=== PATIENT | female | born 1935 | race Caucasian/White ===

== ENCOUNTER 2017-08-21 08:09 | Inpatient (IN) ==
[2017-08-21] MEDS ORDERED: SODIUM CHLORIDE 1,000 ML IV STA (08:29)
--- NOTE | 2017-08-21 08:41 | ED.PDOC ---
General ED Provider: Dr. HANNAH GOLDSTEIN JR Chief Complaint: Weakness Stated Complaint: mental changes at [facility] son states slurring speech weak this morning yesterday moved from rehab side , informed low bp and fever thismorning . Patient alert and oriented x2 good short term memory agrees to CT scan. skf- 74/30 52 18 99.8 Time Seen by Physician: 08:42 Mode of Arrival: Ambulance Information Source: Patient, Family, Care Home Exam Limitations: Clinical condition, Dementia, Altered mental status Referred to ED by: PCP Nursing and Triage Documentation Reviewed and Agree: No Review of Systems - Review Of Systems Constitutional: Reports: Malaise, Weakness Eyes: Reports: No symptoms Ears, Nose, Mouth, Throat: Reports: No symptoms Respiratory: Reports: No symptoms Cardiac: Reports: No symptoms GI: Reports: No symptoms : Reports: No symptoms Musculoskeletal: Reports: Other Skin: Reports: No symptoms Neurological: Reports: Weakness, Other (slurred speech) Endocrine: Reports: No symptoms Hematologic/Lymphatic: Reports: No symptoms All Other Systems: Other Past Medical History - Past Medical History Previously Healthy: No Endocrine: Reports: Unknown Cardiovascular: Reports: Unknown Respiratory: Reports: Unknown Hematological: Reports: Unknown Gastrointestinal: Reports: Unknown Genitourinary: Reports: Unknown Neuro/Psych: Reports: Unknown Musculoskeletal: Reports: Unknown Cancer: Reports: Unknown - Surgical History General Surgical History: Reports: Unknown - Family History Family History: Reports: Unknown - Social History Smoking Status: Unknown if ever smoked Lives: In Care Home Physical Exam - Physical Exam Appearance: Ill-appearing, Obese Ill-appearing: Mild Pain Distress: Mild Eyes: [place], EOMI, Conjunctiva clear (right lid lag) ENT: Ears normal (erythema eacs c/o cerumen(not present)), Nose normal, Oropharynx normal Neck: Supple Respiratory: Airway patent, Breath sounds clear, Breath sounds equal, Respirations nonlabored Cardiovascular: RRR, Pulses normal, No rub, No murmur GI/: Soft Musculoskeletal: No edema, No calf tenderness, Limited ROM (but symmetric weakness good effort, no localization), Limited strength Neurological: Sensation intact, Motor intact, Reflexes intact, Focal Deficit ( slight slurring of speech decreased tone right face rachelle lid lag and grimace) Psychiatric: Affect appropriate, Mood appropriate Interpretation - Radiology Interpretation Radiology Interpretation By: Radiologist Radiology Results: No acute changes Exam Interpreted: CXR Re-Evaluation - Re-Evaluation Time of Re-Evaluation: 10:15 (no urine bolus recommended 300cc) Status: Unchanged Critical Care Note - Critical Care Note Total Time (mins): 15 Course - Course Hematology/Chemistry: 08/21/17 08:29 08/21/17 09:00 Orders, Labs, Meds: Lab Review 08/21/17 08/21/17 08/21/17 08:29 09:00 09:00 WBC 14.00 H RBC 3.38 L Hgb 10.9 L Hct 33.1 L MCV 97.9 MCH 32.2 H MCHC 32.9 RDW Coeff of [place] 14.9 H Plt Count 186 Immature Gran % (Auto) 0.5 Neut % (Auto) 82.2 Lymph % (Auto) 9.8 L [place] % (Auto) 6.3 Eos % (Auto) 0.9 Baso % (Auto) 0.3 Immature Gran # (Auto) 0.1 Neut # 11.5 H Lymph # 1.4 [place] # 0.9 Eos # 0.1 Baso # 0.0 Sodium 131 L Potassium 4.9 Chloride 102 Carbon Dioxide 17 L Anion Gap 16.9 BUN 59 H Creatinine 2.30 H Estimated GFR (MDRD) 20.00 BUN/Creatinine Ratio 25.65 Glucose 197 H Lactic Acid Calcium 10.6 H Total Bilirubin 0.61 AST 9 L ALT < 6 L Alkaline Phosphatase 72 Total Creatine Kinase 26 Troponin I < 0.0100 B-Natriuretic Peptide 31 Total Protein 6.9 Albumin 3.7 Globulin 3.2 Albumin/Globulin Ratio 1.16 Procalcitonin 08/21/17 08/21/17 09:00 09:00 WBC RBC Hgb Hct MCV MCH MCHC RDW Coeff of Alexia Plt Count Immature Gran % (Auto) Neut % (Auto) Lymph % (Auto) [place] % (Auto) Eos % (Auto) Baso % (Auto) Immature Gran # (Auto) Neut # Lymph # [place] # Eos # Baso # Sodium Potassium Chloride Carbon Dioxide Anion Gap BUN Creatinine Estimated GFR (MDRD) BUN/Creatinine Ratio Glucose Lactic Acid 23.7 H Calcium Total Bilirubin AST ALT Alkaline Phosphatase Total Creatine Kinase Troponin I B-Natriuretic Peptide Total Protein Albumin Globulin Albumin/Globulin Ratio Procalcitonin 0.09 Orders Category Date Time Status ADMIT PATIENT INPATIENT .TO [facility] (MONITORED BED) ADMISSION 08/21/17 10: 25 Active EKG-(ED ONLY) Stat CARDIO 08/21/17 08:29 Completed EKG-(IP & OP ONLY) DAILY CARDIO 08/22/17 06:00 Ordered EKG-(IP & OP ONLY) DAILY CARDIO 08/23/17 06:00 Ordered ACTIVITY .Early Mobilization for VTE Prevention CARE 08/21/17 10:25 Active BLOOD GLUCOSE MONITORING 0630,1100,1700,2100 CARE 08/21/17 10:28 Active GIVE HS SNACK 2100 CARE 08/21/17 10:29 Active INTAKE & OUTPUT Q8HR CARE 08/21/17 10:25 Active Neuro Checks [NEUROLOGICAL CHECKS] Q2HR CARE 08/21/17 10:30 Active TELEMETRY MONITORING TELE CARE 08/21/17 10:25 Active VITAL SIGNS Q4HR CARE 08/21/17 10:25 Active CLEAR LIQUID DIET DIETARY 08/21/17 Lunch Ordered HS SNACK DIETARY 08/21/17 Dinner Ordered ED TILE GRADER APPLIED .ONCE EMERGENCY 08/21/17 08:29 Active ED IV/MEDIPORT/POWERPORT .ONCE EMERGENCY 08/21/17 08:29 Active B-TYPE NATRIURETIC PEPTIDE Stat LAB 08/21/17 09:00 Completed BLOOD CULTURE Stat LAB 08/21/17 09:45 Received CBC W/ AUTO DIFF DAILY@0600 LAB 08/22/17 06:00 Ordered CBC W/ AUTO DIFF DAILY@0600 LAB 08/23/17 06:00 Ordered CBC W/ AUTO DIFF Stat LAB 08/21/17 08:29 Completed COMPREHENSIVE METABOLIC PANEL DAILY@0600 LAB 08/22/17 06:00 Ordered COMPREHENSIVE METABOLIC PANEL DAILY@0600 LAB 08/23/17 06:00 Ordered COMPREHENSIVE METABOLIC PANEL Stat LAB 08/21/17 09:00 Completed CREATINE KINASE Stat LAB 08/21/17 09:00 Completed LACTIC ACID Stat LAB 08/21/17 09:00 Completed LITHIUM Stat LAB 08/21/17 09:45 Received PROCALCITONIN Stat LAB 08/21/17 09:00 Completed PT WITH INR DAILY@0600 LAB 08/22/17 06:00 Ordered PT WITH INR DAILY@0600 LAB 08/23/17 06:00 Ordered TROPONIN I Stat LAB 08/21/17 09:00 Completed UA [URINALYSIS C & S IF INDICATED] Stat LAB 08/21/17 08:30 Uncollected UA [URINALYSIS C & S IF INDICATED] Stat LAB 08/21/17 09:00 Uncollected 0.9 % Sodium Chloride [Saline Flush] MEDS 08/21/17 08:29 Active 1 syr IVF PRN PRN Acetaminophen [Tylenol] MEDS 08/21/17 10:25 Active 650 mg PO Q4H PRN Acetaminophen [Tylenol] MEDS 08/21/17 10:30 Ordered 650 mg PO Q6HR PRN Aspirin [Aspirin EC] MEDS 08/22/17 09:00 Ordered 81 mg PO DAILY Atorvastatin Calcium [Lipitor] MEDS 08/21/17 21:00 Ordered 20 mg PO BEDTIME Cyanocobalamin (Vitamin B-12) [Vitamin B-12] MEDS 08/22/17 09:00 Ordered 100 mcg PO DAILY Furosemide [Lasix Tab] MEDS 08/22/17 09:00 Ordered 20 mg PO DAILY Gabapentin [Neurontin] MEDS 08/21/17 21:00 Ordered 200 mg PO BID Lactobacil 2-S.thermo-Bifido 1 [Vsl#3 Capsule] MEDS 08/21/17 21:00 Ordered 1 each PO BID [place] Carbonate [Croydon Carbonate] MEDS 08/22/17 09:00 Ordered 300 mg PO DAILY Loperamide HCl [Loperamide] MEDS 08/21/17 10:30 Ordered 2 mg PO Q8HR PRN Risperidone [Risperdal] MEDS 08/21/17 21:00 Ordered 0.25 mg PO BEDTIME Sodium Chloride 0.9% [Sodium Chloride] 1,000 ml MEDS 08/21/17 10:30 Active IV 75 mls/hr Sodium Chloride 0.9% [Sodium Chloride] 1,000 ml MEDS 08/21/17 08:29 Active IV BOLUS RESUSCITATION STATUS Routine OTHERS 08/21/17 10:25 Ordered CHEST, 1V AP ONLY Stat RADS 08/21/17 08:[address] HEAD W/O CONTRAST Stat RADS 08/21/17 08:31 Completed Medications Generic Name Dose Route Start Last Admin Trade Name Freq PRN Reason Stop Dose Admin Acetaminophen 650 mg 08/21/17 10:25 Tylenol PO Q4H PRN Mild Pain Acetaminophen 650 mg 08/21/17 10:30 Tylenol PO Q6HR PRN Fever >101 Aspirin 81 mg 08/22/17 09:00 Aspirin Ec PO DAILY BOOGIE Atorvastatin Calcium 20 mg 12/07/17 21:00 Lipitor PO BEDTIME BOOGIE Furosemide 20 mg 08/22/17 09:00 Lasix Tab PO DAILY BOOGIE Gabapentin 200 mg 08/21/17 21:00 Neurontin PO BID BOOGIE Sodium Chloride 1,000 mls @ 85 mls/hr 08/21/17 08:29 12 08:34 Sodium Chloride IV 08/21/17 20:14 85 mls/hr BOLUS STA Administration Sodium Chloride 1,000 mls @ 75 mls/hr 08/21/17 10:30 Sodium Chloride IV .[id number] BOOGIE Non-Formulary Medication 1 each 08/21/17 21:00 Lactobacil 2-S.Thermo-Bifido 1 [Vsl#3 Capsule] PO BID BOOGIE Non-Formulary Medication 300 mg 08/22/17 09:00 [place] Carbonate [[place] Carbonate] PO DAILY BOOGIE Non-Formulary Medication 2 mg 08/21/17 10:30 Loperamide Hcl [Loperamide] PO Q8HR PRN Diarrhea Non-Formulary Medication 100 mcg 08/22/17 09:00 Cyanocobalamin (Vitamin B-12) [Vitamin B-12] PO DAILY [facility] Risperidone 0.25 mg 08/21/17 21:00 Risperdal PO BEDTIME [facility] Sodium Chloride 1 syr 08/21/17 08:29 Saline Flush IVF PRN PRN To flush IV Vital Signs: Temp Pulse Resp BP Pulse Ox 08/21/17 08:25 97.4 F L 70 20 119/88 98 Departure - Departure Time of Disposition: 10:37 Disposition: ADMITTED INPATIENT Discharge Problem: TIA (transient ischemic attack) Condition: Fair Pt referred to PMD for follow-up: Yes (bejgum) Allergies/Adverse Reactions: Allergies codeine Adverse Reaction (Verified 08/21/17 08:59) iodine Adverse Reaction (Verified 08/21/17 08:59) metoclopramide Adverse Reaction (Verified 08/21/17 08:59) Home Medications: Ambulatory Orders Acetaminophen [Pain & Fever] 650 mg PO Q6HR PRN 08/21/17 Aspirin [Aspirin EC] 81 mg PO DAILY 08/21/17 Atorvastatin Calcium [Lipitor] 20 mg PO BEDTIME 08/21/17 Cyanocobalamin (Vitamin B-12) [Vitamin B-12] 100 mcg PO DAILY 08/21/17 Furosemide [Lasix] 20 mg PO DAILY 08/21/17 Gabapentin [Neurontin] 200 mg PO BID 08/21/17 Lactobacil 2-S.thermo-Bifido 1 [Vsl#3 Capsule] 1 each PO BID 08/21/17 [place] Carbonate 300 mg PO DAILY 08/21/17 Loperamide HCl [Loperamide] 2 mg PO Q8HR PRN 08/21/17 Risperidone [Risperdal] 0.25 mg PO BEDTIME 08/21/17 - Neurological Deficit Complaint/Exam Patient Complains of: Reports: Muscle weakness Symptom Onset Unknown: Yes Symptom Onset Date: 08/21/17 (unknown timw) Symptom Onset Time: 00:00 Symptoms Are: Still present Worse Since: 08/20 Timing: Intermittent Initial Severity: Mild Current Severity: Mild Location: Reports: Generalized, Facial Character: Reports: Motor weakness, Impaired speech Aggravating: Reports: None Alleviating: Reports: None Associated Signs and Symptoms: Reports: Fever. Denies: Confusion, Agitation, Responsiveness, LOC, Headache, Nuchal rigidity, Recent trauma, Remote trauma, Recent illness CVA Risk Factors: Reports: Diabetes, Hypertension, Smoking SDH Risk Factors: Reports: Elderly Related Surgical History: Reports: None Carotid Bruit Present: No Meningeal Signs Positive: No Focal Weakness: Present: Right facial Focal Sensory Loss: Present: None Gait: Unsteady, Unable Nystagmus Present: No Gag Reflex Present: Yes [id number]: Abnormal right, Abnormal left Heel to Toe Normal: No Signs of Trauma: No NIH Scale Score (see protocol): 8 IV t-PA Prescribed: No Reasons for not prescribing IV t-PA: Medical contraindication Differential Diagnoses: CVA, TIA, Drug Ingestion, Metabolic Imbalance Quality Indicator For Non-Traumatic Chest Pain/Syncope: EKG Performed - NIH Stroke Scale 1a. Level of Consciousness: 0=Alert and keenly responsive 1b. Level of Consciousness Questions: 0=Answers correctly to two questions 1c. Level of Consciousness Commands: 0=Performs two tasks correctly 2. Best Gaze: 0=Normal 3. Visual: 0=No visual loss 4. Facial Palsy: 1=Minor paresis (flattened nasolabila fold) 5a. Motor Left Arm: 2=Some effort against gravity, drifts to bed 5b. Motor Right Arm: 2=Some effort against gravity, drifts to bed 6b. Motor Right Le=Some effort against gravity, drifts to bed 7. Limb Ataxia: 0=Absent 8. Sensory: 0=Normal 9. Best Language: 0=No aphasia 10. Dysarthria: 1=Mild to moderate, but can be understood 11. Extincion and Inattention: 0=Normal Stroke Scale Total: 8
--- NOTE | 2017-08-21 09:20 | DI ---
EXAM: Single view of the chest. History: Chest pain. Comparison: Chest radiograph 07/03/2017 Findings: Heart size is upper limits of normal. Atherosclerotic vascular calcifications. No focal consolidation. No appreciable pleural fluid and no pneumothorax. No acute osseous abnormalities. Impression: No acute cardiopulmonary process
--- NOTE | 2017-08-21 10:19 | CT ---
EXAM: CT of the head without contrast History: Altered mental status and weakness. Comparison: Head CT 07/03/2017 Technique: Multiplanar CT images through the head were obtained without the administration of IV con trast Findings: Stable chronic left maxillary sinusitis. There is new air fluid level and opacification o f the left sphenoid sinus. Mastoid air cells are generally clear. No acute calvarial abnormalities. Intracranially the ventricular and cisternal spaces are normal in size, shape and configuration for a patient of this age. No dominant mass or midline shift. No hydrocephalous. No acute intracranial hemorrhage or abnormal extraaxial fluid collections. No change in the periventricular and subcortica l white matter hypodensities. Impression: 1. No acute intracranial process. 2. Chronic small vessel ischemic disease. 3. Acute left sphenoid sinusitis. 4. Stable chronic left maxillary sinusitis
[2017-08-21] MEDS ORDERED: TYLENOL PO PRN ×2 (10:25→10:30)
[2017-08-21] MEDS ORDERED: NON-FORMULARY MEDICATION (Loperamide Hcl [Loperamide] 2 MG) PO PRN (10:30)
[2017-08-21] MEDS ORDERED: IMODIUM PO PRN (10:41)
[2017-08-21 11:52] VITALS: BMI 35.5
[2017-08-21] MEDS: SODIUM CHLORIDE 1,000 ML IV SCH (15:55)
[2017-08-21] MEDS: NEURONTIN PO SCH (20:46)
[2017-08-21] MEDS: RISPERDAL PO SCH (20:46)
[2017-08-21] MEDS: LIPITOR PO SCH (20:46)
[2017-08-21] MEDS: FLORASTOR PO SCH (20:46)
[2017-08-21] MEDS ORDERED: [UNRECOGNIZED DRUG - OTHER] PO SCH (21:00)
[2017-08-21] MEDS ORDERED: LACTOBACIL PO SCH (21:00)
[2017-08-22] MEDS: SODIUM CHLORIDE 1,000 ML IV SCH (06:04)
[2017-08-22] MEDS ORDERED: LASIX TAB PO SCH (06:30)
--- NOTE | 2017-08-22 08:28 | CT ---
EXAM: CT abdomen pelvis without contrast TECHNIQUE: Helical axial CT of the abdomen and pelvis was performed without contrast with coronal an d sagittal reconstructions. COMPARISON: CT abdomen pelvis from 10/07/2013 HISTORY: Diarrhea FINDINGS: There is some mild mesenteric inflammation seen associated with the sigmoid colon along with multiple colonic diverticuli. There is no free air or abscess formation. There is no focal fluid collection . There is no bowel obstruction or ileus. There are no pathologic lymph nodes. The liver, spleen, pancreas,and adrenal glands show no acute abnormality. Lung bases are well-aerate d. There is a large hiatal hernia. There has been prior cholecystectomy. There is no biliary or panc reatic ductal dilatation. There are no suspicious renal masses or large cysts and no hydronephrosis. There are no kidney stones . Both ureters demonstrate normal course and caliber. There is no filling defect in the urinary blad link. There has been prior hysterectomy. The appendix is not definitely seen. There are no abdominal wall hernias. There is calcific atherosc lerosis of the aorta with no aneurysm. There are no acute osseous abnormalities. IMPRESSION: 1. Uncomplicated sigmoid diverticulitis. 2. Large hiatal hernia. 3. Prior hysterectomy and prior cholecystectomy.
[2017-08-22] MEDS: NEURONTIN PO SCH ×2 (08:30→21:29)
[2017-08-22] MEDS: NON-FORMULARY MEDICATION (Cyanocobalamin (Vitamin B-12) [Vitamin B-12] 100 MCG) PO SCH (08:30)
[2017-08-22] MEDS: FLORASTOR PO SCH ×2 (08:30→21:29)
[2017-08-22] MEDS: ASPIRIN EC PO SCH (08:30)
[2017-08-22] MEDS ORDERED: LITHIUM CARBONATE 300 MG PO SCH (09:00)
--- NOTE | 2017-08-22 10:34 | RS.PTINEVL ---
Subjective - Patient information Date of Evaluation: 08/22/17 Date of Arrival on Unit: 08/21/17 Admitted From:: Retirement Diagnosis: TIA/CVA, diarrhea, kidney dz Usual Living Arrangement: Retirement Home Environment: Level/No stairs Medical History: Hypertension, COPD, Diabetes Medical History Comments:: heart murmur, bipolar disorder LATEX ALLERGY?: No Surgical History: Knee Replacement Subjective Information/ Patient Comments:: pt states if they bring me any more of this food I am going to throw it in the floor. (pt talking about liquid diet) . Granddtr states that pt was being dc from PT at the intermediate, but was able to transfer and amb short distances. - Level of function Prior to this admission, the patient could do the following:: Partially Dependent Ambulation Current Level of Function: Dependent Current Equipment Used at Home: wheelchair, glucometer, bedside commode. Lives at [facility]. Pain Assessement - Location Left Leg Description: Burning, Sharp Pain Behavior: Facial Grimacing, Screaming Pain Aggravating Factors: Changing Position, Exercise/Activity, Standing, Walking Effects of Pain: pt unable to rate pain due to mental status changes, states her heel hurts. Interventions - Objective Patient Orientation: Person, Place Current Interventions: IV's, Telemetry Range of Motion - ROM Right Upper Extremity AROM: WFL's Left Upper Extremity AROM: WFL's Right Lower Extremity AROM: Slight limitation Left Lower Extremity AROM: Slight limitation Muscle Strength - Muscle Strength Right Upper Extremity Strength: Mild Weakness (shld flex 3+/5, elbow flex/ext 4- /5,) Left Upper Extremity Strength: Mild Weakness (shld flex 3+/5, elbow flex/ext 4-/ 5,) Right Lower Extremity Strength: Mild Weakness (hip flex 3/5, knee flex/ext 3/4, ankle DF/PF 4-/5) Left Lower Extremity Strength: Mild Weakness (hip flex 3/5, knee flex/ext 3/4, ankle DF/PF 4-/5) Sensation - Sensation Right Upper Extremity Sensation: Intact/Normal Left Upper Extremity Sensation: Intact/Normal Right Lower Extremity Sensation: Impaired (c/o pins/needles sensation BLE due to neuropathy (per pt)) Left Lower Extremity Sensation: Impaired (c/o pins/needles sensation BLE due to neuropathy (per pt)) Balance - Sitting Balance and Reactions Static Sitting Balance: Fair Dynamic Sitting Balance: Poor Sitting Equilibrium Reactions: Delayed Left, Delayed Right Sitting Protective Reactions: Delayed Left, Delayed Right - Standing Balance and Reactions Static Standing Balance: Poor Dynamic Standing Balance: Poor Standing Equilibrium Reactions: Delayed Left, Delayed Right Standing Protective Reactions: Delayed Left, Delayed Right - Comments Balance Assessment Comments: pt does not follow commands with standing as well as transfers with significantly flexed posture Functional Mobility - Bed Mobility Rolling R/L: Mod Assist, 2 person assist Scooting: Mod Assist, Max Assist, 2 person assist Supine to Sit: Max Assist, 2 person assist - Transfers Sit to Stand: Max Assist, 2 person assist - Safety Awareness Safety Awareness: Poor Ambulation - Ambulation Assistive Device Used: Rolling Walker Orthotic/Prosthetic Device: No Distance: 2 steps Assistance needed with Ambulation: Max Assist, 2 person assist Quality of Ambulation: pt does not follow commands regarding safety. pt pushes wx out in front with significantly flexed posture. Gait Deviations: Forward posture, Short stride Factors Affecting Ambulation: Decreased Balance (pt very afraid of falling), Weakness, Cognitive Status Treatment time - Time with patient Total treatment time: 32 Patient Education - Education Patient Education: Activity Modification, Education of Plan of Care Teaching Recipient: Patient, Family Teaching Methods: Discussion (Discussed POC with pt and ella(who is a nurse at [employer] [facility])) Assessment - Assessment Problem List:: Decreased level of function, Requires training/education, Decreased safety/Risk of falls, Weakness, Pain limits previous level of function , Cognitive status limits abilities Rehab Potential: Fair Further Therapy Indicated?: Yes Short Term Goals GOAL #1: pt demonstrate rolling in bed with bed rails with min x 2 Goal to be met by: 08/25/17 GOAL #2: pt transfer sup to/from sit to stand with mod x 2 Goal to be met by: 08/25/17 GOAL #3: pt perform stand pivot bed to/from chair with mod x 2 Goal to be met by: 08/25/17 Snf Goals GOAL #1: pt transfer sup to/from sit to/from stand min to mod x 2 Goal to be met by: 08/27/17 GOAL #2: pt amb with rwx 25ft with min to mod x 2 Goal to be met by: 08/27/17 GOAL #3: pt able to maintain sitting balance with supervision Goal to be met by: 08/27/17 Plan Plan of Care: Therapeutic EX, Therapeutic Activity, Self-Care/Home Management Other:: gait training Frequency of Treatment: 1-2 X day, as tolerated Duration of Treatment: 5 days Anticipated Discharge Destination: [facility] Has the Physician been added for Co-signature?: Yes
--- NOTE | 2017-08-22 12:01 | RS.OTINEVL ---
Subjective - Patient information Date of Evaluation: 08/22/17 Date of Arrival on Unit: 08/21/17 Admitted From:: Long-Term Diagnosis: Muscle WEakness, pain, Mental status change, TIA vs. CVA, renal failure Usual Living Arrangement: Long-Term Living Arrangement Comments: Pt living at [facility]. 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 I have neuropathy." - Level of function Prior to this admission, the patient could do the following:: Partially Dependent Ambulation Abilities prior to this admission: Pt was transferring with a rolling walker to a chair. Pt was having difficulty with transfers and has had many falls so they told her to not walk but to stay in a Wheelchair. Current Level of Function: Partially Dependent Current Equipment Used at Home: wheelchair, glucometer, bedside commode. Lives at [facility]. Pain Assessment - Pain Pain Score: 6 Side: bilateral Pain Location Body Site: Foot Pain Aggravating Factors: Changing Position, Standing, Walking Pain Alleviating Factors: Medication, Sitting Interventions - Objective Patient Orientation: Person, Place Current Interventions: IV's, Oxygen, Telemetry Observation: Pt is lethargic intermittently. Pt is weak and is maximum assistance x 2 to stand from chair. Interventions - ROM Right Upper Extremity AROM: Moderate limitation Left Upper Extremity AROM: Moderate limitation - Strength Right Upper Extremity Strength: Severe Weakness Left Upper Extremity Strength: Mild Weakness - Sensation Right Upper Extremity Sensation: Intact/Normal Left Upper Extremity Sensation: Intact/Normal Balance - Sitting Balance Static Sitting Balance: Poor Dynamic Sitting Balance: Poor - Standing Balance Static Standing Balance: Poor Dynamic Standing Balance: Poor - Comments Balance Assessment Comments: Pt requires a RW and 2 people to stand. ADL Skills - Self Feeding Self Feeding: Independent - Grooming Grooming: Min Assist - Bathing Bathing UE: Mod Assist, 2 person assist Bathing LE: Max Assist, 2 person assist - Dressing Dressing UE: Mod Assist, 1 person assist Dressing LE: Max Assist, 1 person assist - Toilet Management Toileting Management: Max Assist, 2 person assist Functional Mobility - Bed Mobility Rolling R/L: Max Assist, 2 person assist Scooting: Max Assist, 2 person assist Supine to Sit: Max Assist, 2 person assist Sit to Supine: Max Assist, 2 person assist - Transfers Sit to Stand: Max Assist Stand to Sit: Max Assist, 2 person assist Stand Pivot Transfers: Max Assist, 2 person assist - Ambulation Weight Bearing Status: FWB Assistive Device Used: Rolling Walker Assistance needed with Ambulation: Max Assist, 2 person assist Comments:: When pt is tired, she may need to be put back to bed with a lift. - Safety Awareness Safety Awareness: Poor Additional Treatment Performed - Additional units charged ADL: 15 - Time with patient Total treatment time: 28 Activities Patient Interests:: Watching Television, Visiting/Socializing Patient Education Patient Education: Education of Plan of Care Teaching Recipient: Patient Teaching Methods: Discussion, Demonstration Assessment Problem List:: Decreased level of function, Requires training/education, Decreased safety/Risk of falls, Weakness, Pain limits previous level of function Rehab Potential: Good Further Therapy Indicated?: Yes Short Term Goals - Goals GOAL 1: Pt to increase sit to stand to CGA from Chair. Goal to be met by: 08/29/17 GOAL 2: To increase BUE shoulder AROM of flexion to 110 degrees. Goal to be met by: 08/29/17 GOAL 3: Pt to increase toilet transfers to CGA. Goal to be met by: 08/29/17 [facility] Goals GOAL 1: Pt to increase sit to stand to Mod-I from Chair. Goal to be met by: 09/05/17 GOAL 2: To increase BUE shoulder AROM of flexion to 120 degrees. Goal to be met by: 09/05/17 GOAL 3: Pt to increase toilet transfers to Mod-I. Goal to be met by: 09/05/17 Plan Plan of Care: Therapeutic EX, Neuromuscular Re-Educ, Therapeutic Activity, Self- Care/Home Management Modalities: Hot Pack, Cold Pack/Cryotherapy, Ultrasound, Electrical Stimulation Frequency of Treatment: 1-2 X day, as tolerated Duration of Treatment: 2 Weeks Anticipated Discharge Destination: [facility] Has the Physician been added for Co-signature?: Yes
[2017-08-22] MEDS: ROCEPHIN 1 GM in SODIUM CHLORIDE 50 ML IV SCH (12:51)
[2017-08-22] MEDS: FLAGYL 500 MG/100 ML 500 MG in PREMIX 100 ML NS 1 BAG IV SCH ×2 (13:35→21:29)
[2017-08-22] MEDS: LITHIUM CARBONATE PO SCH (14:21)
--- NOTE | 2017-08-22 15:28 | HP ---
DATE OF SERVICE: 08/21/17 CHIEF COMPLAINT: Change in mental status. HISTORY OF PRESENT ILLNESS: The patient is an 82-year-old female who is a group home resident at [facility]. She was getting Keflex for UTI, started having diarrhea, watery, nonbloody for 3 to 4 days. Today, when the patient's nurse was making the rounds, the patient was unresponsive and blood pressure was in the 70s. At that time, the patient was sent to the emergency room. En route the patient was awake and alert. By the time the patient came to the emergency room, blood pressure was 74 and in the process [place] [address], BUN 59, creatinine 2.30, lactic acid was 23.7, sodium 131. UA leukocyste esterace positive. CT scan of the head negative. Chest x-ray no acute cardiopulmonary problem. Bolus fluids were given in the emergency room. Blood pressure got better, went up to 119/88. At that time, the patient is admitted to the hospital for acute renal failure, acute gastroenteritis, rule out C. diff, urinary tract infection, change in mental status secondary to renal failure. The patient has bipolar disorder also. PAST MEDICAL HISTORY: Hypertension Dyslipidemia Alzheimer's dementia History of pneumonia Diarrhea (right now) History of kidney failure Osteoarthritis Depression/bipolar Hypothyroidism PAST SURGICAL HISTORY: Hysterectomy Bilateral knee replacement Cataract surgery Tonsillectomy REVIEW OF SYSTEMS: CONSTITUTIONAL: Weakness, tiredness. No night sweats. No fever or chills. HEENT: Eyes: No visual changes. No eye pain. No eye discharge. ENT: No runny nose. No epistaxis. No sinus pain. No sore throat. No odynophagia. No ear pain. No congestion. RESPIRATORY: No cough, no congestion. No hemoptysis. No shortness of breath. CARDIOVASCULAR: No angina symptoms. No CHF symptoms. No atypical chest pain for CAD. No palpitations. No orthopnea. GASTROINTESTINAL: Positive for diarrhea and abdominal cramping. No nausea or vomiting. No hematemesis. No hematochezia. GENITOURINARY: No urgency. No frequency. No dysuria. No hematuria. No obstructive symptoms. No discharge. No pain. No significant abnormal bleeding. MUSCULOSKELETAL: No musculoskeletal pain. No joint swelling. No arthritis. NEUROLOGICAL: No headache. No neck pain. No syncope. No seizures. No dizziness. PSYCHIATRIC: Not anxious. No depression. No suicidal thoughts. No homicidal thoughts. SKIN: No rash. No lesions. No wounds. ENDOCRINE: No unexplained weight loss. No weight gain. HEMATOLOGIC/LYMPHATIC: No anemia. No purpura. No petechiae. No prolonged or excessive bleeding. No palpable lymph nodes. PERSONAL/FAMILY/SOCIAL HISTORY: Lives at the group home partially dependent upon the ADLs. Family history significant for diabetes and cancer. MEDICATIONS: (Care Home) Neurontin Risperdol Hauser Lasix Lipitor Aspirin Loperamide Tylenol Lactobacillus Cyancobalamin Lisinopril ALLERGIES: CODEINE, IODINE, METOCLOPRAMIDE PHYSICAL EXAMINATION: VITAL SIGNS: BP 119/88, respiratory rate 20, heart rate 70, temperature 97.4, saturation 98. HEENT: Head normocephalic, atraumatic. Eyes: Extraocular muscles are intact. Pupils are equal, round and reactive to light and accommodation. Ears: No lesions. Nose appeared normal. Throat: No exudate or erythema. Pallor positive. No icterus. NECK: Supple. No JVD, no carotid bruit. No lymphadenopathy or thyromegaly. LUNGS: Clear to auscultation. Percussion note normal. Chest symmetrical. HEART: S1, S2, no S3. No murmurs. No cyanosis or clubbing. No ascites. Pulses: Dorsalis pedis and posterior tibial pulses +1 to +2 both sides. ABDOMEN: Soft. Discomfort all over. No rigidity, guarding or CVA tenderness. EXTREMITIES: No edema. Full range of motion of all extremities, equal. NEUROLOGIC: Awake and alert, oriented times three. No focal deficit. Cranial nerves II through XII are grossly intact. No headache, no double vision or headache. SKIN: Not dry. Intact. Turgor - normal. LYMPHATIC: No palpable lymph nodes/no lymphedema. MUSCULOSKELETAL: Normal joints with no swelling. Muscle tone is normal. LABS: White count 14.0, hemoglobin 10.9, hematocrit 33.1, platelet count 186. Sodium 131, potassium 4.9, chloride 102, bicarb 17, BUN 59, creatinine 2.30, glucose 97 , lactic acid 23.7. Urine nitrates negative. Leukocyte esterase positive. ASSESSMENT: 1. ACUTE RENAL FAILURE 2. GASTROENTERITIS 3. DIARRHEA, RULE OUT C. DIFF PATIENT WAS RECENTLY ON ANTIBIOTIC 4. UTI 5. ALZHEIMER'S DEMENTIA 6. HYPERTENSION 7. DYSLIPIDEMIA 8. DEPRESSION/BIPOLAR PLAN: 1. Admit the patient to the regular floor. 2. CBC, CMP today and daily. 3. Cardiac enzymes and troponin. 4. IV fluids. 5. Hauser level. 6. CT abdomen and pelvis. 7. IV fluids at 75 mL/hr. 8. Will start the patient on Rocephin 1 gm daily. 9. Stool for C. diff TIME SPENT: More than 75 minutes. MTDD
--- NOTE | 2017-08-22 15:35 | PN ---
DATE OF SERVICE: 08/22/17 SUBJECTIVE: The patient was admitted with change in mental status, acute on chronic renal failure, diarrhea. The patient has been evaluated for C. diff. The patient is confused, doesn't know where she is or what she is doing right now. No fever since admission, still having diarrhea. REVIEW OF SYSTEMS: CONSTITUTIONAL: No fever, no chills. Confused. HEENT: Normal. ENDOCRINE: No weight gain, no weight loss. CVS: No angina symptoms. No CHF symptoms. No palpitations. No atypical chest pain for CAD. No shortness of breath. No PND, no orthopnea. RESPIRATORY: No cough, no hemoptysis. GI: Diarrhea. No nausea, no vomiting. No abdominal pain. : No hematuria. No polyuria. MUSCULOSKELETAL:. No joint swelling. PSYCHIATRIC: Not anxious. No depression. No suicidal thoughts. No homicidal thoughts. SKIN: Intact. No rash. PHYSICAL EXAMINATION: V/S: BP 138/48, respiratory rate 19, heart rate 81, temperature 98.4, saturation 99 on 2L. HEENT: Normocephalic, atraumatic. Mucosa dry, pallor positive. No icterus. NECK: Supple. No JVD, no carotid bruit. No lymphadenopathy. LUNGS: Clear to auscultation. No rales or rhonchi. HEART: S1, S2 normal. No S3. No murmur, gallop or regurgitation. ABDOMEN: Soft. Discomfort is present. Bowel sounds are hyperactive. No rigidity. No rebound or guarding. No CVA tenderness. EXTREMITIES: No clubbing, cyanosis or pedal edema. MUSCULOSKELETAL: No joint swelling. NEUROLOGIC: Awake, alert, oriented times three. No focal deficit. Moving all four extremities. LYMPHATIC: No lymph nodes palpable. SKIN: Intact. LABS: White count 11.26, hemoglobin 10.0, hematocrit 31.4, platelet count 161. Sodium 138, potassium 4.5, chloride 111, bicarb 19, BUN 45, creatinine 1.34. Loco level is 1.4, urine positive for leukocyte esterase. ASSESSMENT: 1. ACUTE RENAL FAILURE 2. GASTROENTERITIS 3. DIARRHEA, RULE OUT C. DIFF PATIENT WAS RECENTLY ON ANTIBIOTIC 4. UTI 5. ALZHEIMER'S DEMENTIA 6. HYPERTENSION 7. DYSLIPIDEMIA 8. DEPRESSION/BIPOLAR PLAN: 1. IV fluids at 75 mL/hr 2. Continue medication Loco, Gabapentin 3. Start patient on Rocephin 1 gm daily 4. Flagyl 500 mg q.8hr 5. Daily I & O TIME SPENT: More than 35 minutes MTDD
[2017-08-22] MEDS: RISPERDAL PO SCH (21:29)
[2017-08-22] MEDS: LIPITOR PO SCH (21:29)
[2017-08-23] MEDS: SODIUM CHLORIDE 1,000 ML IV SCH ×4 (00:57→17:53)
[2017-08-23] MEDS: FLAGYL 500 MG/100 ML 500 MG in PREMIX 100 ML NS 1 BAG IV SCH ×2 (04:31→12:09)
[2017-08-23] MEDS: ROCEPHIN 1 GM in SODIUM CHLORIDE 50 ML IV SCH (08:23)
[2017-08-23] MEDS: NEURONTIN PO SCH ×2 (08:24→20:36)
[2017-08-23] MEDS: FLORASTOR PO SCH ×2 (08:25→20:36)
[2017-08-23] MEDS: ASPIRIN EC PO SCH (08:25)
[2017-08-23] MEDS: NON-FORMULARY MEDICATION (Cyanocobalamin (Vitamin B-12) [Vitamin B-12] 100 MCG) PO SCH (08:25)
[2017-08-23] MEDS: LITHIUM CARBONATE PO SCH (08:25)
[2017-08-23] MEDS: RISPERDAL PO SCH (20:36)
[2017-08-23] MEDS: LIPITOR PO SCH (20:37)
[2017-08-24] MEDS: LITHIUM CARBONATE PO SCH (08:47)
[2017-08-24] MEDS: FLORASTOR PO SCH ×2 (08:48→20:59)
[2017-08-24] MEDS: NEURONTIN PO SCH ×2 (08:48→20:59)
[2017-08-24] MEDS: ASPIRIN EC PO SCH (08:48)
[2017-08-24] MEDS: ROCEPHIN 1 GM in SODIUM CHLORIDE 50 ML IV SCH (08:49)
[2017-08-24] MEDS: NON-FORMULARY MEDICATION (Cyanocobalamin (Vitamin B-12) [Vitamin B-12] 100 MCG) PO SCH (08:49)
[2017-08-24] MEDS ORDERED: LASIX IVP STA (15:53)
[2017-08-24] MEDS: LOVENOX SUBCUT SCH (16:09)
[2017-08-24] MEDS: NORCO 5-325 PO SCH (16:09)
[2017-08-24] MEDS: SODIUM CHLORIDE 1,000 ML IV SCH (17:55)
[2017-08-24] MEDS: LIPITOR PO SCH (20:59)
[2017-08-24] MEDS: RISPERDAL PO SCH (20:59)
[2017-08-25] MEDS: NORCO 5-325 PO SCH (04:15)
[2017-08-25] MEDS: LOVENOX SUBCUT SCH (08:22)
[2017-08-25] MEDS: ASPIRIN EC PO SCH (08:22)
[2017-08-25] MEDS: ROCEPHIN 1 GM in SODIUM CHLORIDE 50 ML IV SCH (08:22)
[2017-08-25] MEDS: FLORASTOR PO SCH (08:23)
[2017-08-25] MEDS: NEURONTIN PO SCH (08:23)
[2017-08-25] MEDS: LITHIUM CARBONATE PO SCH (08:23)
[2017-08-25] MEDS: NON-FORMULARY MEDICATION (Cyanocobalamin (Vitamin B-12) [Vitamin B-12] 100 MCG) PO SCH (08:26)
--- NOTE | 2017-08-25 13:55 | PN ---
DATE OF SERVICE: 08/23/17 SUBJECTIVE: The patient was admitted with acute renal failure, change in mental status and UTI. Urine did grow e-coli. The patient is on the Rocephin. No fever. BUN and creatinine is getting better. REVIEW OF SYSTEMS: CONSTITUTIONAL: No fever, no chills. HEENT: Normal. ENDOCRINE: No weight gain, no weight loss. CVS: No angina symptoms. No CHF symptoms. No palpitations. No atypical chest pain for CAD. No shortness of breath. No PND, no orthopnea. RESPIRATORY: No cough, no hemoptysis. GI: No nausea, no vomiting. No abdominal pain. : No hematuria. No polyuria. MUSCULOSKELETAL:. No joint swelling. PSYCHIATRIC: Not anxious. No depression. No suicidal thoughts. No homicidal thoughts. SKIN: Intact. No rash. PHYSICAL EXAMINATION: V/S: Blood pressure 152/54, respiratory rate 22, heart rate 72, temperature 98.8 with saturation 99 on 2 liters. HEENT: Normocephalic, atraumatic. Mucosa dry. Pallor positive. No icterus. NECK: Supple. No JVD, no carotid bruit. No lymphadenopathy. LUNGS: Decreased and clear to auscultation. No rales or rhonchi. HEART: S1, S2 normal. No S3. No murmur, gallop or regurgitation. ABDOMEN: Soft, nontender. Bowel sounds active. No rigidity. No rebound or guarding. No CVA tenderness. EXTREMITIES: No clubbing, cyanosis or pedal edema. MUSCULOSKELETAL: No joint swelling. NEUROLOGIC: Awake, alert, oriented times three. No focal deficit. LYMPHATIC: No lymph nodes palpable. SKIN: Intact. LABS: WBC 7.91, hgb 9.3, hct 29.6, plt count 155, sodium 137, potassium 4.3, chloride 112, bicarb 18, BUN 27, creatinine 0.18, glucose 171 ASSESSMENT: 1. Status post change in mental status mostly from UTI 2. UTI organism E-coli 3. Acute renal failure which is resolved 4. Diarrhea which is better 5. Dehydration has improved 6. History of hypertension 7. Dyslipidemia 8. Bipolar disorder 9. 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 Decrease the IV fluids to 40ml per hour 2. CBC and CMP in the morning 3. Continue Rocephin for UTI Will follow the patient in daily rounds. TIME SPENT: More than 35 minutes MTDD
--- NOTE | 2017-08-25 14:28 | PN ---
DATE OF SERVICE: 08/24/17 SUBJECTIVE: The patient was admitted with change in mental status. The patient is more awake and alert. The patient's two sons and [id number] in the room. Had a lot of questions and all been answered. The patient has swelling in the upper extremity. More awake and alert and complains about the lower back pain and wants some pain medications. Otherwise feeling a lot better. No more diarrhea. REVIEW OF SYSTEMS: CONSTITUTIONAL: No fever, no chills. HEENT: Normal. ENDOCRINE: No weight gain, no weight loss. CVS: No angina symptoms. No CHF symptoms. No palpitations. No atypical chest pain for CAD. No shortness of breath. No PND, no orthopnea. RESPIRATORY: No cough, no hemoptysis. GI: No nausea, no vomiting. No abdominal pain. : No hematuria. No polyuria. MUSCULOSKELETAL:. No joint swelling. PSYCHIATRIC: Not anxious. No depression. No suicidal thoughts. No homicidal thoughts. SKIN: Intact. No rash. PHYSICAL EXAMINATION: V/S: Blood pressure 155/66, respiratory rate 18, heart rate 73, temperature 97.7 with saturation 98% on 2 liters. HEENT: Normocephalic, atraumatic. Mucosa dry. Pallor positive. No icterus. NECK: Supple. No JVD, no carotid bruit. No lymphadenopathy. LUNGS: Decreased and basilar crackles. Clear to auscultation. No rales or rhonchi. HEART: S1, S2 normal. No S3. No murmur, gallop or regurgitation. ABDOMEN: Soft, nontender. Bowel sounds active. No rigidity. No rebound or guarding. No CVA tenderness. EXTREMITIES: No clubbing, cyanosis. 1+ edema. MUSCULOSKELETAL: No joint swelling. NEUROLOGIC: Awake, alert, oriented times three. No focal deficit. LYMPHATIC: No lymph nodes palpable. SKIN: Intact. LABS: WBC 7.97, hgb 9.3, hct 29.6, plt count 155, sodium 137, potassium 4.3, chloride 112, bicarb 18, BUN 27, creatinine 0.88 and glucose 171. ASSESSMENT: 1. Status post change in mental status 2. UTI organism e-coli 3. Diarrhea, C-Diff is negative. 4. Acute renal failure which is better now 5. Alzheimer's dementia 6. Hypertension 7. Dyslipidemia 8. Osteoarthritis 9. DJD spine 10.Depression 11.Bipolar PLAN: 1. Lasix 20mg IV push 2. Lovenox for the DVT prophylaxis 3. Chest x-ray in the morning 4. Incentive spirometry 5. Daily I&O's 6. Start the patient on Hydrocodone Q 12 hours 7. The patient has Codeine allergy but we will find out what kind of allergy she had before we starting the Hydrocodone. Will follow in daily rounds TIME SPENT: More than 35 minutes KIANA
[2017-08-25 14:39] VITALS: BP 148/72; TEMP 98.6
--- NOTE | 2017-08-27 10:59 | PN ---
DATE OF SERVICE: 08/25/17 SUBJECTIVE: The patient was admitted for change in the mental status and UTI. The patient is more awake and alert. Has some upper extremity edema. REVIEW OF SYSTEMS: CONSTITUTIONAL: No fever, no chills. HEENT: Normal. ENDOCRINE: No weight gain, no weight loss. CVS: No angina symptoms. No CHF symptoms. No palpitations. No atypical chest pain for CAD. No shortness of breath. No PND, no orthopnea. RESPIRATORY: No cough, no hemoptysis. GI: No nausea, no vomiting. No abdominal pain. : No hematuria. No polyuria. MUSCULOSKELETAL:. No joint swelling. PSYCHIATRIC: Not anxious. No depression. No suicidal thoughts. No homicidal thoughts. SKIN: Intact. No rash. PHYSICAL EXAMINATION: V/S: Blood pressure 123/68, respiratory rate 18, heart rate 67 and temperature 97.3 with saturation 99% on 2.5 liters. HEENT: Normocephalic, atraumatic. Mucosa dry. Pallor positive. No icterus. NECK: Supple. No JVD, no carotid bruit. No lymphadenopathy. LUNGS: Decreased and basilar crackles. Clear to auscultation. No rales or rhonchi. HEART: S1, S2 normal. No S3. No murmur, gallop or regurgitation. ABDOMEN: Soft, nontender. Bowel sounds active. No rigidity. No rebound or guarding. No CVA tenderness. EXTREMITIES: No clubbing, cyanosis or pedal edema. MUSCULOSKELETAL: No joint swelling. NEUROLOGIC: Awake, alert, oriented times three. No focal deficit. LYMPHATIC: No lymph nodes palpable. SKIN: Intact. LABS: WBC 7.97, hgb 9.3, hct 29.6, plt count 155, sodium 137, potassium 4.3, chloride 112, bicarb 18, BUN 27, creatinine 0.88 and glucose 171. ASSESSMENT: 1. Status post change in mental status 2. UTI, organism e-coli 3. Hypertension 4. Dyslipidemia 5. Osteoarthritis 6. DJD spine 7. Status post acute renal failure, BUN and creatinine is a lot better 8. Alzheimer dementia with behavioral changes 9. Bipolar 10.Depression PLAN: 1. Possible admission to transition care unit for continuing of the IV antibiotics and for possible physical therapy 2. Continue Rocephin 3. IV fluids at 40ml per hour 4. Daily I&O's TIME SPENT: More than 35 minutes KIANA
== END 2017-08-25 04:06 | disposition swing bed (61) | DRG 690 ==
LOC: ED 08:09 → MEDSURG B 10:34
PROVIDERS: ADMIT Emergency Medicine; ATTEND Emergency Medicine
DX: N39.0 Urinary tract infection, site not specified (principal); G45.9 Transient cerebral ischemic attack, unspecified; N17.9 Acute kidney failure, unspecified; F02.81 Dementia in other diseases classified elsewhere, unspecified severity, with behavioral disturbance; K52.9 Noninfective gastroenteritis and colitis, unspecified; B96.20 Unspecified Escherichia coli [E. coli] as the cause of diseases classified elsewhere; E11.9 Type 2 diabetes mellitus without complications; G30.0 Alzheimer's disease with early onset; R60.0 Localized edema; R53.81 Other malaise; R62.7 Adult failure to thrive; M62.81 Muscle weakness (generalized); R26.2 Difficulty in walking, not elsewhere classified; D64.9 Anemia, unspecified; F31.9 Bipolar disorder, unspecified; J44.9 Chronic obstructive pulmonary disease, unspecified; K57.30 Diverticulosis of large intestine without perforation or abscess without bleeding; M54.5 Low back pain; F20.9 Schizophrenia, unspecified; M47.9 Spondylosis, unspecified; M19.90 Unspecified osteoarthritis, unspecified site; E78.5 Hyperlipidemia, unspecified; R41.82 Altered mental status, unspecified; R47.81 Slurred speech; I95.9 Hypotension, unspecified; R23.1 Pallor; R40.2411 Glasgow coma scale score 13-15, in the field [EMT or ambulance]; Z79.84 Long term (current) use of oral hypoglycemic drugs; Z90.49 Acquired absence of other specified parts of digestive tract; Z87.891 Personal history of nicotine dependence; Z79.899 Other long term (current) drug therapy
CPT/HCPCS: 36415; 80053; 80178; 81001; 82550; 82962; 83605; 83880; 84145; 84484; 85025; 85610; 87040; 87081; 87086; 87186; 87493; 93005; 93010; 94150; 96360; 96361; 97802; 99284

== ENCOUNTER 2017-08-25 16:10 | Inpatient (IN) ==
[2017-08-25] MEDS ORDERED: TYLENOL PO PRN ×2 (16:20→16:40)
[2017-08-25] MEDS ORDERED: NON-FORMULARY MEDICATION (Loperamide Hcl [Loperamide] 2 MG) PO PRN (16:20)
[2017-08-25] MEDS ORDERED: IMODIUM PO PRN (16:32)
[2017-08-25] MEDS: NORCO 5-325 PO SCH (17:54)
[2017-08-25 18:31] VITALS: BMI 38.6
[2017-08-25] MEDS: FLORASTOR PO SCH (20:08)
[2017-08-25] MEDS: NEURONTIN PO SCH (20:09)
[2017-08-25] MEDS: RISPERDAL PO SCH (20:09)
[2017-08-25] MEDS: LIPITOR PO SCH (20:09)
[2017-08-25] MEDS: SODIUM CHLORIDE 1,000 ML IV SCH (20:51)
[2017-08-26] MEDS: NORCO 5-325 PO SCH ×4 (04:59→20:43)
[2017-08-26] MEDS ORDERED: LITHIUM CARBONATE 300 MG PO SCH (09:00)
[2017-08-26] MEDS: ROCEPHIN 1 GM in SODIUM CHLORIDE 50 ML IV SCH (10:14)
[2017-08-26] MEDS: FLORASTOR PO SCH ×2 (10:14→20:43)
[2017-08-26] MEDS: LITHIUM CARBONATE PO SCH (10:14)
[2017-08-26] MEDS: NEURONTIN PO SCH ×2 (10:15→20:43)
[2017-08-26] MEDS: ASPIRIN EC PO SCH (10:15)
[2017-08-26] MEDS: NON-FORMULARY MEDICATION (Cyanocobalamin (Vitamin B-12) [Vitamin B-12] 100 MCG) PO SCH (10:16)
[2017-08-26] MEDS: LOVENOX SUBCUT SCH (10:16)
--- NOTE | 2017-08-26 10:26 | DI ---
EXAM: Single frontal view of the chest HISTORY: Cough and shortness of breath. COMPARISON: Chest x-ray 08/21/2017 and multiple priors FINDINGS: Lung volumes are diminished. Cardiomediastinal silhouette is unchanged with atheroscleroti c change of the aortic arch. There is no pneumothorax or pleural effusion. There is no consolidatio n or mass. The osseous structures are unremarkable. IMPRESSION: 1. No acute cardiopulmonary process or consolidation. 2. Lung volumes are diminished.
[2017-08-26] MEDS: LIPITOR PO SCH (20:43)
[2017-08-26] MEDS: RISPERDAL PO SCH (20:44)
[2017-08-26] MEDS: ZESTRIL PO SCH (22:09)
[2017-08-26] MEDS: SODIUM CHLORIDE 1,000 ML IV SCH (22:48)
[2017-08-27] MEDS ORDERED: DULCOLAX RC STA (07:52)
[2017-08-27] MEDS ORDERED: DECADRON 4 MG/ML SDV IM STA (07:53)
[2017-08-27] MEDS ORDERED: NORCO 5-325 PO SCH (09:00)
[2017-08-27] MEDS: LITHIUM CARBONATE PO SCH (09:09)
[2017-08-27] MEDS: NEURONTIN PO SCH ×2 (09:09→21:14)
[2017-08-27] MEDS: NORCO 5-325 PO SCH ×2 (09:10→21:14)
[2017-08-27] MEDS: ASPIRIN EC PO SCH (09:10)
[2017-08-27] MEDS: FLORASTOR PO SCH ×2 (09:10→21:14)
[2017-08-27] MEDS: GLUCOPHAGE PO SCH (09:10)
[2017-08-27] MEDS: ZESTRIL PO SCH (09:11)
[2017-08-27] MEDS: NON-FORMULARY MEDICATION (Cyanocobalamin (Vitamin B-12) [Vitamin B-12] 100 MCG) PO SCH (09:12)
[2017-08-27] MEDS: LOVENOX SUBCUT SCH (09:13)
[2017-08-27] MEDS: ROCEPHIN 1 GM in SODIUM CHLORIDE 50 ML IV SCH (10:11)
--- NOTE | 2017-08-27 10:54 | PN ---
DATE OF SERVICE: 08/26/17 SUBJECTIVE: The patient is the first day in the swing bed for the continued IV antibiotics and for some activities and some help. The patient is more awake and alert. The patient gets a little bit confusion by the end of the day otherwise she knows where she is and that I am a doctor. She doesn't have any confusion at this time. REVIEW OF SYSTEMS: CONSTITUTIONAL: No fever, no chills. HEENT: Normal. ENDOCRINE: No weight gain, no weight loss. CVS: No angina symptoms. No CHF symptoms. No palpitations. No atypical chest pain for CAD. No shortness of breath. No PND, no orthopnea. RESPIRATORY: No cough, no hemoptysis. GI: No nausea, no vomiting. No abdominal pain. : No hematuria. No polyuria. MUSCULOSKELETAL:. No joint swelling. PSYCHIATRIC: Not anxious. No depression. No suicidal thoughts. No homicidal thoughts. SKIN: Intact. No rash. PHYSICAL EXAMINATION: V/S: Blood pressure 128/62, respiratory rate 22, heart rate 76, temperature 97.9 with saturation 98 on 2 liters. HEENT: Normocephalic, atraumatic. Mucosa dry. Pallor positive. No icterus. NECK: Supple. No JVD, no carotid bruit. No lymphadenopathy. LUNGS: Decreased and basilar crackles. Clear to auscultation. No rales or rhonchi. HEART: S1, S2 normal. No S3. No murmur, gallop or regurgitation. ABDOMEN: Soft, nontender. Bowel sounds active. No rigidity. No rebound or guarding. No CVA tenderness. EXTREMITIES: No clubbing, cyanosis. 1+ edema. MUSCULOSKELETAL: No joint swelling. NEUROLOGIC: Awake, alert, oriented times three. No focal deficit. LYMPHATIC: No lymph nodes palpable. SKIN: Intact. LABS: WBC 7.30, hgb 9.8, hct 30.4, plt count 180, sodium 136, potassium 4.2, chloride 108, bicarb 20, BUN 16, creatinine 0.85 and glucose 170 and A1c 6.5. ASSESSMENT: 1. Status post acute renal failure 2. UTI, organism e-coli 3. Hypertension 4. Dementia with behavioral changes 5. Depression 6. Bipolar PLAN: 1. Continue the Rocephin 1 gram daily 2. IV fluids at 40ml per hour 3. Lovenox for 40mg SUBQU daily 4. PT and OT please evaluate and treat 5. Diet is cardiac and healthy 6. Activity as much as tolerated TIME SPENT: More than 35 minutes MTDD
[2017-08-27] MEDS ORDERED: XOPENEX 1.25 MG NEB STA (11:14)
[2017-08-27] MEDS: RISPERDAL PO SCH (21:15)
[2017-08-27] MEDS: LIPITOR PO SCH (21:15)
[2017-08-28] MEDS: SODIUM CHLORIDE 1,000 ML IV SCH ×2 (01:40→19:33)
[2017-08-28] MEDS: GLUCOPHAGE PO SCH (09:32)
[2017-08-28] MEDS: LITHIUM CARBONATE PO SCH ×2 (09:32→09:48)
[2017-08-28] MEDS: FLORASTOR PO SCH ×2 (09:32→20:36)
[2017-08-28] MEDS: ASPIRIN EC PO SCH (09:33)
[2017-08-28] MEDS: ZESTRIL PO SCH (09:33)
[2017-08-28] MEDS: NEURONTIN PO SCH ×2 (09:33→20:36)
[2017-08-28] MEDS: NORCO 5-325 PO SCH ×2 (09:46→20:37)
[2017-08-28] MEDS: LOVENOX SUBCUT SCH (11:34)
[2017-08-28] MEDS: NON-FORMULARY MEDICATION (Cyanocobalamin (Vitamin B-12) [Vitamin B-12] 100 MCG) PO SCH (11:35)
--- NOTE | 2017-08-28 15:34 | PN ---
DATE OF SERVICE: 08/27/17 SUBJECTIVE: It is the patient first day in swing bed for the continuing the antibiotics and for the evaluation for the physical therapy and occupational therapy. The patient is more awake and alert and complains that Hydrocodone 5mg is helping with the pain but she is still having some break through pain otherwise complains did not have any bowels for last three days. REVIEW OF SYSTEMS: CONSTITUTIONAL: No fever, no chills. HEENT: Normal. ENDOCRINE: No weight gain, no weight loss. CVS: No angina symptoms. No CHF symptoms. No palpitations. No atypical chest pain for CAD. No shortness of breath. No PND, no orthopnea. RESPIRATORY: No cough, no hemoptysis. GI: No nausea, no vomiting. No abdominal pain. : No hematuria. No polyuria. MUSCULOSKELETAL:. No joint swelling. PSYCHIATRIC: Not anxious. No depression. No suicidal thoughts. No homicidal thoughts. SKIN: Intact. No rash. PHYSICAL EXAMINATION: V/S: Blood pressure 140/66, respiratory rate 16, heart rate 81, temperature 98.0 with saturation 97. HEENT: Normocephalic, atraumatic. Mucosa dry. NECK: Supple. No JVD, no carotid bruit. No lymphadenopathy. LUNGS: Bilateral entry is decreased and clear to auscultation. No rales or rhonchi. HEART: S1, S2 normal. No S3. No murmur, gallop or regurgitation. ABDOMEN: Soft, nontender. Bowel sounds active. No rigidity. No rebound or guarding. No CVA tenderness. EXTREMITIES: No clubbing, cyanosis or pedal edema. MUSCULOSKELETAL: No joint swelling. NEUROLOGIC: Awake, alert, oriented times three. No focal deficit. LYMPHATIC: No lymph nodes palpable. SKIN: Intact. LABS: WBC 7.30, hgb 9.8, hct 30.4, plt count 180, sodium 136, potassium 4.2, chloride 108, bicarb 20, BUN 16, creatine 0.85, A1c 6.5. ASSESSMENT: 1. Status post acute renal failure 2. UTI, organism E-coli 3. Status post change in mental status most likely Alzheimer's Dementia 4. New onset diabetes 5. Depression 6. Lower back pain 7. DJD spine PLAN: 1. Start the patient on the Metformin 2. Continue the Hydrocodone 5mg twice a day 3. Continue Rocephin 1 gram daily 4. PT/OT please evaluate and treat the patient. TIME SPENT: More than 35 minutes MTDD
--- NOTE | 2017-08-28 16:02 | RS.OTINEVL ---
Subjective - Patient information Date of Evaluation: 08/28/17 Date of Arrival on Unit: 08/26/17 Admitted From:: In-House Transfer Diagnosis: mental status change, TIA vs. CVA, Weakness Usual Living Arrangement: Group Home Living Arrangement Comments: [facility] to her [facility]. Pt has had a few falls and reported they were keeping her in a WC due to her impaired balance. Medical History: Hypertension, Diabetes Medical History Comments:: Bipolar, depression, anxiety, B TKA, chronic renal failure, dementia, hypercholesterolemia, cataracts, hysterectomy Surgical History: Knee Replacement, Hysterectomy Surgical History Comments:: B TKA, hysterectomy, Subjective Information/ Patient Comments:: "My son thinks I am crazy because I am bipolar and he wants to put me in a half way house and then take my money." - Level of function Prior to this admission, the patient could do the following:: Partially Dependent Ambulation Abilities prior to this admission: Was in a [facility] sitting in a WC. Current Level of Function: Dependent Current Equipment Used at Home: Rolling walker, WC Pain Assessment - Pain Pain Location Body Site: Foot Pain Aggravating Factors: Changing Position, Standing, Walking Pain Alleviating Factors: Medication, Position Change, Lying Supine Interventions - Objective Patient Orientation: Person, Place, Situation Current Interventions: Oxygen, Telemetry Observation: Pt was awake today and ready to exercise. Pt stood EOB with three therapists. Pt stood for a minutes of two and then was able to shift weight and march a alittle. Then pt would sing and try to dance holding on to the walker. Interventions - ROM Right Upper Extremity AROM: Moderate limitation Left Upper Extremity AROM: Moderate limitation - Strength Right Upper Extremity Strength: Mild Weakness Left Upper Extremity Strength: Mild Weakness - Sensation Right Upper Extremity Sensation: Impaired Left Upper Extremity Sensation: Impaired Balance - Sitting Balance Static Sitting Balance: Fair Dynamic Sitting Balance: Fair - Standing Balance Static Standing Balance: Fair Dynamic Standing Balance: Fair (Pt required assistance of 2 to complete sit to stand.) Additional Treatment Performed - Time with patient Total treatment time: 25 (Eval High) Activities Patient Interests:: Watching Television, Visiting/Socializing Patient Education Patient Education: Education of Plan of Care Teaching Recipient: Patient Teaching Methods: Discussion Assessment Problem List:: Decreased level of function, Requires training/education, Decreased safety/Risk of falls, Weakness, Pain limits previous level of function Rehab Potential: Good Further Therapy Indicated?: Yes Short Term Goals - Goals GOAL 1: Pt to increase sit to stand to CGA from Chair. Goal to be met by: 09/04/17 GOAL 2: To increase BUE shoulder AROM of flexion to 110 degrees. Goal to be met by: 09/04/17 GOAL 3: Pt to increase toilet transfers to CGA. Goal to be met by: 09/04/17 [facility] Goals GOAL 1: Pt to increase sit to stand to Mod-I from Chair. Goal to be met by: 09/11/17 GOAL 2: To increase BUE shoulder AROM of flexion to 120 degrees. Goal to be met by: 09/11/17 GOAL 3: Pt to increase toilet transfers to Mod-I. Goal to be met by: 09/11/17 Plan Plan of Care: Therapeutic EX, Neuromuscular Re-Educ, Therapeutic Activity, Self- Care/Home Management Modalities: Hot Pack, Ultrasound, Electrical Stimulation Frequency of Treatment: 1-2 X day, as tolerated Duration of Treatment: 2 Weeks Anticipated Discharge Destination: [facility] Has the Physician been added for Co-signature?: Yes
--- NOTE | 2017-08-28 16:18 | RS.PTINEVL ---
Subjective - Patient information Date of Evaluation: 08/28/17 Date of Arrival on Unit: 08/25/17 (swing admit) Admitted From:: In-House Transfer Diagnosis: UTI Usual Living Arrangement: Group Home Home Environment: Level/No stairs Medical History: Hypertension, COPD, Diabetes Medical History Comments:: kidney disease, bipolar disorder, neuropathy, heart murmur, diarhea, Surgical History: Hysterectomy Subjective Information/ Patient Comments:: pt states when I am over medicated it makes me angry. pt is good spirits smiling and agreeable to work with PT. - Level of function Prior to this admission, the patient could do the following:: Partially Dependent Ambulation Current Level of Function: Dependent Current Equipment Used at Home: rwx Pain Assessement - Location B SIERRA's Description: Burning Pain Behavior: Moaning, Crying, Grasping Site Pain Aggravating Factors: Exercise/Activity, Standing, Sitting, Walking, Stair Climbing Pain Alleviating Factors: Medication Interventions - Objective Patient Orientation: Person, Place, Situation Current Interventions: Oxygen, Telemetry Range of Motion - ROM Right Upper Extremity AROM: WFL's Left Upper Extremity AROM: WFL's Right Lower Extremity AROM: WFL's Left Lower Extremity AROM: WFL's Muscle Strength - Muscle Strength Right Upper Extremity Strength: Mild Weakness (shld flex 3/5, elbow flex/ext 4-/ 5) Left Upper Extremity Strength: Mild Weakness (shld flex 3/5, elbow flex/ext 4-/5 ) Right Lower Extremity Strength: Severe Weakness (hip flex 3/5, knee flex/ext 3+/ 5 ankle DF/PF 3+/5) Left Lower Extremity Strength: Severe Weakness (hip flex 3/5, knee flex/ext 3+/ 5 ankle DF/PF 3+/5) Sensation - Sensation Right Upper Extremity Sensation: Intact/Normal Left Upper Extremity Sensation: Intact/Normal Right Lower Extremity Sensation: Impaired Left Lower Extremity Sensation: Impaired (Pt c/o burning and tingling BLE) Palpation Palpation Findings: None/Normal Balance - Sitting Balance and Reactions Static Sitting Balance: Fair Dynamic Sitting Balance: Poor (pt able to sit at side of bed with no challenges to balance with SBA to CGA.) Sitting Equilibrium Reactions: Delayed Left, Delayed Right Sitting Protective Reactions: Delayed Left, Delayed Right - Standing Balance and Reactions Static Standing Balance: Poor Dynamic Standing Balance: Zero Standing Equilibrium Reactions: Delayed Left, Delayed Right Standing Protective Reactions: Delayed Left, Delayed Right - Comments Balance Assessment Comments: stand balance: once pt in standing position was able to maintain static stand balance with min to CGA x 2 x 30 secs. Functional Mobility - Bed Mobility Rolling R/L: Mod Assist, Max Assist, 2 person assist Scooting: Max Assist, 2 person assist Supine to Sit: Mod Assist, Max Assist, 2 person assist Sit to Supine: Mod Assist, Max Assist, 2 person assist - Transfers Sit to Stand: Max Assist, 2 person assist Stand to Sit: Max Assist, 2 person assist Comments:: pt requires max of 2 to stand +1 to hold rwx. pt stood x 1 1/2 min to 2 mins with min x 2 to maintain standing and pt was able to weight shift and take small step toward head of bed. - Safety Awareness Safety Awareness: Poor Treatment time - Time with patient Total treatment time: 32 Patient Education - Education Patient Education: Home Safety, Education of Plan of Care Teaching Recipient: Patient Teaching Methods: Discussion (Discussion regarding POC and pt verbalized understanding.) Assessment - Assessment Problem List:: Decreased level of function, Requires training/education, Decreased safety/Risk of falls, Weakness, Pain limits previous level of function , Cognitive status limits abilities Rehab Potential: Fair Further Therapy Indicated?: Yes Comments: as long as patient remains cooperative pt may have potential to improve. Short Term Goals GOAL #1: pt demonstrate rolling in bed with bed rails with min x 1 Goal to be met by: 09/02/17 GOAL #2: pt transfer sup to/from sit mod x 1, sit to/from stand with mod x 2 Goal to be met by: 09/02/17 GOAL #3: pt perform stand pivot bed to/from chair with mod x 2 Goal to be met by: 09/02/17 Manager Of Case Management Goals GOAL #1: pt transfer sup to/from sit to/from stand min to mod x 1-2 Goal to be met by: 09/07/17 GOAL #2: pt stand with wx with min x 2 x 3-5 mins working on weight shifting Goal to be met by: 09/07/17 GOAL #3: pt able to take a few steps with wx with min to mod x 2 Goal to be met by: 09/07/17 Plan Plan of Care: Therapeutic EX, Therapeutic Activity, Self-Care/Home Management Other:: gait training Frequency of Treatment: 1-2 X day, as tolerated Duration of Treatment: 10 days Anticipated Discharge Destination: Assisted Care Facility Has the Physician been added for Co-signature?: Yes
[2017-08-28] MEDS: ROCEPHIN 1 GM in SODIUM CHLORIDE 50 ML IV SCH (19:21)
[2017-08-28] MEDS: LIPITOR PO SCH (20:36)
[2017-08-28] MEDS: RISPERDAL PO SCH (20:36)
[2017-08-29] MEDS: NORCO 5-325 PO SCH ×2 (08:49→20:47)
[2017-08-29] MEDS: GLUCOPHAGE PO SCH (08:49)
[2017-08-29] MEDS: LITHIUM CARBONATE PO SCH (08:49)
[2017-08-29] MEDS: NEURONTIN PO SCH ×2 (08:49→20:47)
[2017-08-29] MEDS: ZESTRIL PO SCH (08:49)
[2017-08-29] MEDS: FLORASTOR PO SCH ×2 (08:49→20:47)
[2017-08-29] MEDS: NON-FORMULARY MEDICATION (Cyanocobalamin (Vitamin B-12) [Vitamin B-12] 100 MCG) PO SCH (08:50)
[2017-08-29] MEDS: ASPIRIN EC PO SCH (08:50)
[2017-08-29] MEDS: LOVENOX SUBCUT SCH (08:50)
[2017-08-29] MEDS: LEVAQUIN PO SCH (08:52)
[2017-08-29] MEDS: LIPITOR PO SCH (20:46)
[2017-08-29] MEDS: RISPERDAL PO SCH (20:47)
[2017-08-30] MEDS: LEVAQUIN PO SCH (05:33)
[2017-08-30] MEDS: MIRALAX PO SCH (08:45)
[2017-08-30] MEDS: ASPIRIN EC PO SCH (08:46)
[2017-08-30] MEDS: LITHIUM CARBONATE PO SCH (08:46)
[2017-08-30] MEDS: GLUCOPHAGE PO SCH (08:46)
[2017-08-30] MEDS: NORCO 5-325 PO SCH ×2 (08:46→20:46)
[2017-08-30] MEDS: ZESTRIL PO SCH (08:46)
[2017-08-30] MEDS: NEURONTIN PO SCH ×2 (08:46→20:46)
[2017-08-30] MEDS: FLORASTOR PO SCH ×2 (08:47→20:46)
[2017-08-30] MEDS: LOVENOX SUBCUT SCH (08:51)
[2017-08-30] MEDS: NON-FORMULARY MEDICATION (Cyanocobalamin (Vitamin B-12) [Vitamin B-12] 100 MCG) PO SCH (08:52)
[2017-08-30] MEDS: LIPITOR PO SCH (20:46)
[2017-08-30] MEDS: RISPERDAL PO SCH (20:46)
[2017-08-31] MEDS: LEVAQUIN PO SCH (05:37)
[2017-08-31] MEDS: MIRALAX PO SCH (08:50)
[2017-08-31] MEDS: GLUCOPHAGE PO SCH (08:50)
[2017-08-31] MEDS: LOVENOX SUBCUT SCH (08:50)
[2017-08-31] MEDS: ASPIRIN EC PO SCH (08:50)
[2017-08-31] MEDS: FLORASTOR PO SCH ×2 (08:51→21:22)
[2017-08-31] MEDS: NEURONTIN PO SCH ×2 (08:51→21:22)
[2017-08-31] MEDS: ZESTRIL PO SCH (08:51)
[2017-08-31] MEDS: NORCO 5-325 PO SCH ×2 (08:51→21:23)
[2017-08-31] MEDS: NON-FORMULARY MEDICATION (Cyanocobalamin (Vitamin B-12) [Vitamin B-12] 100 MCG) PO SCH (09:49)
[2017-08-31] MEDS: LITHIUM CARBONATE PO SCH (09:50)
[2017-08-31] MEDS: RISPERDAL PO SCH (21:22)
[2017-08-31] MEDS: LIPITOR PO SCH (21:22)
[2017-09-01] MEDS: LEVAQUIN PO SCH (05:30)
[2017-09-01] MEDS: NEURONTIN PO SCH ×2 (08:09→20:30)
[2017-09-01] MEDS: NORCO 5-325 PO SCH ×2 (08:09→20:30)
[2017-09-01] MEDS: ZESTRIL PO SCH (08:09)
[2017-09-01] MEDS: FLORASTOR PO SCH ×2 (08:09→20:31)
[2017-09-01] MEDS: GLUCOPHAGE PO SCH (08:10)
[2017-09-01] MEDS: LITHIUM CARBONATE PO SCH (08:10)
[2017-09-01] MEDS: ASPIRIN EC PO SCH (08:10)
[2017-09-01] MEDS: LOVENOX SUBCUT SCH (08:10)
[2017-09-01] MEDS: MIRALAX PO SCH (08:10)
[2017-09-01] MEDS: NON-FORMULARY MEDICATION (Cyanocobalamin (Vitamin B-12) [Vitamin B-12] 100 MCG) PO SCH (08:10)
[2017-09-01] MEDS: RISPERDAL PO SCH (20:30)
[2017-09-01] MEDS: LIPITOR PO SCH (20:30)
[2017-09-02] MEDS: LEVAQUIN PO SCH (05:41)
[2017-09-02] MEDS: ZESTRIL PO SCH (08:07)
[2017-09-02] MEDS: NORCO 5-325 PO SCH ×2 (08:07→20:04)
[2017-09-02] MEDS: LOVENOX SUBCUT SCH (08:07)
[2017-09-02] MEDS: ASPIRIN EC PO SCH (08:07)
[2017-09-02] MEDS: GLUCOPHAGE PO SCH (08:07)
[2017-09-02] MEDS: FLORASTOR PO SCH ×2 (08:07→20:05)
[2017-09-02] MEDS: NEURONTIN PO SCH ×2 (08:07→20:04)
[2017-09-02] MEDS: MIRALAX PO SCH (08:08)
[2017-09-02] MEDS: LITHIUM CARBONATE PO SCH (08:10)
[2017-09-02] MEDS: NON-FORMULARY MEDICATION (Cyanocobalamin (Vitamin B-12) [Vitamin B-12] 100 MCG) PO SCH (08:10)
--- NOTE | 2017-09-02 11:02 | PN ---
DATE OF SERVICE: 08/28/17 SUBJECTIVE: The patient was admitted with change in mental status and acute renal failure, urinary tract infection. Her kidney function is better. The patient is continued on IV antibiotics for the UTI. Physical therapy is going to evaluate the patient for the physical therapy and Transitional Care placement. REVIEW OF SYSTEMS: CONSTITUTIONAL: No fever, no chills. HEENT: Normal. ENDOCRINE: No weight gain, no weight loss. CVS: No angina symptoms. No CHF symptoms. No palpitations. No atypical chest pain for CAD. No shortness of breath. No PND, no orthopnea. RESPIRATORY: No cough, no hemoptysis. GI: No nausea, no vomiting. No abdominal pain. : No hematuria. No polyuria. MUSCULOSKELETAL:. No joint swelling. PSYCHIATRIC: Not anxious. No depression. No suicidal thoughts. No homicidal thoughts. SKIN: Intact. No rash. PHYSICAL EXAMINATION: V/S: Blood pressure 135/65, respiratory rate 15, heart rate 65, temperature 97.7 , saturation 98. HEENT: Normocephalic, atraumatic. Mucosa dry. Pallor positive. No icterus. NECK: Supple. No JVD, no carotid bruit. No lymphadenopathy. LUNGS: Bilateral air entry is decreased in the basilar areas. No rales or rhonchi. HEART: S1, S2 normal. No S3. No murmur, gallop or regurgitation. ABDOMEN: Soft, nontender. Bowel sounds active. No rigidity. No rebound or guarding. No CVA tenderness. EXTREMITIES: No clubbing, cyanosis or pedal edema. MUSCULOSKELETAL: No joint swelling. NEUROLOGIC: Awake, alert, oriented times three. No focal deficit. LYMPHATIC: No lymph nodes palpable. SKIN: Intact. LABS: White count is 7.3, hemoglobin 9.8, hematocrit 30.4, platelet count 180, sodium 136, potassium 4.2, chloride 108, bicarb 20, BUN 16, creatinine 0.85, glucose 170. ASSESSMENT: 1. STATUS POST ACUTE RENAL FAILURE 2. CHANGE IN MENTAL STATUS 3. URINARY TRACT INFECTION, E.COLI ORGANISM 4. HYPERTENSION 5. DYSLIPIDEMIA 6. ALZHEIMER'S DEMENTIA PLAN: 1. PT/OT, please evaluate and treat. 2. Continue the IV Rocephin. 3. Daily I & O's. TIME SPENT: More than 35 minutes today [facility]
--- NOTE | 2017-09-02 11:17 | PN ---
DATE OF SERVICE: 08/29/17 SUBJECTIVE: The patient was admitted with acute renal failure, change in mental status. The patient is feeling some better. Otherwise, no fever, chills, no PND or orthopnea. Finally, the patient was agreeable for the physical therapy and she cooperative. She was needing some help to walk. REVIEW OF SYSTEMS: CONSTITUTIONAL: No fever, no chills. HEENT: Normal. ENDOCRINE: No weight gain, no weight loss. CVS: No angina symptoms. No CHF symptoms. No palpitations. No atypical chest pain for CAD. No shortness of breath. No PND, no orthopnea. RESPIRATORY: No cough, no hemoptysis. GI: No nausea, no vomiting. No abdominal pain. : No hematuria. No polyuria. MUSCULOSKELETAL:. No joint swelling. PSYCHIATRIC: Not anxious. No depression. No suicidal thoughts. No homicidal thoughts. SKIN: Intact. No rash. PHYSICAL EXAMINATION: V/S: Blood pressure 132/67, respiratory rate 20, heart rate 61, temperature 97.8 , saturation 96. HEENT: Normocephalic, atraumatic. Mucosa dry. Pallor positive. No icterus. NECK: Supple. No JVD, no carotid bruit. No lymphadenopathy. LUNGS: Bilateral air entry is decreased and clear. No rales or rhonchi. HEART: S1, S2 normal. No S3. No murmur, gallop or regurgitation. ABDOMEN: Soft, nontender. Bowel sounds active. No rigidity. No rebound or guarding. No CVA tenderness. EXTREMITIES: No clubbing, cyanosis or pedal edema. MUSCULOSKELETAL: No joint swelling. NEUROLOGIC: Awake, alert, oriented times three. No focal deficit. LYMPHATIC: No lymph nodes palpable. SKIN: Intact. LABS: White count 7.30, hemoglobin 9.8, hematocrit 30.4, platelet count 180, sodium 136, potassium 4.2, chloride 108, bicarb 20, BUN 16, creatinine 0.85, glucose 170, A1C 6.5. ASSESSMENT: 1. STATUS POST ACUTE RENAL FAILURE 2. URINARY TRACT INFECTION, E.COLI ORGANISM 3. HYPERTENSION 4. DIABETES 5. ALZHEIMER'S DEMENTIA WITH BEHAVIOR CHANGES 6. OSTEOARTHRITIS 7. DJD OF THE SPINE PLAN: 1. Please continue with exercise. 2. Continue the Metformin. 3. IV fluids at 40 ml per hour. 4. Fall precautions. 5. Will follow up with the patient on daily rounds. TIME SPENT: More than 35 minutes today [facility]
--- NOTE | 2017-09-02 11:28 | PN ---
DATE OF SERVICE: 08/30/17 SUBJECTIVE: The patient was admitted with status post change in mental status, urinary tract infection and needing some physical therapy. She is now doing the physical therapy. The patient refuses to take the [place]. She says that it makes her sleepy and the patient's mental status also goes in and out. The patient has Alzheimer's dementia. BUN and creatinine is better now. REVIEW OF SYSTEMS: CONSTITUTIONAL: No fever, no chills. HEENT: Normal. ENDOCRINE: No weight gain, no weight loss. CVS: No angina symptoms. No CHF symptoms. No palpitations. No atypical chest pain for CAD. No shortness of breath. No PND, no orthopnea. RESPIRATORY: No cough, no hemoptysis. GI: No nausea, no vomiting. No abdominal pain. : No hematuria. No polyuria. MUSCULOSKELETAL:. No joint swelling. PSYCHIATRIC: Not anxious. No depression. No suicidal thoughts. No homicidal thoughts. SKIN: Intact. No rash. PHYSICAL EXAMINATION: V/S: Blood pressure is 122/65, respiratory rate 16, heart rate 63, temperature 96.9, saturation 98. HEENT: Normocephalic, atraumatic. Mucosa dry. Pallor positive. No icterus. NECK: Supple. No JVD, no carotid bruit. No lymphadenopathy. LUNGS: Bilateral air entry is decreased and clear. No rales or rhonchi. HEART: S1, S2 normal. No S3. No murmur, gallop or regurgitation. ABDOMEN: Soft, nontender. Bowel sounds active. No rigidity. No rebound or guarding. No CVA tenderness. EXTREMITIES: No clubbing, cyanosis or pedal edema. MUSCULOSKELETAL: No joint swelling. NEUROLOGIC: Awake, alert, oriented times three. No focal deficit. LYMPHATIC: No lymph nodes palpable. SKIN: Intact. LABS: Sodium 136, potassium 4.2, chloride 108, bicarb 20, BUN 16, creatinine 0.87, glucose 170, A1C 6.5, white count 7.30, hemoglobin 9.8, hematocrit 30.4, platelet count 180. ASSESSMENT: 1. STATUS POST ACUTE RENAL FAILURE 2. STATUS POST CHANGE IN MENTAL STATUS 3. ANEMIA 4. UTI, E.COLI ORGANISM 5. ALZHEIMER'S DEMENTIA, HAS SOME BEHAVIOR CHANGES 6. OSTEOARTHRITIS 7. DJD OF THE SPINE PLAN: 1. Continue PT on the patient. 2. Lovenox for the DVT prophylaxis. 3. Levaquin 500 mg p.o. daily. 4. Fall precautions. 5. Accuchecks. 6. Continue Metformin. TIME SPENT: More than 35 minutes today. MTDD
[2017-09-02] MEDS: RISPERDAL PO SCH (20:04)
[2017-09-02] MEDS: LIPITOR PO SCH (20:05)
[2017-09-03] MEDS: ASPIRIN EC PO SCH (09:23)
[2017-09-03] MEDS: GLUCOPHAGE PO SCH (09:24)
[2017-09-03] MEDS: FLORASTOR PO SCH ×2 (09:24→20:47)
[2017-09-03] MEDS: NON-FORMULARY MEDICATION (Cyanocobalamin (Vitamin B-12) [Vitamin B-12] 100 MCG) PO SCH (09:24)
[2017-09-03] MEDS: NORCO 5-325 PO SCH ×2 (09:25→20:48)
[2017-09-03] MEDS: NEURONTIN PO SCH ×2 (09:25→20:47)
[2017-09-03] MEDS: LOVENOX SUBCUT SCH (09:26)
[2017-09-03] MEDS: ZESTRIL PO SCH (09:26)
[2017-09-03] MEDS: MIRALAX PO SCH (09:30)
[2017-09-03] MEDS: LITHIUM CARBONATE PO SCH ×2 (09:31→09:34)
--- NOTE | 2017-09-03 14:31 | PN ---
DATE OF SERVICE: 08/31/17 SUBJECTIVE: The patient was admitted for the status post change in mental status. The patient is doing the physical therapy and occupational therapy. Up and about walking with the help. REVIEW OF SYSTEMS: CONSTITUTIONAL: No fever, no chills. HEENT: Normal. ENDOCRINE: No weight gain, no weight loss. CVS: No angina symptoms. No CHF symptoms. No palpitations. No atypical chest pain for CAD. No shortness of breath. No PND, no orthopnea. RESPIRATORY: No cough, no hemoptysis. GI: No nausea, no vomiting. No abdominal pain. : No hematuria. No polyuria. MUSCULOSKELETAL:. No joint swelling. PSYCHIATRIC: Not anxious. No depression. No suicidal thoughts. No homicidal thoughts. SKIN: Intact. No rash. PHYSICAL EXAMINATION: V/S: Blood pressure 109/46, respiratory rate 16, heart rate 54, temperature 97.9 with saturation 98 on room air. HEENT: Normocephalic, atraumatic. Mucosa dry. NECK: Supple. No JVD, no carotid bruit. No lymphadenopathy. LUNGS: Bilateral entry is decreased and clear to auscultation. No rales or rhonchi. HEART: S1, S2 normal. No S3. No murmur, gallop or regurgitation. ABDOMEN: Soft, nontender. Bowel sounds active. No rigidity. No rebound or guarding. No CVA tenderness. EXTREMITIES: No clubbing, cyanosis or pedal edema. MUSCULOSKELETAL: No joint swelling. NEUROLOGIC: Awake, alert, oriented times three. No focal deficit. LYMPHATIC: No lymph nodes palpable. SKIN: Intact. LABS: WBC 7.30, hgb 9.8, hct 30.4, plt count 180, sodium 136, potassium 4.2, chloride 108, bicarb 20, BUN 16, creatinine 0.85, glucose 170. ASSESSMENT: 1. Status post change in mental status 2. UTI, organism e-coli 3. Weakness and lower back pain needing physical therapy 4. History of hypertension 5. Dyslipidemia 6. Alzheimer Dementia 7. Schizophrenia 8. Bipolar disorder PLAN: 1. Continue Cipro 2. Antibiotic 3. Physical therapy 4. Please continue exercise 5. Continue the Metformin and Hydrocodone 5mg twice a day is helping her with the lower back pain. 6. Continue the Lovenox for the DVT prophylaxis. TIME SPENT: More than 35 minutes MTDD
--- NOTE | 2017-09-03 14:56 | PN ---
DATE OF SERVICE: 09/01/17 SUBJECTIVE: The patient was admitted with the status post change in mental status and during the physical therapy for the lower back pain and weakness and tiredness. Physical therapy is really helping the patient. The patient has been more awake and alert. REVIEW OF SYSTEMS: CONSTITUTIONAL: No fever, no chills. HEENT: Normal. ENDOCRINE: No weight gain, no weight loss. CVS: No angina symptoms. No CHF symptoms. No palpitations. No atypical chest pain for CAD. No shortness of breath. No PND, no orthopnea. RESPIRATORY: No cough, no hemoptysis. GI: No nausea, no vomiting. No abdominal pain. : No hematuria. No polyuria. MUSCULOSKELETAL:. No joint swelling. PSYCHIATRIC: Not anxious. No depression. No suicidal thoughts. No homicidal thoughts. SKIN: Intact. No rash. PHYSICAL EXAMINATION: V/S: Blood pressure 162/80, respiratory rate 20, heart rate 88, temperature 97.0 and saturation 97. HEENT: Normocephalic, atraumatic. Mucosa dry. Pallor positive. No icterus. NECK: Supple. No JVD, no carotid bruit. No lymphadenopathy. LUNGS: Decreased and Clear to auscultation. No rales or rhonchi. HEART: S1, S2 normal. No S3. No murmur, gallop or regurgitation. ABDOMEN: Soft, nontender. Bowel sounds active. No rigidity. No rebound or guarding. No CVA tenderness. EXTREMITIES: No clubbing, cyanosis or pedal edema. MUSCULOSKELETAL: No joint swelling. NEUROLOGIC: Awake, alert, oriented times three. No focal deficit. LYMPHATIC: No lymph nodes palpable. SKIN: Intact. LABS: WBC 8.50, hgb 10.1, hct 31.9, plt count 229, sodium 135, potassium 4.5, chloride 106, bicarb 21, BUN 21, creatinine 0.93, glucose 212 ASSESSMENT: 1. Status post change in mental status from the acute renal failure 2. Kidney function has improved 3. UTI organism e-coli 4. Weakness and lower back pain needing physical therapy 5. Diabetes Mellitus, A1c 6.5 6. Hypertension 7. Dyslipidemia 8. Alzheimer Dementia 9. Bipolar disorder PLAN: 1. Continue the Lovenox, Neurontin, Lisinopril, [place] and Metformin 2. Accu-checks with coverage TIME SPENT: More than 35 minutes MTDD
--- NOTE | 2017-09-03 15:08 | PN ---
DATE OF SERVICE: 09/02/17 SUBJECTIVE: The patient was able to get out of the bed and walk up to the door and come back. The patient is very happy and says that the physical therapy is really helping her. REVIEW OF SYSTEMS: CONSTITUTIONAL: No fever, no chills. HEENT: Normal. ENDOCRINE: No weight gain, no weight loss. CVS: No angina symptoms. No CHF symptoms. No palpitations. No atypical chest pain for CAD. No shortness of breath. No PND, no orthopnea. RESPIRATORY: No cough, no hemoptysis. GI: No nausea, no vomiting. No abdominal pain. : No hematuria. No polyuria. MUSCULOSKELETAL:. No joint swelling. PSYCHIATRIC: Not anxious. No depression. No suicidal thoughts. No homicidal thoughts. SKIN: Intact. No rash. PHYSICAL EXAMINATION: V/S: Blood pressure 144/74, respiratory rate 20, heart rate 74, temperature 97.9 with saturation 96%. HEENT: Normocephalic, atraumatic. Mucosa dry. Pallor positive. No icterus. NECK: Supple. No JVD, no carotid bruit. No lymphadenopathy. LUNGS: Decreased and clear to auscultation. No rales or rhonchi. HEART: S1, S2 normal. No S3. No murmur, gallop or regurgitation. ABDOMEN: Soft, nontender. Bowel sounds active. No rigidity. No rebound or guarding. No CVA tenderness. EXTREMITIES: No clubbing, cyanosis or pedal edema. MUSCULOSKELETAL: No joint swelling. NEUROLOGIC: Awake, alert, oriented times three. No focal deficit. LYMPHATIC: No lymph nodes palpable. SKIN: Intact. LABS: Sodium 134, potassium 4.8, chloride 106, bicarb 21, BUN 21, creatinine 0.93, glucose 212, WBC 8.50, hgb 10.1, hct 31.9, plt count 229. ASSESSMENT: 1. Status post change in mental status secondary to the acute renal failure 2. UTI organism e-coli 3. Diabetes 4. Alzheimer Dementia 5. Depression 6. Anxiety 7. Bipolar PLAN: 1. Continue physical therapy and occupational therapy 2. Fall precaution 3. Continue Lovenox for the DVT prophylaxis Will follow the patient in daily rounds. TIME SPENT: More than 30 minutes MTDD
[2017-09-03] MEDS: RISPERDAL PO SCH (20:48)
[2017-09-03] MEDS: LIPITOR PO SCH (20:48)
[2017-09-04] MEDS: NORCO 5-325 PO SCH ×2 (10:05→21:00)
[2017-09-04] MEDS: GLUCOPHAGE PO SCH (10:06)
[2017-09-04] MEDS: ASPIRIN EC PO SCH (10:06)
[2017-09-04] MEDS: LITHIUM CARBONATE PO SCH (10:06)
[2017-09-04] MEDS: ZESTRIL PO SCH (10:06)
[2017-09-04] MEDS: FLORASTOR PO SCH ×2 (10:07→21:00)
[2017-09-04] MEDS: NEURONTIN PO SCH ×2 (10:07→21:00)
[2017-09-04] MEDS: LOVENOX SUBCUT SCH (10:08)
[2017-09-04] MEDS: MIRALAX PO SCH (10:08)
[2017-09-04] MEDS: NON-FORMULARY MEDICATION (Cyanocobalamin (Vitamin B-12) [Vitamin B-12] 100 MCG) PO SCH (10:15)
--- NOTE | 2017-09-04 10:46 | PN ---
DATE OF SERVICE: 09/03/17 SUBJECTIVE: The patient more awake and alert, using the physical therapy and says that it is helping her. She was able to walk up to the door, needing some help at this time. Otherwise pain medication is helping with back pain. REVIEW OF SYSTEMS: CONSTITUTIONAL: No fever, no chills. HEENT: Normal. ENDOCRINE: No weight gain, no weight loss. CVS: No angina symptoms. No CHF symptoms. No palpitations. No atypical chest pain for CAD. No shortness of breath. No PND, no orthopnea. RESPIRATORY: No cough, no hemoptysis. GI: No nausea, no vomiting. No abdominal pain. : No hematuria. No polyuria. MUSCULOSKELETAL:. No joint swelling. PSYCHIATRIC: Not anxious. No depression. No suicidal thoughts. No homicidal thoughts. SKIN: Intact. No rash. PHYSICAL EXAMINATION: V/S: Blood pressure 151/68, respiratory rate 18, heart rate 63, temperature 96.7 with saturation 99. HEENT: Normocephalic, atraumatic. Mucosa dry. Pallor positive. No icterus. NECK: Supple. No JVD, no carotid bruit. No lymphadenopathy. LUNGS: Bilateral entry is decreased and Clear to auscultation. No rales or rhonchi. HEART: S1, S2 normal. No S3. No murmur, gallop or regurgitation. ABDOMEN: Soft, nontender. Bowel sounds active. No rigidity. No rebound or guarding. No CVA tenderness. EXTREMITIES: No clubbing, cyanosis or pedal edema. MUSCULOSKELETAL: No joint swelling. NEUROLOGIC: Awake, alert, oriented times three. No focal deficit. LYMPHATIC: No lymph nodes palpable. SKIN: Intact. LABS: WBC 8.50, hgb 10.1, hct 31.9, plt count 229, sodium 135, potassium 4.8, chloride 106, bicarb 21, BUN 21, creatinine 1.93, glucose 212. ASSESSMENT: 1. Lower back pain and debilitation needing physical therapy 2. Status post acute renal failure 3. Status post change in mental status 4. UTI, organism e-coli 5. Diabetes 6. Hypertension 7. Bipolar disorder 8. Depression PLAN: 1. Continue the Omnicef 2. Physical therapy/Occupational therapy 3. Metformin 4. Accu-checks with coverage. TIME SPENT: More than 35 minutes MTDD
--- NOTE | 2017-09-04 13:58 | OTPN ---
Subjective - Patient Information Date of Evaluation: 08/28/17 Date of Arrival on Unit: 08/25/17 (swing admit) Diagnosis: mental status change, TIA vs. CVA, Weakness Patient Reports/Comments: Patient fatigues quickly. Pt has not been able to tolerate afternoon treatment due to being fatigued. Objective Objective: Pt has more difficulty with sit to stand. Once she is up to ambulated then she does well. Short Term Goals - Goals GOAL 1: Pt to increase sit to stand to CGA from Chair. Goal to be met by: 09/04/17 (Max x 2) Progress towards goal: Progressing GOAL 2: To increase BUE shoulder AROM of flexion to 110 degrees. Goal to be met by: 09/04/17 (80 degrees) Progress towards goal: Progressing GOAL 3: Pt to increase toilet transfers to CGA. Goal to be met by: 09/04/17 (Max Assist x 2) Progress towards goal: Progressing Halfway Goals GOAL 1: Pt to increase sit to stand to Mod-I from Chair. Goal to be met by: 09/11/17 Progress towards goal: Progressing GOAL 2: To increase BUE shoulder AROM of flexion to 120 degrees. Goal to be met by: 09/11/17 Progress towards goal: Progressing GOAL 3: Pt to increase toilet transfers to Mod-I. Goal to be met by: 09/11/17 Progress towards goal: Progressing Assessment and Plan Assessment/Progress: Pt has made progress with her occupational therapy. Pt requires the most assistance with sit to stand. Early in the morning [facility]. In the afternoon, she is so tired she has to be put back to bed with a lift. Pt's cognition is limiting her abilities intermittently. Plan: Pt to continue with therapy and then go back to the detention if she has to while her son gets things ready.Then patient will go home with sitters.
[2017-09-04] MEDS: RISPERDAL PO SCH (21:00)
[2017-09-04] MEDS: LIPITOR PO SCH (21:00)
[2017-09-05] MEDS: NORCO 5-325 PO SCH ×2 (09:57→20:42)
[2017-09-05] MEDS: LITHIUM CARBONATE PO SCH (09:57)
[2017-09-05] MEDS: FLORASTOR PO SCH ×2 (09:57→20:41)
[2017-09-05] MEDS: GLUCOPHAGE PO SCH (09:57)
[2017-09-05] MEDS: MIRALAX PO SCH (09:57)
[2017-09-05] MEDS: ASPIRIN EC PO SCH (09:57)
[2017-09-05] MEDS: NEURONTIN PO SCH ×2 (09:57→20:40)
[2017-09-05] MEDS: LOVENOX SUBCUT SCH (09:58)
[2017-09-05] MEDS: ZESTRIL PO SCH (09:58)
[2017-09-05] MEDS: NON-FORMULARY MEDICATION (Cyanocobalamin (Vitamin B-12) [Vitamin B-12] 100 MCG) PO SCH (10:02)
[2017-09-05] MEDS: LIPITOR PO SCH (20:42)
[2017-09-05] MEDS: RISPERDAL PO SCH (20:42)
[2017-09-06] MEDS: LITHIUM CARBONATE PO SCH (08:33)
[2017-09-06] MEDS: FLORASTOR PO SCH ×2 (08:33→21:29)
[2017-09-06] MEDS: NON-FORMULARY MEDICATION (Cyanocobalamin (Vitamin B-12) [Vitamin B-12] 100 MCG) PO SCH (08:34)
[2017-09-06] MEDS: NEURONTIN PO SCH ×2 (08:34→21:29)
[2017-09-06] MEDS: ZESTRIL PO SCH (08:34)
[2017-09-06] MEDS: ASPIRIN EC PO SCH (08:34)
[2017-09-06] MEDS: MIRALAX PO SCH (08:35)
[2017-09-06] MEDS: GLUCOPHAGE PO SCH (08:35)
[2017-09-06] MEDS: NORCO 5-325 PO SCH ×2 (08:35→21:29)
[2017-09-06] MEDS: LOVENOX SUBCUT SCH (08:36)
[2017-09-06] MEDS: RISPERDAL PO SCH (21:28)
[2017-09-06] MEDS: LIPITOR PO SCH (21:30)
[2017-09-07] MEDS: ASPIRIN EC PO SCH (08:57)
[2017-09-07] MEDS: FLORASTOR PO SCH ×2 (08:58→20:27)
[2017-09-07] MEDS: NON-FORMULARY MEDICATION (Cyanocobalamin (Vitamin B-12) [Vitamin B-12] 100 MCG) PO SCH (08:58)
[2017-09-07] MEDS: GLUCOPHAGE PO SCH (08:58)
[2017-09-07] MEDS: LITHIUM CARBONATE PO SCH (08:59)
[2017-09-07] MEDS: MIRALAX PO SCH (08:59)
[2017-09-07] MEDS: LOVENOX SUBCUT SCH (08:59)
[2017-09-07] MEDS: NEURONTIN PO SCH ×2 (09:00→20:27)
[2017-09-07] MEDS: ZESTRIL PO SCH (09:00)
[2017-09-07] MEDS: NORCO 5-325 PO SCH ×2 (09:02→20:27)
[2017-09-07] MEDS: LIPITOR PO SCH (20:27)
[2017-09-07] MEDS: RISPERDAL PO SCH (20:27)
[2017-09-08] MEDS: TYLENOL PO PRN (02:24)
[2017-09-08] MEDS: ASPIRIN EC PO SCH (08:28)
[2017-09-08] MEDS: GLUCOPHAGE PO SCH (08:28)
[2017-09-08] MEDS: LITHIUM CARBONATE PO SCH (08:29)
[2017-09-08] MEDS: LOVENOX SUBCUT SCH (08:29)
[2017-09-08] MEDS: FLORASTOR PO SCH ×2 (08:29→21:50)
[2017-09-08] MEDS: ZESTRIL PO SCH (08:30)
[2017-09-08] MEDS: NEURONTIN PO SCH ×2 (08:30→21:51)
[2017-09-08] MEDS: MIRALAX PO SCH (08:30)
[2017-09-08] MEDS: NORCO 5-325 PO SCH ×2 (08:30→21:54)
[2017-09-08] MEDS: NON-FORMULARY MEDICATION (Cyanocobalamin (Vitamin B-12) [Vitamin B-12] 100 MCG) PO SCH (10:53)
[2017-09-08] MEDS: LIPITOR PO SCH (21:51)
[2017-09-08] MEDS: RISPERDAL PO SCH (21:52)
[2017-09-09] MEDS: MIRALAX PO SCH (10:06)
[2017-09-09] MEDS: LOVENOX SUBCUT SCH (10:06)
[2017-09-09] MEDS: LITHIUM CARBONATE PO SCH (10:07)
[2017-09-09] MEDS: FLORASTOR PO SCH ×2 (10:07→21:21)
[2017-09-09] MEDS: NORCO 5-325 PO SCH ×2 (10:07→21:20)
[2017-09-09] MEDS: NEURONTIN PO SCH ×2 (10:07→21:20)
[2017-09-09] MEDS: ZESTRIL PO SCH (10:07)
[2017-09-09] MEDS: NON-FORMULARY MEDICATION (Cyanocobalamin (Vitamin B-12) [Vitamin B-12] 100 MCG) PO SCH (10:08)
[2017-09-09] MEDS: GLUCOPHAGE PO SCH (10:08)
[2017-09-09] MEDS: ASPIRIN EC PO SCH (10:08)
[2017-09-09] MEDS: RISPERDAL PO SCH (21:20)
[2017-09-09] MEDS: LIPITOR PO SCH (21:21)
[2017-09-10] MEDS: LITHIUM CARBONATE PO SCH (10:24)
[2017-09-10] MEDS: LOVENOX SUBCUT SCH (10:24)
[2017-09-10] MEDS: FLORASTOR PO SCH ×2 (10:24→22:47)
[2017-09-10] MEDS: ZESTRIL PO SCH (10:25)
[2017-09-10] MEDS: ASPIRIN EC PO SCH (10:25)
[2017-09-10] MEDS: MIRALAX PO SCH (10:25)
[2017-09-10] MEDS: GLUCOPHAGE PO SCH (10:25)
[2017-09-10] MEDS: NEURONTIN PO SCH ×2 (10:25→22:47)
[2017-09-10] MEDS: NON-FORMULARY MEDICATION (Cyanocobalamin (Vitamin B-12) [Vitamin B-12] 100 MCG) PO SCH (10:26)
[2017-09-10] MEDS: NORCO 5-325 PO SCH ×2 (10:30→22:47)
--- NOTE | 2017-09-10 11:06 | PN ---
Subjective - Patient Information Date of Evaluation: 09/10/17 Date of Arrival on Unit: 08/25/17 (swing admit) Diagnosis: UTI Patient Reports/Comments: pt states "I will try to walk." Objective Objective: pt continues with significant decreased shld flex BUE (OT is addressing). Strength: BUE shld flex 2+/5, elbow flex/ext 4-/5. BLE hip flex 4 -/5, knee flex/ext 4/5, ankle DF/PF 4/5. Transfers sit to/from stand mod x 2 from recliner, min to mod x 2 from elevated BSC. Gait: pt amb 50ft with rwx with min x 2 +1 to push chair behind. pt required verbal cues to correct flexed posture, and pt amb with decreased step length and for placement of rolling wx. Balance: dyn stand balance fair - Short Term Goals GOAL #1: pt demonstrate rolling in bed with bed rails with min x 1 Goal to be met by: 09/02/17 Progress towards Goal:: Met GOAL #2: pt transfer sup to/from sit mod x 1, sit to/from stand with mod x 2 Goal to be met by: 09/02/17 Progress towards Goal:: Met GOAL #3: pt perform stand pivot bed to/from chair with mod x 2 Goal to be met by: 09/02/17 Progress towards Goal:: Met Z[employer]er Goals GOAL #1: pt transfer sup to/from sit to/from stand min to mod x 1-2 Goal to be met by: 09/13/17 Progress towards goal: Progressing GOAL #2: pt stand with wx with min x 2 x 3-5 mins working on weight shifting Goal to be met by: 09/07/17 Progress towards goal: Met GOAL #3: pt amb 70 with rwx with min x 2 without rest period. Goal to be met by: 09/13/17 Progress towards goal: Progressing Comments: pt met previous goal of 50ft with min x 2 with rwx. Assessment and Plan Assessment/Progress: pt has met all STG's as well as LTG #2, pt had previously met LTG #3 however goal updated. pt has made progress with transfers, gait and strength. pt continues to require constant encouragement and verbal cues to remain on task and to try to improve. Feel pt continues to require skilled PT due to decreased strength, balance, and endurance. Plan: Continue PT for therex for LE strengthening, balance as well as gait training. pt plans to return to [facility] at end of this week.
--- NOTE | 2017-09-10 12:57 | PN ---
DATE OF SERVICE: 09/08/17 SUBJECTIVE: The patient was admitted with weakness and tiredness and change in the mental status. The patient is in the physical therapy. Refusing to walk and get out of the bed as of now and does not take medications sometimes. REVIEW OF SYSTEMS: CONSTITUTIONAL: No fever, no chills. HEENT: Normal. ENDOCRINE: No weight gain, no weight loss. CVS: No angina symptoms. No CHF symptoms. No palpitations. No atypical chest pain for CAD. No shortness of breath. No PND, no orthopnea. RESPIRATORY: No cough, no hemoptysis. GI: No nausea, no vomiting. No abdominal pain. : No hematuria. No polyuria. MUSCULOSKELETAL:. No joint swelling. PSYCHIATRIC: Not anxious. No depression. No suicidal thoughts. No homicidal thoughts. SKIN: Intact. No rash. PHYSICAL EXAMINATION: V/S: blood pressure 144/72, respiratory rate 20, heart rate 55, temperature 97.0. HEENT: Normocephalic, atraumatic. Mucosa dry. Pallor positive. No icterus. NECK: Supple. No JVD, no carotid bruit. No lymphadenopathy. LUNGS: Decreased and clear to auscultation. No rales or rhonchi. HEART: S1, S2 normal. No S3. No murmur, gallop or regurgitation. ABDOMEN: Soft, nontender. Bowel sounds active. No rigidity. No rebound or guarding. No CVA tenderness. EXTREMITIES: No clubbing, cyanosis or pedal edema. MUSCULOSKELETAL: No joint swelling. NEUROLOGIC: Awake, alert, oriented times three. No focal deficit. LYMPHATIC: No lymph nodes palpable. SKIN: Intact. LABS: WBC 8.74, hgb 10.5, hct 32.8, plt count 280, sodium 137, potassium 5.1, chloride 107, bicarb 21, BUN 24, creatinine 0.85 and glucose 175. ASSESSMENT: 1. Status post change in mental status 2. Status post acute renal failure 3. UTI, organism e-coli 4. Weakness and debility needing the physical therapy 5. Alzheimer's dementia with the behavioral changes 6. Bipolar disorder PLAN: 1. Continue the Lovenox, [place] 2. Fall precaution 3. Physical therapy and occupational therapy TIME SPENT: More than 35 minutes MTDD
--- NOTE | 2017-09-10 13:02 | PN ---
DATE OF SERVICE: 09/07/17 SUBJECTIVE: The patient was admitted with change in mental status. The patient was needing physical therapy, 2 weeks on physical therapy. Able to walk up to the door but needing some help almost with two people to get up from the bed to on the floor but once she is standing she can walk some. REVIEW OF SYSTEMS: CONSTITUTIONAL: No fever, no chills. HEENT: Normal. ENDOCRINE: No weight gain, no weight loss. CVS: No angina symptoms. No CHF symptoms. No palpitations. No atypical chest pain for CAD. No shortness of breath. No PND, no orthopnea. RESPIRATORY: No cough, no hemoptysis. GI: No nausea, no vomiting. No abdominal pain. : No hematuria. No polyuria. MUSCULOSKELETAL:. No joint swelling. PSYCHIATRIC: Not anxious. No depression. No suicidal thoughts. No homicidal thoughts. SKIN: Intact. No rash. PHYSICAL EXAMINATION: V/S: Blood pressure 109/62, respiratory rate 20, heart rate 60, temperature 97.3 with saturation 96%. HEENT: Normocephalic, atraumatic. Mucosa dry. Pallor positive. No icterus. NECK: Supple. No JVD, no carotid bruit. No lymphadenopathy. LUNGS: Decreased and clear to auscultation. No rales or rhonchi. HEART: S1, S2 normal. No S3. No murmur, gallop or regurgitation. ABDOMEN: Soft, nontender. Bowel sounds active. No rigidity. No rebound or guarding. No CVA tenderness. EXTREMITIES: No clubbing, cyanosis or pedal edema. MUSCULOSKELETAL: No joint swelling. NEUROLOGIC: Awake, alert, oriented times three. No focal deficit. LYMPHATIC: No lymph nodes palpable. SKIN: Intact. LABS: WBC 8.74, hgb 10.5, hct 32.8, plt count 218, sodium 137, potassium 5.1, chloride 107, bicarb 21, BUN 24, creatinine 0.85 and glucose 175. ASSESSMENT: 1. Status post acute renal failure 2. Status post change in mental status 3. UTI, organism e-coli 4. Weakness and tiredness needing physical therapy 5. Alzheimer's dementia 6. Depression 7. Bipolar PLAN: 1. Continue the physical therapy as planned 2. Lovenox for the DVT prophylaxis 3. Metformin 500mg PO daily TIME SPENT: More than 35 minutes MTDD
[2017-09-10] MEDS: RISPERDAL PO SCH (22:47)
[2017-09-10] MEDS: LIPITOR PO SCH (22:48)
[2017-09-11] MEDS: TYLENOL PO PRN (02:46)
[2017-09-11] MEDS: LOVENOX SUBCUT SCH (08:35)
[2017-09-11] MEDS: NEURONTIN PO SCH ×2 (08:36→20:41)
[2017-09-11] MEDS: GLUCOPHAGE PO SCH (08:36)
[2017-09-11] MEDS: LITHIUM CARBONATE PO SCH (08:36)
[2017-09-11] MEDS: ASPIRIN EC PO SCH (08:36)
[2017-09-11] MEDS: ZESTRIL PO SCH (08:36)
[2017-09-11] MEDS: MIRALAX PO SCH (08:36)
[2017-09-11] MEDS: NORCO 5-325 PO SCH ×2 (08:36→20:40)
[2017-09-11] MEDS: FLORASTOR PO SCH ×2 (08:36→20:41)
[2017-09-11] MEDS: NON-FORMULARY MEDICATION (Cyanocobalamin (Vitamin B-12) [Vitamin B-12] 100 MCG) PO SCH (08:41)
--- NOTE | 2017-09-11 09:37 | PN ---
DATE OF SERVICE: 09/09/17 SUBJECTIVE: The patient was admitted initially with change in mental status after patient was weak needing some help with physical and occupational therapy, she is participating in that. More awake alert. Did not have any complaint. Bowel movements are regular. REVIEW OF SYSTEMS: CONSTITUTIONAL: No fever, no chills. HEENT: Normal. ENDOCRINE: No weight gain, no weight loss. CVS: No angina symptoms. No CHF symptoms. No palpitations. No atypical chest pain for CAD. No shortness of breath. No PND, no orthopnea. RESPIRATORY: No cough, no hemoptysis. GI: No nausea, no vomiting. No abdominal pain. : No hematuria. No polyuria. MUSCULOSKELETAL:. No joint swelling. PSYCHIATRIC: Not anxious. No depression. No suicidal thoughts. No homicidal thoughts. SKIN: Intact. No rash. PHYSICAL EXAMINATION: V/S: Blood pressure 117/56, respiratory rate 16, heart rate 64, temperature 97.3 with saturation 95%. HEENT: Normocephalic, atraumatic. Mucosa dry. Pallor positive. No icterus. NECK: Supple. No JVD, no carotid bruit. No lymphadenopathy. LUNGS: Bilateral entry is decreased and clear to auscultation. No rales or rhonchi. HEART: S1, S2 normal. No S3. No murmur, gallop or regurgitation. ABDOMEN: Soft, nontender. Bowel sounds active. No rigidity. No rebound or guarding. No CVA tenderness. EXTREMITIES: No clubbing, cyanosis or pedal edema. MUSCULOSKELETAL: No joint swelling. NEUROLOGIC: Awake, alert, oriented times three. No focal deficit. LYMPHATIC: No lymph nodes palpable. SKIN: Intact. LABS: WBC 8.74, hgb 10.5, hct 32.8, plt count 218, sodium 137, potassium 5.1, chloride 107, bicarb 21, BUN 24, creatinine 0.85. ASSESSMENT: 1. Status post change in mental status 2. Status post acute renal failure 3. UTI, organism e-coli 4. Debility and failure to thrive, not able to walking 5. Alzheimer's Dementia with behavioral changes 6. Bipolar disorder 7. Depression PLAN: 1. Continue the physical and occupational therapy 2. Out of bed to chair with help 3. Fall precautions 4. Accu-checks Will follow the patient in daily rounds. TIME SPENT: More than 35 minutes MTDD
--- NOTE | 2017-09-11 15:02 | PN ---
DATE OF SERVICE: 09/04/17 SUBJECTIVE: The patient is more awake and alert and says that she was able to walk but needing almost two to three people to lift her from the bed and put her on the floor then she starts walking. Hydrocodone twice a day is helping the patient a lot. REVIEW OF SYSTEMS: CONSTITUTIONAL: No fever, no chills. HEENT: Normal. ENDOCRINE: No weight gain, no weight loss. CVS: No angina symptoms. No CHF symptoms. No palpitations. No atypical chest pain for CAD. No shortness of breath. No PND, no orthopnea. RESPIRATORY: No cough, no hemoptysis. GI: No nausea, no vomiting. No abdominal pain. : No hematuria. No polyuria. MUSCULOSKELETAL:. No joint swelling. PSYCHIATRIC: Not anxious. No depression. No suicidal thoughts. No homicidal thoughts. SKIN: Intact. No rash. PHYSICAL EXAMINATION: V/S: Blood pressure 136/88, respiratory rate 20, heart rate 77, temperature afebrile. HEENT: Normocephalic, atraumatic. Mucosa dry. NECK: Supple. No JVD, no carotid bruit. No lymphadenopathy. LUNGS: Bilateral entry is decreased and clear to auscultation. No rales or rhonchi. HEART: S1, S2 normal. No S3. No murmur, gallop or regurgitation. ABDOMEN: Soft, nontender. Bowel sounds active. No rigidity. No rebound or guarding. No CVA tenderness. EXTREMITIES: No clubbing, cyanosis or pedal edema. MUSCULOSKELETAL: No joint swelling. NEUROLOGIC: Awake, alert, oriented times three. No focal deficit. LYMPHATIC: No lymph nodes palpable. SKIN: Intact. LABS: WBC 8.50, hgb 10.1, hct 31.9, plt count 229, sodium 135, potassium 4.8, chloride 106, bicarb 21, BUN 21, creatinine 0.93 and glucose 222 ASSESSMENT: 1. Status post change in mental status 2. Acute renal failure 3. UTI organism e-coli 4. Weakness and inability to walk 5. Alzheimer's Dementia 6. Bipolar 7. Depression PLAN: 1. Continue the physical therapy and occupational therapy 2. Continue the breathing treatments and Lovenox for the DVT prophylaxis TIME SPENT: More than 35 minutes MTDD
--- NOTE | 2017-09-11 15:11 | PN ---
DATE OF SERVICE: 09/05/17 SUBJECTIVE: The patient was admitted with renal failure and change in mental status. The patient was needing physical therapy and occupation therapy. Right now with the help the patient is able to walk some. Still complaining of the lower back pain but Hydrocodone is helping her. Not constipated. REVIEW OF SYSTEMS: CONSTITUTIONAL: No fever, no chills. HEENT: Normal. ENDOCRINE: No weight gain, no weight loss. CVS: No angina symptoms. No CHF symptoms. No palpitations. No atypical chest pain for CAD. No shortness of breath. No PND, no orthopnea. RESPIRATORY: No cough, no hemoptysis. GI: No nausea, no vomiting. No abdominal pain. : No hematuria. No polyuria. MUSCULOSKELETAL:. No joint swelling. PSYCHIATRIC: Not anxious. No depression. No suicidal thoughts. No homicidal thoughts. SKIN: Intact. No rash. PHYSICAL EXAMINATION: V/S: Blood pressure 137/68, respiratory rate 18, heart rate 62, temperature 96.8 with saturation 96%. HEENT: Normocephalic, atraumatic. Mucosa dry. Pallor positive. No icterus. NECK: Supple. No JVD, no carotid bruit. No lymphadenopathy. LUNGS: Clear to auscultation. No rales or rhonchi. HEART: S1, S2 normal. No S3. No murmur, gallop or regurgitation. ABDOMEN: Soft, nontender. Bowel sounds active. No rigidity. No rebound or guarding. No CVA tenderness. EXTREMITIES: No clubbing, cyanosis or pedal edema. MUSCULOSKELETAL: No joint swelling. NEUROLOGIC: Awake, alert, oriented times three. No focal deficit. LYMPHATIC: No lymph nodes palpable. SKIN: Intact. LABS: WBC 8.74, hgb 10.5, hct 32.8, plt count 218, sodium 138, potassium 5.2, chloride 107, bicarb 21, BUN 23, creatinine 0.83 and glucose 173. ASSESSMENT: 1. Hyperkalemia 2. Status post change in mental status 3. Status post acute renal failure 4. UTI, organism e-coli 5. Alzheimer's Dementia 6. Bipolar disorder PLAN: 1. Will get STAT CMP 2. Continue physical therapy and occupational therapy 3. Fall precautions Will follow the patient in daily rounds. TIME SPENT: More than 35 minutes MTDD
--- NOTE | 2017-09-11 15:36 | PN ---
DATE OF SERVICE: 09/11/17 SUBJECTIVE: The patient is up and about walking needing some help. REVIEW OF SYSTEMS: CONSTITUTIONAL: No fever, no chills. HEENT: Normal. ENDOCRINE: No weight gain, no weight loss. CVS: No angina symptoms. No CHF symptoms. No palpitations. No atypical chest pain for CAD. No shortness of breath. No PND, no orthopnea. RESPIRATORY: No cough, no hemoptysis. GI: No nausea, no vomiting. No abdominal pain. : No hematuria. No polyuria. MUSCULOSKELETAL:. No joint swelling. PSYCHIATRIC: Not anxious. No depression. No suicidal thoughts. No homicidal thoughts. SKIN: Intact. No rash. PHYSICAL EXAMINATION: V/S: Blood pressure 148/71, respiratory rate 18, heart rate 65, temperature 97.6 with saturation 99%. HEENT: Normocephalic, atraumatic. Mucosa dry. Pallor positive. No icterus. NECK: Supple. No JVD, no carotid bruit. No lymphadenopathy. LUNGS: Decreased and Clear to auscultation. No rales or rhonchi. HEART: S1, S2 normal. No S3. No murmur, gallop or regurgitation. ABDOMEN: Soft, nontender. Bowel sounds active. No rigidity. No rebound or guarding. No CVA tenderness. EXTREMITIES: No clubbing, cyanosis,1+ edema. MUSCULOSKELETAL: No joint swelling. NEUROLOGIC: Awake, alert, oriented times three. No focal deficit. LYMPHATIC: No lymph nodes palpable. SKIN: Intact. LABS: WBC 8.74, hgb 10.5, hct 32.8, plt count 218, sodium 137, potassium 5.1, chloride 107, bicarb 21, BUN 24, creatinine 0.84, glucose 175. ASSESSMENT: 1. Status post acute renal failure 2. Status post change in mental status 3. UTI, organism e-coli 4. Alzheimer's dementia with behavioral changes 5. Depression 6. Dependant edema which comes and goes. 7. Diabetes which is a new onset in the hospital PLAN: 1. Continue physical therapy and occupation therapy 2. Continue Accu-checks 3. Fall precaution TIME SPENT: More than 55 minutes MTDD
[2017-09-11] MEDS: RISPERDAL PO SCH (20:41)
[2017-09-11] MEDS: LIPITOR PO SCH (20:41)
[2017-09-12 05:32] VITALS: BP 149/66; TEMP 97.1
[2017-09-12] MEDS: LITHIUM CARBONATE PO SCH (08:32)
[2017-09-12] MEDS: NORCO 5-325 PO SCH (08:33)
[2017-09-12] MEDS: NEURONTIN PO SCH (08:33)
[2017-09-12] MEDS: LOVENOX SUBCUT SCH (08:33)
[2017-09-12] MEDS: ASPIRIN EC PO SCH (08:33)
[2017-09-12] MEDS: GLUCOPHAGE PO SCH (08:33)
[2017-09-12] MEDS: ZESTRIL PO SCH (08:33)
[2017-09-12] MEDS: FLORASTOR PO SCH (08:33)
[2017-09-12] MEDS: NON-FORMULARY MEDICATION (Cyanocobalamin (Vitamin B-12) [Vitamin B-12] 100 MCG) PO SCH (08:35)
[2017-09-12] MEDS: MIRALAX PO SCH (08:35)
--- NOTE | 2017-09-18 15:52 | DS ---
DATE OF SERVICE: 09/12/17 FINAL DIAGNOSIS: 1. Status post acute renal failure 2. Status post change in mental status secondary to the UTI 3. UTI, organism e-coli 4. Alzheimer's dementia with the behavioral changes. 5. New onset diabetes 6. Anemia 7. DJD spine started on the [place] 8. Bipolar disorder 9. 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 CBC and CMP within one week and then every three months. [place] level and hgb A1c levels in 6 months. PRN Accu-checks. Will be following in the [facility]ci rounds within one week. Physical therapy and occupational therapy please evaluate and treat. Continue the rest of the home medications. MEDICATIONS AT DISCHARGE: Tylenol Loperamide Aspirin Lipitor Cyanocobalamin Neurontin Hydrocodone [place] Miralax Risperdal NEW PRESCRIPTIONS: [place] 5mg PO twice a day Metformin 500mg PO daily Miralax 17grams PO daily Zestril 20mg PO daily DIET INSTRUCTIONS: Cardiac and diabetic diet ACTIVITY: The patient may participate in the fci activities as tolerated. PT/OT evaluate and treat SMOKING: Former Smoker. DISEASE SPECIFIC EDUCATION: Dehydration Fall risk Antibiotics use and diarrhea been discussed and verbalized understanding. HOSPITAL COURSE: Lora Caraballo who came to the emergency room with change in mental status and recent UTI which was treated at the [facility] and getting worse. WBC was 14,000. BUN 59, creatinine 1.30. Urine was positive for the leukocyte esterase and negative for the nitrates. [place] level was 1.4. CT scan was negative for the stroke. At that time she was admitted to the hospital and started on the IV antibiotics. Gradually WBC came down to 11,000, 7,000 and then BUN and creatinine was gradually improving. Organism was e-coli and responsive for the Rocephin which was continued. After that the patient was needing some physical therapy and occupation therapy. The patient was put in the transition care and physical therapy was started. Two people were needing to help the patient from the bed to standing position and then she was walking. Then oral antibiotic Omnicef was started and then the patient was having diarrhea. C-Diff was checked which was negative. Gradually the patient being more ambulatory. Leg edema was better. High sugars were noted in the hospital so we did the A1c and the A1c came out 6.5 positive then the patient was started on the Metformin and the blood sugar being controlled with Metformin. Blood pressure was high so Lisinopril was started. Hgb was staying stable 10.1 and 10.5 which did not get worse. BUN and creatinine was steady. Gradually the patient was feeling better and at that time the patient being discharged back to the [facility]. TIME SPENT: MORE THAN 55 MINUTES KIANA
== END 2017-09-12 16:10 | disposition home or self-care (01) | DRG 690 ==
LOC: MEDSURG B 16:10
PROVIDERS: ADMIT Emergency Medicine; ATTEND Emergency Medicine
DX: N39.0 Urinary tract infection, site not specified (principal); N17.9 Acute kidney failure, unspecified; F02.81 Dementia in other diseases classified elsewhere, unspecified severity, with behavioral disturbance; B96.20 Unspecified Escherichia coli [E. coli] as the cause of diseases classified elsewhere; E11.9 Type 2 diabetes mellitus without complications; G30.0 Alzheimer's disease with early onset; R60.0 Localized edema; R53.81 Other malaise; R62.7 Adult failure to thrive; M62.81 Muscle weakness (generalized); R26.2 Difficulty in walking, not elsewhere classified; D64.9 Anemia, unspecified; F31.9 Bipolar disorder, unspecified; J44.9 Chronic obstructive pulmonary disease, unspecified; K57.30 Diverticulosis of large intestine without perforation or abscess without bleeding; M54.5 Low back pain; F20.9 Schizophrenia, unspecified; M47.9 Spondylosis, unspecified; M19.90 Unspecified osteoarthritis, unspecified site; E78.5 Hyperlipidemia, unspecified; E87.5 Hyperkalemia; K59.00 Constipation, unspecified; Z79.2 Long term (current) use of antibiotics; Z79.84 Long term (current) use of oral hypoglycemic drugs; Z90.49 Acquired absence of other specified parts of digestive tract; Z87.891 Personal history of nicotine dependence; Z79.899 Other long term (current) drug therapy; Z96.653 Presence of artificial knee joint, bilateral
CPT/HCPCS: 36415; 80053; 82962; 83036; 85025; 94640; 97802

== ENCOUNTER 2017-10-14 15:34 | Inpatient (IN) ==
[2017-10-14 15:41] VITALS: BMI 30.9
--- NOTE | 2017-10-14 16:35 | ED.PDOC ---
General ED Provider: Dr. EVITA PURVIS Chief Complaint: Non-specific Complaint Stated Complaint: Weakness, confusion and increasing tremor. Granddaughter indicated that she recenlty was lithium toxic and began with similar symptoms at that time. Patient with longstanding bipolar , manic depression and resides in a custodial. Time Seen by Physician: 15:55 Mode of Arrival: Ambulance Information Source: Family, Custodial, EMT Exam Limitations: No limitations, Clinical condition Primary Care Provider: [facility] Nursing and Triage Documentation Reviewed and Agree: Yes Reviewed sepsis parameters & appropriate labs ordered?: Yes System Inflammatory Response Syndrome: Not Applicable Sepsis Protocol: For patient's 13 years and over: Temp is 96.8 and below OR 101 and greater Pulse >90 BPM Resp >20/minute Acutely Altered Mental Status Are patient's symptoms suggestive of a new infection, such as: -Pneumonia -Skin, Soft Tissue -Endocarditis -UTI -Bone, Joint Infection -Implantable Device -Acute Abdominal Infection -Wound Infection -Meningitis -Blood Stream Catheter Infection -Unknown System Inflammatory Response Syndrome: Not Applicable Neurological Complaint Exam - Weakness Complaint/Exam Onset: Gradual Symptoms Are: Still present Timing: Intermittent Episodes Lasting: Minutes Initial Severity: Moderate Current Severity: Mild Character: Reports: Lightheaded Aggravating: Reports: Position change, Change in head position Alleviating: Reports: Lying down Associated Signs and Symptoms: Reports: Loss of balance (Tremor) Cardiac Risk Factors: Reports: Hypertension CVA Risk Factors: Reports: Hypertension, PVD Review of Systems - Review Of Systems Constitutional: Reports: Weakness, Loss of appetite Eyes: Reports: No symptoms Ears, Nose, Mouth, Throat: Reports: No symptoms. Denies: Mouth swelling, Throat pain, Throat swelling Respiratory: Reports: No symptoms Cardiac: Reports: No symptoms, Edema GI: Reports: No symptoms : Denies: Burning, Dysuria, Discharge Musculoskeletal: Reports: No symptoms Skin: Reports: Bruising Neurological: Reports: Emotional problems, Cognitive dysfunction (Alert Oriented to self ,current location, time, day and month/year 2007). Denies: Other (Tremor-intention; ) Endocrine: Reports: No symptoms Hematologic/Lymphatic: Reports: No symptoms All Other Systems: Reviewed and Negative Past Medical History - Past Medical History Previously Healthy: No Endocrine: Reports: Unknown Cardiovascular: Reports: Unknown Respiratory: Reports: Unknown Hematological: Reports: Unknown Gastrointestinal: Reports: Unknown Genitourinary: Reports: Unknown Neuro/Psych: Reports: Unknown Musculoskeletal: Reports: Unknown Cancer: Reports: Unknown Last Menstrual Period: menpause - Surgical History General Surgical History: Reports: Unknown - Family History Family History: Reports: Unknown - Social History Smoking Status: Former smoker Hx Substance Use: No Alcohol Screening: None Physical Exam - Physical Exam Appearance: Obese Ill-appearing: Mild Pain Distress: None Eyes: [place], EOMI, Conjunctiva clear, Conjunctiva inflammed ENT: Ears normal, Nose normal, Epistaxis Neck: Supple Respiratory: Airway patent, Breath sounds clear, Breath sounds equal Cardiovascular: RRR, Pulses normal, No rub, No murmur GI/: Soft, Nontender, No masses, Bowel sounds normal, No Organomegaly Musculoskeletal: ROM intact, No edema, No calf tenderness, Limited strength Skin: Warm, Dry, Normal color Neurological: Sensation intact, Motor intact, Alert, Disoriented Psychiatric: Affect appropriate, Mood appropriate Critical Care Note - Critical Care Note Total Time (mins): 0 Course - Course Hematology/Chemistry: 10/14/17 16:45 10/14/17 16:45 Orders, Labs, Meds: Lab Review 10/14/17 10/14/17 10/14/17 16:45 16:45 16:45 WBC 13.31 H RBC 3.56 L Hgb 11.5 L Hct 35.6 L MCV 100.0 H MCH 32.3 H MCHC 32.3 RDW Coeff of Alexia 13.6 Plt Count 225 Immature Gran % (Auto) 0.3 Neut % (Auto) 71.1 Lymph % (Auto) 17.5 [place] % (Auto) 6.8 Eos % (Auto) 3.8 Baso % (Auto) 0.5 Immature Gran # (Auto) 0.0 Neut # 9.5 H Lymph # 2.3 [place] # 0.9 Eos # 0.5 Baso # 0.1 Sodium 135 L Potassium 4.1 Chloride 103 Carbon Dioxide 23 Anion Gap 13.1 BUN 29 H Creatinine 1.25 Estimated GFR (MDRD) 41.00 BUN/Creatinine Ratio 23.20 Glucose 128 H Calcium 10.6 H Total Bilirubin 0.8 AST 16 ALT 10 L Alkaline Phosphatase 79 Total Protein 7.1 Albumin 4.0 Globulin 3.1 Albumin/Globulin Ratio 1.29 Vitamin B12 1459 H Folate 12.4 Urine Color Urine Clarity Urine pH Ur Specific [place] Urine Protein Urine Glucose (UA) Urine Ketones Urine Blood Urine Nitrite Urine Bilirubin Urine Urobilinogen Ur Leukocyte Esterase 10/14/17 17:15 WBC RBC Hgb Hct MCV MCH MCHC RDW Coeff of Alexia Plt Count Immature Gran % (Auto) Neut % (Auto) Lymph % (Auto) [place] % (Auto) Eos % (Auto) Baso % (Auto) Immature Gran # (Auto) Neut # Lymph # [place] # Eos # Baso # Sodium Potassium Chloride Carbon Dioxide Anion Gap BUN Creatinine Estimated GFR (MDRD) BUN/Creatinine Ratio Glucose Calcium Total Bilirubin AST ALT Alkaline Phosphatase Total Protein Albumin Globulin Albumin/Globulin Ratio Vitamin B12 Folate Urine Color Yellow Urine Clarity Clear Urine pH 5.5 Ur Specific [place] 1.020 Urine Protein Negative Urine Glucose (UA) Negative Urine Ketones Negative Urine Blood Negative Urine Nitrite Negative Urine Bilirubin Negative Urine Urobilinogen 0.2 Ur Leukocyte Esterase Negative Orders Category Date Time Status EKG-(ED ONLY) Stat CARDIO 10/14/17 16:32 Completed CBC W/ AUTO DIFF Stat LAB 10/14/17 16:45 Completed CMP [COMPREHENSIVE METABOLIC PANEL] Stat LAB 10/14/17 16:45 Completed FOLATE Stat LAB 10/14/17 16:45 Completed LITHIUM Stat LAB 10/14/17 16:45 Received UA [URINALYSIS C & S IF INDICATED] Stat LAB 10/14/17 17:15 Completed VITAMIN B1 (THIAMINE) Routine LAB 10/14/17 16:45 Received VITAMIN B12 Routine LAB 10/14/17 16:45 Completed SODIUM CHLORIDE 0.9% @ 125 MLS/HR(1,000ml) MEDS 10/14/17 18:58 Ordered Sodium Chloride 0.9% [Sodium Chloride] 1,000 ml IV 125 mls/hr Vital Signs: Temp Pulse Resp BP Pulse Ox 10/14/17 16:11 63 16 158/66 H 10/14/17 15:35 98.2 F 79 20 183/84 H 99 Departure - Departure Time of Disposition: 19:05 Disposition: ADMITTED INPATIENT Discharge Problem: Tremor, Dehydration, [place] adverse reaction Condition: Fair Pt referred to PMD for follow-up: Yes IPMP verified?: No Additional Instructions: Discussed with Dr rTejo Admit for IV fluids, Observation of neurological status Discussed with family Allergies/Adverse Reactions: Allergies codeine Adverse Reaction (Verified 10/14/17 15:44) iodine Adverse Reaction (Verified 10/14/17 15:44) metoclopramide Adverse Reaction (Verified 10/14/17 15:44) contrast Adverse Reaction (Uncoded 08/21/17 11:22) IV dye Adverse Reaction (Uncoded 08/21/17 11:22) Home Medications: Ambulatory Orders Acetaminophen [Pain & Fever] 650 mg PO Q6HR PRN 08/21/17 Aspirin [Aspirin EC] 81 mg PO DAILY 08/21/17 Atorvastatin Calcium [Lipitor] 20 mg PO BEDTIME 08/21/17 Cyanocobalamin (Vitamin B-12) [Vitamin B-12] 100 mcg PO DAILY 08/21/17 Gabapentin [Neurontin] 200 mg PO BID 08/21/17 [place] Carbonate 300 mg PO DAILY 08/21/17 Loperamide HCl [Loperamide] 2 mg PO Q8HR PRN 08/21/17 Risperidone [Risperdal] 0.25 mg PO BEDTIME 08/21/17 Lisinopril [Zestril] 20 mg PO DAILY #30 tablet 09/12/17 Metformin HCl [Glucophage] 500 mg PO DAILYWM #30 tablet 09/12/17 Polyethylene Glycol 3350 [Miralax] 17 gm PO DAILY #30 powd.pack 09/12/17 Furosemide [Lasix Tab] 20 mg PO QDAC 10/14/17 Hydrocodone Bit/Acetaminophen [[place] 5-325] 1 each PO BID PRN 10/14/17 Nitrofurantoin Macrocrystal [Macrodantin] 100 mg PO DAILY 10/14/17
[2017-10-14] MEDS ORDERED: SODIUM CHLORIDE 1,000 ML IV STA (18:58)
[2017-10-14] MEDS ORDERED: NON-FORMULARY MEDICATION (Loperamide Hcl [Loperamide] 2 MG) PO PRN (22:35)
[2017-10-14] MEDS ORDERED: TYLENOL PO PRN (22:35)
[2017-10-15] MEDS ORDERED: IMODIUM PO PRN (07:11)
[2017-10-15] MEDS ORDERED: HUMULIN R SUBCUT PRN (08:47)
[2017-10-15] MEDS ORDERED: LITHIUM CARBONATE 300 MG PO SCH (09:00)
[2017-10-15] MEDS ORDERED: NON-FORMULARY MEDICATION (Lisinopril [Zestril] 20 MG) PO SCH (09:00)
[2017-10-15] MEDS ORDERED: NITROFURANTOIN MACROCRYSTAL 100 MG PO SCH (09:00)
[2017-10-15] MEDS ORDERED: LITHIUM CARBONATE PO SCH (09:00)
[2017-10-15] MEDS ORDERED: ZESTRIL PO SCH (09:00)
[2017-10-15] MEDS: NEURONTIN PO SCH ×2 (09:04→21:00)
[2017-10-15] MEDS: MIRALAX PO SCH (09:04)
[2017-10-15] MEDS: ASPIRIN EC PO SCH (09:05)
[2017-10-15] MEDS: MACROBID PO SCH ×2 (09:05→20:59)
[2017-10-15] MEDS: LASIX TAB PO SCH (09:05)
[2017-10-15] MEDS: NORCO 5-325 PO SCH ×2 (09:05→20:59)
[2017-10-15] MEDS: ZESTRIL PO SCH (09:05)
[2017-10-15] MEDS: GLUCOPHAGE PO SCH (09:06)
--- NOTE | 2017-10-15 10:55 | US ---
EXAM: ULTRASOUND CAROTID DUPLEX, BILATERAL HISTORY: Change in mental status FINDINGS: Christianson-scale ultrasound, color Doppler and spectral analysis was performed. Velocities are in meters per second. By christianson scale and color Doppler imaging, there were regions of heterogeneous plaque formation identif ied within the carotid bulbs and internal carotid arteries. These regions of plaque appeared to rosario in less than 50% vessel diameter. RIGHT: External carotid artery peak systolic velocity: 1.5 Common carotid artery peak systolic velocity/end diastolic velocity: 0.8/0.1 Internal carotid artery peak systolic velocity: 0.9 ICA/CCA peak systolic velocity ratio: 1.1 ICA end diastolic velocity: 0.2 LEFT: External carotid artery peak systolic velocity: 0.8 Common carotid artery peak systolic velocity/end diastolic velocity: 0.6/0.1 Internal carotid artery peak systolic velocity: 1.2 ICA/CCA peak systolic velocity ratio: 1.8 ICA end diastolic velocity: 0.2 The right and left vertebral arteries were antegrade. IMPRESSION: 1. By christianson scale and color Doppler imaging, there were regions of heterogeneous plaque formation cem ntified within the carotid bulbs and internal carotid arteries. These regions of plaque appeared to remain less than 50% vessel diameter. 2. Internal carotid artery peak systolic velocities and ICA/CCA peak systolic velocity ratios indica te no hemodynamically significant stenosis bilaterally. 3. Both vertebral arteries were antegrade.
[2017-10-15] MEDS: NON-FORMULARY MEDICATION (Cyanocobalamin (Vitamin B-12) [Vitamin B-12] 100 MCG) PO SCH (11:12)
[2017-10-15] MEDS: SODIUM CHLORIDE 1,000 ML IV SCH ×3 (11:17→23:54)
[2017-10-15] MEDS: HUMULIN R SUBCUT PRN (12:16)
--- NOTE | 2017-10-15 14:14 | CT ---
EXAM: CT of the head without contrast History: Altered mental status. Comparison: Head CT 08/21/2017 Technique: Multiplanar CT images through the head were obtained without the administration of IV con trast Findings: No change in the chronic mucosal thickening and opacification of the left maxillary sinus. Paranasal sinuses are otherwise clear. Mastoid air cells are clear. No acute osseous abnormalities . Intracranially the ventricular and cisternal spaces are stable. No midline shift. No hydrocephalous . No acute intracranial hemorrhage or abnormal extraaxial fluid collections. Periventricular and bess bcortical white matter hypodensities are stable. Impression: 1. No acute intracranial process. 2. Chronic small vessel ischemic disease. 3. No change in the chronic left maxillary sinusitis.
[2017-10-15] MEDS: RISPERDAL PO SCH (20:59)
[2017-10-15] MEDS: LIPITOR PO SCH (20:59)
[2017-10-16] MEDS: LASIX TAB PO SCH (05:53)
[2017-10-16] MEDS: GLUCOPHAGE PO SCH (08:38)
[2017-10-16] MEDS: NEURONTIN PO SCH (08:38)
[2017-10-16] MEDS: NORCO 5-325 PO SCH (08:38)
[2017-10-16] MEDS: MACROBID PO SCH (08:39)
[2017-10-16] MEDS: ASPIRIN EC PO SCH (08:39)
[2017-10-16] MEDS: MIRALAX PO SCH (08:39)
[2017-10-16] MEDS: ZESTRIL PO SCH (08:39)
[2017-10-16] MEDS: NON-FORMULARY MEDICATION (Cyanocobalamin (Vitamin B-12) [Vitamin B-12] 100 MCG) PO SCH (09:00)
[2017-10-16] MEDS ORDERED: NORCO 5-325 PO PRN (13:41)
[2017-10-16] MEDS: LIPITOR PO SCH (20:33)
[2017-10-16] MEDS: RISPERDAL PO SCH (20:34)
[2017-10-16] MEDS: HUMULIN R SUBCUT PRN (22:16)
[2017-10-17] MEDS: SODIUM CHLORIDE 1,000 ML IV SCH (01:33)
[2017-10-17] MEDS: LASIX TAB PO SCH (06:08)
[2017-10-17] MEDS: DUONEB NEB SCH ×3 (10:10→19:26)
--- NOTE | 2017-10-17 10:10 | ED.PDOC ---
Procedures - IV/Art Line Insertion Location: lt lower leg Invasive Line/IV Catheter Gauge: 22 Number of Attempts: 1 Blood Return Positive: Yes Invasive Line/IV Flushes Without Difficulty: Yes Conscious Sedation - Pre-op Assessment Weight: 175 lb Surgical History: neuropathy, cardiac murmur,. Bilat knee replacements, Hysterectomy, Rt carpal tunnel surg, - Medical History Past Medical History: Hypertension, Diabetes, High Lipids, COPD, Renal Failure, Depression, Bipolar Other History: Hyperkalemia, altered mental status, Muscle weakness, UTI, sepsis ,diverticu - Physical Exam Heart Rate/Rhythm: Regular Rhythm
[2017-10-17] MEDS: ASPIRIN EC PO SCH (10:31)
[2017-10-17] MEDS: GLUCOPHAGE PO SCH (10:31)
[2017-10-17] MEDS: ZESTRIL PO SCH (10:32)
[2017-10-17] MEDS: LOVENOX SUBCUT SCH (10:34)
[2017-10-17] MEDS: ROCEPHIN 1 GM in SODIUM CHLORIDE 50 ML IV SCH (10:36)
--- NOTE | 2017-10-17 13:24 | CT ---
EXAM: CT THORAX HISTORY: Cough. TECHNIQUE: CT thorax without intravenous contrast. Multiplanar images presented. Coronal and sagit angy re-formations. COMPARISON: None FINDINGS: Heart size is within normal limits. No pericardial effusion. Mild atherosclerotic disease. Limited evaluation of the mediastinum and hilar structures without the administration of intravenous contras t agent. No definite active lymphadenopathy. Evaluation of the lungs is limited by respiratory motion. No definite consolidated pneumonia or vasc ular congestion. No pleural fluid, central interstitial edema or pneumothorax. The bones reveal no acute abnormality. A few thyroid nodules are incidentally noted. IMPRESSION: 1. No etiology for the patient's cough identified. No definite consolidated pneumonia or vascular c ongestion. 2. Thyroid nodules incidentally noted. 3. Atherosclerotic disease.
--- NOTE | 2017-10-17 13:57 | MRI ---
EXAM: Brain MRI without contrast. HISTORY: Mental status change. COMPARISON: Head CT 10/15/[address] 08/21/2017. TECHNIQUE: Multiplanar, multisequence MR images were acquired of the brain without contrast. The jazmine dy is degraded by patient motion which limits interpretation. FINDINGS: The study is patient motion degraded. The midline structures are central and the craniocer vical junction is unremarkable. There is asymmetry in the lateral ventricle with the left lateral ve ntricle larger than the right that is considered within normal variation. There is mild prominence o f the lateral ventricle compared to the sulci suggestive of age related involutional changes which ar e greater centrally. No large abnormal extra-axial fluid collections are present. The gradient echo sequence is degraded by motion and subtle intracranial hemorrhage may be missed. The brain parenchyma has no restricted diffusion to suggest acute hypoperfusion or infarction. Subtl e small foci of recent ischemia may be missed due to the patient motion. 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 The co rpus callosum has a normal configuration. There is a probable mostly empty sella. There are no intraorbital masses. There has been previous lens surgery bilaterally. Hyperostosis frontalis interna is present. There is near-complete opacification of the left maxillar y sinus due to moderate polypoid mucosal thickening and there is complex fluid with central dark T1-T 2 signal calcification or ossification. The appearance raises the possibility of a chronic fungal le ft maxillary sinusitis. There is mucoperiosteal reaction. There is probable mild mucosal thickening in the ethmoid air cells and a small mucous retention cyst in a posterior left ethmoid air cell. The re is membrane thickening in the mastoid air cells and mild mucosal thickening and probably a trace o f fluid in a minor number of the posterior left mastoid air cells. Motion limits detail. Poorly visualized flow voids are present in the major intracranial arteries. Dural venous sinuses ar e patent. IMPRESSION: 1. No intracranial mass or acute cerebral infarct. Small foci of subtle recent ischemia may be miss ed due to patient motion. 2. Age related involutional changes which are greater centrally and mild to moderate chronic ischemi c small vessel disease. 3. Mostly empty sella. 4. Moderate chronic left maxillary sinusitis which has central calcification or ossification. This raises the possibility of a chronic left fungal sinusitis. ENT consultation is advised.
[2017-10-17] MEDS: MIRALAX PO SCH (15:34)
[2017-10-17] MEDS ORDERED: TORADOL IVP PRN (16:23)
[2017-10-17] MEDS: LIPITOR PO SCH (21:06)
[2017-10-17] MEDS: HUMULIN R SUBCUT PRN (21:07)
[2017-10-18] MEDS: DUONEB NEB SCH ×4 (05:02→22:25)
[2017-10-18] MEDS: LASIX TAB PO SCH (05:36)
[2017-10-18] MEDS: MIRALAX PO SCH (08:49)
[2017-10-18] MEDS: ASPIRIN EC PO SCH (08:50)
[2017-10-18] MEDS: GLUCOPHAGE PO SCH (08:51)
[2017-10-18] MEDS: LOVENOX SUBCUT SCH (08:51)
[2017-10-18] MEDS: ZESTRIL PO SCH (08:51)
[2017-10-18] MEDS: ROCEPHIN 1 GM in SODIUM CHLORIDE 50 ML IV SCH (08:56)
[2017-10-18] MEDS: HUMULIN R SUBCUT PRN ×2 (11:46→17:20)
[2017-10-18] MEDS: SODIUM CHLORIDE 1,000 ML IV SCH (13:47)
[2017-10-18] MEDS: LIPITOR PO SCH (21:16)
[2017-10-18] MEDS ORDERED: LOPRESSOR IVP STA (22:50)
[2017-10-19] MEDS: DUONEB NEB SCH ×4 (04:40→20:15)
[2017-10-19] MEDS: LASIX TAB PO SCH (05:55)
[2017-10-19] MEDS: HUMULIN R SUBCUT PRN ×3 (07:11→19:27)
[2017-10-19] MEDS ORDERED: LASIX IVP STA (08:30)
[2017-10-19] MEDS: ROCEPHIN 1 GM in SODIUM CHLORIDE 50 ML IV SCH (09:17)
[2017-10-19] MEDS: GLUCOPHAGE PO SCH (12:05)
[2017-10-19] MEDS: ASPIRIN EC PO SCH (12:05)
[2017-10-19] MEDS: ZESTRIL PO SCH (12:05)
[2017-10-19] MEDS: LOVENOX SUBCUT SCH (12:06)
[2017-10-19] MEDS: MIRALAX PO SCH (12:32)
[2017-10-19] MEDS: SODIUM CHLORIDE 1,000 ML IV SCH (21:10)
[2017-10-19] MEDS: LIPITOR PO SCH (21:47)
[2017-10-20] MEDS: SODIUM CHLORIDE 1,000 ML IV SCH (01:30)
[2017-10-20] MEDS: LASIX TAB PO SCH (05:51)
[2017-10-20] MEDS: DUONEB NEB SCH ×4 (06:00→19:35)
[2017-10-20] MEDS ORDERED: DECADRON 10 MG/ML SDV (RHC/FCC ONLY) IM STA (08:29)
[2017-10-20] MEDS ORDERED: DECADRON 4 MG/ML SDV IM STA (08:32)
[2017-10-20] MEDS: ROCEPHIN 1 GM in SODIUM CHLORIDE 50 ML IV SCH (09:21)
[2017-10-20] MEDS: ZESTRIL PO SCH (09:23)
[2017-10-20] MEDS: GLUCOPHAGE PO SCH (09:24)
[2017-10-20] MEDS: LOVENOX SUBCUT SCH (09:26)
[2017-10-20] MEDS: ASPIRIN EC PO SCH (09:27)
[2017-10-20] MEDS: MIRALAX PO SCH (09:38)
[2017-10-20] MEDS: RISPERDAL PO SCH ×2 (09:38→21:17)
[2017-10-20] MEDS: HUMULIN R SUBCUT PRN ×3 (11:29→21:17)
--- NOTE | 2017-10-20 12:54 | RS.BEDDYS ---
Subjective Number of treatment sessions: 1 Date of Evaluation: 10/20/17 Treatment Diagnosis: [place] toxicity, confusion, tremor Current Level of Function: This 82 year old female was admitted from the senior care due to confusion, weakness, and tremor. The patient had lithium toxicity. Currently, she has been in the hospital for six days and swallowing difficulty was noted. Current Diet: Regular diet with thin liquids. Current Subjective/complaints:: The patient's family reported swallowing difficulty to the staff. The SALES COACH was referred to for a consult, however a bedside evaluation was completed to r/o aspiration and determine safest and least restrictive diet texture. The patient did not appear to have difficulty with pharyngeal swallow, however demonstrated oral-motor weakness and delayed responses. Medical History Comments:: HTN, DM, COPD, renal failure, depression, bipolar, UTI, Sepsis, altered mental status. Hx Home Medications: Refer to Medications for complete current list. Patient's Goals: Family wants safest and least restrictive diet texture. General Information - General Denture Type: Full- Upper & Lower Patient Orientation: Person Ability to Follow Directions: Fair Oral Expression Ability: Mild Impairment Oral-Facial Assessment - Face Facial Symmetry: Symmetrical Facial Movement: Controlled - Dental/Labial Lip Protrusion: Weak Puff Cheeks: Reduced Strength - Lingual Protrusion: Reduced ROM Retraction: Reduced ROM Tip Lateralization: Discoordination Repeated Tip Lateralization: Discoordination Tip Elevation: Weak Repeated Tip Elevation: Weak - Comments/Additional Info. Comments:: Moderate difficulty with performing oral-motor tasks. Lingual discoordination for lateralization and A-P movement. Delayed response with all movement. Poor buccal strength and labial closure. Decreased awareness or food in oral cavity. Food Presentation - Solids Food Presented: Mechanical Soft Behaviors/Comments: Poor labial seal without leakage. Decreased to no rotary chew with poor bolus manipulation. Cleared bolus with mild residue on lingual surface. No overt s/s of aspiration. Food Presented: Regular Behaviors/Comments: Poor labial seal without leakage. Decreased to no rotary chew with poor bolus manipulation. Cleared bolus with mild-moderate residue on lingual surface. No overt s/s of aspiration. Attempted to speak multiple times with food in oral cavity, also required a verbal cue to swallow bolus. Food Presented: Pureed Behaviors/Comments: No difficulty noted. Behaviors/Comments: Pt safe for mechanical-soft diet texture, following safe swallow precautions. Pt has decreased awareness with PO intake, putting her at- risk for aspiration. - Liquids Liquid Presented: Thin Behaviors/Comments: No overt s/s of aspiration noted. - Recommendations: Dysphagia Evaluation Dietary Recommendations: Dysphagia Mechanical Soft Comments:: Mechanical-soft and all soft, moist foods. No dry, crunchy foods. Dysphagia Swallow Precautions/Strategies: Sitting Upright (90 deg), Double Swallow, Liquids from Cup, Liquids from Straw, Small Bites and Sips, Alternate Liquids/Solids (Alternating solids/liquids will decrease oral residue. Oral residue primarily from severely dry oral cavity.) Functional Reporting G Codes: Swallowing Current CJ Goal CI Severity Impairment Rationale: Pt on mechanical soft diet texture with thin liquids. Short Term Goals Problem: Mastication Goal #1: Pt to improve mastication on 5/5 trials with mechanical soft texture Goal to be met by: 10/24/17 Problem: Swallow Goal #2: Pt to tolerate regular diet texture on 5/5 trials w/o s/s of aspiration. Goal to be met by: 10/24/17 [employer] Goals Problem: Swallow Goal #1: Pt to tolerate safest and least restrictive diet texture Goal to be met by: 10/24/17 Plan Duration of Treatment: 1 Week Frequency of Treatment: 1-2 times a week Anticipated Discharge Destination: Long-Term Care Facility Comments: Complete skilled ST for swallowing. Increase oral-motor strength and coordination. Determine safest and least restrictive diet texture. - Treatment Code (1) Oral phase dysphagia Code(s): R13.11 - DYSPHAGIA, ORAL PHASE
--- NOTE | 2017-10-20 13:04 | PN ---
DATE OF SERVICE: 10/17/17 SUBJECTIVE: The patient was admitted with change in mental status, [place] toxicity. The patient been more groggy and sleepy. Neurontin been on hold. REVIEW OF SYSTEMS: CONSTITUTIONAL: No fever, no chills. HEENT: Normal. ENDOCRINE: No weight gain, no weight loss. CVS: No angina symptoms. No CHF symptoms. No palpitations. No atypical chest pain for CAD. No shortness of breath. No PND, no orthopnea. RESPIRATORY: No cough, no hemoptysis. GI: No nausea, no vomiting. No abdominal pain. : No hematuria. No polyuria. MUSCULOSKELETAL: No joint swelling. PSYCHIATRIC: Not anxious. No depression. No suicidal thoughts. No homicidal thoughts. SKIN: Intact. No rash. PHYSICAL EXAMINATION: V/S: Blood pressure 158/69, respiratory rate 16, heart rate 72, temperature 97.2 with saturation 98%. HEENT: Normocephalic, atraumatic. Mucosa dry. Pallor positive. No icterus. NECK: Supple. No JVD, no carotid bruit. No lymphadenopathy. LUNGS: Bilateral entry is decreased and basilar crackles. No rales or rhonchi. HEART: S1, S2 normal. No S3. No murmur, gallop or regurgitation. ABDOMEN: Soft, nontender. Bowel sounds active. No rigidity. No rebound or guarding. No CVA tenderness. EXTREMITIES: No pedal edema. No clubbing or cyanosis MUSCULOSKELETAL: No joint swelling. NEUROLOGIC: Awake, alert but goes back to sleep. No focal deficit. LYMPHATIC: No lymph nodes palpable. SKIN: Intact. LABS: WBC 9.35, hgb 10.6, hct 33.5, plt count 189, sodium 138, potassium 4.0, chloride 109, bicarb 22, BUN 22, creatinine 1.14 and glucose 137. ASSESSMENT: 1. Status post change in mental status, right now patient is more groggy and sleepy 2. [place] toxicity 3. Recent history of urinary tract infection 4. Depression 5. Bipolar disorder 6. Diabetes Mellitus 7. Hypertension 8. DJD spine PLAN: 1. Will get CT chest 2. Start the patient on IV fluids 3. IV Rocephin 4. DUO NEBS TIME SPENT: More than 35 minutes MTDD
--- NOTE | 2017-10-20 13:19 | PN ---
DATE OF SERVICE: 10/18/17 SUBJECTIVE: The patient was admitted with change in mental status and lithium toxicity. The patient been more lethargic, doesn't wake up. The patient most of the home medication been on hold. Ammonia level are negative. REVIEW OF SYSTEMS: CONSTITUTIONAL: No fever, no chills. HEENT: Normal. ENDOCRINE: No weight gain, no weight loss. CVS: No angina symptoms. No CHF symptoms. No palpitations. No atypical chest pain for CAD. No shortness of breath. No PND, no orthopnea. RESPIRATORY: No cough, no hemoptysis. GI: No nausea, no vomiting. No abdominal pain. : No hematuria. No polyuria. MUSCULOSKELETAL: No joint swelling. PSYCHIATRIC: Not anxious. No depression. No suicidal thoughts. No homicidal thoughts. SKIN: Intact. No rash. PHYSICAL EXAMINATION: V/S: Blood pressure 189/91, respiratory rate 20, boland rate 85, temperature 98.8 and saturation 96%. HEENT: Normocephalic, atraumatic. Mucosa dry. NECK: Supple. No JVD, no carotid bruit. No lymphadenopathy. LUNGS: Bilateral entry is decreased and basilar crackles. Clear to auscultation. No rales or rhonchi. HEART: S1, S2 normal. No S3. No murmur, gallop or regurgitation. ABDOMEN: Soft, nontender. Bowel sounds active. No rigidity. No rebound or guarding. No CVA tenderness. EXTREMITIES: No pedal edema. No clubbing or cyanosis MUSCULOSKELETAL: No joint swelling. NEUROLOGIC: Responds to verbal stimuli and goes back to sleep. No focal deficit. LYMPHATIC: No lymph nodes palpable. SKIN: Intact. LABS: WBC 9.35, hgb 10.6, hct 33.5, plt count 189, sodium 138, potassium 4.0, chloride 109, bicarb 22, BUN 22, Creatinine 1.14, glucose 137. CT chest does not show any pneumonia. MRI of brain showed the left maxillary fungal sinusitis. ASSESSMENT: 1. Left maxillary fungal sinusitis 2. Change in mental status which is better most likely from the polypharmacy 3. [place] toxicity 4. Diabetes 5. DJD spine 6. Bipolar 7. Depression PLAN: 1. Continue the Rocephin 2. DUO NEBS 3. Lovenox for DVT prophylaxis 4. Daily I&O's 5. Accu-checks with coverage TIME SPENT: More than 35 minutes MTDD
--- NOTE | 2017-10-20 13:26 | PN ---
DATE OF SERVICE: 10/19/17 SUBJECTIVE: The patient was admitted with change in mental status and lithium toxicity. The patient's Neurontin been on hold. Thinking that the change in mental status maybe related to her Neurontin but patient is still not completely awake. Sleepy most the day. Getting IV fluids and breathing treatments and antibiotics. REVIEW OF SYSTEMS: CONSTITUTIONAL: No fever, no chills. HEENT: Normal. ENDOCRINE: No weight gain, no weight loss. CVS: No angina symptoms. No CHF symptoms. No palpitations. No atypical chest pain for CAD. No shortness of breath. No PND, no orthopnea. RESPIRATORY: No cough, no hemoptysis. GI: No nausea, no vomiting. No abdominal pain. : No hematuria. No polyuria. MUSCULOSKELETAL: No joint swelling. PSYCHIATRIC: Not anxious. No depression. No suicidal thoughts. No homicidal thoughts. SKIN: Intact. No rash. PHYSICAL EXAMINATION: V/S: Blood pressure 160/80, respiratory rate 18, heart rate 79, temperature 97.5. Yesterday blood pressure went up to 189/80. A dose of Lopressor 2.5mg IV push was given. HEENT: Normocephalic, atraumatic. Mucosa dry. Pallor positive. No icterus. NECK: Supple. No JVD, no carotid bruit. No lymphadenopathy. LUNGS: Bilateral entry is decreased and basilar crackles. Clear to auscultation. No rales or rhonchi. HEART: S1, S2 normal. No S3. No murmur, gallop or regurgitation. ABDOMEN: Soft, nontender. Bowel sounds active. No rigidity. No rebound or guarding. No CVA tenderness. EXTREMITIES: +1 edema. No clubbing or cyanosis MUSCULOSKELETAL: No joint swelling. NEUROLOGIC: Response to the verbal stimuli's and goes back to sleep. No focal deficit. LYMPHATIC: No lymph nodes palpable. SKIN: Intact. LABS: WBC 9.35, hgb 10.6, hct 33.5, plt count 189, sodium 138, potassium 4.0, chloride 109, bicarb 22, BUN 22, creatinine 1.14 ASSESSMENT: 1. Change in mental status secondary to multi medication 2. [place] toxicity 3. Depression 4. History of dyslipidemia 5. Hypertension 6. DJD spine 7. Diabetes 8. Bipolar 9. Depression PLAN: 1. Lasix 20mg IV push 2. Continue IV fluids 3. Breathing treatments 4. Rocephin 1 gram daily 5. Lovenox for the DVT prophylaxis TIME SPENT: More than 35 minutes MTDD
--- NOTE | 2017-10-20 15:35 | HP ---
DATE OF SERVICE: 10/14/17 CHIEF COMPLAINT: Change in mental status. HISTORY OF PRESENT ILLNESS: This is an 82 year old female who lives at the long-term. detention found the patient was not by herself and not been taking the medications. There was some tremors to the extremities. The patient was stiff. Blood pressure 190/100 and refuses to take the medication. At that time because of her risk of stroke and history of the [place] toxicity the patient was sent to emergency room for further evaluation. The patient was seen by Dr. Castellanos in the ER. WBC was 13, 000 with left shift, sodium 135 with the glucose 128, BUN 29, Urine was negative. Toxicology for [place] was sent for the evaluation. CT head was negative. At that time the patient was admitted to the hospital for change in mental status, dehydration, possible lithium toxicity. REVIEW OF SYSTEMS: CONSTITUTIONAL: No fever, no chills. Weakness, tiredness. HEENT: Normal. ENDOCRINE: No weight gain; no weight loss. CVS: No chest pain. No PND, no orthopnea. No shortness of breath. No PND, no orthopnea. Elevated blood pressure. RESPIRATORY: No cough, no congestion. No hemoptysis. GI: No nausea, no vomiting. No abdominal pain. No melena. : No hematuria. No polyuria. MUSCULOSKELETAL: No joint swelling. Stiffness in the upper extremities. PSYCHIATRIC: Not anxious. No depression. No suicidal thoughts. No homicidal thoughts. Change in mental status. SKIN: Intact, no open lesions. PAST MEDICAL HISTORY: Hypertension Dyslipidemia Alzheimer's Dementia History of pneumonia Dehydration Osteoarthritis DJD spine Diabetes mellitus Bipolar Depression PAST SURGICAL HISTORY: Bilateral knee replacement Hysterectomy PERSONAL HISTORY: The patient does not smoke or drink. [facility] the [facility]. Partially dependant upon the ADL's. Family History is significant for diabetes, heart problems. MEDICATIONS: Neurontin Risperdal Librium Lipitor Aspirin Loperamide Tylenol Vitamin B12 Zestril Miralax Metformin Macrodantin Hydrocodone Lasix ALLERGIES: Codeine Iodine Metoclopramide PHYSICAL EXAMINATION: V/S: Blood pressure 193/84, respiratory rate 20, heart rate 79, temperature 98.2 with saturation 99 on 2 liters. HEENT: Atraumatic, normocephalic. No scleral icterus. Mucosa dry. NECK: Supple. No JVD, no bruit. No lymphadenopathy. No thyromegaly. HEART: S1, S2 normal. No murmur. No cyanosis or clubbing. No ascites. LUNGS: Clear to auscultation. No rales or rhonchi. ABDOMEN: Soft, nontender. Bowel sounds are active. No CVA tenderness. No rigidity or guarding. EXTREMITIES: No pedal edema. No cyanosis or clubbing MUSCULOSKELETAL: Normal joints, no swelling. NEUROLOGIC: The patient is awake and alert moving all four extremities. SKIN: Intact; no open lesions. LYMPHATIC: No lymph nodes palpable. LABS: WBC 13.31, hgb 11.5, hct 35.6, plt count 225, sodium 135, potassium 4.1, chloride 103, bicarb 23, BUN 29, creatinine 1.25, glucose 128, Urine negative. Toxicology pending [place] levels ASSESSMENT: 1. Change in mental status 2. Rule out TIA versus Stroke 3. [place] toxicity 4. History of [place] toxicity 5. Dehydration 6. Diabetes Mellitus 7. Hypertension 8. Dyslipidemia 9. Bipolar 10.Depression 11.Alzheimer's Dementia PLAN: 1. Admit the patient to the regular floor 2. CBC and CMP today and daily 3. IV fluids 4. Accu-checks with coverage 5. Daily I&O's 6. Carotid ultrasound in the morning TIME SPENT: MORE THAN 75 minutes MTDD
--- NOTE | 2017-10-20 16:28 | RS.COGEVAL ---
Subjective Number of treatment sessions: 1 Date of Evaluation: 10/20/17 Treatment Diagnosis: Weakness, altered mental status Current Level of Function: This 82 year old female was admitted with a change in her mental status and weakness. She was noted with lithium toxicity, which has almost resolved at time of evaluation. Current Subjective/complaints:: This female pt reported she has difficulty with memory recall. Her family reported a change in her cognitive skills, resulting in confusion and some aggitation. At time of the evaluation, she had been asleep , however awoke easily. The FLAKE DRIER noted she required frequent verbal repetition and [id number] interaction to hear verbal instructions and participate in communication exchanges. Medical History Comments:: HTN, DM, COPD bipolar, altered mental status, UTI, Sepsis, depression. Hx Home Medications: Refer to medications for complete current list. Patient's Goals: To write and improve memory recall. Information Formal/Objective Assessment:: SLUMS assessment completed. Orientation date, person, place, situation. Immediate recall with 4/5 and 5/5 with repetition. Delayed recall with 0/5, 1/5 with verbal cues. Problem solving with minimal attempt to complete, did request pen/paper to solve problem. Thought organization with 50% acccuracy. Verbal sequencing with 30% accuracy. Executive function tasks with moderate cues with 50% accuracy. Following-simple one step directions with 100% accuracy. Auditory comprehension with 75% accuracy given max auditory cues. Functional Communication Measure:: 09/13-dementia range. Analysis:: Dementia range primarily affecting memory recall and thought organization and verbal sequencing. FLAKE DRIER determined cognition may demonstrate progress with health status improvements. Summary and Recommendations:: The pt presents with dementia. No formal diagnosis determined based on SLUMS assessment revealed dementia range. Pt oriented to date, without year. State, situation and person was recalled with delays in processing and required some redirection to answer appropriately. Problem solving task required pen/paper to complete. Thought organization with moderate-severe difficulty. Executive function skills with mild-moderate difficulty. When given clear, slow, ennunciated speech; auditory recall with 75 % accuracy. The FLAKE DRIER recommends ST in long term to address memory recall, thought organization, and problem-solving skills. Speech therapy can enhance cognitive skills and maintain current mentality for quality of life, communication of wants/needs, and participation in meaningful interactions with friends and family. Functional Reporting G Codes: Memory Current CL Discharge CL. Severity Impairment Rationale: Immediate memory with 4/5, delayed recall with 0/ 5, delayed recall with verbal cues 1/5. Plan Duration of Treatment: One Time Treatment - Treatment Code (1) Oral phase dysphagia Code(s): R13.11 - DYSPHAGIA, ORAL PHASE (2) Mild cognitive impairment with memory loss Code(s): G31.84 - MILD COGNITIVE IMPAIRMENT, SO STATED
[2017-10-20] MEDS: LIPITOR PO SCH (21:17)
[2017-10-21] MEDS: LASIX TAB PO SCH (05:37)
[2017-10-21] MEDS: SODIUM CHLORIDE 1,000 ML IV SCH (05:40)
[2017-10-21] MEDS: HUMULIN R SUBCUT PRN ×3 (06:19→17:39)
[2017-10-21] MEDS: DUONEB NEB SCH ×4 (06:24→21:36)
[2017-10-21] MEDS: RISPERDAL PO SCH ×2 (08:44→20:47)
[2017-10-21] MEDS: GLUCOPHAGE PO SCH (08:44)
[2017-10-21] MEDS: LOVENOX SUBCUT SCH (08:44)
[2017-10-21] MEDS: ZESTRIL PO SCH (08:44)
[2017-10-21] MEDS: ASPIRIN EC PO SCH (08:44)
[2017-10-21] MEDS: MIRALAX PO SCH (08:45)
[2017-10-21] MEDS: ROCEPHIN 1 GM in SODIUM CHLORIDE 50 ML IV SCH (08:46)
[2017-10-21] MEDS: LIPITOR PO SCH (20:47)
[2017-10-22] MEDS: DUONEB NEB SCH ×3 (05:00→14:09)
[2017-10-22] MEDS: LASIX TAB PO SCH (06:04)
[2017-10-22] MEDS ORDERED: NORVASC PO SCH (09:00)
[2017-10-22] MEDS: LOVENOX SUBCUT SCH (09:05)
[2017-10-22] MEDS: RISPERDAL PO SCH (09:06)
[2017-10-22] MEDS: MIRALAX PO SCH (09:06)
[2017-10-22] MEDS: ASPIRIN EC PO SCH (09:07)
[2017-10-22] MEDS: GLUCOPHAGE PO SCH (09:07)
[2017-10-22] MEDS: ZESTRIL PO SCH (09:07)
[2017-10-22] MEDS: ROCEPHIN 1 GM in SODIUM CHLORIDE 50 ML IV SCH (09:37)
[2017-10-22] MEDS: HUMULIN R SUBCUT PRN (11:24)
[2017-10-22 11:50] VITALS: TEMP 97.7
[2017-10-22 11:53] VITALS: BP 110/70
--- NOTE | 2017-10-24 14:46 | PN ---
DATE OF SERVICE: 10/20/17 SUBJECTIVE: The patient was admitted with change in mental status. The patient been awake and alert. [place] toxicity been improved now. The patient has some coughing. The patient does not get up much mostly laying down. Noncompliant with the vital , noncompliant with the treatment plan and don't want the labs to be drawn. REVIEW OF SYSTEMS: CONSTITUTIONAL: No fever, no chills. HEENT: Normal. ENDOCRINE: No weight gain, no weight loss. CVS: No angina symptoms. No CHF symptoms. No palpitations. No atypical chest pain for CAD. No shortness of breath. No PND, no orthopnea. RESPIRATORY: Some cough, no hemoptysis. GI: No nausea, no vomiting. No abdominal pain. : No hematuria. No polyuria. MUSCULOSKELETAL: No joint swelling. PSYCHIATRIC: Not anxious. No depression. No suicidal thoughts. No homicidal thoughts. SKIN: Intact. No rash. PHYSICAL EXAMINATION: V/S: Blood pressure 152/61, respiratory rate 24, heart rate 79 and temperature 97.5 with saturation 99%. HEENT: Normocephalic, atraumatic. Mucosa dry. Pallor positive. No icterus. NECK: Supple. No JVD, no carotid bruit. No lymphadenopathy. LUNGS: Decreased and Clear to auscultation. No rales or rhonchi. HEART: S1, S2 normal. No S3. No murmur, gallop or regurgitation. ABDOMEN: Soft, nontender. Bowel sounds active. No rigidity. No rebound or guarding. No CVA tenderness. EXTREMITIES: No pedal edema. No clubbing or cyanosis MUSCULOSKELETAL: No joint swelling. NEUROLOGIC: Awake, alert, oriented times three. No focal deficit. LYMPHATIC: No lymph nodes palpable. SKIN: Intact. LABS: WBC 9.35, hgb 10.6, hct 33.5, plt count 189, sodium 138, potassium 4.0, chloride 109, bicarb 22, BUN 22, creatinine 1.4, glucose 137. ASSESSMENT: 1. Status post change in mental status secondary to the lithium toxicity 2. Anemia 3. Depression 4. Bipolar disorder 5. DJD spine 6. Diabetes Mellitus 7. Drowsiness and sleepiness mostly from the poly pharmacy, medications been cut off and on hold The patient is more awake and alert now. PLAN: 1. Continue Rocephin 1 gram daily 2. DUO NEBS 3. Toradol PRN for the pain 4. Risperdal 0.25mg PO twice a day 5. Out of bed to chair with the help 6. Possible discharge plan in the morning if the patient's condition maintains the same. TIME SPENT: More than 35 minutes MTDD
--- NOTE | 2017-10-30 14:58 | PN ---
DATE OF SERVICE: 10/15/17 SUBJECTIVE: The patient was admitted with change in mental status and hypertensive urgency. CT head is negative. The patient is more awake and alert. The [place] level came positive with the toxicity of 2.0. [place] is being on hold. REVIEW OF SYSTEMS: CONSTITUTIONAL: No fever, no chills. HEENT: Normal. ENDOCRINE: No weight gain, no weight loss. CVS: No angina symptoms. No CHF symptoms. No palpitations. No atypical chest pain for CAD. No shortness of breath. No PND, no orthopnea. RESPIRATORY: No cough, no hemoptysis. GI: No nausea, no vomiting. No abdominal pain. : No hematuria. No polyuria. MUSCULOSKELETAL: No joint swelling. PSYCHIATRIC: Not anxious. No depression. No suicidal thoughts. No homicidal thoughts. SKIN: Intact. No rash. PHYSICAL EXAMINATION: V/S: Blood pressure 125/54, respiratory 16, heart rate 60, temperature 98.5 with saturation 94%. HEENT: Normocephalic, atraumatic. Mucosa dry. Pallor positive. NECK: Supple. No JVD, no carotid bruit. No lymphadenopathy. LUNGS: Clear to auscultation. No rales or rhonchi. HEART: S1, S2 normal. No S3. No murmur, gallop or regurgitation. ABDOMEN: Soft, nontender. Bowel sounds active. No rigidity. No rebound or guarding. No CVA tenderness. EXTREMITIES: 1+ edema. No clubbing or cyanosis MUSCULOSKELETAL: No joint swelling. NEUROLOGIC: Awake, alert, oriented times three. No focal deficit. LYMPHATIC: No lymph nodes palpable. SKIN: Intact. LABS: WBC 10.82, hgb 10.9, hct 33.9, plt count 204, sodium 135, potassium 3.7, chloride 105, bicarb 24, BUN 26, creatinine 1.05, lithium toxicity 2.0 ASSESSMENT: 1. Status post change in mental status. 2. Questionable TIA, Awaiting the carotid ultrasound report 3. [place] toxicity 4. Dehydration 5. Diabetes 6. Hypertension 7. Dyslipidemia 8. Osteoarthritis 9. DJD spine PLAN: 1. Hold the [place] 2. Continue IV fluids 3. Accu-checks with coverage 4. Macrodantin PO twice a day which was started at the alf will continue the same 5. Continue the Metformin 6. Out of bed to chair with help. TIME SPENT: More than 35 minutes KIANA
--- NOTE | 2017-10-30 15:04 | PN ---
DATE OF SERVICE: 10/16/17 SUBJECTIVE: The patient responds to the verbal stimuli and goes back to sleep. Still complains about weakness, tiredness and not getting out of the bed. [place] was 2.0. REVIEW OF SYSTEMS: CONSTITUTIONAL: No fever, no chills. HEENT: Normal. ENDOCRINE: No weight gain, no weight loss. CVS: No angina symptoms. No CHF symptoms. No palpitations. No atypical chest pain for CAD. No shortness of breath. No PND, no orthopnea. RESPIRATORY: No cough, no hemoptysis. GI: No nausea, no vomiting. No abdominal pain. : No hematuria. No polyuria. MUSCULOSKELETAL: No joint swelling. PSYCHIATRIC: Not anxious. No depression. No suicidal thoughts. No homicidal thoughts. SKIN: Intact. No rash. PHYSICAL EXAMINATION: V/S: Blood pressure 137/61, respiratory rate 12, heart rate 64, temperature 98.3 with saturation 93 on the room air. HEENT: Normocephalic, atraumatic. Mucosa dry. Pallor positive. No icterus. NECK: Supple. No JVD, no carotid bruit. No lymphadenopathy. LUNGS: Decreased with basilar crackles. No rales or rhonchi. HEART: S1, S2 normal. No S3. No murmur, gallop or regurgitation. ABDOMEN: Soft, nontender. Bowel sounds active. No rigidity. No rebound or guarding. No CVA tenderness. EXTREMITIES: 1+ edema. No clubbing or cyanosis MUSCULOSKELETAL: No joint swelling. NEUROLOGIC: Awake and alert. No focal deficit. Most of the time the patient is sleeping. LYMPHATIC: No lymph nodes palpable. SKIN: Intact. LABS: WBC 9.35, hgb 10.6, hct 33.5, plt count 189, sodium 138, potassium 4.0, chloride 109, bicarb 22, BUN 22, creatinine 1.14 and glucose 137 ASSESSMENT: 1. Status post change in mental status 2. [place] toxicity 3. Lethargic 4. Depression 5. Bipolar 6. DJD spine 7. Hypertension 8. Hyperlipidemia PLAN: 1. Stop the Neurontin 2. Continue Hydrocodone twice a day 3. Hold [place] 4. Continue Nitrofurantoin TIME SPENT: More than 35 minutes MTDD
--- NOTE | 2017-12-08 12:02 | DS ---
DATE OF SERVICE: 10/22/17 FINAL DIAGNOSIS: 1. CHANGE IN MENTAL STATUS SECONDARY TO THE MEDICATIONS 2. ANEMIA 3. DEPRESSION 4. BIPOLAR DISORDER 5. DJD OF THE SPINE 6. DIABETES 7. DROWSINESS AND SLEEPINESS, MOST LIKELY FROM THE POLYPHARMACY. THE MEDICATION IS BEING CUT OFF AND ON HOLD. THE PATIENT IS MORE AWAKE AND ALERT AT THIS TIME. 8. OSTEOARTHRITIS 9. ANXIETY 10. HYSTERECTOMY 11. BILATERAL KNEE REPLACEMENT PLAN: 1. Discharge the patient back to the care home. 2. Resume care home medications as per the list. Do not resume the Neurontin. 3. Note the dose change to the [place] to 200 mg daily. 4. Dose change to the [place] twice daily prn only. 5. Dose change in the Lisinopril to 40 mg daily. 6. New Medications: Norvasc 5 mg 7. Activity: PT, OT, speech evaluate and treat if indicated. May participate in the care home activities. Up to dining room for all meals. 8. Pulse oximetry as needed. 9. Diet: Mechanical soft diet. 1800 ADA diet. 10. CBC, CMP within one week. 11. Continue the rest of the medications; Tylenol prn, Loperamide prn, Lipitor , Lasix, Metformin. DISEASE SPECIFIC EDUCATION: Polypharmacy, elderly patient, confusion were discussed. Verbalized understanding. HOSPITAL COURSE: Lora Caraballo, 82 year old female reside of the care home, has been more confused than usual, not quite herself. She was sent from the care home for the evaluation. White count was 13,000, BUN 29, creatinine 1.25, urine negative for infection. Toxicology showed [place] level toxic at 2.0. [place] was on hold. She was started on IV fluids and we decreased the Neurontin. We cut down on the Hydrocodone. Gradually, she was more awake and alert. The patient's mental status was better. She was up and about during the whole stay at the hospital. CT of the head was negative for the strokes. Carotid ultrasound did not show any blockage. MRI of the brain showed no acute intracranial process, mostly empty sella. Moderate chronic left maxillary sinusitis. CT of the chest showed normal, except for atherosclerotic vascular disease. With the given treatment, the patient was awake, alert and did not have any complications. [place] levels became normal. [place] dose was adjusted to 200 mg from 300 mg. Dexamethasone was given for the coughing. Acchecks being followed and covered with Insulin. Uneventful hospital course. At that time the patient was discharged to the care home. TIME SPENT: MORE THAN 65 MINUTES TODAY KIANA
== END 2017-10-22 16:09 | DRG 948 ==
LOC: ED 15:34 → MEDSURG B 19:49
PROVIDERS: ADMIT Emergency Medicine; ATTEND Emergency Medicine
DX: R41.82 Altered mental status, unspecified (principal); R25.1 Tremor, unspecified; T43.595A Adverse effect of other antipsychotics and neuroleptics, initial encounter; E86.0 Dehydration; I10 Essential (primary) hypertension; R53.1 Weakness; I16.0 Hypertensive urgency; D64.9 Anemia, unspecified; F41.8 Other specified anxiety disorders; F31.9 Bipolar disorder, unspecified; M47.9 Spondylosis, unspecified; E11.9 Type 2 diabetes mellitus without complications; R40.0 Somnolence; J32.0 Chronic maxillary sinusitis; I70.90 Unspecified atherosclerosis; Z79.84 Long term (current) use of oral hypoglycemic drugs; Z79.899 Other long term (current) drug therapy; Z87.440 Personal history of urinary (tract) infections; Z91.19 Patient's noncompliance with other medical treatment and regimen
CPT/HCPCS: 36415; 80053; 80178; 81001; 82140; 82607; 82746; 82962; 84425; 85025; 87081; 93005; 93010; 94640; 97802; 99223; 99233; 99239; 99284

== ENCOUNTER 2017-12-10 13:03 | Inpatient (IN) ==
--- NOTE | 2017-12-10 14:27 | DI ---
EXAM: Chest one view, frontal view only. HISTORY: Cough. COMPARISON: 10/17/2017. FINDINGS: The heart size is normal. Atherosclerotic calcifications are present. There is no pulmon miguel vascular congestion. The lungs are clear. No pleural effusion or pneumothorax is seen. No acut e osseous abnormality is identified. IMPRESSION: No acute cardiopulmonary process.
--- NOTE | 2017-12-10 14:37 | CT ---
EXAM: CT of the head without contrast History: Headache. Comparison: Head CT 10/15/2017 Technique: Multiplanar CT images through the head were obtained without the administration of IV con trast Findings: Chronic left maxillary sinusitis again noted. Mastoid air cells are generally clear. No a cute calvarial abnormalities. Intracranially the ventricular and cisternal spaces are normal in size, shape and configuration for a patient of this age. No dominant mass or midline shift. No hydrocephalous. No acute intracranial hemorrhage or abnormal extraaxial fluid collections. No change in the periventricular and subcortica l white matter hypodensities. Impression: 1. No acute intracranial process. 2. Chronic small vessel ischemic disease. 3. Chronic left maxillary sinusitis.
[2017-12-10] MEDS ORDERED: ROCEPHIN 1 GM in SODIUM CHLORIDE 50 ML IV STA (14:59)
--- NOTE | 2017-12-10 15:04 | ED.PDOC ---
General ED Provider: Dr. ELA GARNICA Chief Complaint: Behavioral Complaint Stated Complaint: AGRESSIVE BEHAVIOR Time Seen by Physician: 13:30 Information Source: Patient, Family, Group Home, EMT Exam Limitations: No limitations [facility] Nursing and Triage Documentation Reviewed and Agree: Yes Reviewed sepsis parameters & appropriate labs ordered?: Yes System Inflammatory Response Syndrome: Not Applicable Sepsis Protocol: For patient's 13 years and over: Temp is 96.8 and below OR 101 and greater Pulse >90 BPM Resp >20/minute Acutely Altered Mental Status Are patient's symptoms suggestive of a new infection, such as: -Pneumonia -Skin, Soft Tissue -Endocarditis -UTI -Bone, Joint Infection -Implantable Device -Acute Abdominal Infection -Wound Infection -Meningitis -Blood Stream Catheter Infection -Unknown System Inflammatory Response Syndrome: Not Applicable Psychological Complaint Exam - Psychiatric Complaint/Exam Patient Complains Of: Present: Other (PT HAS BEEN AT ATIME AGRESSIVE WITH STAFFF AT LONGTERM ) Onset/Duration: TODAY Symptoms Are: Resolved Timing: Intermittent Episodes Lasting: Days Initial Severity: Mild Current Severity: None Character: Present: Anxious, Angry, Frustrated Aggravating: Reports: None Associated Signs And Symptoms: Reports: Sleep disturbance Related History: Denies: Suicidal thoughts, Suicidal plan, Suicidal gestures, Homicidal thoughts, Homicidal plan, Homicidal gestures, Prior attempts, Recent stressors Completed Suicide Risk Factors: Patient Accompanied By: Family Patient In Custody Of Police: No Social Withdrawal Present: No Social Isolation Present: No Prior Suicide Attempt: No Injury From Prior Suicide Attempt: No Related Surgical History: Reports: None Patient Uncooperative For Exam: No Mood: Present: Anxious Thought Process: Present: Logical Insight: Present: Good Memory: Intact Judgement: Normal Danger To Others: No Differential Diagnoses: Anxiety Review of Systems - Review Of Systems Constitutional: Reports: Malaise Eyes: Reports: No symptoms Ears, Nose, Mouth, Throat: Reports: No symptoms Respiratory: Reports: No symptoms Cardiac: Reports: No symptoms GI: Reports: No symptoms : Reports: No symptoms Musculoskeletal: Reports: No symptoms Skin: Reports: No symptoms Neurological: Reports: Emotional problems Endocrine: Reports: No symptoms Hematologic/Lymphatic: Reports: No symptoms All Other Systems: Reviewed and Negative Past Medical History - Past Medical History Previously Healthy: No Endocrine: Reports: Unknown Cardiovascular: Reports: Unknown Respiratory: Reports: Unknown Hematological: Reports: Unknown Gastrointestinal: Reports: Unknown Genitourinary: Reports: Unknown Neuro/Psych: Reports: Unknown Musculoskeletal: Reports: Unknown Cancer: Reports: Unknown Last Menstrual Period: hysterectomy - Surgical History General Surgical History: Reports: Unknown - Family History Family History: Reports: Unknown - Social History Smoking Status: Former smoker Hx Substance Use: No Alcohol Screening: None Physical Exam - Physical Exam Appearance: Well-appearing, No pain distress, Well-nourished Eyes: [place], EOMI, Conjunctiva clear ENT: Ears normal, Nose normal, Oropharynx normal Respiratory: Airway patent, Breath sounds clear, Breath sounds equal, Respirations nonlabored Cardiovascular: RRR, Pulses normal, No rub, No murmur GI/: Soft, Nontender, No masses, Bowel sounds normal, No Organomegaly Musculoskeletal: Normal strength, ROM intact, No edema, No calf tenderness Skin: Warm, Dry, Normal color Neurological: Sensation intact, Motor intact, Reflexes intact, Cranial nerves intact, Alert, Oriented Psychiatric: Affect appropriate, Mood appropriate Physician Notification - Case Discussed Physician Notified: PMD Time of Notification: 15:03 Admit To: Inpatient Critical Care Note - Critical Care Note Total Time (mins): 0 Course - Course Hematology/Chemistry: 12/10/17 13:35 12/10/17 13:35 Orders, Labs, Meds: Lab Review 12/10/17 12/10/17 12/10/17 13:35 13:35 14:30 WBC 7.98 RBC 3.43 L Hgb 10.9 L Hct 33.4 L MCV 97.4 MCH 31.8 H MCHC 32.6 RDW Coeff of Alexia 14.3 Plt Count 230 Immature Gran % (Auto) 0.4 Neut % (Auto) 53.7 Lymph % (Auto) 31.2 Cross % (Auto) 8.8 Eos % (Auto) 5.5 Baso % (Auto) 0.4 Immature Gran # (Auto) 0.0 Neut # (Auto) 4.3 Lymph # (Auto) 2.5 Cross # (Auto) 0.7 Eos # (Auto) 0.4 Baso # (Auto) 0.0 Sodium 135 L Potassium 4.7 Chloride 104 Carbon Dioxide 19 L Anion Gap 16.7 BUN 40 H Creatinine 1.14 Estimated GFR (MDRD) 45.00 BUN/Creatinine Ratio 35.08 Glucose 218 H Calcium 10.5 H Total Bilirubin 0.4 AST 13 L ALT 9 L Alkaline Phosphatase 80 Total Protein 6.9 Albumin 3.6 Globulin 3.3 Albumin/Globulin Ratio 1.09 Urine Color Yellow Urine Clarity Slightly Urine pH 5.5 Ur Specific [place] 1.010 Urine Protein Negative Urine Glucose (UA) Negative Urine Ketones Negative Urine Blood Trace-intact Urine Nitrite Negative Urine Bilirubin Negative Urine Urobilinogen 0.2 Ur Leukocyte Esterase 3+ Urine Microscopic WBC Tntc Ur Squamous Epith Cells Not present Urine Bacteria 1+ Orders Category Date Time Status BLOOD GLUCOSE MONITORING ACCUCHECK Q6H CARE 12/10/17 15:00 Ordered GIVE HS SNACK 2100 CARE 12/10/17 15:01 Ordered INCISION/WOUND CARE Q6HR CARE 12/10/17 15:00 Ordered INTAKE & OUTPUT Q8HR CARE 12/10/17 15:01 Ordered ADA 1800 LILLIE. DIET DIETARY 12/10/17 Lunch Ordered HS SNACK DIETARY 12/10/17 Dinner Ordered ED IV/MEDIPORT/POWERPORT .ONCE EMERGENCY 12/10/17 14:59 Active CBC W/ AUTO DIFF Stat LAB 12/10/17 13:35 Completed COMPREHENSIVE METABOLIC PANEL Stat LAB 12/10/17 13:35 Completed LITHIUM Stat LAB 12/10/17 13:35 Received URINALYSIS C & S IF INDICATED Stat LAB 12/10/17 14:30 Completed URINE CULTURE Stat LAB 12/10/17 14:30 Received 0.9 % Sodium Chloride [Saline Flush] MEDS 12/10/17 14:59 Ordered 1 syr IVF PRN PRN Amlodipine Besylate [Norvasc] MEDS 12/11/17 09:00 Ordered 5 mg PO DAILY Aspirin [Aspirin EC] MEDS 12/11/17 09:00 Ordered 81 mg PO DAILY Ceftriaxone Sodium [Rocephin] 1 gm MEDS 12/10/17 14:59 Active 0.9 % Sodium Chloride [Sodium Chloride] 50 ml IV ONCE Hydrocodone Bit/Acetaminophen [[place] 5-325] MEDS 12/10/17 14:57 Ordered 1 tab PO BID PRN Lisinopril [Zestril] MEDS 12/11/17 09:00 Ordered 40 mg PO DAILY [place] Carbonate MEDS 12/11/17 09:00 Ordered 150 mg PO DAILY Sodium Chloride 0.9% [Sodium Chloride] 1,000 ml MEDS 12/10/17 15:00 Ordered IV 75 mls/hr CHEST, 1V AP ONLY Stat RADS 12/10/17 13:[address] HEAD W/O CONTRAST Stat RADS 12/10/17 13:17 Completed Medications Generic Name Dose Route Start Last Admin Trade Name Freq PRN Reason Stop Dose Admin Hydrocodone Bitart/Acetaminophen 1 tab 12/10/17 14:57 [place] 5-325 PO BID PRN Analgesia Amlodipine Besylate 5 mg 12/11/17 09:00 Norvasc PO DAILY BOOGIE Aspirin 81 mg 12/11/17 09:00 Aspirin Ec PO DAILY BOOGIE Ceftriaxone Sodium 1 gm/ 50 mls @ 75 mls/hr 12/10/17 14:59 Sodium Chloride IV 12/10/17 15:38 ONCE STA Lisinopril 40 mg 12/11/17 09:00 Zestril PO DAILY BOOGIE Non-Formulary Medication 150 mg 12/11/17 09:00 [place] Carbonate PO DAILY BOOGIE Sodium Chloride 1 syr 12/10/17 14:59 Saline Flush IVF PRN PRN To flush IV Vital Signs: Temp Pulse Resp BP Pulse Ox 12/10/17 13:25 97.6 F 72 20 167/60 H 99 Departure - Departure Time of Disposition: 15:04 Disposition: ADMITTED INPATIENT Discharge Problem: Problem behavior, UTI (urinary tract infection) Instructions: Urinary Tract Infection in Women (ED) Condition: Good Pt referred to PMD for follow-up: Yes IPMP verified?: No Additional Instructions: Please call your Family Physician as soon as possible to schedule a follow-up appointment. Allergies/Adverse Reactions: Allergies codeine Adverse Reaction (Verified 12/10/17 13:10) iodine Adverse Reaction (Verified 12/10/17 13:10) metoclopramide Adverse Reaction (Verified 12/10/17 13:10) contrast Adverse Reaction (Uncoded 12/10/17 13:10) IV dye Adverse Reaction (Uncoded 12/10/17 13:10) Home Medications: Ambulatory Orders Acetaminophen [Pain & Fever] 650 mg PO Q6HR PRN 08/21/17 Aspirin [Aspirin EC] 81 mg PO DAILY 08/21/17 Amlodipine Besylate [Norvasc] 5 mg PO DAILY #30 tablet 10/22/17 Hydrocodone Bit/Acetaminophen [[place] 5-325] 1 tab PO BID PRN #60 tablet Lisinopril [Zestril] 40 mg PO DAILY #30 tablet 10/22/17 [place] Carbonate 150 mg PO DAILY #30 capsule 10/22/17 Insulin Glargine,Hum.rec.anlog [Lantus] 6 unit SQ BEDTIME 12/10/17 Insulin Regular, Human [Humulin R] 1 unit IJ QID PRN MDD as directed 12/10/17 Disposition Discussed With: Patient, Family Discharge Problem: UTI (urinary tract infection) Qualifiers: Hematuria presence: with hematuria
[2017-12-10] MEDS: SEROQUEL PO SCH (18:56)
[2017-12-10] MEDS: HUMULIN R SUBCUT PRN ×2 (18:57→22:33)
[2017-12-10 19:42] VITALS: BMI 34.9
[2017-12-10] MEDS ORDERED: LIDOCAINE HCL 1% SDV IM STA (19:53)
[2017-12-10] MEDS ORDERED: ROCEPHIN IM STA (19:53)
[2017-12-10] MEDS ORDERED: LIDOCAINE 1% 20 ML MDV ONE (21:56)
[2017-12-11] MEDS: HUMULIN R SUBCUT PRN ×3 (05:37→20:21)
[2017-12-11] MEDS: SODIUM CHLORIDE 1,000 ML IV SCH ×3 (07:18→22:10)
[2017-12-11] MEDS: ZESTRIL PO SCH (08:51)
[2017-12-11] MEDS: LITHIUM CARBONATE PO SCH (08:51)
[2017-12-11] MEDS: SEROQUEL PO SCH (08:51)
[2017-12-11] MEDS: NORVASC PO SCH (08:51)
[2017-12-11] MEDS: ASPIRIN EC PO SCH (08:52)
[2017-12-11] MEDS: NORCO 5-325 PO PRN (08:55)
[2017-12-11] MEDS ORDERED: LITHIUM CARBONATE 150 MG PO SCH (09:00)
--- NOTE | 2017-12-11 13:29 | HP ---
DATE OF SERVICE: 12/10/17 CHIEF COMPLAINT: Change in mental status. HISTORY OF PRESENT ILLNESS: This is an 82 year old female who is a long term resident with history of diabetes, bipolar and depression. Been confused, lethargic and not able to eat or drink anything for 2-3 days. [place] level was checked which was low. The patient is refusing to take the medication. The patient does this kind of behavior when she gets a urinary tract infection. Because of that reason the patient was sent to the emergency room for the evaluation. WBC was normal, U/A showed the positive for the urinary tract infection, 3+ Leukocyte esterase and sodium negative but dehydration was found with elevated BUN. At that time the patient was admitted to the hospital for the IV hydration, IV antibiotics treatment. REVIEW OF SYSTEMS: CONSTITUTIONAL: No fever, no chills. Weakness and tiredness. HEENT: Normal. ENDOCRINE: No weight gain; no weight loss. CVS: No chest pain. No PND, no orthopnea. No shortness of breath. No PND, no orthopnea. RESPIRATORY: No cough, no congestion. No hemoptysis. GI: No nausea, no vomiting. No abdominal pain. No melena. Refusing to eat and drink. : No hematuria. No polyuria. MUSCULOSKELETAL: No joint swelling. PSYCHIATRIC: Not anxious. No depression. No suicidal thoughts. No homicidal thoughts. Change in mental status SKIN: Intact, no open lesions. PAST MEDICAL HISTORY: Coronary artery disease Hypertension Hyperlipidemia Alzheimer's Dementia with the behavior changes History of recurrent pneumonia Urinary tract infection, frequently Osteoarthritis DJD spine Diabetes Depression Bipolar Anxiety PAST SURGICAL HISTORY: Bilateral knee replacement Hysterectomy Cataract surgery PERSONAL HISTORY: The patient does not smoke or drink. Partially dependant upon the ADL's. Lives in the long term. Family History is significant for the diabetes and heart problems MEDICATIONS: Aspirin Tylenol Lisinopril Norvasc [place] Hydrocodone Insulin ALLERGIES: Codeine Iron Metoclopramide PHYSICAL EXAMINATION: V/S: blood pressure 167/60, respiratory rate 20, heart rate 72, temperature 97.6 with saturation 99%. GENERAL: Sick looking lady laying in a bed and not in any distress. HEENT: Atraumatic, normocephalic. No scleral icterus. Pallor positive. Mucosa dry. NECK: Supple. No JVD, no bruit. No lymphadenopathy. No thyromegaly. HEART: S1, S2 normal. No murmur. No cyanosis or clubbing. No ascites. LUNGS: Decreased and Clear to auscultation. No rales or rhonchi. ABDOMEN: Soft, nontender. Bowel sounds are active. No CVA tenderness. No rigidity or guarding. EXTREMITIES: 1+ edema. No cyanosis or clubbing MUSCULOSKELETAL: Normal joints, no swelling. NEUROLOGIC: The patient is awake and alert but not completely oriented to time, place and person. SKIN: Intact; no open lesions. LYMPHATIC: No lymph nodes palpable. LABS: Sodium 135, potassium 4.7, chloride 104, bicarb 19, BUN 40, creatinine 1.14 and glucose 118. WBC 7.98, hgb 10.9, hct 23.4 and plt count 230 and urine is positive for the Leukocyte esterase, nitrates negative, blood is trace and intact. ASSESSMENT: 1. Change in mental status 2. Dehydration 3. Urinary tract infection 4. Alzheimer's Dementia with behavioral changes 5. Bipolar disorder 6. Diabetes Mellitus 7. Hypertension 8. Dyslipidemia PLAN: 1. Admit the patient to the regular floor 2. CBC and CMP today and daily 3. Cardiac enzymes and Troponin 4. IV fluids 5. Rocephin 1 gram daily 6. Resume home medications 7. Accu-checks with coverage TIME SPENT: MORE THAN 65-70 minutes MTDD
[2017-12-11] MEDS ORDERED: ROCEPHIN 1 GM in SODIUM CHLORIDE 50 ML IV SCH (21:00)
[2017-12-12] MEDS: LITHIUM CARBONATE PO SCH (10:03)
[2017-12-12] MEDS: ASPIRIN EC PO SCH (10:03)
[2017-12-12] MEDS: SEROQUEL PO SCH (10:03)
[2017-12-12] MEDS: NORVASC PO SCH (10:04)
[2017-12-12] MEDS: NYSTOP POWDER TP SCH ×2 (10:04→20:30)
[2017-12-12] MEDS: ZESTRIL PO SCH ×2 (10:04→20:24)
[2017-12-12] MEDS: CALMOSEPTINE OINTMENT TP PRN (10:04)
[2017-12-12] MEDS: SODIUM CHLORIDE 1,000 ML IV SCH ×2 (10:07→23:05)
[2017-12-12] MEDS: INVANZ 1 GM in SODIUM CHLORIDE 50 ML IV SCH (10:16)
[2017-12-12] MEDS: HUMULIN R SUBCUT PRN ×3 (11:37→20:22)
[2017-12-12] MEDS: LOVENOX SUBCUT SCH (18:40)
[2017-12-12] MEDS: NORCO 5-325 PO PRN (20:24)
[2017-12-13] MEDS: INVANZ 1 GM in SODIUM CHLORIDE 50 ML IV SCH (09:50)
[2017-12-13] MEDS: ASPIRIN EC PO SCH (09:51)
[2017-12-13] MEDS: ZESTRIL PO SCH ×2 (09:51→21:07)
[2017-12-13] MEDS: NYSTOP POWDER TP SCH ×2 (09:51→21:07)
[2017-12-13] MEDS: SEROQUEL PO SCH (09:52)
[2017-12-13] MEDS: LITHIUM CARBONATE PO SCH (09:53)
[2017-12-13] MEDS: LOVENOX SUBCUT SCH (09:53)
[2017-12-13] MEDS: NORCO 5-325 PO PRN (12:01)
[2017-12-13] MEDS: BACTRIM DS 800/160 MG PO SCH ×2 (12:01→21:07)
[2017-12-13] MEDS: SODIUM CHLORIDE 1,000 ML IV SCH (12:01)
[2017-12-14] MEDS: SODIUM CHLORIDE 1,000 ML IV SCH ×2 (00:58→14:50)
[2017-12-14] MEDS: ASPIRIN EC PO SCH (09:19)
[2017-12-14] MEDS: BACTRIM DS 800/160 MG PO SCH ×2 (09:19→21:45)
[2017-12-14] MEDS: LITHIUM CARBONATE PO SCH (09:20)
[2017-12-14] MEDS: ZESTRIL PO SCH ×2 (09:20→21:45)
[2017-12-14] MEDS: SEROQUEL PO SCH (09:20)
[2017-12-14] MEDS: LOVENOX SUBCUT SCH (09:21)
[2017-12-14] MEDS: INVANZ 1 GM in SODIUM CHLORIDE 50 ML IV SCH (09:26)
[2017-12-14] MEDS: NYSTOP POWDER TP SCH ×2 (09:38→21:45)
[2017-12-15] MEDS: SODIUM CHLORIDE 1,000 ML IV SCH ×2 (03:28→17:46)
[2017-12-15] MEDS: BACTRIM DS 800/160 MG PO SCH ×2 (09:46→20:17)
[2017-12-15] MEDS: NORCO 5-325 PO PRN ×2 (09:46→20:17)
[2017-12-15] MEDS: ZESTRIL PO SCH ×2 (09:46→20:17)
[2017-12-15] MEDS: LITHIUM CARBONATE PO SCH (09:46)
[2017-12-15] MEDS: CALMOSEPTINE OINTMENT TP PRN ×2 (09:47→20:17)
[2017-12-15] MEDS: ASPIRIN EC PO SCH (09:47)
[2017-12-15] MEDS: INVANZ 1 GM in SODIUM CHLORIDE 50 ML IV SCH (09:47)
[2017-12-15] MEDS: SEROQUEL PO SCH (09:47)
[2017-12-15] MEDS: NYSTOP POWDER TP SCH ×2 (09:47→20:16)
[2017-12-15] MEDS: LOVENOX SUBCUT SCH (09:48)
[2017-12-15] MEDS: HUMULIN R SUBCUT PRN (13:37)
[2017-12-16] MEDS: SODIUM CHLORIDE 1,000 ML IV SCH (07:27)
[2017-12-16] MEDS: SEROQUEL PO SCH (09:43)
[2017-12-16] MEDS: LITHIUM CARBONATE PO SCH (09:43)
[2017-12-16] MEDS: ZESTRIL PO SCH (09:43)
[2017-12-16] MEDS: INVANZ 1 GM in SODIUM CHLORIDE 50 ML IV SCH (09:43)
[2017-12-16] MEDS: ASPIRIN EC PO SCH (09:43)
[2017-12-16] MEDS: BACTRIM DS 800/160 MG PO SCH (09:43)
[2017-12-16] MEDS: NORCO 5-325 PO PRN (09:45)
[2017-12-16] MEDS: LOVENOX SUBCUT SCH (09:45)
[2017-12-16] MEDS: NYSTOP POWDER TP SCH (10:02)
[2017-12-16 10:36] VITALS: BP 157/66; TEMP 97.4
[2017-12-16] MEDS ORDERED: ZESTRIL PO SCH (21:00)
--- NOTE | 2017-12-21 22:34 | PCM.HOSP ---
- Initial Hospital Care [id number] 70 Minutes Bedside ([id number]): 12/10 - Subsequent Care [id number] 25 Minutes per Day ([id number]): 12/15 [id number] 35 Minutes per Day ([id number]): 12/11. 3/. /. 12/14 - Hospital Discharge [id number] More than 30 Minutes ([id number]): 12/16
--- NOTE | 2017-12-24 09:26 | PN ---
DATE OF SERVICE: 12/11/17 SUBJECTIVE: The patient was admitted with change in mental status, weakness and tiredness and found to have a urinary tract infection. Ever since admission the patient is refusing to have a IV ling put in. Discussed with the patient about the need for the IV line and verbalized understanding. The patient's granddaughter is also present at the time of my interview and the patient wants to go ahead and get and IV line today so that we can give some IV fluids. REVIEW OF SYSTEMS: CONSTITUTIONAL: No fever, no chills. HEENT: Normal. ENDOCRINE: No weight gain, no weight loss. CVS: No angina symptoms. No CHF symptoms. No palpitations. No atypical chest pain for CAD. No shortness of breath. No PND, no orthopnea. RESPIRATORY: No cough, no hemoptysis. GI: No nausea, no vomiting. No abdominal pain. : No hematuria. No polyuria. MUSCULOSKELETAL: No joint swelling. PSYCHIATRIC: Not anxious. No depression. No suicidal thoughts. No homicidal thoughts. SKIN: Intact. No rash. PHYSICAL EXAMINATION: V/S: Blood pressure 150/71, respiratory rate 16, pulse ox 75 and temperature 98.0 with saturation 97%. HEENT: Normocephalic, atraumatic. Mucosa dry. Pallor positive. No icterus. NECK: Supple. No JVD, no carotid bruit. No lymphadenopathy. LUNGS: decreased and clear to auscultation. No rales or rhonchi. HEART: S1, S2 normal. No S3. No murmur, gallop or regurgitation. ABDOMEN: Soft, nontender. Bowel sounds active. No rigidity. No rebound or guarding. No CVA tenderness. EXTREMITIES: 1+ edema. No clubbing or cyanosis MUSCULOSKELETAL: No joint swelling. NEUROLOGIC: Awake, alert, oriented times three. No focal deficit. LYMPHATIC: No lymph nodes palpable. SKIN: Intact. LABS: WBC 7.98, hgb 10.9, hct 23.4, plt count 230, sodium 135, potassium 4.0, chloride 104, bicarb 19, BUN 40, creatinine 1.14, glucose 218. ASSESSMENT: 1. Urinary tract infection 2. Anemia 3. Diabetes 4. DJD spine 5. Osteoarthritis 6. Bipolar disorder 7. Depression PLAN: 1. Continue the IV fluids 2. Rocephin 3. Continue the rest of the medications 4. Daily I&O's TIME SPENT: More than 35 minutes MTDSiddhartha
--- NOTE | 2017-12-24 09:47 | PN ---
DATE OF SERVICE: 12/12/17 SUBJECTIVE: The patient laying in a bed and not in any distress, somewhat cooperative today. The patient allowed us to be able to get the IV access. The patient is getting IV antibiotic Rocephin but meanwhile the U/A came positive for the e- coli and the ESBL positive which is resistant to the Rocephin we will be changing it to the Imipenem or Ertapenem depending on the feasibility with the patient. REVIEW OF SYSTEMS: CONSTITUTIONAL: No fever, no chills. HEENT: Normal. ENDOCRINE: No weight gain, no weight loss. CVS: No angina symptoms. No CHF symptoms. No palpitations. No atypical chest pain for CAD. No shortness of breath. No PND, no orthopnea. RESPIRATORY: No cough, no hemoptysis. GI: No nausea, no vomiting. No abdominal pain. : No hematuria. No polyuria. MUSCULOSKELETAL: No joint swelling. PSYCHIATRIC: Not anxious. No depression. No suicidal thoughts. No homicidal thoughts. SKIN: Intact. No rash. PHYSICAL EXAMINATION: V/S: Blood pressure 166/64, respiratory rate 20, heart rate 64, temperature 97.8 and saturation is 98%. HEENT: Normocephalic, atraumatic. Mucosa dry. Pallor positive. No icterus. NECK: Supple. No JVD, no carotid bruit. No lymphadenopathy. LUNGS: Decreased and basilar crackles. No rales or rhonchi. HEART: S1, S2 normal. No S3. No murmur, gallop or regurgitation. ABDOMEN: Soft, nontender. Bowel sounds active. No rigidity. No rebound or guarding. No CVA tenderness. EXTREMITIES: No pedal edema. No clubbing or cyanosis MUSCULOSKELETAL: No joint swelling. NEUROLOGIC: Awake, alert, oriented times three. No focal deficit. LYMPHATIC: No lymph nodes palpable. SKIN: Intact. LABS: WBC 8.81, hgb 11.0, hct 34.7, plt count 222, sodium 139, potassium 4.1, chloride 111, bicarb 18, BUN 32, creatinine 0.97 and glucose 125. ASSESSMENT: 1. Urinary tract infection, e-coli ESBL positive 2. Status post change in mental status 3. History of depression 4. Diabetes 5. Bipolar disorder 6. Osteoarthritis 7. DJD spine PLAN: 1. Continue the Wound care 2. Ertapenem 1gram daily 3. IV fluids 4. Daily I&O's 5. Started the patient on the Lovenox today 40mg SUBCUT daily TIME SPENT: More than 35 minutes MTDD
--- NOTE | 2017-12-24 10:08 | PN ---
DATE OF SERVICE: 12/13/17 SUBJECTIVE: The patient was admitted with urinary tract infection, ESBL positive and the patient does have a sacral decubitus ulcer which is MRSA positive. The patient is getting the antibiotics for that. More awake and alert. REVIEW OF SYSTEMS: CONSTITUTIONAL: No fever, no chills. HEENT: Normal. ENDOCRINE: No weight gain, no weight loss. CVS: No angina symptoms. No CHF symptoms. No palpitations. No atypical chest pain for CAD. No shortness of breath. No PND, no orthopnea. RESPIRATORY: Cough and congestion, no hemoptysis. GI: No nausea, no vomiting. No abdominal pain. : No hematuria. No polyuria. MUSCULOSKELETAL: No joint swelling. PSYCHIATRIC: Not anxious. No depression. No suicidal thoughts. No homicidal thoughts. SKIN: Intact. No rash. PHYSICAL EXAMINATION: V/S: Blood pressure 142/71, respiratory rate 24, heart rate 68, temperature 97.7 , saturation 100%. HEENT: Normocephalic, atraumatic. Mucosa dry. Pallor positive. No icterus. NECK: Supple. No JVD, no carotid bruit. No lymphadenopathy. LUNGS: Decreased and basilar crackles. Clear to auscultation. No rales or rhonchi. HEART: S1, S2 normal. No S3. No murmur, gallop or regurgitation. ABDOMEN: Soft, nontender. Bowel sounds active. No rigidity. No rebound or guarding. No CVA tenderness. EXTREMITIES: 1+ edema. No clubbing or cyanosis MUSCULOSKELETAL: No joint swelling. NEUROLOGIC: Awake, alert and can recognize me, does know where she is but doesn 't know what year and what month. No focal deficit. LYMPHATIC: No lymph nodes palpable. SKIN: Intact. LABS: WBC 8.81, hgb 11.0, hct 34.7, plt count 222, Sodium 139, potassium 4.4, chloride 111, bicarb 18, BUN 32, creatinine 0.97 and glucose 125. ASSESSMENT: 1. Urinary tract infection, e-coli ESBL positive. 2. Sacral decubitus ulcer, MRSA positive 3. Status post change in mental status most likely from the infections 4. Bipolar disorder 5. Diabetes 6. Hypertension 7. DJD spine 8. Osteoarthritis PLAN: 1. Continue the IV fluids 2. Continue Lovenox for the DVT prophylaxis 3. Continue [place] 4. Ertapenem 5. Bactrim DS twice a day 6. IV fluids, will decrease to 40ml per hour 7. Daily I&O's TIME SPENT: More than 35 minutes MTDD
--- NOTE | 2017-12-24 10:38 | PN ---
DATE OF SERVICE: 12/14/17 SUBJECTIVE: The patient was admitted with change in mental status and urinary tract infection. The urine is growing the ESBL positive. Giving the IV fluids. The patient is more awake and alert, not oriented to time, place or person. REVIEW OF SYSTEMS: CONSTITUTIONAL: No fever, no chills. HEENT: Normal. ENDOCRINE: No weight gain, no weight loss. CVS: No angina symptoms. No CHF symptoms. No palpitations. No atypical chest pain for CAD. No shortness of breath. No PND, no orthopnea. RESPIRATORY: No cough, no hemoptysis. GI: No nausea, no vomiting. No abdominal pain. : No hematuria. No polyuria. MUSCULOSKELETAL: No joint swelling. PSYCHIATRIC: Not anxious. No depression. No suicidal thoughts. No homicidal thoughts. SKIN: Intact. No rash. PHYSICAL EXAMINATION: V/S: Blood pressure 152/76, respiratory rate 20, heart rate 72, temperature 97.9 with saturation 98% on room air. HEENT: Normocephalic, atraumatic. Mucosa dry. Pallor positive. No icterus. NECK: Supple. No JVD, no carotid bruit. No lymphadenopathy. LUNGS: Clear to auscultation. No rales or rhonchi. HEART: S1, S2 normal. No S3. No murmur, gallop or regurgitation. ABDOMEN: Soft, nontender. Bowel sounds active. No rigidity. No rebound or guarding. No CVA tenderness. EXTREMITIES: No pedal edema. No clubbing or cyanosis. Sacral decubitus ulcer which is growing the MRSA positive. MUSCULOSKELETAL: No joint swelling. NEUROLOGIC: Awake, alert, not oriented times three. No focal deficit. LYMPHATIC: No lymph nodes palpable. SKIN: Intact. Dry. LABS: WBC 8.81, hgb 11.0, hct 34.7, plt count 222, sodium 139, potassium 4.9, chloride 111, bicarb 18, BUN 32, creatinine 0.97, glucose 125 ASSESSMENT: 1. Status post secondary to the UTI from ESBL positive e-coli 2. Sacral decubitus ulcer which is MRSA positive 3. Diabetes Mellitus 4. Hypertension 5. Dyslipidemia 6. Anemia 7. DJD spine 8. Osteoarthritis 9. Bipolar disorder PLAN: 1. Continue the Lovenox, Invanz and Bactrim DS 2. Seroquel 3. [place] 150mg PO daily 4. Accu-checks with coverage TIME SPENT: More than 35 minutes MTDD
--- NOTE | 2017-12-24 10:47 | PN ---
DATE OF SERVICE: 12/15/17 SUBJECTIVE: The patient's family is in the room. They are happy that patient is already being more better with the Seroquel. We were talking and seeing if we could slowly wean off the [place] and keep the patient only on the Seroquel but I did give them the option of the [facility] at the [facility] which we provide for the patient's who are more than 60 year old with depression which she is a very good patient for that. Blood pressure has been elevated so we will adjust the medication doses today. REVIEW OF SYSTEMS: CONSTITUTIONAL: No fever, no chills. HEENT: Normal. ENDOCRINE: No weight gain, no weight loss. CVS: No angina symptoms. No CHF symptoms. No palpitations. No atypical chest pain for CAD. No shortness of breath. No PND, no orthopnea. RESPIRATORY: No cough, no hemoptysis. GI: No nausea, no vomiting. No abdominal pain. : No hematuria. No polyuria. MUSCULOSKELETAL: No joint swelling. PSYCHIATRIC: Not anxious. No depression. No suicidal thoughts. No homicidal thoughts. SKIN: Intact. No rash. PHYSICAL EXAMINATION: V/S: Blood pressure 152/76, respiratory rate 20, heart rate 72, temperature 97.9 and saturation is 98%. HEENT: Normocephalic, atraumatic. Mucosa dry. Pallor positive. No icterus. NECK: Supple. No JVD, no carotid bruit. No lymphadenopathy. LUNGS: Clear to auscultation. No rales or rhonchi. HEART: S1, S2 normal. No S3. No murmur, gallop or regurgitation. ABDOMEN: Soft, nontender. Bowel sounds active. No rigidity. No rebound or guarding. No CVA tenderness. EXTREMITIES: No pedal edema. No clubbing or cyanosis MUSCULOSKELETAL: No joint swelling. NEUROLOGIC: Awake, alert, oriented times three. No focal deficit. LYMPHATIC: No lymph nodes palpable. SKIN: Intact. LABS: Sodium 139, potassium 4.9, chloride 111, bicarb 18, BUN 32, creatinine 0.97, WBC 8.81, hgb 11.0, hct 34.7 and plt count 222. ASSESSMENT: 1. Status post change in mental status secondary to the urinary tract infection ESBL positive 2. Sacral decubitus ulcer, MRSA positive 3. Dehydration which better 4. Diabetes 5. Hypertension 6. Dyslipidemia 7. Bipolar disorder PLAN: 1. Will have CBC and CMP for tomorrow morning 2. Continue Invanz and Bactrim DS 3. Continue Seroquel 4. Daily I&O's TIME SPENT: More than 35 minutes MTDD
--- NOTE | 2017-12-24 11:20 | DS ---
DATE OF SERVICE: 12/16/17 FINAL DIAGNOSIS: 1. E-coli ESBL 2. Decubitus ulcer stage 2 left buttock, MRSA 3. Alzheimer's Dementia with the aggressive behavior 4. Dyslipidemia 5. Hypertension 6. Pneumonia 7. Diabetes 8. Bipolar 9. Depression 10.Anxiety 11.Cataract surgery 12.Tonsillectomy 13.Hysterectomy 14.Bilateral knee replacement. DISCHARGE INSTRUCTIONS: Discharge the patient back to the prison. Diabetic management. Hypoglycemia should be monitored. Wound Care per prison protocol. Will be followed in the prison rounds within 5-7 days. Continue the home medication. MEDICATIONS AT DISCHARGE: Tylenol Aspirin Hydrocodone Zestril [place] Seroquel NEW PRESCRIPTIONS: Ertapenem IM daily Bactrim DS PO twice a day DIET INSTRUCTIONS: Diabetic and cardiac diet ACTIVITY: Can participate in the prison activities. DISEASE SPECIFIC EDUCATION: Urinary tract infection Antibiotic use and diarrhea been discussed. HOSPITAL COURSE: Lora Caraballo 82 year old female came to the emergency room with change in mental status. She was found to have urinary tract infection with normal WBC. The patient always gets these kind of symptoms whenever she gets the UTI. With the given Alzheimer's dementia and dehydration the patient was admitted to the hospital and started on the IV Rocephin. Urine was positive for the ESBL e-coli positive resistant to Rocephin and sensitive to the Invanz. The patient was started on the Invanz daily and left buttock has a small decubitus ulcer which was positive for the MRSA and sensitive to the Bactrim DS which was started. The patient is awake and alert, the patient did have some violence spells in between. Seroquel was started but after starting the Seroquel the patient been very calm and quiet and did not have any problems. At that time the patient is being discharged home back to the prison. TIME SPENT: MORE THAN 65 MINUTES MTDD
== END 2017-12-16 14:05 | disposition home or self-care (01) | DRG 689 ==
LOC: ED 13:03 → MEDSURG B 15:22
PROVIDERS: ADMIT Emergency Medicine; ATTEND Emergency Medicine
DX: N39.0 Urinary tract infection, site not specified (principal); J18.9 Pneumonia, unspecified organism; F02.81 Dementia in other diseases classified elsewhere, unspecified severity, with behavioral disturbance; F68.8 Other specified disorders of adult personality and behavior; G30.9 Alzheimer's disease, unspecified; R45.1 Restlessness and agitation; R78.89 Finding of other specified substances, not normally found in blood; R31.9 Hematuria, unspecified; B96.20 Unspecified Escherichia coli [E. coli] as the cause of diseases classified elsewhere; L89.322 Pressure ulcer of left buttock, stage 2; B95.62 Methicillin resistant Staphylococcus aureus infection as the cause of diseases classified elsewhere; Z16.12 Extended spectrum beta lactamase (ESBL) resistance; I10 Essential (primary) hypertension; E11.9 Type 2 diabetes mellitus without complications; E78.5 Hyperlipidemia, unspecified; F31.9 Bipolar disorder, unspecified; F41.8 Other specified anxiety disorders; M19.90 Unspecified osteoarthritis, unspecified site; M47.9 Spondylosis, unspecified; Z16.11 Resistance to penicillins; Z79.4 Long term (current) use of insulin; Z79.899 Other long term (current) drug therapy; Z91.14 Patient's other noncompliance with medication regimen; Z87.01 Personal history of pneumonia (recurrent)
CPT/HCPCS: 36415; 80053; 80178; 81001; 82962; 85025; 87070; 87081; 87086; 87186; 99284

== ENCOUNTER 2018-05-08 13:44 | Inpatient (IN) ==
--- NOTE | 2018-05-08 15:30 | CT ---
EXAM: CT BRAIN HISTORY: Altered mental status TECHNIQUE: CT brain without intravenous contrast. 5-mm axial sections with Reformations. COMPARISON: 12/10/2017 FINDINGS: There is generalized atrophy. There is moderate periventricular and deep white matter low attenuation which although nonspecific is suggestive of chronic microvascular ischemic change. These findings a re stable. Brain otherwise is unremarkable without evidence of hemorrhage or large vessel distribution recent is chemic infarction. There is no suggestion of acute hydrocephalus or subdural fluid collection. No m ass or mass effect. The cranium is intact. Mastoid air cells are aerated. Patchy areas of mucosal thickening within the paranasal sinuses, greater left maxillary cell. IMPRESSION: 1. Involutional changes. No obvious acute intracranial process. 2. Chronic paranasal sinusitis.
--- NOTE | 2018-05-08 15:47 | CT ---
EXAM: CT abdomen pelvis contrast TECHNIQUE: Helical axial CT of the abdomen and pelvis was performed contrast with coronal and sagit angy reconstructions. COMPARISON: None HISTORY: Abdominal pain FINDINGS: There is no acute abnormality. Specifically there is no mesenteric inflammation, free air, free fluid or bowel wall thickening or edema or pathologic lymph nodes or obstruction or ileus. The liver, spleen, pancreas,and adrenal glands show no acute abnormality. Lung bases are well-aerate d. There is no hiatal hernia. There is prior cholecystectomy. There is no biliary or pancreatic duct al dilatation. There are no suspicious renal masses or large cysts and no hydronephrosis. There are no kidney stones . Both ureters demonstrate normal course and caliber. There is no filling defect in the urinary blad link. There has been prior hysterectomy. The appendix is not seen. There are very extensive non inflamed colonic diverticula. There are no ab dominal wall hernias. There is advanced calcific atherosclerosis of the aorta. There are no acute oss eous abnormalities. IMPRESSION: 1. No acute abnormality in the abdomen or pelvis. Specifically there is no free air free fluid or b owel wall thickening or edema. 2. Extensive colonic diverticulosis with no acute inflammation seen. 3. Other miscellaneous findings as above.
--- NOTE | 2018-05-08 15:48 | CT ---
EXAM: CT chest without contrast TECHNIQUE: Helical axial CT of the chest was performed without contrast with coronal and sagittal rec onstructions. COMPARISON: None. HISTORY: Pain and cough FINDINGS: Lung parenchyma: There is no mass or nodule or large effusion or infiltrate. Mediastinum: No pathologic hilar or mediastinal adenopathy. No significant coronary calcifications. T here is no pericardial effusion. There is calcific atherosclerosis of the aorta. There is no aortic a neurysm. Upper Abdomen: No focal or acute abnormality. There is colonic diverticulosis. There has been prior c holecystectomy. Osseous structures: Nothing acute. There is an old compression fracture of T8. There is some nodularity seen involving the thyroid gland. No supraclavicular or axillary adenopathy. IMPRESSION: 1. No acute abnormality in the chest. 2. Atherosclerosis. 3. Nodular thyroid which could be evaluated with ultrasound if clinically indicated.
[2018-05-08] MEDS ORDERED: ROCEPHIN 2 GM in SODIUM CHLORIDE 100 ML IV STA (16:28)
--- NOTE | 2018-05-08 16:32 | ED.PDOC ---
General ED Provider: Dr. ELA GARNICA Chief Complaint: Abdominal Pain Stated Complaint: altered mental status Time Seen by Physician: 14:00 Mode of Arrival: Ambulance Information Source: Patient, EMT Exam Limitations: No limitations [facility] and Triage Documentation Reviewed and Agree: Yes Does patient meet sepsis criteria?: No If yes, has appropriate treatment been initiated?: No System Inflammatory Response Syndrome: Not Applicable Sepsis Protocol: For patient's 13 years and over: Temp is 96.8 and below OR 101 and greater Pulse >90 BPM Resp >20/minute Acutely Altered Mental Status Are patient's symptoms suggestive of a new infection, such as: -Pneumonia -Skin, Soft Tissue -Endocarditis -UTI -Bone, Joint Infection -Implantable Device -Acute Abdominal Infection -Wound Infection -Meningitis -Blood Stream Catheter Infection -Unknown Neurological Complaint Exam - Altered Mental Status Complaint/Exam Current Mental Status: Agitation, Other (screaming) Last Known Well: 2 days ago Duration: 1 day Symptoms Are: Still present Timing: Intermittent Episodes Lasting: Hours Initial Severity: Moderate Current Severity: Moderate Eye Deviation Present: No Character: Reports: Agitation. Denies: Confusion, Responsiveness, Lethargy Aggravating: Reports: None Alleviating: Reports: None Associated Signs and Symptoms: Reports: Weakness. Denies: Dizziness, Headache, Fever, Illness, Nuchal rigidity, Seizure, Nausea, Vomiting, Recently depressed, Trauma Related History: Reports: Similar episode (uti) Review of Systems - Review Of Systems Constitutional: Reports: No symptoms Eyes: Reports: No symptoms Ears, Nose, Mouth, Throat: Reports: No symptoms Respiratory: Reports: Cough Cardiac: Reports: No symptoms GI: Reports: Abdominal pain : Reports: No symptoms Musculoskeletal: Reports: No symptoms Skin: Reports: No symptoms Neurological: Reports: Emotional problems, Cognitive dysfunction Endocrine: Reports: No symptoms Hematologic/Lymphatic: Reports: No symptoms All Other Systems: Reviewed and Negative Past Medical History - Past Medical History Previously Healthy: No Endocrine: Reports: DM 2 Cardiovascular: Reports: Hypertension Respiratory: Reports: Unknown Hematological: Reports: Unknown Gastrointestinal: Reports: GERD, Unknown Genitourinary: Reports: Unknown Neuro/Psych: Reports: TIA Musculoskeletal: Reports: Unknown Cancer: Reports: Unknown Last Menstrual Period: none - Surgical History General Surgical History: Reports: Unknown - Family History Family History: Reports: Unknown - Social History Smoking Status: Former smoker Hx Substance Use: No Alcohol Screening: None Physical Exam - Physical Exam Appearance: Ill-appearing Ill-appearing: Mild Pain Distress: Mild Eyes: [place], EOMI, Conjunctiva clear ENT: Ears normal, Nose normal, Dry mucosa Respiratory: Rhonchi Cardiovascular: RRR, Pulses normal, No rub, No murmur GI/: Soft, Nontender, No masses, Bowel sounds normal, No Organomegaly Musculoskeletal: Normal strength, ROM intact, No edema, No calf tenderness Skin: Warm, Dry, Normal color Neurological: Sensation intact, Motor intact, Reflexes intact, Cranial nerves intact, Alert, Oriented Psychiatric: Affect appropriate, Mood appropriate Interpretation - Radiology Interpretation Radiology Interpretation By: Radiologist Radiology Results: No acute changes Exam Interpreted: CT Scan (ct brain involution) Re-Evaluation - Re-Evaluation Time of Re-Evaluation: 15:00 Status: Unchanged Vital Signs Stable: Yes Pain Level: 0 Appearance: NAD Lungs: Clear Skin: Warm and Dry Neuro: Alert and Oriented X3 CV: RRR - Re-Evaluation Time of Re-Evaluation: 16:35 Status: Improved Vital Signs Stable: Yes Pain Level: 0 Appearance: NAD Skin: Warm and Dry Neuro: Alert and Oriented X3 CV: RRR Physician Notification - Case Discussed Physician Notified: pmd Time of Notification: 16:35 (admitt) Admit To: Inpatient Critical Care Note - Critical Care Note Total Time (mins): 0 Course - Course Hematology/Chemistry: 05/08/18 14:32 05/08/18 14:32 Orders, Labs, Meds: Lab Review 05/08/18 05/08/18 05/08/18 14:22 14:32 14:32 WBC 9.28 RBC 3.73 L Hgb 11.7 L Hct 36.0 L MCV 96.5 MCH 31.4 H MCHC 32.5 RDW Coeff of Alexia 14.0 Plt Count 204 Immature Gran % (Auto) 0.6 Neut % (Auto) 68.7 Lymph % (Auto) 23.5 [place] % (Auto) 5.6 Eos % (Auto) 1.3 Baso % (Auto) 0.3 Immature Gran # (Auto) 0.1 Neut # (Auto) 6.4 Lymph # (Auto) 2.2 [place] # (Auto) 0.5 Eos # (Auto) 0.1 Baso # (Auto) 0.0 Sodium 136 Potassium 4.8 Chloride 106 Carbon Dioxide 21 L Anion Gap 13.8 BUN 33 H Creatinine 0.83 Estimated GFR (MDRD) 65.00 BUN/Creatinine Ratio 39.75 Glucose 194 H Lactic Acid 23.4 H Calcium 10.8 H Total Bilirubin 0.3 AST 13 L ALT 13 Alkaline Phosphatase 64 Total Protein 6.5 Albumin 3.3 L Globulin 3.2 Albumin/Globulin Ratio 1.03 Procalcitonin Urine Color Urine Clarity Urine pH Ur Specific [place] Urine Protein Urine Glucose (UA) Urine Ketones Urine Blood Urine Nitrite Urine Bilirubin Urine Urobilinogen Ur Leukocyte Esterase Urine Microscopic WBC Ur Squamous Epith Cells Urine Bacteria 05/08/18 05/08/18 14:32 15:45 WBC RBC Hgb Hct MCV MCH MCHC RDW Coeff of Alexia Plt Count Immature Gran % (Auto) Neut % (Auto) Lymph % (Auto) [place] % (Auto) Eos % (Auto) Baso % (Auto) Immature Gran # (Auto) Neut # (Auto) Lymph # (Auto) [place] # (Auto) Eos # (Auto) Baso # (Auto) Sodium Potassium Chloride Carbon Dioxide Anion Gap BUN Creatinine Estimated GFR (MDRD) BUN/Creatinine Ratio Glucose Lactic Acid Calcium Total Bilirubin AST ALT Alkaline Phosphatase Total Protein Albumin Globulin Albumin/Globulin Ratio Procalcitonin < 0.05 Urine Color Yellow Urine Clarity Cloudy Urine pH 5.5 Ur Specific [place] <=1.005 Urine Protein Trace Urine Glucose (UA) Negative Urine Ketones Negative Urine Blood 1+ Urine Nitrite Positive Urine Bilirubin Negative Urine Urobilinogen 0.2 Ur Leukocyte Esterase 3+ Urine Microscopic WBC Tntc Ur Squamous Epith Cells Not present Urine Bacteria 1+ Orders Category Date Time Status ED IV/MEDIPORT/POWERPORT .ONCE EMERGENCY 05/08/18 14:23 Active BLOOD CULTURE Stat LAB 05/08/18 14:22 Ordered CBC W/ AUTO DIFF Stat LAB 05/08/18 14:32 Completed COMPREHENSIVE METABOLIC PANEL Stat LAB 05/08/18 14:32 Completed LACTIC ACID Stat LAB 05/08/18 14:22 Completed PROCALCITONIN Stat LAB 05/08/18 14:32 Completed UA [URINALYSIS C & S IF INDICATED] Stat LAB 05/08/18 15:45 Completed URINE CULTURE Stat LAB 05/08/18 15:45 Received 0.9 % Sodium Chloride [Saline Flush] MEDS 05/08/18 14:23 Active 1 syr IVF PRN PRN Ceftriaxone Sodium [Rocephin] 2 gm MEDS 05/08/18 16:28 Active 0.9 % Sodium Chloride [Sodium Chloride] [address] ABDOMEN/PELVIS WO CONTRAST Stat RADS 05/08/18 14:[address] CHEST W/O CONTRAST Stat RADS 05/08/18 14:[address] HEAD W/O CONTRAST Stat RADS 05/08/18 14:22 Completed Medications Generic Name Dose Route Start Last Admin Trade Name Oleg PRN Reason Stop Dose Admin Ceftriaxone Sodium 2 gm/ 100 mls @ 100 mls/hr 05/08/18 16:28 Sodium Chloride IV 05/08/18 17:27 ONCE STA Sodium Chloride 1 syr 05/08/18 14:23 Saline Flush IVF PRN PRN To flush IV Vital Signs: Temp Pulse Resp BP Pulse Ox 05/08/18 13:45 98.1 F 79 20 200/87 H 99 Departure - Departure Time of Disposition: 16:35 Disposition: ADMITTED INPATIENT Discharge Problem: UTI (urinary tract infection) Qualifiers: Hematuria presence: without hematuria Instructions: Urinary Tract Infection in Women (ED) Condition: Good Pt referred to PMD for follow-up: Yes IPMP verified?: No Additional Instructions: Please call your Family Physician as soon as possible to schedule a follow-up appointment. Allergies/Adverse Reactions: Allergies codeine Adverse Reaction (Verified 05/08/18 14:04) iodine Adverse Reaction (Verified 05/08/18 14:04) metoclopramide Adverse Reaction (Verified 05/08/18 14:04) contrast Adverse Reaction (Uncoded 12/10/17 13:10) IV dye Adverse Reaction (Uncoded 12/10/17 13:10) Home Medications: Ambulatory Orders Acetaminophen [Pain & Fever] 650 mg PO Q6HR PRN 08/21/17 Aspirin [Aspirin EC] 81 mg PO DAILY 08/21/17 Gabapentin [Neurontin] 300 mg PO BID 05/08/18 Ipratropium/Albuterol Sulfate [Combivent Respimat Inhal Eunice] 2 spray IH QID L.acidoph,Paracasei, B.lactis [Probiotic] 1 each PO DAILY 05/08/18 Lisinopril [Zestril] 40 mg PO DAILY 05/08/18 Magnesium Oxide [Mag-Ox] 400 mg PO DAILY 05/08/18 Metformin HCl [Glucophage] 850 mg PO BID 05/08/18 Oxcarbazepine [Trileptal] 300 mg PO BEDTIME 05/08/18 Polyethylene Glycol 3350 [Miralax] 17 gm PO DAILY 05/08/18 Risperidone [Risperdal] 0.5 mg PO BID 05/08/18
[2018-05-08] MEDS ORDERED: TYLENOL PO PRN (16:36)
[2018-05-08] MEDS ORDERED: ROCEPHIN ONE ×2 (17:04→17:17)
[2018-05-08 18:02] VITALS: BMI 34.0
[2018-05-08] MEDS ORDERED: ZYPREXA IM STA (18:28)
[2018-05-08] MEDS: HALDOL IM PRN (18:47)
[2018-05-08] MEDS: TORADOL IVP SCH ×2 (18:47→21:00)
[2018-05-08] MEDS: SODIUM CHLORIDE 1,000 ML IV SCH (18:48)
[2018-05-08] MEDS: RISPERDAL PO SCH (20:56)
[2018-05-08] MEDS: NEURONTIN PO SCH (20:57)
[2018-05-08] MEDS ORDERED: NON-FORMULARY MEDICATION (Risperidone [Risperdal] 0.5 MG) PO SCH (21:00)
[2018-05-08] MEDS: TRILEPTAL PO SCH (21:00)
[2018-05-08] MEDS ORDERED: NON-FORMULARY MEDICATION (Oxcarbazepine [Trileptal] 300 MG) PO SCH (21:00)
[2018-05-09] MEDS: TORADOL IVP SCH ×3 (06:07→21:22)
[2018-05-09] MEDS: MIRALAX PO SCH (09:52)
[2018-05-09] MEDS: ROCEPHIN 1 GM in SODIUM CHLORIDE 50 ML IV SCH (09:52)
[2018-05-09] MEDS: RISPERDAL PO SCH ×2 (09:53→21:22)
[2018-05-09] MEDS: MAG-OX PO SCH (09:53)
[2018-05-09] MEDS: ZESTRIL PO SCH (09:53)
[2018-05-09] MEDS: NEURONTIN PO SCH ×2 (09:53→21:23)
[2018-05-09] MEDS: ASPIRIN EC PO SCH (09:54)
[2018-05-09] MEDS: SODIUM CHLORIDE 1,000 ML IV SCH (10:01)
[2018-05-09] MEDS: TRILEPTAL PO SCH (21:22)
[2018-05-10] MEDS: SODIUM CHLORIDE 1,000 ML IV SCH ×3 (03:51→20:23)
[2018-05-10] MEDS: TORADOL IVP SCH ×3 (07:26→21:40)
[2018-05-10] MEDS: ASPIRIN EC PO SCH (09:04)
[2018-05-10] MEDS: ROCEPHIN 1 GM in SODIUM CHLORIDE 50 ML IV SCH (09:04)
[2018-05-10] MEDS: RISPERDAL PO SCH ×2 (09:04→21:25)
[2018-05-10] MEDS: NEURONTIN PO SCH ×2 (09:05→21:26)
[2018-05-10] MEDS: MAG-OX PO SCH (09:05)
[2018-05-10] MEDS: MIRALAX PO SCH (09:05)
[2018-05-10] MEDS: ZESTRIL PO SCH (09:05)
[2018-05-10] MEDS: TRILEPTAL PO SCH (21:25)
[2018-05-10] MEDS: HALDOL IM PRN (21:49)
[2018-05-11] MEDS: TORADOL IVP SCH (05:48)
[2018-05-11 06:29] VITALS: TEMP 97.7
[2018-05-11] MEDS ORDERED: LASIX IVP STA (09:07)
[2018-05-11] MEDS: NEURONTIN PO SCH (09:22)
[2018-05-11] MEDS: ASPIRIN EC PO SCH (09:22)
[2018-05-11] MEDS: RISPERDAL PO SCH (09:22)
[2018-05-11] MEDS: MAG-OX PO SCH (09:22)
[2018-05-11] MEDS: ZESTRIL PO SCH (09:22)
[2018-05-11] MEDS: ROCEPHIN 1 GM in SODIUM CHLORIDE 50 ML IV SCH (09:22)
[2018-05-11] MEDS: MIRALAX PO SCH (09:23)
[2018-05-11 11:18] VITALS: BP 176/75
--- NOTE | 2018-05-11 20:23 | PCM.HOSP ---
- Initial Hospital Care [id number] 70 Minutes Bedside ([id number]): 05/08 - Subsequent Care [id number] 25 Minutes per Day ([id number]): 05/10 [id number] 35 Minutes per Day ([id number]): 05/09 - Hospital Discharge [id number] More than 30 Minutes ([id number]): 05/11
--- NOTE | 2018-05-12 09:19 | HP ---
DATE OF SERVICE: 05/08/18 CHIEF COMPLAINT: Change in mental status, abdominal pain and recurrent UTI. HISTORY OF PRESENT ILLNESS: This 82-year-old female who lives at the senior living, has been confused, complaining of abdominal pain. The patient gets like this whenever she gets a UTI so the patient has been sent for evaluation. White count is normal. Lactic acid is 23. UA positive, cloudy urine, nitrite positive, leukocyte esterase positive. CT abdomen and pelvis done which showed no acute abnormality in the abdominal pelvis. Extensive colonic diverticulosis. No acute inflammation is seen. At that time, the patient was admitted to the hospital for IV antibiotics and IV fluids. REVIEW OF SYSTEMS: CONSTITUTIONAL: Weakness, tiredness. No fever, no chills. HEENT: Normal. ENDOCRINE: No weight gain; no weight loss. CVS: No chest pain. No PND, no orthopnea. No shortness of breath. No PND, no orthopnea. RESPIRATORY: No cough, no congestion. No hemoptysis. GI: No nausea, no vomiting. Abdominal pain. No melena. : No hematuria. No polyuria. MUSCULOSKELETAL: No joint swelling. PSYCHIATRIC: Change in mental status. Not anxious. No depression. No suicidal thoughts. No homicidal thoughts. SKIN: Intact, no open lesions. PAST MEDICAL HISTORY: Hypertension Dyslipidemia Diabetes mellitus Osteoarthritis DJD spine Bipolar disorder Depression/anxiety PAST SURGICAL HISTORY: Bilateral knee replacement Hysterectomy PERSONAL HISTORY: Does not smoke or drink. Partially dependent upon ADLs. FAMILY HISTORY: Significant for diabetes and cancer. MEDICATIONS: (HOME) Aspirin Tylenol Metformin Neurontin Miralax Megace Trileptal Combivent Risperdol Probiotics Zestril ALLERGIES: CODEINE, IODINE, METOCLOPRAMIDE PHYSICAL EXAMINATION: V/S: BP 200/87, respiratory rate 20, heart rate 79, temperature 98.1, saturation 99. HEENT: Atraumatic, normocephalic. No scleral icterus. Pallor positive. Mucosa dry. NECK: Supple. No JVD, no bruit. No lymphadenopathy. No thyromegaly. HEART: S1, S2 normal. No murmur. No cyanosis or clubbing. No ascites. LUNGS: Clear to auscultation. No rales or rhonchi. ABDOMEN: Soft, nontender. Bowel sounds are active. No CVA tenderness. No rigidity or guarding. EXTREMITIES: No pedal edema. No cyanosis or clubbing MUSCULOSKELETAL: Normal joints, no swelling. NEUROLOGIC: The patient is awake and alert. Not oriented to time, place or person. SKIN: Intact; no open lesions. LYMPHATIC: No lymph nodes palpable. LABS: White count 9.28, hemoglobin 11.7, hematocrit 36.0, platelet count 204. Sodium 136, potassium 4.8, chloride 106, bicarb 21, BUN 33, creatinine 0.83, glucose 194. Urine positive for nitrite and leukocyte esterase. ASSESSMENT: 1. Change in mental status 2. Urinary tract infection 3. History of diabetes 4. Hypertension 5. Bipolar disorder 6. Depression PLAN: 1. Admit patient to the regular floor. 2. Rocephin 1 gm daily. 3. IV fluids. 4. Daily I & O's. 5. Accu-checks with coverage. TIME SPENT: MORE THAN 75 minutes MTDD
--- NOTE | 2018-05-12 09:25 | PN ---
DATE OF SERVICE: 05/09/18 SUBJECTIVE: The patient is quiet, calm and sleepy with the medication given yesterday. No fever, no chills. REVIEW OF SYSTEMS: CONSTITUTIONAL: No fever, no chills. HEENT: Normal. ENDOCRINE: No weight gain, no weight loss. CVS: No angina symptoms. No CHF symptoms. No palpitations. No atypical chest pain for CAD. No shortness of breath. No PND, no orthopnea. RESPIRATORY: No cough, no hemoptysis. GI: No nausea, no vomiting. No abdominal pain. : No hematuria. No polyuria. MUSCULOSKELETAL: No joint swelling. PSYCHIATRIC: Sleepy, calm. Not anxious. No depression. No suicidal thoughts. No homicidal thoughts. SKIN: Intact. No rash. PHYSICAL EXAMINATION: V/S: BP 138/86, respiratory rate 14, heart rate 71, temperature 97.6. Saturation 99%. HEENT: Normocephalic, atraumatic. Mucosa dry. Pallor positive. No icterus. NECK: Supple. No JVD, no carotid bruit. No lymphadenopathy. LUNGS: Decreased breath sounds with basilar crackles. HEART: S1, S2 normal. No S3. No murmur, gallop or regurgitation. ABDOMEN: Soft, nontender. Bowel sounds active. No rigidity. No rebound or guarding. No CVA tenderness. EXTREMITIES: No cyanosis, clubbing or pedal edema. MUSCULOSKELETAL: No joint swelling. NEUROLOGIC: Awake, alert but goes back to sleep after talking. No focal deficit. LYMPHATIC: No lymph nodes palpable. SKIN: Intact. LABS: White count 6.42, hemoglobin 10.6, hematocrit 33.0, platelet count 179. Sodium 133, potassium 4.7, chloride 108, bicarb 20, BUN 32, creatinine 0.76, glucose 145. ASSESSMENT: 1. URINARY TRACT INFECTION 2. CHANGE IN MENTAL STATUS 3. DIABETES MELLITUS 4. HYPERTENSION 5. OSTEOARTHRITIS 6. DJD SPINE 7. BIPOLAR DISORDER PLAN: 1. Continue Rocephin 2. IV fluids 3. Daily I & O's TIME SPENT: More than 35 minutes MTDD
--- NOTE | 2018-05-12 09:30 | PN ---
DATE OF SERVICE: 05/10/18 SUBJECTIVE: The patient is more quiet and calm, not talking much. Admitted with urinary tract infection and change in mental status. She is more awake and alert now. REVIEW OF SYSTEMS: CONSTITUTIONAL: No fever, no chills. HEENT: Normal. ENDOCRINE: No weight gain, no weight loss. CVS: No angina symptoms. No CHF symptoms. No palpitations. No atypical chest pain for CAD. No shortness of breath. No PND, no orthopnea. RESPIRATORY: No cough, no hemoptysis. GI: No nausea, no vomiting. No abdominal pain. : No hematuria. No polyuria. MUSCULOSKELETAL: No joint swelling. PSYCHIATRIC: Not anxious. No depression. No suicidal thoughts. No homicidal thoughts. SKIN: Intact. No rash. PHYSICAL EXAMINATION: V/S: BP 126/72, respiratory rate 18, heart rate 58, temperature 97.4, saturation 97. HEENT: Normocephalic, atraumatic. Mucosa dry. Pallor positive. No icterus. NECK: Supple. No JVD, no carotid bruit. No lymphadenopathy. LUNGS: Decreased basilar crackles. HEART: S1, S2 normal. No S3. No murmur, gallop or regurgitation. ABDOMEN: Soft, nontender. Bowel sounds active. No rigidity. No rebound or guarding. No CVA tenderness. EXTREMITIES: No cyanosis, clubbing or pedal edema. MUSCULOSKELETAL: No joint swelling. NEUROLOGIC: Awake, alert. Responds to verbal stimuli and goes back to sleep. No focal deficit. LYMPHATIC: No lymph nodes palpable. SKIN: Intact. LABS: White count 6.45, hemoglobin 11.1, hematocrit 35.1, platelet count 182. Sodium 135, potassium 5.1, chloride 110, bicarb 21, BUN 32. Sodium 135, potassium 5.1, chloride 110, bicarb 21, BUN 32, creatinine 0.83, glucose 126. ASSESSMENT: 1. STATUS POST CHANGE IN MENTAL STATUS 2. URINARY TRACT INFECTION 3. BIPOLAR DISORDER 4. DIABETES MELLITUS 5. OSTEOARTHRITIS 6. DJD SPINE PLAN: 1. Continue Rocephin 2. IV fluids 3. Haldol p.r.n. 4. Daily I & O's 5. Decrease IV fluids to 40 mL/hr TIME SPENT: More than 35 minutes MTDD
--- NOTE | 2018-05-12 09:47 | DS ---
DATE OF SERVICE: 05/11/18 FINAL DIAGNOSIS: 1. CHANGE IN MENTAL STATUS SECONDARY TO URINARY TRACT INFECTION 2. RECURRENT UTI, ORGANISM E.COLI/ESBL NEGATIVE 3. HISTORY OF ESBL POSITIVE 12/10/17 4. DECUBITUS ULCER, STAGE II LEFT BUTTOCKS, MRSA 5. DEMENTIA WITH AGGRESSIVE BEHAVIOR 6. BIPOLAR DISORDER 7. DYSLIPIDEMIA 8. HYPERTENSION 9. DIABETES 10. DEPRESSION 11. ANXIETY 12. CATARACT SURGERY 13. TONSILLECTOMY 14. HYSTERECTOMY 15. BILATERAL KNEE REPLACEMENT DISCHARGE INSTRUCTIONS: 1. Discharge the patient back to half-way. 2. Keep appointment with urologist. 3. Labs, CBC with differential and CMP in one week. 4. Resume decubitus care to the buttocks. 5. Hypoglycemia should be monitored. 6. Diabetic foot and eye examination per half-way protochol. MEDICATIONS AT DISCHARGE: Aspirin 81 mg p.o. daily Acetaminophen 650 mg p.o. q.6hr p.r.n. Metformin 850 mg p.o. b.i.d. Gabapentin 300 mg p.o. b.i.d. Miralax 17 gm p.o. daily Mag-Ox 400 mg p.o. daily Trileptal 300 mg p.o. bedtime Ipratropium/Albuterol two spray IH q.i.d. Risperdal 0.5 mg p.o. b.i.d. Probiotic one each p.o. daily Increase Zestril to 40 b.i.d. NEW PRESCRIPTIONS: Haldol 0.5 mg p.o. b.i.d. Macrodantin 100 mg twice a day for 7 days DIET INSTRUCTIONS: Road Manager to consult. ACTIVITY: May participate in half-way activities as tolerated. PT/OT please evaluate and treat. Please use pressure reducing methods to protect the patient's heels. SMOKING: N/A DISEASE SPECIFIC EDUCATION: Dehydration, urinary tract infection, sepsis and change in mental status have been discussed, verbalized understanding. HOSPITAL COURSE: This is an 82-year-old female with a history of Alzheimer's dementia, bipolar disorder was sent to the emergency room for evaluation as the patient has been acting abnormal and she has been shouting, restless. Whenever she gets a urinary tract infection, she gets behavioral changes. The patient evaluated in the emergency room, white count normal. Lactic acid 23.4. Procalcitonin less than 0.05. Urine was positive for leukocyte esterase and nitrites. At that time , the patient was admitted to the hospital. CT chest negative. CT abdomen and pelvis negative. She was started on Rocephin 1 gm IV, IV fluids. The next time, the patient was still shouting and hollering. Haldol 0.5 t.i.d. was started which did really help the patient. She has been quiet, more appropriate. Urine did grow E. coli, non ESBL. The patient has been doing better. Blood pressure has been elevated most likely from IV fluids. We did give dose of Lasix 40 mg and increased Lisinopril to 40 mg b.i.d. The patient has been doing good, not having any problems. The patient's blood pressure will be monitored at the half-way. TIME SPENT: MORE THAN 65 MINUTES KIANA
== END 2018-05-11 12:35 | DRG 948 ==
LOC: ED 13:44 → MEDSURG B 16:40
PROVIDERS: ADMIT Emergency Medicine; ATTEND Emergency Medicine
DX: R41.82 Altered mental status, unspecified (principal); F02.81 Dementia in other diseases classified elsewhere, unspecified severity, with behavioral disturbance; F41.9 Anxiety disorder, unspecified; F32.9 Major depressive disorder, single episode, unspecified; F31.9 Bipolar disorder, unspecified; R53.1 Weakness; I10 Essential (primary) hypertension; L89.322 Pressure ulcer of left buttock, stage 2; E78.5 Hyperlipidemia, unspecified; E11.9 Type 2 diabetes mellitus without complications; G30.9 Alzheimer's disease, unspecified
CPT/HCPCS: 36415; 80053; 81001; 82962; 83605; 84145; 85025; 87081; 87086; 87186; 93005; 93010; 96365; 99284

== ENCOUNTER 2018-05-15 12:04 | Inpatient (IN) ==
[2018-05-15] MEDS ORDERED: TYLENOL PO PRN (12:35)
[2018-05-15] MEDS ORDERED: HALDOL PO PRN (12:35)
[2018-05-15] MEDS ORDERED: SODIUM CHLORIDE 1,000 ML IV STA ×2 (12:35→17:23)
--- NOTE | 2018-05-15 13:37 | CT ---
EXAM: CT of the head without contrast History: Altered mental status. Comparison: Head CT 05/08/2018 Technique: Multiplanar CT images through the head were obtained without the administration of IV con trast Findings: The visualized paranasal sinuses and mastoid air cells are clear in general. No acute calv arial abnormalities. Intracranially there is stable mild atrophy. No midline shift and no hydrocephalus. No acute intrac ranial hemorrhage or abnormal extraaxial fluid collections. No change in the periventricular and sub cortical white matter hypodensities. Impression: 1. No acute intracranial process. 2. Stable atrophy and chronic small vessel ischemic disease.
--- NOTE | 2018-05-15 13:39 | CT ---
EXAM: CT of the cervical spine without contrast History: Head and neck trauma. Technique: Multiplanar CT images through the head were obtained without the administration of IV con trast Findings: The visualized upper lungs are free of consolidation. 1.6 cm right thyroid nodule. Moder ate to severe opacification of the left maxillary sinus. Reversal of the normal cervical lordosis. No acute fracture or subluxation. Severe disc space narro wing again seen at C6-7 with endplate sclerosis and osteophyte formation. Bony spinal canal is not s ignificantly compromised. There is stable prevertebral soft tissue prominence. Predental space is n ot widened. No change in the multilevel bilateral bony neural foraminal narrowing secondary to uncov ertebral and facet hypertrophy. Impression: 1. No acute osseous abnormality of the cervical spine. 2. Severe degenerative disc disease at C6-7. 3. Right thyroid nodule. 4. Left maxillary sinusitis
--- NOTE | 2018-05-15 13:44 | CT ---
EXAM: CT of the chest without contrast History: Chest trauma and cough. Comparison: Chest CT 05/08/2018 Technique: Multiplanar CT images through the thorax were obtained without the administration of IV c ontrast Findings: Heart is mildly enlarged. No pericardial effusion. No pathologically enlarged thoracic l ymph nodes. Mild bibasilar lung infiltrates. No appreciable pleural fluid and no pneumothorax. No s uspicious lung masses or lung nodules. Within the visualized upper abdomen, status post cholecystectomy. Small hiatal hernia. No acute oss eous abnormalities. Impression: 1. No acute traumatic injury identified within the thorax. 2. Mild bibasilar lung infiltrates. 3. Mild cardiomegaly. 4. Small hiatal hernia
--- NOTE | 2018-05-15 13:54 | ED.PDOC ---
General ED Provider: Dr. ELA GARNICA Chief Complaint: Altered Mental Status Stated Complaint: altered mental status Time Seen by Physician: 12:12 Mode of Arrival: Ambulance Information Source: Family, [facility], EMT Exam Limitations: No limitations Primary Care Provider[facility] Nursing and Triage Documentation Reviewed and Agree: Yes Does patient meet sepsis criteria?: No If yes, has appropriate treatment been initiated?: No System Inflammatory Response Syndrome: Not Applicable Sepsis Protocol: For patient's 13 years and over: Temp is 96.8 and below OR 101 and greater Pulse >90 BPM Resp >20/minute Acutely Altered Mental Status Are patient's symptoms suggestive of a new infection, such as: -Pneumonia -Skin, Soft Tissue -Endocarditis -UTI -Bone, Joint Infection -Implantable Device -Acute Abdominal Infection -Wound Infection -Meningitis -Blood Stream Catheter Infection -Unknown Neurological Complaint Exam - Altered Mental Status Complaint/Exam Current Mental Status: Agitation Last Known Well: today Onset: Gradual Duration: 1 day Symptoms Are: Still present Timing: Intermittent Episodes Lasting: Hours Current Severity: Mild Character: Reports: Agitation Aggravating: Reports: None (fall last week) Alleviating: Reports: None Related History: Reports: Similar episode Cardiac Risk Factors: Reports: Hypertension CVA Risk Factors: Reports: Hypertension Related Surgical History: Reports: None Carotid Bruit Present: No Nystagmus Present: No Gag Reflex Present: Yes Meningeal Signs Positive: No Focal Weakness: Present: None Focal Sensory Loss: Present: None Gait: Normal Thrombolytics Considered: No Differential Diagnoses: Metabolic Disorder, Hypoglycemia, Sepsis, Other (uti) Review of Systems - Review Of Systems Constitutional: Reports: Malaise, Weakness Eyes: Reports: No symptoms Ears, Nose, Mouth, Throat: Reports: No symptoms Respiratory: Reports: No symptoms Cardiac: Reports: No symptoms GI: Reports: No symptoms : Reports: No symptoms Musculoskeletal: Reports: No symptoms Skin: Reports: No symptoms Neurological: Reports: No symptoms Endocrine: Reports: No symptoms Hematologic/Lymphatic: Reports: No symptoms All Other Systems: Reviewed and Negative Past Medical History - Past Medical History Previously Healthy: No Endocrine: Reports: DM 2 Cardiovascular: Reports: Hypertension Respiratory: Reports: Unknown Hematological: Reports: Unknown Gastrointestinal: Reports: GERD, Unknown Genitourinary: Reports: Unknown Neuro/Psych: Reports: TIA Musculoskeletal: Reports: Unknown Cancer: Reports: Unknown Last Menstrual Period: NA - Surgical History General Surgical History: Reports: Unknown - Family History Family History: Reports: Unknown - Social History Smoking Status: Former smoker Hx Substance Use: No Alcohol Screening: None Physical Exam - Physical Exam Appearance: Ill-appearing Ill-appearing: Mild Pain Distress: Mild Eyes: [place], EOMI, Conjunctiva clear ENT: Dry mucosa Respiratory: Airway patent, Breath sounds clear, Breath sounds equal, Respirations nonlabored Cardiovascular: RRR, Pulses normal, No rub, No murmur GI/: Soft, Nontender, No masses, Bowel sounds normal, No Organomegaly Musculoskeletal: Normal strength, ROM intact, No edema, No calf tenderness Skin: Warm, Dry, Normal color Neurological: Sensation intact, Motor intact, Reflexes intact, Cranial nerves intact, Alert, Oriented Psychiatric: Affect appropriate, Mood appropriate Interpretation - Radiology Interpretation Radiology Interpretation By: Radiologist Radiology Results: Positive (lung nodule, hiatal hernia c spine no fx) - [employer] Rate: Normal Rhythm: Sinus - EKG Interpretation Rate: Normal Rhythm: Sinus Physician Notification - Case Discussed Physician Notified: pmd Time of Notification: 13:56 Admit To: Inpatient Critical Care Note - Critical Care Note Total Time (mins): 0 Course - Course Hematology/Chemistry: 05/15/18 12:30 05/15/18 12:30 Orders, Labs, Meds: Lab Review 05/15/18 05/15/18 05/15/18 12:30 12:30 12:30 WBC 13.12 H RBC 3.70 L Hgb 11.7 L Hct 35.4 L MCV 95.7 MCH 31.6 H MCHC 33.1 RDW Coeff of Alexia 13.7 Plt Count 206 Immature Gran % (Auto) 0.6 Neut % (Auto) 91.6 Lymph % (Auto) 5.5 L [place] % (Auto) 2.1 Eos % (Auto) 0.0 Baso % (Auto) 0.2 Immature Gran # (Auto) 0.1 Neut # (Auto) 12.0 H Lymph # (Auto) 0.7 [place] # (Auto) 0.3 L Eos # (Auto) 0.0 Baso # (Auto) 0.0 Sodium 137 Potassium 4.9 Chloride 107 Carbon Dioxide 23 Anion Gap 11.9 BUN 13 Creatinine 0.75 Estimated GFR (MDRD) 74.00 BUN/Creatinine Ratio 17.33 Glucose 211 H Lactic Acid Calcium 10.8 H Total Bilirubin 0.7 AST 13 L ALT 11 L Alkaline Phosphatase 71 Total Creatine Kinase 29 Troponin I < 0.0100 Total Protein 6.6 Albumin 3.3 L Globulin 3.3 Albumin/Globulin Ratio 1.00 Procalcitonin < 0.05 Urine Color Urine Clarity Urine pH Ur Specific [place] Urine Protein Urine Glucose (UA) Urine Ketones Urine Blood Urine Nitrite Urine Bilirubin Urine Urobilinogen Ur Leukocyte Esterase Urine Microscopic RBC Ur Squamous Epith Cells 05/15/18 05/15/18 12:47 13:00 WBC RBC Hgb Hct MCV MCH MCHC RDW Coeff of Alexia Plt Count Immature Gran % (Auto) Neut % (Auto) Lymph % (Auto) [place] % (Auto) Eos % (Auto) Baso % (Auto) Immature Gran # (Auto) Neut # (Auto) Lymph # (Auto) [place] # (Auto) Eos # (Auto) Baso # (Auto) Sodium Potassium Chloride Carbon Dioxide Anion Gap BUN Creatinine Estimated GFR (MDRD) BUN/Creatinine Ratio Glucose Lactic Acid 6.5 Calcium Total Bilirubin AST ALT Alkaline Phosphatase Total Creatine Kinase Troponin I Total Protein Albumin Globulin Albumin/Globulin Ratio Procalcitonin Urine Color Yellow Urine Clarity Clear Urine pH 5.5 Ur Specific [place] 1.025 Urine Protein Negative Urine Glucose (UA) Trace Urine Ketones 2+ Urine Blood Trace-intact Urine Nitrite Negative Urine Bilirubin Negative Urine Urobilinogen 0.2 Ur Leukocyte Esterase Negative Urine Microscopic RBC 2-5 Ur Squamous Epith Cells 2-5 Orders Category Date Time Status EKG-(ED ONLY) Stat CARDIO 05/15/18 12:18 Completed EKG-(IP & OP ONLY) DAILY CARDIO 05/16/18 06:00 Ordered EKG-(IP & OP ONLY) DAILY CARDIO 05/17/18 06:00 Ordered EKG-(IP & OP ONLY) DAILY CARDIO 05/18/18 06:00 Ordered ACTIVITY .Complete BR CARE 05/15/18 12:37 Active INTAKE & OUTPUT Q8HR CARE 05/15/18 12:37 Active VITAL SIGNS Q4HR CARE 05/15/18 12:37 Active REGULAR DIET DIETARY 05/15/18 Dinner Ordered ED IV/MEDIPORT/POWERPORT .ONCE EMERGENCY 05/15/18 12:18 Active BLOOD CULTURE Stat LAB 05/15/18 12:19 Ordered CBC W/ AUTO DIFF DAILY@0600 LAB 05/16/18 06:00 Ordered CBC W/ AUTO DIFF DAILY@0600 LAB 05/17/18 06:00 Ordered CBC W/ AUTO DIFF Stat LAB 05/15/18 12:30 Completed COMPREHENSIVE METABOLIC PANEL DAILY@0600 LAB 05/16/18 06:00 Ordered COMPREHENSIVE METABOLIC PANEL DAILY@0600 LAB 05/17/18 06:00 Ordered COMPREHENSIVE METABOLIC PANEL Stat LAB 05/15/18 12:30 Completed CREATINE KINASE Stat LAB 05/15/18 12:30 Completed LACTIC ACID Stat LAB 05/15/18 12:47 Completed PROCALCITONIN Stat LAB 05/15/18 12:30 Completed TROPONIN I Stat LAB 05/15/18 12:30 Completed UA [URINALYSIS C & S IF INDICATED] Stat LAB 05/15/18 13:00 Completed 0.9 % Sodium Chloride [Saline Flush] MEDS 05/15/18 12:18 Active 1 syr IVF PRN PRN Acetaminophen [Tylenol] MEDS 05/15/18 12:35 Active 650 mg PO Q6HR PRN Aspirin [Aspirin EC] MEDS 05/16/18 08:00 Active 81 mg PO DAILYWM Ceftriaxone Sodium [Rocephin] 1 gm MEDS 05/16/18 09:00 Active 0.9 % Sodium Chloride [Sodium Chloride] 50 ml IV DAILY Gabapentin [Neurontin] MEDS 05/15/18 21:00 Active 300 mg PO BID Haloperidol [Haldol] MEDS 05/15/18 12:35 Active 0.5 mg PO BID PRN Sodium Chloride 0.9% [Sodium Chloride] 1,000 ml MEDS 05/15/18 12:35 Active IV 100 mls/hr CT CERVICAL SPINE W/O CONTRAST Stat RADS 05/15/18 12:[address] CHEST W/O CONTRAST Stat RADS 05/15/18 12:[address] HEAD W/O CONTRAST Stat RADS 05/15/18 12:19 Completed Medications Generic Name Dose Route Start Last Admin Trade Name Freq PRN Reason Stop Dose Admin Acetaminophen 650 mg 05/15/18 12:35 Tylenol PO Q6HR PRN Fever >101 Aspirin 81 mg 05/16/18 08:00 Aspirin Ec PO DAILYWM BOOGIE Gabapentin 300 mg 05/15/18 21:00 Neurontin PO BID BOOGIE Haloperidol 0.5 mg 05/15/18 12:35 Haldol PO BID PRN Agitation Sodium Chloride 1,000 mls @ 100 mls/hr 05/15/18 12:35 Sodium Chloride IV 05/15/18 22:34 .Q10H STA Ceftriaxone Sodium 1 gm/ 50 mls @ 75 mls/hr 05/16/18 09:00 Sodium Chloride IV DAILY BOOGIE Sodium Chloride 1 syr 05/15/18 12:18 Saline Flush IVF PRN PRN To flush IV Vital Signs: Temp Pulse Resp BP Pulse Ox 05/15/18 12:12 98.3 F 82 16 176/75 H 94 L Departure - Departure Time of Disposition: 13:56 Disposition: ADMITTED INPATIENT Discharge Problem: Altered mental status Condition: Good Pt referred to PMD for follow-up: Yes IPMP verified?: No Additional Instructions: Please call your Family Physician as soon as possible to schedule a follow-up appointment. Allergies/Adverse Reactions: Allergies codeine Adverse Reaction (Verified 05/15/18 13:05) iodine Adverse Reaction (Verified 05/15/18 13:05) metoclopramide Adverse Reaction (Verified 05/15/18 13:05) contrast Adverse Reaction (Uncoded 05/15/18 13:05) IV dye Adverse Reaction (Uncoded 05/15/18 13:05) Home Medications: Ambulatory Orders Acetaminophen [Pain & Fever] 650 mg PO Q6HR PRN 08/21/17 Aspirin [Aspirin EC] 81 mg PO DAILY 08/21/17 Gabapentin [Neurontin] 300 mg PO BID 05/08/18 Ipratropium/Albuterol Sulfate [Combivent Respimat Inhal [place]] 2 spray IH QID L.acidoph,Paracasei, B.lactis [Probiotic] 1 each PO DAILY 05/08/18 Magnesium Oxide [Mag-Ox] 400 mg PO DAILY 05/08/18 Metformin HCl [Glucophage] 850 mg PO BID 05/08/18 Oxcarbazepine [Trileptal] 300 mg PO BEDTIME 05/08/18 Polyethylene Glycol 3350 [Miralax] 17 gm PO DAILY 05/08/18 Risperidone [Risperdal] 0.5 mg PO BID 05/08/18 Lisinopril [Zestril] 40 mg PO BID #60 tablet 05/11/18 Nitrofurantoin Macrocrystal [Macrodantin] 100 mg PO BID #14 capsule 08/27/18 Hydrocodone/Acetaminophen [[place] 5-325 Tablet] 1 each PO Q8HR PRN 05/15/18 Disposition Discussed With: Patient, Family
[2018-05-15 15:37] VITALS: BMI 15.5
[2018-05-15] MEDS: ROCEPHIN 1 GM in SODIUM CHLORIDE 50 ML IV SCH (16:55)
[2018-05-15] MEDS ORDERED: FLAGYL 500 MG/100 ML 100 ML IV ONE (18:11)
--- NOTE | 2018-05-15 20:15 | CT ---
EXAM: CT scan abdomen pelvis without contrast HISTORY: Abdominal pain vomiting COMPARISON: CT scan abdomen pelvis 05/08/2018 FINDINGS: Contiguous axial images obtained from lung bases to the symphysis pubis without contrast u tilizing 3-mm collimation. Sagittal and coronal reconstructions were imaged and reviewed. There is m ild bibasilar atelectasis. There has been prior cholecystectomy. The liver, pancreas, spleen adrena l glands have normal unenhanced CT appearance. There is a hiatal hernia. The kidneys are morphologi liliana normal. Atherosclerotic changes are seen involving the aorta without aneurysm formation.. The re is diverticulosis without diverticulitis. No free fluid or inflammatory changes.. Bone windows re veals no evidence of lytic or blastic lesions. IMPRESSION: No acute intra-abdominal findings. Hiatal hernia. Mild bibasilar atelectasis. Prior cholecystectomy and hysterectomy. Diverticulosis without diverticulitis
[2018-05-15] MEDS ORDERED: NON-FORMULARY MEDICATION (Oxcarbazepine [Trileptal] 300 MG) PO SCH (21:00)
[2018-05-15] MEDS ORDERED: NON-FORMULARY MEDICATION (Risperidone [Risperdal] 0.5 MG) PO SCH (21:00)
[2018-05-15] MEDS: FLAGYL 500 MG/100 ML 500 MG in PREMIX 100 ML NS 1 BAG IV SCH ×2 (21:28→22:20)
[2018-05-15] MEDS: RISPERDAL PO SCH (21:31)
[2018-05-15] MEDS: NEURONTIN PO SCH (21:31)
[2018-05-15] MEDS: TRILEPTAL PO SCH (21:31)
[2018-05-15] MEDS: ZESTRIL PO SCH (21:31)
[2018-05-15] MEDS: DUONEB NEB SCH (22:00)
[2018-05-15] MEDS ORDERED: LASIX IVP STA (22:55)
[2018-05-15] MEDS: HUMULIN R SUBCUT PRN (23:19)
[2018-05-16] MEDS ORDERED: FLAGYL 500 MG/100 ML 100 ML IV ONE (04:23)
[2018-05-16] MEDS: FLAGYL 500 MG/100 ML 500 MG in PREMIX 100 ML NS 1 BAG IV SCH ×3 (04:40→20:50)
[2018-05-16] MEDS: DUONEB NEB SCH ×3 (05:15→22:00)
[2018-05-16] MEDS: ROCEPHIN 1 GM in SODIUM CHLORIDE 50 ML IV SCH (08:50)
[2018-05-16] MEDS: MIRALAX PO SCH (08:57)
[2018-05-16] MEDS: NEURONTIN PO SCH ×2 (08:57→20:53)
[2018-05-16] MEDS: ZESTRIL PO SCH ×2 (08:58→20:54)
[2018-05-16] MEDS: ASPIRIN EC PO SCH (08:58)
[2018-05-16] MEDS: HUMULIN R SUBCUT PRN ×3 (10:39→21:00)
[2018-05-16] MEDS: RISPERDAL PO SCH ×2 (11:15→20:50)
[2018-05-16] MEDS: SILVADENE CREAM TP SCH ×2 (14:41→20:54)
[2018-05-16] MEDS: TRILEPTAL PO SCH (20:54)
[2018-05-16] MEDS ORDERED: HALDOL ONE (20:58)
[2018-05-17] MEDS: FLAGYL 500 MG/100 ML 500 MG in PREMIX 100 ML NS 1 BAG IV SCH ×3 (04:19→20:00)
[2018-05-17] MEDS: DUONEB NEB SCH ×3 (05:13→22:00)
[2018-05-17] MEDS: ASPIRIN EC PO SCH (08:14)
[2018-05-17] MEDS: MIRALAX PO SCH (08:14)
[2018-05-17] MEDS: NEURONTIN PO SCH ×2 (08:14→20:00)
[2018-05-17] MEDS: ZESTRIL PO SCH ×2 (08:14→20:01)
[2018-05-17] MEDS: RISPERDAL PO SCH ×2 (08:14→20:00)
[2018-05-17] MEDS: ROCEPHIN 1 GM in SODIUM CHLORIDE 50 ML IV SCH (08:15)
[2018-05-17] MEDS: SILVADENE CREAM TP SCH ×2 (08:15→20:01)
[2018-05-17] MEDS: HUMULIN R SUBCUT PRN ×3 (11:43→21:53)
[2018-05-17] MEDS: PROTONIX IV IVP SCH ×2 (14:46→20:02)
[2018-05-17] MEDS: TRILEPTAL PO SCH (20:00)
[2018-05-18] MEDS: FLAGYL 500 MG/100 ML 500 MG in PREMIX 100 ML NS 1 BAG IV SCH (04:30)
[2018-05-18] MEDS: DUONEB NEB SCH ×3 (04:50→21:40)
[2018-05-18] MEDS: MIRALAX PO SCH (09:35)
[2018-05-18] MEDS: NEURONTIN PO SCH ×2 (09:36→20:40)
[2018-05-18] MEDS: ZESTRIL PO SCH ×2 (09:36→20:40)
[2018-05-18] MEDS: ASPIRIN EC PO SCH (09:37)
[2018-05-18] MEDS: RISPERDAL PO SCH ×2 (09:37→20:40)
[2018-05-18] MEDS: SILVADENE CREAM TP SCH ×2 (09:38→20:36)
[2018-05-18] MEDS: ROCEPHIN 1 GM in SODIUM CHLORIDE 50 ML IV SCH (11:57)
[2018-05-18] MEDS: PROTONIX IV IVP SCH (11:58)
[2018-05-18] MEDS: HUMULIN R SUBCUT PRN ×3 (12:28→20:40)
[2018-05-18] MEDS: KEFLEX PO SCH ×2 (12:28→20:39)
[2018-05-18] MEDS: FLAGYL PO SCH ×2 (14:33→20:39)
[2018-05-18] MEDS: FLORASTOR PO SCH ×2 (16:11→20:42)
[2018-05-18] MEDS ORDERED: CATAPRES PO STA (16:42)
[2018-05-18] MEDS ORDERED: LASIX IM STA (16:43)
[2018-05-18] MEDS: PROTONIX PO SCH (16:53)
[2018-05-18] MEDS: TRILEPTAL PO SCH (20:39)
[2018-05-19] MEDS: DUONEB NEB SCH (04:56)
[2018-05-19] MEDS: PROTONIX PO SCH (05:49)
[2018-05-19] MEDS: HUMULIN R SUBCUT PRN (05:49)
[2018-05-19] MEDS: FLAGYL PO SCH (05:49)
[2018-05-19 06:11] VITALS: BP 119/63; TEMP 98.2
[2018-05-19] MEDS: NEURONTIN PO SCH (08:49)
[2018-05-19] MEDS: RISPERDAL PO SCH (08:49)
[2018-05-19] MEDS: ZESTRIL PO SCH (08:49)
[2018-05-19] MEDS: ASPIRIN EC PO SCH (08:49)
[2018-05-19] MEDS: KEFLEX PO SCH (08:50)
[2018-05-19] MEDS: FLORASTOR PO SCH (08:50)
[2018-05-19] MEDS: MIRALAX PO SCH (08:51)
--- NOTE | 2018-05-19 13:54 | HP ---
DATE OF SERVICE: 05/15/18 CHIEF COMPLAINT: Change in mental status and questionable aspiration. HISTORY OF PRESENT ILLNESS: The patient was recently discharged from the hospital after having an acute urinary tract infection, change in mental status and back to the residential. Stopped taking any medication since yesterday and today morning. Vomited bile. Fell at residential Friday and has bruise to the right arm. There was questionable head injury and the patient been more lethargic. In review of the patient's recurrent urinary tract infection and vomiting with being lethargic condition and question aspiration the patient is being sent to the emergency room for the evaluation. Dr. Gallegos saw the patient. WBC was 13,[address] head no acute intracranial process. CT chest showed bilateral basilar infiltrates, mild cardiomegaly and small hiatal hernia. The patient was lethargic and responses to the painful stimuli in the sternal and goes back to sleep. At that time the patient being admitted to the hospital for the IV antibiotics, breathing treatments and IV fluids. REVIEW OF SYSTEMS: CONSTITUTIONAL: No fever, no chills. Weakness and tiredness. HEENT: Normal. ENDOCRINE: No weight gain; no weight loss. CVS: No chest pain. No PND, no orthopnea. No shortness of breath. No PND, no orthopnea. RESPIRATORY: No cough, no congestion. No hemoptysis. GI: No nausea, Vomiting bile. No abdominal pain. No melena. : No hematuria. No polyuria. MUSCULOSKELETAL: No joint swelling. PSYCHIATRIC: Not anxious. No depression. No suicidal thoughts. No homicidal thoughts. Change in mental status SKIN: Intact, no open lesions. PAST MEDICAL HISTORY: Hypertension Dyslipidemia Osteoarthritis DJD spine Bipolar disorder Diabetes Mellitus Diverticulosis Hiatal hernia Alzheimer's Dementia Diabetes Osteoarthritis PAST SURGICAL HISTORY: Bilateral knee replacement PERSONAL HISTORY: The lives at residential completely dependant upon the ADL's FAMILY HISTORY: Diabetes Cancer MEDICATIONS: Metformin Aspirin Tylenol Neurontin Miralax Magnesium oxide Trileptal Combivent Risperdal Probiotic Macrodantin Lisinopril Hydrocodone ALLERGIES: Codeine Iodine Metoclopramide IV dye PHYSICAL EXAMINATION: V/S: Blood pressure 176/75, respiratory rate 16, heart rate 82, temperature 98.0 with saturation 94 on room air. GENERAL: Sick looking lady laying in the bed. Responses to the verbal stimuli and goes back to sleep. HEENT: Atraumatic, normocephalic. No scleral icterus. Pallor positive. Mucosa dry. NECK: Supple. No JVD, no bruit. No lymphadenopathy. No thyromegaly. HEART: S1, S2 normal. No murmur. No cyanosis or clubbing. No ascites. LUNGS: Decreased and basilar crackles. Clear to auscultation. No rales or rhonchi. ABDOMEN: Soft, nontender. Bowel sounds are active. No CVA tenderness. No rigidity or guarding. EXTREMITIES: No pedal edema. No cyanosis or clubbing MUSCULOSKELETAL: Normal joints, no swelling. NEUROLOGIC: The patient response to the verbal stimuli and goes back to sleep. SKIN: Intact; no open lesions. LYMPHATIC: No lymph nodes palpable. LABS: WBC 13.12, hgb 11.7, hct 35.4, plt count 206, sodium 137, potassium 4.9, chloride 107, bicarb 23, BUN 13, creatinine 0.75, glucose 211, lactic acid 65, Procalcitonin less than 0.05. CT chest showed bilateral basilar infiltrate. ASSESSMENT: 1. Change in mental status 2. Questionable aspiration pneumonia 3. Recurrent urinary tract infection, recently seen urologist 4. Diabetes 5. Hypertension 6. Bipolar 7. Alzheimer's Dementia PLAN: 1. Admit the patient to the regular 2. CBC and CMP today and daily 3. Cardiac enzymes and Troponin 4. IV fluids 5. DUO NEBS 6,. Rocephin 7. Flagyl 8. Daily I&O's 9. Accu-checks with coverage 10.Will get CT of abdomen and pelvis TIME SPENT: MORE THAN 70 minutes MTDD
--- NOTE | 2018-05-19 14:42 | PN ---
DATE OF SERVICE: 05/17/18 SUBJECTIVE: The patient is more awake and alert with some coughing. No aspiration. No nausea or vomiting. REVIEW OF SYSTEMS: CONSTITUTIONAL: No fever, no chills. HEENT: Normal. ENDOCRINE: No weight gain, no weight loss. CVS: No angina symptoms. No CHF symptoms. No palpitations. No atypical chest pain for CAD. No shortness of breath. No PND, no orthopnea. RESPIRATORY: Cough. No hemoptysis. GI: No nausea, no vomiting. No abdominal pain. : No hematuria. No polyuria. MUSCULOSKELETAL: No joint swelling. PSYCHIATRIC: Not anxious. No depression. No suicidal thoughts. No homicidal thoughts. SKIN: Intact. No rash. PHYSICAL EXAMINATION: V/S: BP 144/69, respiratory rate 18, heart rate 66, temperature 97.7, saturation 97. HEENT: Normocephalic, atraumatic. Mucosa dry. Pallor positive. No icterus. NECK: Supple. No JVD, no carotid bruit. No lymphadenopathy. LUNGS: Decreased breath sounds with basilar crackles. HEART: S1, S2 normal. No S3. No murmur, gallop or regurgitation. ABDOMEN: Soft, nontender. Bowel sounds active. No rigidity. No rebound or guarding. No CVA tenderness. EXTREMITIES: No cyanosis or clubbing. MUSCULOSKELETAL: No joint swelling. NEUROLOGIC: Awake, alert. No focal deficit. LYMPHATIC: No lymph nodes palpable. SKIN: Intact. LABS: White count 6.83, hemoglobin 9.8, hematocrit 31.0, platelet count 178. Sodium 139, potassium 3.9, chloride 108, bicarb 25, BUN 19, creatinine 0.80, glucose 123. CT abdomen and pelvis did not show any acute pathology but did show some bibasilar infiltrates. ASSESSMENT: 1. ASPIRATION PNEUMONIA 2. BIBASILAR INFILTRATES ON CT SCAN 3. STATUS POST CHANGE IN MENTAL STATUS MAYBE FROM POLY PHARMACY 4. HISTORY OF RECURRENT UTI 5. ALZHIEMER'S DEMENTIA 6. BIPOLAR DISORDER 7. DIABETES 8. OSTEOARTHRITIS 9. DJD SPINE 10. ANEMIA, NEW DIAGNOSIS - PATIENT DID DROP HEMOGLOBIN FROM 11.0 TO 9.7. PLAN: 1. Stool for occult blood test 2. Protonix 40 mg p.o. b.i.d. 3. Anemia profile TIME SPENT: More than 35 minutes MTDD
--- NOTE | 2018-05-19 14:50 | PN ---
DATE OF SERVICE: 05/16/18 SUBJECTIVE: The patient was admitted with aspiration pneumonia and change in mental status. The patient is more awake and alert. The patient's granddaughter and daughter-in -law are in the room and had a lot of questions, all have been answered. The patient is not shouting but they had questions about the Neurontin if we ever need to change it. Had fever of 100. REVIEW OF SYSTEMS: CONSTITUTIONAL: Fever, no chills. HEENT: Normal. ENDOCRINE: No weight gain, no weight loss. CVS: No angina symptoms. No CHF symptoms. No palpitations. No atypical chest pain for CAD. No shortness of breath. No PND, no orthopnea. RESPIRATORY: No cough, no hemoptysis. GI: No nausea, no vomiting. No abdominal pain. : No hematuria. No polyuria. MUSCULOSKELETAL: No joint swelling. PSYCHIATRIC: Not anxious. No depression. No suicidal thoughts. No homicidal thoughts. SKIN: Intact. No rash. PHYSICAL EXAMINATION: V/S: Blood pressure 168/71, respiratory rate 20, heart rate 67, temperature 100 with saturation 100%. HEENT: Normocephalic, atraumatic. Mucosa dry. pallor positive. No icterus. NECK: Supple. No JVD, no carotid bruit. No lymphadenopathy. LUNGS: Decreased and basilar crackles. Clear to auscultation. No rales or rhonchi. HEART: S1, S2 normal. No S3. No murmur, gallop or regurgitation. ABDOMEN: Soft, nontender. Bowel sounds active. No rigidity. No rebound or guarding. No CVA tenderness. EXTREMITIES: No cyanosis, clubbing. 1+ edema. MUSCULOSKELETAL: No joint swelling. NEUROLOGIC: Awake, alert. No focal deficit. LYMPHATIC: No lymph nodes palpable. SKIN: Intact. LABS: WBC 9.18, hgb 10.1, hct 32.0, plt count 206, sodium 139, potassium 4.3, chloride 108, bicarb 26, BUN 16, creatinine 0.91 and glucose 135. ASSESSMENT: 1. Status post change in mental status 2. Aspiration pneumonia 3. Persistent fever 4. Recent UTI 5. Alzheimer's Dementia 6. Bipolar disorder 7. Depression 8. Diabetes PLAN: 1. Continue Flagyl and Rocephin 1 gram daily 2. Lasix 3. DUO NEBS 4. Decrease the Neurontin to 100mg twice a day Will follow the patient in daily rounds. TIME SPENT: More than 35 minutes MTDD
--- NOTE | 2018-05-19 14:52 | PN ---
DATE OF SERVICE: 05/18/18 SUBJECTIVE: The patient is more awake and alert. The patient's son is in the room and had a lot of questions. In view of recurrent urinary tract infection, the patient has been scheduled with urologist as outpatient tomorrow afternoon. The patient, meanwhile was more awake and alert. She did blow the IV site yesterday and she didn't want to have the IV site again. The patient has been getting decrease in Neurontin level to 100 b.i.d. and Trileptal is helping at bedtime and the patient is on Risperdal, Trileptal and Neurontin. There is a question about Seroquel and Haldol but I did tell them that we would get evaluation with psychiatrist as outpatient. REVIEW OF SYSTEMS: CONSTITUTIONAL: No fever, no chills. HEENT: Normal. ENDOCRINE: No weight gain, no weight loss. CVS: No angina symptoms. No CHF symptoms. No palpitations. No atypical chest pain for CAD. No shortness of breath. No PND, no orthopnea. RESPIRATORY: No cough, no hemoptysis. GI: No nausea, no vomiting. No abdominal pain. : No hematuria. No polyuria. MUSCULOSKELETAL: No joint swelling. PSYCHIATRIC: More awake and alert. Not anxious. No depression. No suicidal thoughts. No homicidal thoughts. SKIN: Intact. No rash. PHYSICAL EXAMINATION: V/S: BP 193/82, respiratory rate 20, heart rate 73, temperature 98.6, saturation 97. HEENT: Normocephalic, atraumatic. Mucosa dry. Pallor positive. No icterus. NECK: Supple. No JVD, no carotid bruit. No lymphadenopathy. LUNGS: Decreased breath sounds with basilar crackles. HEART: S1, S2 normal. No S3. No murmur, gallop or regurgitation. ABDOMEN: Soft, nontender. Bowel sounds active. No rigidity. No rebound or guarding. No CVA tenderness. EXTREMITIES: No cyanosis, clubbing or pedal edema. MUSCULOSKELETAL: No joint swelling. NEUROLOGIC: Awake, alert. No focal deficit. LYMPHATIC: No lymph nodes palpable. SKIN: Intact and dry. LABS: Sodium 138, potassium 4.0, chloride 108, bicarb 24, BUN 14, creatinine 0.77, glucose 138. White count 7.61, hemoglobin 10.1, hematocrit 31.4, platelet count 173. ASSESSMENT: 1. STATUS POST CHANGE IN MENTAL STATUS 2. ASPIRATION PNEUMONIA 3. HISTORY OF RECURRENT UTI 4. DIABETES 5. HYPERTENSION 6. BIPOLAR DISORDER 7. ALZHEIMER'S DEMENTIA 8. DROP IN HEMOGLOBIN, STOOL FOR OCCULT BLOOD IS PENDING PLAN: 1. Probiotics b.i.d. 2. Continue Neurontin b.i.d. 100 3. Keflex and Flagyl p.o. 4. Out of bed to chair with help TIME SPENT: More than 35 minutes MTDD
--- NOTE | 2018-05-19 21:00 | PCM.HOSP ---
- Initial Hospital Care [id number] 70 Minutes Bedside ([id number]): 05/15 - Subsequent Care [id number] 35 Minutes per Day ([id number]): 05/16. /. 05/18 - Hospital Discharge [id number] 30 Minutes or Less ([id number]): 05/19
--- NOTE | 2018-05-20 09:11 | DS ---
DATE OF SERVICE: 05/19/18 FINAL DIAGNOSIS: 1. Status post change in mental status secondary to the aspiration pneumonia 2. Aspiration pneumonia 3. Alzheimer's Dementia with behavioral changes 4. Bipolar disorder 5. Diabetes 6. Recurrent and frequent UTI, urologist followup today 7. DJD spine 8. Osteoarthritis 9. Anemia 10.Diabetes Mellitus 11.Hysterectomy 12.Bilateral knee replacement 13.Recent history of nicotine use DISCHARGE INSTRUCTIONS: Discharge the patient home. Followup in the detention rounds in 4-5 days. Followup with the Urologist, Dr. Jarvis today. Physical therapy to evaluate and treat. Decubitus ulcer precautions. Float heels off of the bed. Vital signs Q daily for one week then every week. CBC and CMP on the Friday. Please call PMD. Continue the rest of the detention medications. MEDICATIONS AT DISCHARGE: Tylenol PRN Hydrocodone PRN Aspirin DUO NEBS Trileptal at bedtime Risperdal 0.5mg twice a day NEW PRESCRIPTIONS: Neurontin which is decreased to 100mg twice a day Metformin 500mg PO daily Keflex 500mg PO 12 hours DUO NEBS one NEB Q 8 hours for 7 days Flagyl 5000mg PO Q 8 hours for 5 days Protonix 40mg PO daily DISCONTINUED MEDICATIONS: Neurontin 300mg Metformin 850mg twice a day Nitrofurantoin DIET INSTRUCTIONS: Cardiac and diabetic diet ACTIVITY: Can participate in the detention activities. DISEASE SPECIFIC EDUCATION: Aspiration precaution Pneumonia vaccination Antibiotic use and diarrhea been discussed HOSPITAL COURSE: Lora Caraballo 82 year old female who was sent from the detention for the change in the mental status and not been behaving properly and the patient has vomiting and questionable coughing after vomiting so there was aspiration. CT chest showed the bilateral slight infiltrate. WBC was 13,000 with left shift. The patient was confused and disoriented. Started IV fluids, started on the Rocephin and Flagyl, DUO NEBS and Steroids. With the given treatment gradually the patient been more awake and alert. Hgb dropped from the 11.3, 10.2 and 9.8 and 9.6. Stool for occult blood test was ordered. Anemia profile done which did not show any acute, Transferrin was high, iron binding capacity is normal. Stool for occult blood test was not able to be obtained. Neurontin was decreased to 100mg twice a day from 300mg twice a day. The patient been more awake and alert. Talked to the patient's son and the patient has Dr. Jarvis followup to day so she will be having discharge today and will have a followup with Dr. Jarvis and go back to detention. We keep following the patient at the detention. TIME SPENT: MORE THAN 65 MINUTES KIANA
== END 2018-05-19 09:15 | DRG 884 ==
LOC: ED 12:04 → MEDSURG A 14:17
PROVIDERS: ADMIT Emergency Medicine; ATTEND Emergency Medicine
DX: R45.1 Restlessness and agitation (principal); J69.0 Pneumonitis due to inhalation of food and vomit; N39.0 Urinary tract infection, site not specified; F02.81 Dementia in other diseases classified elsewhere, unspecified severity, with behavioral disturbance; F31.9 Bipolar disorder, unspecified; F32.9 Major depressive disorder, single episode, unspecified; I10 Essential (primary) hypertension; E11.9 Type 2 diabetes mellitus without complications; G30.9 Alzheimer's disease, unspecified; D64.9 Anemia, unspecified; R53.81 Other malaise; R53.1 Weakness; R11.10 Vomiting, unspecified; M47.9 Spondylosis, unspecified; M19.90 Unspecified osteoarthritis, unspecified site
CPT/HCPCS: 36415; 80053; 81001; 82550; 82607; 82728; 82746; 82962; 83540; 83550; 83605; 84145; 84466; 84484; 85025; 85045; 87040; 87081; 93005; 93010; 94640; 97802; 99284

== ENCOUNTER 2018-06-20 20:43 | Inpatient (IN) ==
[2018-06-20] MEDS ORDERED: LACTATED RINGERS 1,000 ML IV STA (20:54)
[2018-06-20] MEDS ORDERED: ZOFRAN 4 MG/2 ML IVP STA (21:04)
[2018-06-20] MEDS ORDERED: MORPHINE 2 MG/ML SYRINGE IVP STA ×2 (21:04→22:10)
--- NOTE | 2018-06-20 21:21 | ED.PDOC ---
General ED Provider: Dr. CAROLE REARDON Chief Complaint: Fever Stated Complaint: Patient is an 83 year old female resident of [facility] who is brought by ambulance at the request of the family with mental status changes two days ago with right sided weakness and dysarthria. She was able to regain her motor ability but has not been able to communicate as before with speech not intelligible. Family thought she may be behaving like when she gets UTIs which she has had multiple times and has been to urologist for it. Tonight she was noted to have a fever this morning T max 101.3 she was given Tylenol suppository. She has been moaning which family states are due to pain. Family states that she usually takes hydrocodone and gabapentin for neuropathy but was stopped due to her mental status changes. Monterroso catheter was placed 2 days ago due to incontinance and dermatitis to the sacral area. Time Seen by Physician: 21:21 Mode of Arrival: Ambulance Information Source: Family, EMT Exam Limitations: Altered mental status Primary Care Provider: FLEIPE AYERS[facility] Nursing and Triage Documentation Reviewed and Agree: Yes Does patient meet sepsis criteria?: No System Inflammatory Response Syndrome: Not Applicable Sepsis Protocol: For patient's 13 years and over: Temp is 96.8 and below OR 101 and greater Pulse >90 BPM Resp >20/minute Acutely Altered Mental Status Are patient's symptoms suggestive of a new infection, such as: -Pneumonia -Skin, Soft Tissue -Endocarditis -UTI -Bone, Joint Infection -Implantable Device -Acute Abdominal Infection -Wound Infection -Meningitis -Blood Stream Catheter Infection -Unknown Miscellaneous Complaint Exam - Febrile Illness/Adult Complaint/Exam Onset/Duration: 2 days Symptoms Are: Still present Timing: Constant Highest Temperature Recorded: 101 Initial Severity: Moderate Aggravating: Reports: Unknown Alleviating: Reports: None Associated Signs and Symptoms: Reports: Altered mental status Pseudomonas Risk Factors: Reports: None Serious Bacterial Infection Risk Factors: Reports: Monterroso catheter Current Antibiotic Use: Yes (bactrium ) Last Time and Dose of Tylenol (acetaminophen): today Differential Diagnoses: Bacteremia Review of Systems - Review Of Systems Constitutional: Reports: Fever, Other (moaning from possible pain. ) Respiratory: Denies: Cough Cardiac: Denies: Edema : Reports: Incontinence, Other (Monterroso cathter ) Musculoskeletal: Reports: Joint pain Skin: Denies: Bruising, Change in color Neurological: Reports: Anxiety, Emotional problems All Other Systems: Other (Limited due to inabilty to communicate.) Past Medical History - Past Medical History Previously Healthy: No Endocrine: Reports: DM 2, Dyslipidemia Cardiovascular: Reports: Hypertension, Other (Cardiac murmur ) Respiratory: Reports: COPD Hematological: Reports: None Gastrointestinal: Reports: GERD, Diverticulitis Genitourinary: Reports: UTI (multiple ), CKD Neuro/Psych: Reports: TIA, Bipolar Disorder Musculoskeletal: Reports: Other (neuropathyy ) Cancer: Reports: Unknown Last Menstrual Period: HAS HAD A HYSTERECTOMY Other Pertinent Past Medical History: Sepsis - Surgical History General Surgical History: Reports: Hysterectomy, Orthopedic (Bilateral Knee repalcement ), Other (Rtight carpal Tunnel syndrome surgery ) - Family History Family History: Reports: Unknown - Social History Smoking Status: Former smoker Hx Substance Use: No Alcohol Screening: None - Immunizations Tetanus Shot up to Date: (UNKNOWN) Physical Exam - Physical Exam Appearance: Ill-appearing Ill-appearing: Moderate Pain Distress: Severe Eyes: [place] ENT: Dry mucosa Neck: Supple Respiratory: Airway patent, Breath sounds clear, Breath sounds equal Cardiovascular: RRR, Pulses normal, No rub, Murmur GI/: Soft, Nontender, Bowel sounds normal Musculoskeletal: ROM intact Skin: Warm, Dry (fungal dermatits on the buttocks. ) Neurological: Alert Psychiatric: Anxious Interpretation - Radiology Interpretation Radiology Interpretation By: Radiologist Radiology Results: No acute changes Exam Interpreted: CT Scan (head ) Radiology Interpretation By: Radiologist Radiology Results: No acute changes Exam Interpreted: Portable CXR Re-Evaluation - Re-Evaluation Time of Re-Evaluation: 22:44 Status: Improved (less Moaning from pain ) Physician Notification - Case Discussed Physician Notified: Dr Swenson Time of Notification: 22:44 (Admit Give Invanse and Rocephine) Critical Care Note - Critical Care Note Total Time (mins): 45 Comments: Discussed with family that the patient will be admitted for Treatment of UTI answered all questions. Course - Course Hematology/Chemistry: 06/20/18 20:54 06/20/18 21:14 Orders, Labs, Meds: Lab Review 06/20/18 06/20/18 06/20/18 20:54 21:06 21:14 WBC 14.40 H RBC 3.90 L Hgb 12.5 Hct 37.3 MCV 95.6 MCH 32.1 H MCHC 33.5 RDW Coeff of Alexia 13.4 Plt Count 286 Immature Gran % (Auto) 0.7 Neut % (Auto) 66.3 Lymph % (Auto) 23.8 [place] % (Auto) 8.1 Eos % (Auto) 0.5 Baso % (Auto) 0.6 Immature Gran # (Auto) 0.1 Neut # (Auto) 9.6 H Lymph # (Auto) 3.4 [place] # (Auto) 1.2 Eos # (Auto) 0.1 Baso # (Auto) 0.1 Sodium 133.1 L Potassium 4.87 Chloride 99.8 Carbon Dioxide 23.4 Anion Gap 14.77 BUN 35.9 H Creatinine 1.06 Estimated GFR (MDRD) 49.00 BUN/Creatinine Ratio 33.86 Glucose 216.1 H Lactic Acid Calcium 11.55 H Total Bilirubin 0.71 AST 14.0 ALT 10.1 Alkaline Phosphatase 71.7 Total Protein 7.23 Albumin 4.19 Globulin 3.04 Albumin/Globulin Ratio 1.37 Procalcitonin Urine Color Yellow Urine Clarity Cloudy Urine pH 6.0 Ur Specific [place] 1.020 Urine Protein 2+ Urine Glucose (UA) Trace Urine Ketones Negative Urine Blood 2+ Urine Nitrite Positive Urine Bilirubin Negative Urine Urobilinogen 0.2 Ur Leukocyte Esterase 2+ Urine Microscopic RBC 10-20 Urine Microscopic WBC Tntc Ur Squamous Epith Cells Not present Urine Bacteria 3+ 06/20/18 06/20/18 21:14 21:14 WBC RBC Hgb Hct MCV MCH MCHC RDW Coeff of Alexia Plt Count Immature Gran % (Auto) Neut % (Auto) Lymph % (Auto) [place] % (Auto) Eos % (Auto) Baso % (Auto) Immature Gran # (Auto) Neut # (Auto) Lymph # (Auto) [place] # (Auto) Eos # (Auto) Baso # (Auto) Sodium Potassium Chloride Carbon Dioxide Anion Gap BUN Creatinine Estimated GFR (MDRD) BUN/Creatinine Ratio Glucose Lactic Acid 0.94 Calcium Total Bilirubin AST ALT Alkaline Phosphatase Total Protein Albumin Globulin Albumin/Globulin Ratio Procalcitonin 0.14 Urine Color Urine Clarity Urine pH Ur Specific [place] Urine Protein Urine Glucose (UA) Urine Ketones Urine Blood Urine Nitrite Urine Bilirubin Urine Urobilinogen Ur Leukocyte Esterase Urine Microscopic RBC Urine Microscopic WBC Ur Squamous Epith Cells Urine Bacteria Orders Category Date Time Status INCISION/WOUND CARE Q12HR CARE 06/20/18 22:30 Active INTAKE & OUTPUT Q8HR CARE 06/20/18 22:30 Active VITAL SIGNS Q4HR CARE 06/20/18 22:31 Active REGULAR DIET DIETARY 06/20/18 Breakfast Ordered ED APPLY O2 .ONCE EMERGENCY 06/20/18 20:54 Active ED SURGICAL TECHNOLOGY INSTRUCTOR APPLIED .ONCE EMERGENCY 06/20/18 20:54 Active ED VITAL SIGNS Q1HR EMERGENCY 06/20/18 20:54 Active BLOOD CULTURE (ED ONLY) Stat LAB 06/20/18 21:14 Received CBC W/ AUTO DIFF DAILY@0600 LAB 06/21/18 06:00 Ordered CBC W/ AUTO DIFF DAILY@0600 LAB 06/22/18 06:00 Ordered CBC W/ AUTO DIFF Stat LAB 06/20/18 20:54 Completed COMPREHENSIVE METABOLIC PANEL DAILY@0600 LAB 06/21/18 06:00 Ordered COMPREHENSIVE METABOLIC PANEL DAILY@0600 LAB 06/22/18 06:00 Ordered COMPREHENSIVE METABOLIC PANEL Stat LAB 06/20/18 21:14 Completed LACTIC ACID Stat LAB 06/20/18 21:14 Completed PROCALCITONIN Stat LAB 06/20/18 21:14 Completed URINALYSIS C & S IF INDICATED Stat LAB 06/20/18 21:06 Completed URINE CULTURE Stat LAB 06/20/18 21:06 Received Acetaminophen [Tylenol] MEDS 06/20/18 22:52 Ordered 650 mg PO Q4H PRN Acetaminophen [Tylenol] MEDS 06/20/18 22:52 Ordered 650 mg RC Q6H PRN Aspirin [Aspirin EC] MEDS 06/21/18 09:00 Ordered 81 mg PO DAILY Bisacodyl [Dulcolax] MEDS 06/20/18 22:52 Ordered 10 mg RC DAILY PRN Ceftriaxone Sodium [Rocephin] 1 gm MEDS 06/20/18 23:00 Ordered 0.9 % Sodium Chloride [Sodium Chloride] 50 ml IV DAILY Cyanocobalamin/Folic Acid [Vitamin E42-Qvslv Acid MEDS 06/21/18 09:00 Ordered Tablet] 1 each PO DAILY Enoxaparin Sodium [Lovenox] MEDS 06/21/18 09:00 Ordered 30 mg SUBCUT DAILY Ertapenem Sodium [Invanz] MEDS 06/20/18 22:30 Discontinued 1 gm .ROUTE .STK-MED ONE Ertapenem Sodium [Invanz] 1 gm MEDS 06/21/18 09:00 Ordered 0.9 % Sodium Chloride [Sodium Chloride] 50 ml IV DAILY Ertapenem Sodium [Invanz] 1 gm MEDS 06/20/18 22:27 Discontinued 0.9 % Sodium Chloride [Sodium Chloride] 50 ml IV ONCE Gabapentin [Neurontin] MEDS 06/21/18 09:00 Ordered 100 mg PO BID Hydrocodone Bit/Acetaminophen [[place] 7.5-325] MEDS 06/20/18 22:52 Ordered DOSE tab PO Q8H PRN Hydromorphone HCl [Dilaudid] MEDS 06/20/18 22:52 Ordered 1 mg PO Q3H PRN Hyoscyamine Sulfate [Hyoscyamine Sulfate] MEDS 06/20/18 22:52 Ordered 0.125 mg PO Q4H PRN Ipratropium/Albuterol Neb [Duoneb] MEDS 06/21/18 09:00 Ordered 1 vial NEB QID L.acidoph,Paracasei, B.lactis [Probiotic] MEDS 06/21/18 09:00 Ordered 1 each PO DAILY Lisinopril [Zestril] MEDS 06/21/18 09:00 Ordered 40 mg PO BID Lorazepam [Ativan] MEDS 06/20/18 22:52 Ordered 0.5 mg PO Q6H PRN Magnesium Oxide [Mag-Ox] MEDS 06/21/18 09:00 Ordered 400 mg PO DAILY Metformin HCl [Glucophage] MEDS 06/21/18 08:00 Ordered 500 mg PO DAILYWM Morphine Sulfate Solution MEDS 06/21/18 09:00 Ordered 0.25 ml PO BID Morphine Sulfate [Morphine 2 mg/ml Syringe] MEDS 06/20/18 21:04 Discontinued 2 mg IVP ONCE STA Morphine Sulfate [Morphine 2 mg/ml Syringe] MEDS 06/20/18 22:10 Discontinued 2 mg IVP ONCE STA Morphine Sulfate [Morphine 2 mg/ml Syringe] MEDS 06/20/18 22:30 Ordered 2 mg IVP Q4H PRN Ondansetron HCl/Pf [Zofran 4 mg/2 ml] MEDS 06/20/18 21:04 Discontinued 4 mg IVP ONCE STA Ondansetron HCl/Pf [Zofran 4 mg/2 ml] MEDS 06/20/18 22:30 Ordered 4 mg IVP Q6H PRN Oxcarbazepine [Trileptal] MEDS 06/21/18 21:00 Ordered 300 mg PO BEDTIME Pantoprazole Sodium [Protonix] MEDS 06/21/18 09:00 Ordered 40 mg PO DAILY Polyethylene Glycol 3350 [Miralax] MEDS 06/21/18 09:00 Ordered 17 gm PO DAILY Ringers Lactated Solution [Lactated Ringers] 1,000 ml MEDS 06/20/18 20:54 Active IV 100 mls/hr Risperidone [Risperdal] MEDS 06/21/18 09:00 Ordered 0.5 mg PO BID Sodium Chloride 0.9% [Sodium Chloride] 1,000 ml MEDS 06/20/18 22:30 Ordered IV 125 mls/hr RESUSCITATION STATUS Routine OTHERS 06/20/18 22:30 Ordered CHEST, 1V AP ONLY Stat RADS 06/20/18 21:[address] HEAD W/O CONTRAST Stat RADS 06/20/18 21:05 Completed PT CONSULT Routine THERAPIES 06/20/18 Ordered Medications Generic Name Dose Route Start Last Admin Trade Name Freq PRN Reason Stop Dose Admin Acetaminophen 650 mg 06/20/18 22:52 Tylenol PO Q4H PRN Fever > 102 Acetaminophen 650 mg 06/20/18 22:52 Tylenol RC Q6H PRN Fever > 102 Hydrocodone Bitart/Acetaminophen tab 06/20/18 22:52 [place] 7.5-325 PO Q8H PRN severe pain Albuterol/Ipratropium 1 vial 06/21/18 09:00 Duoneb NEB QID [facility] Aspirin 81 mg 06/21/18 09:00 Aspirin Ec PO DAILY BOOGIE Bisacodyl 10 mg 06/20/18 22:52 Dulcolax RC DAILY PRN constipation Clotrimazole 1 applic 06/21/18 09:00 Lotrisone 45 Gm TP BID [facility] Enoxaparin Sodium 30 mg 06/21/18 09:00 Lovenox SUBCUT DAILY [facility] Gabapentin 100 mg 06/21/18 09:00 Neurontin PO BID [facility] Lactated Ringer's 1,000 mls @ 100 mls/hr 06/20/18 20:54 06/20/18 21:30 Lactated Ringers IV 06/21/18 06:53 100 mls/hr .Q10H STA Administration Sodium Chloride 1,000 mls @ 125 mls/hr 06/20/18 22:30 Sodium Chloride IV .Q8H [facility] Ertapenem 1 gm/ Sodium 50 mls @ 75 mls/hr 06/21/18 09:00 Chloride IV 06/30/18 09:39 DAILY [facility] Ceftriaxone Sodium 1 gm/ 50 mls @ 75 mls/hr 06/20/18 23:00 Sodium Chloride IV 06/29/18 09:39 DAILY [facility] Lisinopril 40 mg 06/21/18 09:00 Zestril PO BID [facility] Lorazepam 0.5 mg 06/20/18 22:52 Ativan PO Q6H PRN Anxiety Magnesium Oxide 400 mg 06/21/18 09:00 Mag-Ox PO DAILY [facility] Metformin HCl 500 mg 06/21/18 08:00 Glucophage PO DAILYWM [facility] Morphine Sulfate 2 mg 06/20/18 22:30 Morphine 2 Mg/Ml Syringe IVP Q4H PRN Severe Pain Non-Formulary Medication 1 each 06/21/18 09:00 Cyanocobalamin/Folic Acid [Vitamin C52-Fiauu Acid Tablet] PO DAILY [facility] Non-Formulary Medication 1 mg 06/20/18 22:52 Hydromorphone Hcl [Dilaudid] PO Q3H PRN severe pain Non-Formulary Medication 0.125 mg 06/20/18 22:52 Hyoscyamine Sulfate [Hyoscyamine Sulfate] PO Q4H PRN excess secretions Non-Formulary Medication 1 each 06/21/18 09:00 L.Acidoph,Paracasei, B.Lactis [Probiotic] PO DAILY [facility] Non-Formulary Medication 0.25 ml 06/21/18 09:00 Morphine Sulfate Solution PO BID [facility] Non-Formulary Medication 300 mg 06/21/18 21:00 Oxcarbazepine [Trileptal] PO BEDTIME BOOGIE Non-Formulary Medication 0.5 mg 06/21/18 09:00 Risperidone [Risperdal] PO BID [facility] Ondansetron HCl 4 mg 06/20/18 22:30 Zofran 4 Mg/2 Ml IVP Q6H PRN Nausea / Vomiting Pantoprazole Sodium 40 mg 06/21/18 09:00 Protonix PO DAILY [facility] Polyethylene Glycol 17 gm 06/21/18 09:00 Miralax PO DAILY BOOGIE Discontinued Medications Generic Name Dose Route Start Last Admin Trade Name Oleg PRN Reason Stop Dose Admin Ertapenem 1 gm/ Sodium 50 mls @ 75 mls/hr 06/20/18 22:27 06/20/18 22:40 Chloride IV 06/20/18 23:06 75 mls/hr ONCE STA Administration Morphine Sulfate 2 mg 06/20/18 21:04 06/20/18 21:25 Morphine 2 Mg/Ml Syringe IVP 06/20/18 21:05 2 mg ONCE STA Administration Morphine Sulfate 2 mg 06/20/18 22:10 06/20/18 22:38 Morphine 2 Mg/Ml Syringe IVP 06/20/18 22:11 2 mg ONCE STA Administration Ondansetron HCl 4 mg 06/20/18 21:04 06/20/18 21:24 Zofran 4 Mg/2 Ml IVP 06/20/18 21:05 4 mg ONCE STA Administration Vital Signs: Temp Pulse Resp BP Pulse Ox 06/20/18 20:44 100.2 F H 94 H 24 177/94 H 96 Departure - Departure Time of Disposition: 22:45 Disposition: ADMITTED INPATIENT Discharge Problem: Urinary tract infection Qualifiers: Urinary tract infection type: acute cystitis Hematuria presence: with hematuria Qualified Code(s): N30.01 - Acute cystitis with hematuria Altered mental status Qualifiers: Altered mental status type: delirium Qualified Code(s): R41.0 - Disorientation , unspecified Condition: Fair Pt referred to PMD for follow-up: Yes IPMP verified?: No Allergies/Adverse Reactions: Allergies codeine Adverse Reaction (Verified 06/20/18 21:22) iodine Adverse Reaction (Verified 06/20/18 21:22) metoclopramide Adverse Reaction (Verified 06/20/18 21:22) contrast Adverse Reaction (Uncoded 06/20/18 21:22) IV dye Adverse Reaction (Uncoded 06/20/18 21:22) Home Medications: Ambulatory Orders Acetaminophen [Pain & Fever] 650 mg PO Q4H PRN 08/21/17 Aspirin [Aspirin EC] 81 mg PO DAILY 08/21/17 L.acidoph,Paracasei, B.lactis [Probiotic] 1 each PO DAILY 05/08/18 Magnesium Oxide [Mag-Ox] 400 mg PO DAILY 05/08/18 Oxcarbazepine [Trileptal] 300 mg PO BEDTIME 05/08/18 Polyethylene Glycol 3350 [Miralax] 17 gm PO DAILY 05/08/18 Risperidone [Risperdal] 0.5 mg PO BID 05/08/18 Lisinopril [Zestril] 40 mg PO BID #60 tablet 05/11/18 Gabapentin [Neurontin] 100 mg PO BID #60 capsule 05/19/18 Metformin HCl [Glucophage] 500 mg PO DAILYWM #30 tablet 05/19/18 Pantoprazole Sodium [Protonix] 40 mg PO DAILY #30 tablet. 05/19/18 Acetaminophen [Acephen] 650 mg RC Q6H PRN 06/20/18 Bisacodyl [Dulcolax] 10 mg RC DAILY PRN 06/20/18 Cyanocobalamin/Folic Acid [Vitamin D69-Hlzfs Acid Tablet] 1 each PO DAILY Hydrocodone/Acetaminophen [Hydrocodon-Acetaminoph 7.5-325] 1 each PO Q8H PRN 03/02 Hydromorphone HCl [Dilaudid-5] 1 mg PO Q3H PRN 06/20/18 Hyoscyamine Sulfate 0.125 mg PO Q4H PRN 06/20/18 Ipratropium/Albuterol Neb [Duoneb] 1 vial NEB QID 06/20/18 Lorazepam 0.5 mg PO Q6H PRN 06/20/18 Morphine Sulfate Solution [Roxanol] 0.25 ml PO BID 06/20/18 Trimethoprim 100 mg PO BEDTIME 06/20/18
--- NOTE | 2018-06-20 22:03 | CT ---
EXAM: CT brain without contrast HISTORY: Mental status change TECHNIQUE: CT of the brain without intravenous contrast FINDINGS: There is no acute hemorrhage midline shift or mass effect. No hydrocephalus or abnormal e xtra-axial fluid collection. Generalized involutional atrophy, moderate. Chronic microvascular gutierrez ges of the white matter tracts, moderate. No acute large vessel territorial infarct is seen. Hypero stosis of the bony cranium. No acute abnormality of the bony cranium. Mastoid air cells are clear. Circumferential mucosal thickening and bony thickening of the left maxillary sinus. Minor mucosal th ickening of the ethmoid and sphenoid sinuses. Soft tissues without significant abnormality. IMPRESSION: 1. Chronic changes as described. No acute intracranial abnormality is seen.
--- NOTE | 2018-06-20 22:25 | DI ---
Exam: Single view chest x-ray. Date: 06/20/2018. Comparison: 12/10/2017. HISTORY: Fever and mental status change. FINDINGS: There is a lesser inspiration with elevation of both diaphragms. There is no focal consol idation. There are granulomatous calcifications. Cardiac silhouette and pulmonary vasculature are n ormal. ASVD is present. Impression: No acute intrathoracic findings. ASVD with old granulomatous disease.
[2018-06-20] MEDS ORDERED: INVANZ 1 GM in SODIUM CHLORIDE 50 ML IV STA (22:27)
[2018-06-20] MEDS ORDERED: MORPHINE 2 MG/ML SYRINGE IVP PRN (22:30)
[2018-06-20] MEDS ORDERED: ZOFRAN 4 MG/2 ML IVP PRN (22:30)
[2018-06-20] MEDS ORDERED: INVANZ ONE (22:30)
[2018-06-20] MEDS ORDERED: TYLENOL RC PRN (22:52)
[2018-06-20] MEDS ORDERED: ATIVAN PO PRN (22:52)
[2018-06-20] MEDS ORDERED: HYDROMORPHONE HCL 1 MG PO PRN (22:52)
[2018-06-20] MEDS ORDERED: DULCOLAX RC PRN (22:52)
[2018-06-20] MEDS ORDERED: HYOSCYAMINE SULFATE 0.125 MG PO PRN (22:52)
[2018-06-20] MEDS ORDERED: TYLENOL PO PRN (22:52)
[2018-06-20] MEDS ORDERED: ROCEPHIN 1 GM in SODIUM CHLORIDE 50 ML IV SCH (23:00)
[2018-06-20] MEDS ORDERED: ROCEPHIN ONE (23:39)
[2018-06-20] MEDS: SODIUM CHLORIDE 1,000 ML IV SCH (23:48)
[2018-06-21 00:08] VITALS: BMI 30.8
[2018-06-21] MEDS ORDERED: LEVSIN PO PRN (07:53)
[2018-06-21] MEDS: CALMOSEPTINE OINTMENT TP SCH ×2 (08:41→20:09)
[2018-06-21] MEDS: MIRALAX PO SCH (08:41)
[2018-06-21] MEDS: FLORASTOR PO SCH (08:42)
[2018-06-21] MEDS: RISPERDAL PO SCH ×2 (08:42→20:07)
[2018-06-21] MEDS: GLUCOPHAGE PO SCH (08:42)
[2018-06-21] MEDS: ZESTRIL PO SCH ×2 (08:42→20:07)
[2018-06-21] MEDS: MAG-OX PO SCH (08:42)
[2018-06-21] MEDS: ASPIRIN EC PO SCH (08:42)
[2018-06-21] MEDS: PROTONIX PO SCH (08:42)
[2018-06-21] MEDS: LOVENOX SUBCUT SCH (08:43)
[2018-06-21] MEDS: NEURONTIN PO SCH ×2 (08:43→20:08)
[2018-06-21] MEDS: [UNRECOGNIZED DRUG - OTHER] PO SCH (08:55)
[2018-06-21] MEDS: CYANOCOBALAMIN PO SCH (08:55)
[2018-06-21] MEDS: FOLIC ACID PO SCH (08:55)
[2018-06-21] MEDS ORDERED: NON-FORMULARY MEDICATION (L.Acidoph,Paracasei, B.Lactis [Probiotic] 1 EACH) PO SCH (09:00)
[2018-06-21] MEDS ORDERED: NON-FORMULARY MEDICATION (Risperidone [Risperdal] 0.5 MG) PO SCH (09:00)
[2018-06-21] MEDS ORDERED: MORPHINE SULFATE PO SCH (09:00)
[2018-06-21] MEDS: ROXANOL 20 MG/ML PO SCH ×2 (09:07→20:08)
[2018-06-21] MEDS: LOTRISONE 45 GM TP SCH ×2 (09:20→20:10)
[2018-06-21] MEDS: SODIUM CHLORIDE 1,000 ML IV SCH ×3 (10:34→19:24)
[2018-06-21] MEDS: NORCO 7.5-325 PO PRN (16:38)
[2018-06-21] MEDS: DUONEB NEB SCH ×3 (19:06→20:49)
[2018-06-21] MEDS: TRILEPTAL PO SCH (20:08)
[2018-06-21] MEDS: NYSTOP POWDER TP SCH (20:11)
[2018-06-21] MEDS: INVANZ 1 GM in SODIUM CHLORIDE 50 ML IV SCH (20:15)
[2018-06-21] MEDS ORDERED: NON-FORMULARY MEDICATION (Oxcarbazepine [Trileptal] 300 MG) PO SCH (21:00)
[2018-06-21] MEDS ORDERED: ROCEPHIN 1 GM in SODIUM CHLORIDE 50 ML IV SCH (21:00)
[2018-06-21] MEDS: TRIMETHOPRIM 100 MG PO SCH (23:02)
[2018-06-22] MEDS: SODIUM CHLORIDE 1,000 ML IV SCH ×4 (04:18→15:38)
[2018-06-22] MEDS: DUONEB NEB SCH ×4 (05:06→20:25)
[2018-06-22] MEDS: PROTONIX PO SCH (06:27)
[2018-06-22] MEDS: MIRALAX PO SCH (09:25)
[2018-06-22] MEDS: LOVENOX SUBCUT SCH (09:25)
[2018-06-22] MEDS: ZESTRIL PO SCH ×2 (09:26→21:09)
[2018-06-22] MEDS: LOTRISONE 45 GM TP SCH ×2 (09:26→21:08)
[2018-06-22] MEDS: GLUCOPHAGE PO SCH (09:26)
[2018-06-22] MEDS: FLORASTOR PO SCH (09:26)
[2018-06-22] MEDS: NEURONTIN PO SCH ×2 (09:26→21:09)
[2018-06-22] MEDS: MAG-OX PO SCH (09:26)
[2018-06-22] MEDS: ASPIRIN EC PO SCH (09:26)
[2018-06-22] MEDS: RISPERDAL PO SCH ×2 (09:26→21:09)
[2018-06-22] MEDS: CYANOCOBALAMIN PO SCH (09:27)
[2018-06-22] MEDS: CALMOSEPTINE OINTMENT TP SCH ×2 (09:27→21:08)
[2018-06-22] MEDS: FOLIC ACID PO SCH (09:27)
[2018-06-22] MEDS: [UNRECOGNIZED DRUG - OTHER] PO SCH (09:27)
[2018-06-22] MEDS: NYSTOP POWDER TP SCH ×2 (09:27→21:09)
[2018-06-22] MEDS: ROXANOL 20 MG/ML PO SCH ×2 (09:27→21:10)
--- NOTE | 2018-06-22 12:52 | PCM.PROG ---
Attending Provider: ATTENDING PROVIDER[facility] patient is seen with Jena Cole, Nurse Practitioner. DATE OF SERVICE: 06/22/18 SUBJECTIVE: This 83 year old WHITE/ F was hospitalized 06/20/18. The patient is lying in bed resting comfortably. She has been afebrile. REVIEW OF SYSTEMS: CONSTITUTIONAL: Weakness. No night sweats. No malaise, lethargy. No fever or chills. HEENT: Eyes: No visual changes. No eye pain. No eye discharge. ENT: No runny nose. No epistaxis. No sinus pain. No odynophagia. No congestion. RESPIRATORY: No cough, no congestion. No hemoptysis. No shortness of breath. CARDIOVASCULAR: No angina symptoms. No CHF symptoms. No atypical chest pain for CAD. No palpitations. No orthopnea.. GASTROINTESTINAL: No abdominal pain. No nausea or vomiting. No diarrhea or constipation. No hematemesis. No hematochezia. GENITOURINARY: No urgency. No frequency. No dysuria. No hematuria. No obstructive symptoms. No discharge. No pain. No significant abnormal bleeding. MUSCULOSKELETAL: No musculoskeletal pain; no joint swelling. NEUROLOGICAL: Confusion. No headache. No neck pain. No syncope. No seizures. No dizziness. PSYCHIATRIC: Not anxious. No depression. No suicidal thoughts. No homicidal thoughts. SKIN: No rash. No lesions. No wounds. ENDOCRINE: No unexplained weight loss. No weight gain. HEMATOLOGIC/LYMPHATIC: No anemia. No purpura. No petechiae. No prolonged or excessive bleeding. No palpable lymph nodes. PHYSICAL EXAMINATION: GENERAL: The patient is confused, lying in bed in no distress. VITAL SIGNS: Temperature 99.0 F, Pulse 70, Respiratory Rate 16, BP 103/57, Pulse Ox 98% HEENT: Head normocephalic, atraumatic. Eyes: Extraocular muscles are intact. Pupils are equal, round and reactive to light and accommodation. Ears: No lesions. Nose appeared normal. Throat: No exudate or erythema. NECK: Supple. No JVD, no carotid bruit. No lymphadenopathy or thyromegaly. LUNGS: Diminished breath sounds. Clear to auscultation. Percussion note normal. Chest symmetrical. HEART: S1, S2, no S3. No murmurs. No cyanosis or clubbing. No ascites. Pulses: Dorsalis pedis and posterior tibial pulses +1 to +2 both sides. ABDOMEN: Soft. Non-tender. Bowel sounds active. No CVA tenderness. No mass felt. EXTREMITIES: Bilateral lower extremity edema. Full range of motion of all extremities, equal. NEUROLOGIC: No focal deficit. Cranial nerves II through XII are grossly intact. No headache, no double vision or headache. SKIN: Not dry. Intact. Turgor-normal. LYMPHATIC: No palpable lymph nodes/no lymphedema. MUSCULOSKELETAL: Normal joints with no swelling. Muscle tone is normal. LAB REVIEW: 06/22/18 04:44 06/22/18 04:44 06/22/18 04:44: Sodium 134.8 L, Potassium 4.87, Chloride 106.2, Carbon Dioxide 24.1, Anion Gap 9.37, BUN 40.5 H, Creatinine 1.12, Estimated GFR (MDRD) 46.00, BUN/Creatinine Ratio 36.16, Glucose 179.0 H, Calcium 10.28 H, Total Bilirubin 0.23, AST 16.8, ALT 9.3, Alkaline Phosphatase 48.5 L, Total Protein 5.58 L, Albumin 3.07 L, Globulin 2.51, Albumin/Globulin Ratio 1.22 06/22/18 04:44: WBC 7.00, RBC 2.98 L, Hgb 9.8 L, Hct 29.3 L, MCV 98.3, MCH 32.9 H, MCHC 33.4, RDW Coeff of Alexia 13.5, Plt Count 207, Immature Gran % (Auto) 0.6, Neut % (Auto) 60.9, Lymph % (Auto) 27.7, [place] % (Auto) 7.7, Eos % (Auto) 2.7, Baso % (Auto) 0.4, Immature Gran # (Auto) 0.0, Neut # (Auto) 4.3, Lymph # (Auto ) 1.9, [place] # (Auto) 0.5, Eos # (Auto) 0.2, Baso # (Auto) 0.0 ASSESSMENT: 1. 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 2. History of chronic UTI. 3. Dementia with behavioral disturbances. 4. Dehydration, improved. PLAN: 1. Decrease IV fluids to 75 mL/hr. Plan and coordination of the patient's care discussed in the presence of Internet Programmer and nurse. CONDITION: Stable SCRIBED BY: MARJORIE PAIGE Supervisor Fertilizer scribed while in presence of service performed by Dr. Morales/Jena Cole APRN on 06/22/18 ([id number])
[2018-06-22] MEDS: INVANZ 1 GM in SODIUM CHLORIDE 50 ML IV SCH (21:07)
[2018-06-22] MEDS: TRILEPTAL PO SCH (21:09)
[2018-06-22] MEDS: TRIMETHOPRIM 100 MG PO SCH (21:11)
[2018-06-23] MEDS: SODIUM CHLORIDE 1,000 ML IV SCH ×3 (00:06→19:50)
[2018-06-23] MEDS: DUONEB NEB SCH ×4 (05:30→19:30)
[2018-06-23] MEDS: PROTONIX PO SCH (05:55)
[2018-06-23] MEDS: ASPIRIN EC PO SCH (08:57)
[2018-06-23] MEDS: MIRALAX PO SCH (08:58)
[2018-06-23] MEDS: ROXANOL 20 MG/ML PO SCH ×2 (08:58→21:18)
--- NOTE | 2018-06-23 08:58 | PN ---
DATE OF SERVICE: 06/21/18 SUBJECTIVE: 83-year-old white female hospitalized with change in mental status and UTI. The patient is confused but alert. PHYSICAL EXAMINATION: VITAL SIGNS: Temperature 98.9, pulse 76, respiratory rate 22, BP 150/80, pulse ox 100%. HEENT: Normocephalic, atraumatic. NECK: Supple. No JVD, no carotid bruit. No lymphadenopathy. LUNGS: Decreased breath sounds but clear to auscultation. No rales or rhonchi. HEART: S1, S2 normal. No S3. No murmur, gallop or regurgitation. ABDOMEN: Soft, nontender. Bowel sounds active. No rigidity. No rebound or guarding. No CVA tenderness. EXTREMITIES: No cyanosis, clubbing or pedal edema. MUSCULOSKELETAL: No joint swelling. NEUROLOGIC: Awake, alert. No focal deficit. LYMPHATIC: No lymph nodes palpable. SKIN: Intact. ASSESSMENT: 1. UTI with change in mental status. 2. Renal azotemia with creatinine 1, BUN 35. PLAN: 1. Continue Ertapenem and Rocephin. 2. Will give IV fluids. 3. Watch for fluid overload. 4. Diabetes mellitus. 5. Hypertension. 6. Generalized anxiety disorder. TIME SPENT: More than 35 minutes MTDD
[2018-06-23] MEDS: LOVENOX SUBCUT SCH (08:59)
[2018-06-23] MEDS: LOTRISONE 45 GM TP SCH ×2 (09:00→21:25)
[2018-06-23] MEDS: CALMOSEPTINE OINTMENT TP SCH ×2 (09:00→21:25)
[2018-06-23] MEDS: FOLIC ACID PO SCH (09:01)
[2018-06-23] MEDS: [UNRECOGNIZED DRUG - OTHER] PO SCH (09:01)
[2018-06-23] MEDS: RISPERDAL PO SCH ×2 (09:01→21:17)
[2018-06-23] MEDS: CYANOCOBALAMIN PO SCH (09:01)
[2018-06-23] MEDS: GLUCOPHAGE PO SCH (09:02)
[2018-06-23] MEDS: NEURONTIN PO SCH ×2 (09:02→21:17)
[2018-06-23] MEDS: MAG-OX PO SCH (09:02)
[2018-06-23] MEDS: NYSTOP POWDER TP SCH ×2 (09:02→21:25)
[2018-06-23] MEDS: FLORASTOR PO SCH (09:02)
[2018-06-23] MEDS: ZESTRIL PO SCH ×2 (09:02→21:17)
--- NOTE | 2018-06-23 10:47 | PCM.PROG ---
Attending Provider: [facility] DATE OF SERVICE: 06/23/18 SUBJECTIVE: This 83 year old WHITE/ F was hospitalized 06/20/18 with UTI, E-coli, ESBL. Mental status according to son, who is present in the room, has improved on Ertapenem and Rocephin combination. She was on Rocephin and we stopped this yesterday and was no need as Ertapenem was given. Hydration status improved. She is alert but confused. REVIEW OF SYSTEMS: CONSTITUTIONAL: No night sweats. No fatigue, malaise, lethargy. No fever or chills. HEENT: Eyes: No visual changes. No eye pain. No eye discharge. ENT: No runny nose. No epistaxis. No sinus pain. No odynophagia. No congestion. RESPIRATORY: No cough, no congestion. No hemoptysis. No shortness of breath. CARDIOVASCULAR: No angina symptoms. No CHF symptoms. No atypical chest pain for CAD. No palpitations. No orthopnea.. GASTROINTESTINAL: No abdominal pain. No nausea or vomiting. No diarrhea or constipation. No hematemesis. No hematochezia. GENITOURINARY: No urgency. No frequency. No dysuria. No hematuria. No obstructive symptoms. No discharge. No pain. No significant abnormal bleeding. MUSCULOSKELETAL: No musculoskeletal pain; no joint swelling. NEUROLOGICAL: Awake, alert, confused. No headache. No neck pain. No syncope. No seizures. No dizziness. PSYCHIATRIC: Not anxious. No depression. No suicidal thoughts. No homicidal thoughts. SKIN: No rash. No lesions. No wounds. ENDOCRINE: No unexplained weight loss. No weight gain. HEMATOLOGIC/LYMPHATIC: No anemia. No purpura. No petechiae. No prolonged or excessive bleeding. No palpable lymph nodes. PHYSICAL EXAMINATION: GENERAL: The patient is awake, alert, confused, lying in bed in no distress. VITAL SIGNS: Temperature 97.8 F, Pulse 66, Respiratory Rate 16, BP 120/56, Pulse Ox 96% HEENT: Head normocephalic, atraumatic. Eyes: Extraocular muscles are intact. Pupils are equal, round and reactive to light and accommodation. Ears: No lesions. Nose appeared normal. Throat: No exudate or erythema. NECK: Supple. No JVD, no carotid bruit. No lymphadenopathy or thyromegaly. LUNGS: Clear to auscultation. Percussion note normal. Chest symmetrical. HEART: S1, S2, no S3. No murmurs. No cyanosis or clubbing. No ascites. Pulses: Dorsalis pedis and posterior tibial pulses +1 to +2 both sides. ABDOMEN: Soft. Non-tender. Bowel sounds active. No CVA tenderness. No mass felt. EXTREMITIES: No edema. Full range of motion of all extremities, equal. NEUROLOGIC: No focal deficit. Cranial nerves II through XII are grossly intact. No headache, no double vision or headache. SKIN: Warm and dry. Intact. Turgor-normal. LYMPHATIC: No palpable lymph nodes/no lymphedema. MUSCULOSKELETAL: Normal joints with no swelling. Muscle tone is normal. LAB REVIEW: 06/23/18 06:05 06/23/18 05:45 06/23/18 06:05: WBC 6.81, RBC 3.06 L, Hgb 9.9 L, Hct 30.4 L, MCV 99.3 H, MCH 32.4 H, MCHC 32.6, RDW Coeff of Alexia 13.3, Plt Count 183, Immature Gran % (Auto) 0.6, Neut % (Auto) 63.9, Lymph % (Auto) 26.0, [place] % (Auto) 6.5, Eos % (Auto) 2.6, Baso % (Auto) 0.4, Immature Gran # (Auto) 0.0, Neut # (Auto) 4.4, Lymph # ( Auto) 1.8, [place] # (Auto) 0.4, Eos # (Auto) 0.2, Baso # (Auto) 0.0 06/23/18 05:45: Sodium 136.6 L, Potassium 4.89, Chloride 109.1 H, Carbon Dioxide 22.4, Anion Gap 9.99, BUN 30.4 H, Creatinine 0.75, Estimated GFR (MDRD) 73.00, BUN/Creatinine Ratio 40.53, Glucose 122.0 H, Calcium 10.25 H, Total Bilirubin 0.27, AST 13.3 L, ALT 9.2, Alkaline Phosphatase 51.2 L, Total Protein 5.87 L, Albumin 3.24 L, Globulin 2.63, Albumin/Globulin Ratio 1.23 ASSESSMENT: 1. E. coli/UTI seems to be under control. She is afebrile and WBC count is normal. 2. Mental status/dementia is somewhat better. Oral intake is acceptable. PLAN: 1. Continue present management. Plan and coordination of the patient's care discussed in the presence of Metal Finish Inspector and nurse. CONDITION: Stable SCRIBED BY: MARJORIE PAIGE Campaign Marketing Specialist scribed while in presence of service performed by Dr. TIMI MORALESIZA on 06/23/18 ([id number])
--- NOTE | 2018-06-23 12:24 | PN ---
DATE OF SERVICE: 06/22/18 SUBJECTIVE: Lora Caraballo was seen and examined with the nurse practitioner. She was hospitalized with urinary tract infection and change in the mental status because of that. The patient is being treated with Ertapenem and Rocephin. PHYSICAL EXAMINATION: HEENT: Head normocephalic, atraumatic. Eyes: Extraocular muscles are intact. Pupils are equal, round and reactive to light and accommodation. Ears: No lesions. Nose appeared normal. Throat: No exudate or erythema. NECK: Supple. No JVD, no carotid bruit. No lymphadenopathy or thyromegaly. LUNGS: Decreased breath sounds, but clear. Percussion note normal. Chest symmetrical. HEART: S1, S2, no S3. No murmurs. No cyanosis or clubbing. No ascites. Pulses: Dorsalis pedis and posterior tibial pulses +1 to +2 both sides. ABDOMEN: Soft. Nontender. Bowel sounds active. No CVA tenderness. No mass felt. EXTREMITIES: No edema. Full range of motion of all extremities, equal. NEUROLOGIC: No focal deficit. Cranial nerves II through XII are grossly intact. No headache, no double vision or headache. SKIN: Not dry. Intact. Turgor - normal. LYMPHATIC: No palpable lymph nodes/no lymphedema. MUSCULOSKELETAL: Normal joints with no swelling. Muscle tone is normal. ASSESSMENT: The patient's condition seems to be improving with the present management. Refer to nurse practitioner's note. CONDITION: Improving. Plan and coordination of the patient's care discussed in the presence of nurse. KIANA
--- NOTE | 2018-06-23 14:20 | HP ---
DATE OF SERVICE: 06/20/18 HISTORY OF PRESENT ILLNESS: This is an 83-year-old white female who is a resident of [facility]. She is Dr. Meza patient. She was brought into the emergency room by the ambulance. She had an acute mental status change for the past two days but does suffer from dementia anyway. She has a history of recurrent UTIs and has seen the urologist. She has a fever of 101 this morning. PAST MEDICAL HISTORY: Diabetes mellitus type 2 Dyslipidemia Recurrent UTIs Hypertension COPD GERD History of diverticulitis Chronic kidney disease History of TIAs Bipolar disorder Neuropathy PAST SURGICAL HISTORY: Status post hysterectomy Bilateral total knee replacement Right carpal tunnel Anxiety B12 deficiency Osteoarthritis Dementia with behavioral disorders REVIEW OF SYSTEMS: CONSTITUTIONAL: Positive for weakness, fever. No night sweats. No malaise, lethargy. No chills. HEENT: Eyes: No visual changes. No eye pain. No eye discharge. ENT: No runny nose. No epistaxis. No sinus pain. No sore throat. No odynophagia. No ear pain. No congestion. RESPIRATORY: No cough, no congestion. No hemoptysis. No shortness of breath. CARDIOVASCULAR: No angina symptoms. No CHF symptoms. No atypical chest pain for CAD. No palpitations. No PND. No orthopnea. GASTROINTESTINAL: No abdominal pain. No nausea or vomiting. No diarrhea or constipation. No hematemesis. No hematochezia. GENITOURINARY: Positive for incontinence. MUSCULOSKELETAL: No musculoskeletal pain. No joint swelling. No arthritis. NEUROLOGICAL: Confusion. No headache. No neck pain. No syncope. No seizures. No dizziness. PSYCHIATRIC: Not anxious. No depression. No suicidal thoughts. No homicidal thoughts. SKIN: No rash. No lesions. No wounds. ENDOCRINE: No unexplained weight loss. No weight gain. HEMATOLOGIC/LYMPHATIC: No anemia. No purpura. No petechiae. No prolonged or excessive bleeding. No palpable lymph nodes. PERSONAL/FAMILY/SOCIAL HISTORY: She is a former smoker. No alcohol or ilicit drug use. Current resident of [facility]. MEDICATIONS: Aspirin 81 mg p.o. daily Acetaminophen 650 mg p.o. q.4h p.r.n. Polyethylene Glycol 17 gm p.o. daily Mag-Ox 400 mg p.o. daily Trileptal 300 mg p.o. bedtime Risperdal 0.5 mg p.o. b.i.d. Probiotic one each p.o. daily Zestril 40 mg p.o. b.i.d. Protonix 40 mg p.o. daily Gabapentin 100 mg p.o. b.i.d. Glucophage 500 mg p.o. daily with meal Lorazepam 0.5 mg p.o. q.6h p.r.n. Hyoscyamine Sulfate 0.125 mg p.o. q.4h p.r.n. Hydrocodone/Acetamiophen one each p.o. q.8h p.r.n. Hydromorphone 1 mg p.o. q.3h p.r.n. Bisacodyl 10 mg RC daily p.r.n. Acephen 650 mg RC q.6h p.r.n. Roxanol 0.25 mL p.o. b.i.d. Trimethoprim 100 mg p.o. bedtime Ipratropium/Albuterol one vial neb q.i.d. ALLERGIES: CODEINE, IODINE, METOCLOPRAMIDE (CONTRAST), IV DYE PHYSICAL EXAMINATION: VITAL SIGNS: Temperature 100.2, heart rate 94, respirations 24, BP 177/94, pulse ox 96%. HEENT: Head normocephalic, atraumatic. Eyes: Extraocular muscles are intact. Pupils are equal, round and reactive to light and accommodation. Ears: No lesions. Nose appeared normal. Throat: No exudate or erythema. NECK: Supple. No JVD, no carotid bruit. No lymphadenopathy or thyromegaly. LUNGS: Diminished breath sounds bilaterally. Clear to auscultation. Percussion note normal. Chest symmetrical. HEART: S1, S2, no S3. Grade I/ systolic murmur. No cyanosis or clubbing. No ascites. Pulses: Dorsalis pedis and posterior tibial pulses +1 to +2 bilaterally. ABDOMEN: Soft. Nontender. Bowel sounds active. No CVA tenderness. No mass felt. EXTREMITIES: No edema. Full range of motion of all extremities, equal. NEUROLOGIC: Alert and oriented to person. No focal deficit. Cranial nerves II through XII are grossly intact. No headache, no double vision or headache. SKIN: Not dry. Intact. Turgor - normal. LYMPHATIC: No palpable lymph nodes/no lymphedema. MUSCULOSKELETAL: Normal joints with no swelling. Muscle tone is normal. CT of the brain showed no acute changes along with chest x-ray showed no acute changes. White count 14.4, hemoglobin 12.5, hematocrit 37.3, platelets 286. Sodium 133, potassium 4.8, BUN 35.9, creatinine 1.06. Glucose 216. AST 14, ALT 10.1, total protein 7.23. Urine shows 2+ protein, trace glucose, 2+ blood, positive nitrites, 2+ leuks. White blood cells too numberous to count, 3+ bacteria. Lactic acid 0.94. ASSESSMENT: 1. ACUTE URINARY TRACT INFECTION. 2. ACUTE MENTAL STATUS CHANGE. 3. DEHYDRATION. 4. CHRONIC KIDNEY DISEASE. 5. HYPERTENSION. 6. DIABETES MELLITUS TYPE 2. 7. FEVER. PLAN: 1. We will admit. 2. CBC, CMP daily. 3. Continue all home medications. 4. IV NS at 125 cc/hr. 5. Routine telemetry orders. 6. Zofran 4 mg IV q.6hr p.r.n. 7. Start Invanz 1 gm IV daily. 8. Rocephin 1 gm IV daily. 9. Tylenol as needed for fever. 10. Again continue home medications. 11. Fall precautions. 12. Will follow closely. TIME SPENT: More than 70 minutes. MTDD
[2018-06-23] MEDS: INVANZ 1 GM in SODIUM CHLORIDE 50 ML IV SCH (21:16)
[2018-06-23] MEDS: TRILEPTAL PO SCH (21:18)
[2018-06-23] MEDS: TRIMETHOPRIM 100 MG PO SCH (21:49)
[2018-06-24] MEDS: DUONEB NEB SCH ×3 (05:00→14:08)
[2018-06-24] MEDS: PROTONIX PO SCH (06:18)
--- NOTE | 2018-06-24 10:15 | PCM.PROG ---
Attending Provider: ATTENDING PROVIDER: [facility] This patient is seen with Jena Cole, Nurse Practitioner. DATE OF SERVICE: 06/24/18 SUBJECTIVE: This 83 year old WHITE/ F was hospitalized 06/20/18. The patient is lying in bed resting comfortably. No fever. She has been eating well. REVIEW OF SYSTEMS: CONSTITUTIONAL: Weakness. No night sweats. No malaise, lethargy. No fever or chills. HEENT: Eyes: No visual changes. No eye pain. No eye discharge. ENT: No runny nose. No epistaxis. No sinus pain. No odynophagia. No congestion. RESPIRATORY: No cough, no congestion. No hemoptysis. No shortness of breath. CARDIOVASCULAR: No angina symptoms. No CHF symptoms. No atypical chest pain for CAD. No palpitations. No orthopnea.. GASTROINTESTINAL: No abdominal pain. No nausea or vomiting. No diarrhea or constipation. No hematemesis. No hematochezia. GENITOURINARY: Catheter in place. No urgency. No frequency. No dysuria. No hematuria. No obstructive symptoms. No discharge. No pain. No significant abnormal bleeding. MUSCULOSKELETAL: No musculoskeletal pain; no joint swelling. NEUROLOGICAL: Oriented to person only. No headache. No neck pain. No syncope. No seizures. No dizziness. PSYCHIATRIC: Not anxious. No depression. No suicidal thoughts. No homicidal thoughts. SKIN: No rash. No lesions. No wounds. ENDOCRINE: No unexplained weight loss. No weight gain. HEMATOLOGIC/LYMPHATIC: No anemia. No purpura. No petechiae. No prolonged or excessive bleeding. No palpable lymph nodes. PHYSICAL EXAMINATION: GENERAL: The patient is oriented to person only, lying in bed in no distress. VITAL SIGNS: Temperature 97.9 F, Pulse 70, Respiratory Rate 14, BP 146/62, Pulse Ox 99% HEENT: Head normocephalic, atraumatic. Eyes: Extraocular muscles are intact. Pupils are equal, round and reactive to light and accommodation. Ears: No lesions. Nose appeared normal. Throat: No exudate or erythema. NECK: Supple. No JVD, no carotid bruit. No lymphadenopathy or thyromegaly. LUNGS: Diminished breath sounds. Clear to auscultation. Percussion note normal. Chest symmetrical. HEART: S1, S2, no S3. No murmurs. No cyanosis or clubbing. No ascites. Pulses: Dorsalis pedis and posterior tibial pulses +1 to +2 both sides. ABDOMEN: Soft. Non-tender. Bowel sounds active. No CVA tenderness. No mass felt. EXTREMITIES: No edema. Full range of motion of all extremities, equal. NEUROLOGIC: Oriented to person only. No focal deficit. Cranial nerves II through XII are grossly intact. No headache, no double vision or headache. SKIN: Not dry. Intact. Turgor-normal. LYMPHATIC: No palpable lymph nodes/no lymphedema. MUSCULOSKELETAL: Normal joints with no swelling. Muscle tone is normal. LAB REVIEW: 06/24/18 05:50 06/24/18 05:50 06/24/18 05:50: Sodium 137.0, Potassium 4.70, Chloride 110.0 H, Carbon Dioxide 23.0, Anion Gap 8.70, BUN 19.0 H, Creatinine 0.70, Estimated GFR (MDRD) 80.00, BUN/Creatinine Ratio 27.14, Glucose 131.0 H, Calcium 10.10, Total Bilirubin 0.30 , AST 14.0, ALT 9.0, Alkaline Phosphatase 58.0, Total Protein 6.10 L, Albumin 3.40 L, Globulin 2.70, Albumin/Globulin Ratio 1.25 06/24/18 05:50: WBC 7.73, RBC 3.30 L, Hgb 10.8 L, Hct 32.7 L, MCV 99.1 H, MCH 32.7 H, MCHC 33.0, RDW Coeff of Alexia 13.2, Plt Count 201, Immature Gran % (Auto) 0.4, Neut % (Auto) 67.0, Lymph % (Auto) 21.7, [place] % (Auto) 7.4, Eos % (Auto) 3.1, Baso % (Auto) 0.4, Immature Gran # (Auto) 0.0, Neut # (Auto) 5.2, Lymph # ( Auto) 1.7, [place] # (Auto) 0.6, Eos # (Auto) 0.2, Baso # (Auto) 0.0 ASSESSMENT: 1. UTI, POSITIVE ESBL 2. ACUTE MENTAL STATUS CHANGE, RESOLVED. 3. DECUBITUS ULCERS PRESENT ON ADMISSION. PLAN: 1. CBC, CMP in one week. 2. D/C to [facility]. 3. Augmentin 500/125 mg b.i.d. times 7 days. 4. Wound care [facility] for multiple decubitus which were present on admission. 5. Family unsure will restart Hospice. Plan and coordination of the patient's care discussed in the presence of Refund Specialist and nurse. CONDITION: Stable SCRIBED BY: MARJORIE PAIGE Huc scribed while in presence of service performed by Dr. Morales/Jena Cole APRN on 06/24/18 ([id number])
[2018-06-24] MEDS: SODIUM CHLORIDE 1,000 ML IV SCH ×2 (10:17→14:56)
[2018-06-24] MEDS: ROXANOL 20 MG/ML PO SCH (10:20)
[2018-06-24] MEDS: MIRALAX PO SCH (10:22)
[2018-06-24] MEDS: RISPERDAL PO SCH (10:22)
[2018-06-24] MEDS: FLORASTOR PO SCH (10:22)
[2018-06-24] MEDS: NEURONTIN PO SCH (10:23)
[2018-06-24] MEDS: ZESTRIL PO SCH (10:23)
[2018-06-24] MEDS: MAG-OX PO SCH (10:23)
[2018-06-24] MEDS: LOVENOX SUBCUT SCH (10:24)
[2018-06-24] MEDS: CYANOCOBALAMIN PO SCH (10:25)
[2018-06-24] MEDS: NYSTOP POWDER TP SCH (10:25)
[2018-06-24] MEDS: FOLIC ACID PO SCH (10:25)
[2018-06-24] MEDS: CALMOSEPTINE OINTMENT TP SCH (10:25)
[2018-06-24] MEDS: [UNRECOGNIZED DRUG - OTHER] PO SCH (10:25)
[2018-06-24] MEDS: LOTRISONE 45 GM TP SCH (10:27)
[2018-06-24] MEDS: ASPIRIN EC PO SCH (10:31)
[2018-06-24] MEDS: GLUCOPHAGE PO SCH (10:31)
--- NOTE | 2018-06-24 12:11 | CM.DICTOOL ---
ADMISSION: 06/20/18 22:57 DISCHARGE: 06/24/18 DATE OF SERVICE: 06/24/18 FINAL DIAGNOSIS MENTAL STATUS CHANGES, RESOLVED UTI, E-COLI (ESBL POSITIVE) RECURRENT UTI, E-COLI (ESBL NEGATIVE), 04/2018 (DR. MARISCAL/JUAN MANUEL BURT, 05-02 ) HISTORY OF ESBL POSITIVE, 12/10/17 DECUBITUS ULCER, STAGE 2 LEFT BUTTOCKS (MRSA) AND SACRUM DECUBITUS ULCER, STAGE I, BILATERAL HEELS DEMENTIA WITH AGRESSIVE BEHAVIOR CARDIAC HEART MURMUR DYSLIPIDEMIA HYPERTENSION COPD PNEUMONIA RENAL FAILURE ANEMIA VITAMIN D DEFICIENCY HIATAL HERNIA OBESITY, BMI 30.8 DIABETES, TYPE 2 POLYNEUROPATHY ATAXIA DIVERTICULOSIS DJD SPINE OSTEOARTHRITIS BIPOLAR DISORDER DEPRESSION/ANXIETY CATARACTS TONSILLECTOMY HYSTERECTOMY BILATERAL KNEE REPLACEMENT LAST VITALS Temp Pulse Resp BP Pulse Ox 98.5 F 67 18 139/56 L 97 06/24/18 10:00 06/24/18 10:00 06/24/18 10:00 06/24/18 10:00 06/24/18 10:00 TAKE THESE MEDICATIONS AT THE HALFWAY Acetaminophen (Tylenol) 650 mg PO Q4H PRN PRN Reason: Fever > 102 Acetaminophen (Tylenol) 650 mg RC Q6H PRN PRN Reason: Fever > 102 Albuterol/Ipratropium (Duoneb) 1 vial NEB RTQID [facility] Last Admin: 06/24/18 Aspirin (Aspirin Ec) 81 mg PO DAILYWM [facility] Last Admin: 06/24/18 10:31 Dose: 81 mg Augmentin 500-125 mg 1 each PO BID x 7 DAYS Bisacodyl (Dulcolax) 10 mg RC DAILY PRN PRN Reason: constipation Cyanocobalamin/Folic Acid [Vitamin U87-Wwxnw Acid Tablet] 1 each PO DAILY [facility] Last Admin: 06/24/18 10:25 Dose: Not Given Gabapentin (Neurontin) 100 mg PO BID [facility] Last Admin: 06/24/18 10:23 Dose: 100 mg Hydrocodone Bitart/Acetaminophen ([place] 7.5-325) 1 tab PO Q8H PRN PRN Reason: severe pain Last Admin: 06/21/18 16:38 Dose: 1 tab L.acidoph, Paracasei, B.lactis (probiotic) 1 tab PO DAILY Lisinopril (Zestril) 40 mg PO BID [facility] Last Admin: 06/24/18 10:23 Dose: 40 mg Lorazepam (Ativan) 0.5 mg PO Q6H PRN PRN Reason: Anxiety Last Admin: 06/21/18 20:10 Dose: 0.5 mg Magnesium Oxide (Mag-Ox) 400 mg PO DAILY [facility] Last Admin: 06/24/18 10:23 Dose: 400 mg Metformin HCl (Glucophage) 500 mg PO DAILYWM [facility] Last Admin: 06/24/18 10:31 Dose: 500 mg Oxcarbazepine (Trileptal) 300 mg PO BEDTIME [facility] Last Admin: 06/23/18 21:18 Dose: 300 mg Pantoprazole Sodium (Protonix) 40 mg PO QDAC [facility] Last Admin: 06/24/18 06:18 Dose: 40 mg Polyethylene Glycol (Miralax) 17 gm PO DAILY [facility] Last Admin: 06/24/18 10:22 Dose: 17 gm Risperidone (Risperdal) 0.5 mg PO BID [facility] Last Admin: 06/24/18 10:22 Dose: 0.5 mg Trimethoprim [Trimethoprim] 100 mg PO BEDTIME [facility] Last Admin: 06/23/18 21:49 Dose: Not Given ALLERGIES codeine Adverse Reaction (Verified 06/20/18 21:22) iodine Adverse Reaction (Verified 06/20/18 21:22) metoclopramide Adverse Reaction (Verified 06/20/18 21:22) contrast Adverse Reaction (Uncoded 06/20/18 21:22) IV dye Adverse Reaction (Uncoded 06/20/18 21:22) NEW PRESCRIPTIONS: Amoxicillin/Potassium Clav [Augmentin 500-125 mg Tab] 1 tab PO Q12HR 7 Days #14 tablet 06/24/18 SMOKING: NONSMOKER LAB REVIEW: 06/24/18 05:50 06/24/18 05:50 06/24/18 05:50: Sodium 137.0, Potassium 4.70, Chloride 110.0 H, Carbon Dioxide 23.0, Anion Gap 8.70, BUN 19.0 H, Creatinine 0.70, Estimated GFR (MDRD) 80.00, BUN/Creatinine Ratio 27.14, Glucose 131.0 H, Calcium 10.10, Total Bilirubin 0.30 , AST 14.0, ALT 9.0, Alkaline Phosphatase 58.0, Total Protein 6.10 L, Albumin 3.40 L, Globulin 2.70, Albumin/Globulin Ratio 1.25 06/24/18 05:50: WBC 7.73, RBC 3.30 L, Hgb 10.8 L, Hct 32.7 L, MCV 99.1 H, MCH 32.7 H, MCHC 33.0, RDW Coeff of Alexia 13.2, Plt Count 201, Immature Gran % (Auto) 0.4, Neut % (Auto) 67.0, Lymph % (Auto) 21.7, [place] % (Auto) 7.4, Eos % (Auto) 3.1, Baso % (Auto) 0.4, Immature Gran # (Auto) 0.0, Neut # (Auto) 5.2, Lymph # ( Auto) 1.7, [place] # (Auto) 0.6, Eos # (Auto) 0.2, Baso # (Auto) 0.0 PLAN: DISCHARGE BACK TO [facility] TODAY, 06/24/18 PCP WILL FOLLOW THIS PATIENT DURING USUAL HALFWAY ROUNDS [facility] ([facility]) WILL NOTIFY THE HALFWAY OF AN APPOINTMENT TIME AND DATE IN THE NEAR FUTURE RESUME HALFWAY MEDICATIONS PER LIST PROVIDED BY THE NURSING STAFF NEW MEDICATIONS AUGMENTIN 500/125 MG PO BID X7 DAYS LABS CBC WITH DIFFERENTIAL AND CMP IN ONE WEEK ACTIVITY MAY PARTICIPATE IN HALFWAY ACTIVITY PROGRAM TOLERATED DECUB CARE PER HALFWAY PROTOCOL UNTIL FURTHER INSTRUCTIONS ARE GIVEN BY [facility] DIET CONSISTENT CARBS CREAM DIPPER, PLEASE CONSULT TO PROVIDE FOR OPTIMAL NUTRITIONAL NEEDS AND WOUND HEALING SUMMARY THE PATIENT IS ALERT AND ORIENTED TO PERSON. SHE OCCASIONALLY BECOMES AGRESSIVE RELATED TO HER DEMENTIA, BUT IS CURRENTLY COOPERATIVE FOR CARE. THE PATIENT REQUIRES COMPLETE CARE FOR ALL ADL'S AND HAS BEEN BEDFAST FOR SOME TIME NOW. JENISE LIFT IS NECESSARY FOR ALL TRANSFERS DUE TO HER FUNCTIONAL DISABILITY. SHE IS A RESIDENT AT [facility]. SHE AND HER FAMILY DESIRE THAT SHE RETURN THERE AT DISCHARGE. HOSPICE SERVICES WERE BEING PROVIDED JUST PRIOR TO ADMISSION HERE. THE FAMILY REVOKED HOSPICE SERVICES IN FAVOR OF RECEIVING TREATMENT IN ER FOR SYMPTOMS SHE WAS EXPERIENCING. OF TODAY'S DISCHARGE THEY ARE UNDECIDED TO RESUMPTION OF HOSPICE SERVICES. THE PATIENT'S SKIN TURGOR IS POOR DUE TO HER FUNCTIONAL DISABILITY AND BEING INCONTINENT OF BOTH BOWEL AND BLADDER. ON ADMISSION SHE HAD A STAGE II DECUBITUS ULCER TO HER COCCYX AREA WITH SEVERAL VERY SMALL OPENINGS SURROUNDING THAT AREA. SHE ALSO HAS A STAGE II DECUBITUS ULCER TO THE SACRUM. ALSO ON ADMISSION WE NOTED A STAGE I DECUBITUS ULCER TO THE LEFT HEEL. DURING THIS HOSPITALIZATION WE HAVE PROVIDED DECUBITUS CARE. WE HAVE MADE A REFERRAL TO [facility] (LOCATED AT [facility]) TO ASSIST WITH APPROPRIATE DECUBITUS CARE FOR MS. CAMEJO. CURRENT CODE STATUS: DO NOT RESUSCITATE ANJELICA BENEDICT, VETERINARY PARASITOLOGIST TIMI MORALES M.D.
[2018-06-24] MEDS: NORCO 7.5-325 PO PRN (14:45)
[2018-06-24 15:09] VITALS: BP 169/69; TEMP 98
--- NOTE | 2018-06-25 09:50 | DS ---
DATE OF SERVICE: 06/24/18 FINAL DIAGNOSIS: 1. MENTAL STATUS CHANGES RESOLVED 2. UTI, E-COLI (ESBL POSITIVE) 3. RECURRENT UTI, E-COLI (ESBL NEGATIVE) 05/04/18 (DR. MARISCAL/JUAN MANUEL BURT,) 4. HISTORY OF ESBL POSITIVE, 12/10/17 5. DECUBITUS ULCER, STAGE 2 LEFT BUTTOCKS (MRSA) AND SACRUM 6. DECUBITUS ULCER, STAGE 1, BILATERAL HEELS 7. DEMENTIA WITH AGGRESSIVE BEHAVIOR 8. CARDIAC HEART MURMUR 9. DYSLIPIDEMIA 10. HYPERTENSION 11. COPD 12. PNEUMONIA 13. RENAL FAILURE 14. ANEMIA 15. VITAMIN D DEFICIENCY 16. HIATAL HERNIA 17. OBESITY, BMI 30.8 18. DIABETES MELLITUS TYPE 2 19. POLYNEUROPATHY 20. ATAXIA 21. DIVERTICULOSIS 22. DJD SPINE 23. OSTEOARTHRITIS 24. BIPOLAR DISORDER 25. DEPRESSION/ANXIETY 26. CATARACTS 27. TONSILLECTOMY 28. HYSTERECTOMY 29. BILATERAL KNEE REPLACEMENT DISCHARGE INSTRUCTIONS: 1. Followup appointment: PCP will follow this patient during usual intermediate rounds at [facility]. 2. [facility] ([facility]) will notify the intermediate of an appointment time and date in the near future. 3. Labs: CBC with differential and CMP in one week. MEDICATIONS AT DISCHARGE: Tylenol 650 mg p.o. q.4h p.r.n. Tylenol 650 mg RC q.6h p.r.n. Duoneb q.i.d. BOOGIE Aspirin 81 mg p.o. daily with meal BOOGIE Augmentin one each p.o. b.i.d. times 7 days Dulcolax 10 mg RC daily p.r.n. Cyanocobalamin/Folic Acid one each p.o. daily BOOGIE Gabapentin 100 mg p.o. b.i.d. BOOGIE Hydrocodone/Acetaminophen one tab p.o. q.8h p.r.n. L. acidoph, Paracasei, B.lactis (probiotic) one tab p.o. daily Zestril 40 mg p.o. b.i.d. BOOGIE Ativan 0.5 mg p.o. q.6h p.r.n. Mag-Ox 400 mg p.o. daily BOOGIE Glucophage 500 mg p.o. daily with meal BOOGIE Trileptal 300 mg p.o. bedtime BOOGIE Protonix 40 mg p.o. q.d a.c. BOOGIE Miralax 17 gm p.o. daily BOOGIE Risperdal 0.5 mg p.o. b.i.d. BOOGIE Trimethoprim 100 mg p.o. bedtime BOOGIE NEW PRESCRIPTIONS: Amoxicillin/Potassium Clav (Augmentin 500-125 mg tab) one tab p.o. q.12hr 7 days #14 DIET INSTRUCTIONS: Consistent carbs Behavioral Technician, please consult to provide for optimal nutritional needs and wound healing. ACTIVITY: May participate in intermediate activity program as tolerated. Decub care per intermediate protocol until further instructions are given by [facility]. SMOKING: Nonsmoker DISEASE SPECIFIC EDUCATION: The patient has confusion and dementia. HOSPITAL COURSE: This is an 83-year-old white female who is a resident of [facility] who was brought in through the emergency room with acute mental status change. CT of the brain was negative showing no acute changes. 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 She has an indwelling catheter which she keeps at all times. UA was abnormal and culture was positive for E. coli. She sees Dr. Mariscal, last saw him in April. She also had two decubitus ulcers on her buttocks, sacrum and one on her heel that were present on admission. She was admitted, placed on Zosyn IV daily which according to the culture it was sensitive. She had previously been on hospice treatment at the intermediate but the son decided to revoke the hospice and have her admitted with the UTI to be treated aggressively so she was on IV fluids initially, Normal Saline 125 cc/ hr. We discontinued these after the first 36 hours as her kidney function was normal. She does have dementia and she is chronically confused. She has a history of aggressive behavior and has previously been in a psychiatric facility over in [place]. She was a patient of Dr. Morocho and is now a patient of Dr. Meza. He will follow up with her in the intermediate. She is oriented to person only. She has not had a fever since 06/22. She has been eating well. The son is unsure whether he is going to restart hospice or whether he will continue normal care. The acute change in mental status likely worsened due to acute UTI however again she does have dementia. For the past 24 hours she has been in stable condition. Her labs have improved. She has been oriented to person, behaviors have been normal. Her urine is more clear in the cath bag. Today, on day of discharge, sodium 137, potassium 4.7, BUN 19, creatinine 0.7, hemoglobin 10.8, hematocrit 32.7. According to the sensitivity report, it is sensitive to Augmentin, will send her back to the intermediate on Augmentin 500- 125 p.o. b.i.d. for the next 7 days. She is to have CBC and CMP in one week and Dr. Meza will follow up with her there. TIME SPENT: More than 60 minutes. KIANA
--- NOTE | 2018-06-25 13:35 | PN ---
DATE OF SERVICE: 06/24/18 SUBJECTIVE: The patient was seen and examined with nurse practitioner. The patient is being treated for UTI and change in mental status. The patient's condition has improved. She is feeling better. Her mental status has improved. She will be discharged to the alf with oral antibiotics. TIME SPENT: More than 30 minutes. Plan and coordination of the patient's care discussed in the presence of nurse. KIANA
--- NOTE | 2018-06-25 13:37 | PN ---
CODING FOR BILLING 06/20/18 INTERMEDIATE 06/21/18 INTERMEDIATE 06/22/18 INTERMEDIATE 06/23/18 INTERMEDIATE 06/24/18 DISCHARGE MTDD
== END 2018-06-24 16:48 | DRG 947 ==
LOC: ED 20:43 → MEDSURG B 22:57
PROVIDERS: ADMIT Internal Medicine; ATTEND Internal Medicine
DX: R41.82 Altered mental status, unspecified (principal); J18.9 Pneumonia, unspecified organism; N30.01 Acute cystitis with hematuria; N39.0 Urinary tract infection, site not specified; F03.91 Unspecified dementia, unspecified severity, with behavioral disturbance; F31.9 Bipolar disorder, unspecified; F41.8 Other specified anxiety disorders; L89.322 Pressure ulcer of left buttock, stage 2; L89.621 Pressure ulcer of left heel, stage 1; L89.611 Pressure ulcer of right heel, stage 1; R53.1 Weakness; R47.1 Dysarthria and anarthria; R32 Unspecified urinary incontinence; R41.0 Disorientation, unspecified; R01.1 Cardiac murmur, unspecified; R27.0 Ataxia, unspecified; E78.5 Hyperlipidemia, unspecified; E55.9 Vitamin D deficiency, unspecified; E66.9 Obesity, unspecified; E11.9 Type 2 diabetes mellitus without complications; E86.0 Dehydration; M25.50 Pain in unspecified joint; M47.9 Spondylosis, unspecified; M19.90 Unspecified osteoarthritis, unspecified site; K44.9 Diaphragmatic hernia without obstruction or gangrene; K57.90 Diverticulosis of intestine, part unspecified, without perforation or abscess without bleeding; J44.9 Chronic obstructive pulmonary disease, unspecified; N19 Unspecified kidney failure; D64.9 Anemia, unspecified; G62.9 Polyneuropathy, unspecified; I10 Essential (primary) hypertension; B96.20 Unspecified Escherichia coli [E. coli] as the cause of diseases classified elsewhere; Z68.30 Body mass index [BMI] 30.0-30.9, adult
CPT/HCPCS: 36415; 80053; 81001; 83605; 84145; 85025; 87040; 87081; 87086; 87186; 94640; 96361; 96366; 96374; 96375; 96376; 99284

== ENCOUNTER 2018-07-01 09:03 | Outpatient (CLI) | END 2018-07-01 09:04 | disposition home or self-care (01) | LOC: WOUND 09:03 | PROVIDERS: ATTEND Nurse Practitioner Family | DX: L89.152 Pressure ulcer of sacral region, stage 2 (principal) | CPT/HCPCS: 99202; 99215 ==

== ENCOUNTER 2018-07-12 11:32 | Emergency (ER) ==
[2018-07-12 11:48] VITALS: BP 164/86; TEMP 97.9; BMI 33.5
--- NOTE | 2018-07-12 12:51 | ED.PDOC ---
General ED Provider: Dr. EVITA PURVIS Chief Complaint: Fall Stated Complaint: Ground Level Fall. Fell out of Jessica Chair that became defective with Lt Arm Rest broke off. Fell to gound stiking Lt Side of Face. Complains of generalized MS soreness and aching sensation in back and hips. Has prev BL TKA's. No new problems. Time Seen by Physician: 11:45 Mode of Arrival: Ambulance Information Source: Patient, EMT Exam Limitations: No limitations Primary Care Provider: CJ BLACKMAN Referred to ED by: PCP Nursing and Triage Documentation Reviewed and Agree: Yes Does patient meet sepsis criteria?: No System Inflammatory Response Syndrome: Not Applicable Sepsis Protocol: For patient's 13 years and over: Temp is 96.8 and below OR 101 and greater Pulse >90 BPM Resp >20/minute Acutely Altered Mental Status Are patient's symptoms suggestive of a new infection, such as: -Pneumonia -Skin, Soft Tissue -Endocarditis -UTI -Bone, Joint Infection -Implantable Device -Acute Abdominal Infection -Wound Infection -Meningitis -Blood Stream Catheter Infection -Unknown Musculoskeletal Complaint Exam - Shoulder Pain Complaint/Exam Mechanism of Injury: Reports: Trauma Onset/Duration: Today Symptoms Are: Still present Timing: Intermittent Initial Severity: Moderate Current Severity: Mild Location: Reports: Discrete Character: Reports: Aching Alleviating: Reports: Elevation Aggravating: Reports: Movement Associated Signs and Symptoms: Denies: Swelling, Redness, Bruising, Fever, Weakness, Numbness, Tingling Related History: Denies: Similar episode DVT Risk Factors: Reports: None Septic Arthritis Risk Factors: Reports: None Related Surgical History: Reports: None Shoulder Findings: Present: Other joint pain. Absent: Swelling, Abnormal contour, Laceration, Erythema, Warmth, Foreign body Tenderness: Present: Proximal humerus Limited Range of Motion: Present: Abduction, Internal rotation, External rotation Differential Diagnoses: Strain Quality Indicator For Non-Traumatic Chest Pain/Syncope: EKG Performed Review of Systems - Review Of Systems Constitutional: Reports: No symptoms Eyes: Reports: No symptoms Ears, Nose, Mouth, Throat: Reports: No symptoms Respiratory: Reports: No symptoms Cardiac: Reports: No symptoms GI: Reports: No symptoms : Reports: No symptoms Musculoskeletal: Reports: No symptoms, Back pain, Joint pain, Muscle pain, Muscle stiffness Skin: Reports: No symptoms Neurological: Reports: No symptoms Endocrine: Reports: No symptoms Hematologic/Lymphatic: Reports: No symptoms All Other Systems: Reviewed and Negative Past Medical History - Past Medical History Previously Healthy: No Endocrine: Reports: DM 2, Dyslipidemia Cardiovascular: Reports: Hypertension, Other (Cardiac murmur ) Respiratory: Reports: COPD Hematological: Reports: None Gastrointestinal: Reports: GERD, Diverticulitis Genitourinary: Reports: UTI (multiple ), CKD Neuro/Psych: Reports: TIA, Bipolar Disorder Musculoskeletal: Reports: Other (neuropathyy ) Cancer: Reports: Unknown Last Menstrual Period: n/a Other Pertinent Past Medical History: Sepsis - Surgical History General Surgical History: Reports: Hysterectomy, Orthopedic (Bilateral Knee repalcement ), Other (Rtight carpal Tunnel syndrome surgery ) - Family History Family History: Reports: Unknown - Social History Smoking Status: Former smoker Hx Substance Use: No Alcohol Screening: None Physical Exam - Physical Exam Appearance: Ill-appearing, Obese Ill-appearing: Mild Pain Distress: Mild Eyes: [place], EOMI, Conjunctiva clear ENT: Ears normal, Nose normal, Oropharynx normal Neck: Supple Respiratory: Airway patent, Breath sounds clear, Breath sounds equal, Respirations nonlabored Cardiovascular: RRR, Pulses normal, No rub, No murmur GI/: Soft, Nontender, No masses, Bowel sounds normal, No Organomegaly Musculoskeletal: Normal strength, ROM intact, No edema, No calf tenderness Skin: Warm, Dry, Normal color Neurological: Sensation intact, Motor intact, Reflexes intact, Cranial nerves intact, Alert, Oriented Psychiatric: Depressed (affect diminshed but vocalizes and communicates) Critical Care Note - Critical Care Note Total Time (mins): 0 Course - Course Hematology/Chemistry: 07/12/18 13:30 07/12/18 13:30 Orders, Labs, Meds: Lab Review 07/12/18 07/12/18 07/12/18 13:30 13:30 14:05 WBC 9.86 RBC 3.40 L Hgb 11.0 L Hct 32.8 L MCV 96.5 MCH 32.4 H MCHC 33.5 RDW Coeff of Alexia 13.7 Plt Count 245 Immature Gran % (Auto) 0.8 Neut % (Auto) 66.1 Lymph % (Auto) 23.3 [place] % (Auto) 5.8 Eos % (Auto) 3.5 Baso % (Auto) 0.5 Immature Gran # (Auto) 0.1 Neut # (Auto) 6.5 Lymph # (Auto) 2.3 [place] # (Auto) 0.6 Eos # (Auto) 0.4 Baso # (Auto) 0.1 Sodium 130.9 L Potassium 5.26 H Chloride 101.2 Carbon Dioxide 24.2 Anion Gap 10.76 BUN 29.1 H Creatinine 0.87 Estimated GFR (MDRD) 62.00 BUN/Creatinine Ratio 33.44 Glucose 163.6 H Calcium 11.10 H Total Bilirubin 0.26 AST 17.0 ALT 13.4 Alkaline Phosphatase 72.1 Troponin I < 0.012 Total Protein 6.87 Albumin 4.06 Globulin 2.81 Albumin/Globulin Ratio 1.44 Urine Color Yellow Urine Clarity Cloudy Urine pH 5.5 Ur Specific [place] 1.010 Urine Protein 1+ Urine Glucose (UA) Negative Urine Ketones Negative Urine Blood 2+ Urine Nitrite Positive Urine Bilirubin Negative Urine Urobilinogen 0.2 Ur Leukocyte Esterase 3+ Urine Microscopic RBC 5-10 Urine Microscopic WBC 50-100 Ur Squamous Epith Cells Not present Urine Bacteria 3+ Orders Category Date Time Status EKG-(ED ONLY) Stat CARDIO 07/12/18 12:20 Completed BLOOD CULTURE (ED ONLY) Stat LAB 07/12/18 13:30 Received CBC W/ AUTO DIFF Stat LAB 07/12/18 13:30 Completed CMP [COMPREHENSIVE METABOLIC PANEL] Stat LAB 07/12/18 13:30 Completed TROPONIN I Stat LAB 07/12/18 13:30 Completed UA [URINALYSIS C & S IF INDICATED] Stat LAB 07/12/18 14:05 Completed URINE CULTURE Stat LAB 07/12/18 14:05 Received CHEST, 1V AP ONLY Stat RADS 07/12/18 12:[address] CERVICAL SPINE W/O CONTRAST Stat RADS 07/12/18 12:[address] LUMBAR SPINE W/O CONTRAST Stat RADS 07/12/18 12:[address] MAXILLOFACIAL W/O CONTRAST Stat RADS 07/12/18 12:[address] PELVIS W/O CONTRAST Stat RADS 07/12/18 12:[address] SHOULDER LEFT W/O CONTRAST Stat RADS 07/12/18 12:[address] THORACIC SPINE W/O CONTRAST Stat RADS 07/12/18 12:21 Completed Vital Signs: Temp Pulse Resp BP Pulse Ox 07/12/18 11:35 97.9 F 82 24 164/86 H 97 Departure - Departure Time of Disposition: 14:45 Disposition: DISCH/TSF TO REHAB Discharge Problem: Contusion, shoulder /upper arm, Ethmoidal sinusitis, UTI (urinary tract infection) due to urinary indwelling Monterroso catheter Discharge Problem: (Ruled Out): UTI (urinary tract infection) Instructions: Sinusitis (ED), Shoulder Pain (ED), Contusion in Adults (ED) Condition: Good Pt referred to PMD for follow-up: Yes IPMP verified?: No Additional Instructions: Monitor patient when up in chair Tylenol prn Rx meds as directed Allergies/Adverse Reactions: Allergies codeine Adverse Reaction (Verified 07/12/18 11:53) iodine Adverse Reaction (Verified 07/12/18 11:53) metoclopramide Adverse Reaction (Verified 07/12/18 11:53) contrast Adverse Reaction (Uncoded 06/20/18 21:22) IV dye Adverse Reaction (Uncoded 06/20/18 21:22) Home Medications: Ambulatory Orders Acetaminophen [Pain & Fever] 650 mg PO Q4H PRN 08/21/17 Aspirin [Aspirin EC] 81 mg PO DAILY 08/21/17 L.acidoph,Paracasei, B.lactis [Probiotic] 1 each PO DAILY 05/08/18 Magnesium Oxide [Mag-Ox] 400 mg PO DAILY 05/08/18 Oxcarbazepine [Trileptal] 300 mg PO BEDTIME 05/08/18 Polyethylene Glycol 3350 [Miralax] 17 gm PO DAILY 05/08/18 Risperidone [Risperdal] 0.5 mg PO BID 05/08/18 Lisinopril [Zestril] 40 mg PO BID #60 tablet 05/11/18 Gabapentin [Neurontin] 100 mg PO BID #60 capsule 05/19/18 Metformin HCl [Glucophage] 500 mg PO DAILYWM #30 tablet 05/19/18 Pantoprazole Sodium [Protonix] 40 mg PO DAILY #30 tablet. 05/19/18 Acetaminophen [Acephen] 650 mg RC Q6H PRN 06/20/18 Bisacodyl [Dulcolax] 10 mg RC DAILY PRN 06/20/18 Cyanocobalamin/Folic Acid [Vitamin T05-Uxmfl Acid Tablet] 1 each PO DAILY Ipratropium/Albuterol Neb [Duoneb] 1 vial NEB QID 06/20/18 Trimethoprim 100 mg PO BEDTIME 06/20/18 Ascorbic Acid 500 mg PO BID 07/12/18 Estradiol [Estrace] 1 applic VG MOWEFR 07/12/18 Hydrocodone Bit/Acetaminophen [[place] 10-325] 1 tab PO Q8H PRN 07/12/18 Mirabegron [Myrbetriq] 25 mg PO DAILY 07/12/18 Nystatin [Nystatin Cream] 1 applic TP Q6H 07/12/18
--- NOTE | 2018-07-12 12:58 | CT ---
EXAM: CT of the cervical spine without contrast History: Neck trauma. Comparison: CT cervical spine 05/15/2018 Technique: Multiplanar CT images through the cervical spine were obtained without the administration of IV contrast Findings: The visualized upper lungs are free of consolidation. The visualized airway remains patent . The the 1.5 cm right thyroid nodule. Paranasal sinus mucosal thickening which is severe involving the left maxillary sinus. Trace bilateral mastoid effusions Reversal of the normal cervical lordosis. Osteopenia. Chondrocalcinosis at the C1-C2 articulation. Predental space is not widened. No acute fracture or subluxation of the cervical spine. Severe dege nerative disc disease again seen at C6-7. Bony spinal canal is not significantly compromised. Impression: 1. No acute osseous abnormality of the cervical spine. 2. Severe degenerative disc disease at C6-7. 2. Paranasal sinus disease which is severe involving the left maxillary sinus
--- NOTE | 2018-07-12 13:08 | CT ---
CT facial bones without contrast History:Fall, striking left face and orbit TECHNIQUE: Multi-slice sequential. Coronal and sagittal reformats were obtained. Comparison: CT head 06/20/2018. FINDINGS: No evidence of displaced facial bone fracture is seen. The bilateral temporal mandibular joints appe ar maintained. Moderate mucosal thickening is seen within the left maxillary sinus, not significantl y changed. Frothy secretions are seen within the bilateral ethmoid sinuses. Mild mucosal thickening is also seen within the right maxillary sinus. The visualized frontal and sphenoid sinuses appear c lear. The visualized mastoid air cells appear well aerated. The new generalized intracranial atroph y is present. The bilateral globes appear grossly unremarkable. No significant soft tissue swelling is seen. Multilevel cervical spondylosis is partially imaged. Impression: 1. No acute displaced facial bone fracture. 2. Bilateral paranasal sinus disease, worst in the left maxillary sinus. Frothy secretions in the b ilateral ethmoid sinuses which can be seen with acute sinusitis. 3. Other incidental findings as above.
--- NOTE | 2018-07-12 13:14 | CT ---
EXAM: CT thoracic spine without contrast HISTORY: Fall. COMPARISON: None TECHNIQUE: Serial axial images of the thoracic spine were obtained without contrast. These were vie wed in multiple planes. FINDINGS: There is no acute compression fracture that or subluxation. There is minimal endplate defo rmity at T8. There is no lytic or blastic lesion. There are scattered anterior disc osteophytes wit h minimal disc space narrowing. There is mild facet arthropathy. The soft tissues demonstrate mild a therosclerotic disease. IMPRESSION: 1. No acute compression fracture or subluxation. 2. Mild multilevel degenerative disease with no significant central or neural foraminal narrowing no rocio. There is chronic appearing mild compression deformity at T8.
--- NOTE | 2018-07-12 13:17 | CT ---
EXAM: CT pelvis without contrast HISTORY: Fall. COMPARISON: CT abdomen pelvis 05/15/2018 TECHNIQUE: Serial axial images of the pelvis were obtained without contrast. These were viewed in m ultiple planes. FINDINGS: There is moderate bilateral joint space narrowing and degenerative disease of the hips. No displaced fracture or dislocation is identified. There is scattered degenerative disease of the spi ne. The sacrum that and coccyx are anteriorly angulated unchanged since prior CT 05/15/2018. The bow el in the pelvis demonstrates diverticulosis without diverticulitis. Urinary bladder is only partial ly distended with a Monterroso catheter in place. IMPRESSION: 1. No fracture of the pelvis. 2. Degenerative disease of the lumbosacral spine and hips. 3. Diverticulosis without diverticulitis.
--- NOTE | 2018-07-12 13:19 | CT ---
EXAM: Noncontrast CT of the lumbar spine HISTORY: Fall COMPARISON: 12/09/2016 TECHNIQUE: Axial CT of the lumbar spine with sagittal and coronal reformats FINDINGS: A portion of the anterior aspect of S1 was not imaged. The lumbar vertebral bodies are normal in heig ht. No lumbar spine fractures are seen. There 3 mm of anterolisthesis at L4-5. Minimal disc height loss is seen at L2-3. There is multilevel moderate to severe facet arthropathy. No significant spi nal canal stenosis is seen. Atherosclerotic calcifications are seen. IMPRESSION: No evidence of acute osseous injury to the lumbar spine. Moderate to severe multilevel facet arthropathy. Mild grade 1 anterior listhesis at L4-5.
--- NOTE | 2018-07-12 13:23 | CT ---
EXAM: Helical CT of the left shoulder without contrast. Coronal and sagittal reformats were performe d. HISTORY: Fall to left side on floor COMPARISON: 12/09/2016. FINDINGS: There is no acute fracture or dislocation. Moderate glenohumeral joint space narrowing with marginal osteophytosis is present. The humeral is high-riding which articulates with the undersurfa ce of the acromion. Left acromioclavicular joint space narrowing is present. A corticated interarti cular loose body is seen at the posterior humeral head region which measures up to 1.6 x 0.6 cm in si ze. No evidence of displaced left rib fracture is seen. Atherosclerosis is present. Visualized tony g zones appear clear. The no axillary adenopathy is seen. OPINION: No acute osseous abnormality of the shoulder. Left glenohumeral and acromioclavicular moderate osteoarthritis. High-riding humeral head. This can be seen with rotator tendinopathy/full-thickness tears. The humer al head articulates with the undersurface of the acromion. Small posterior humeral probable interarticular loose body. Other incidental findings as above.
--- NOTE | 2018-07-12 13:39 | DI ---
EXAMINATION: AP chest radiograph. HISTORY: Mild dyspnea COMPARISON: 06/20/2018 FINDINGS: Mild elevation of the right hemidiaphragm is again seen.No focal consolidation, pleural effusion or p neumothorax is identified. The cardiomediastinal silhouette is within normal limits. There is calcified atherosclerotic plaque o f the aorta. IMPRESSION: No acute cardiopulmonary findings.
== END 2018-07-12 17:42 ==
LOC: ED 11:32
DX: T83.511A Infection and inflammatory reaction due to indwelling urethral catheter, initial encounter (principal); S40.012A Contusion of left shoulder, initial encounter; S40.022A Contusion of left upper arm, initial encounter; J32.2 Chronic ethmoidal sinusitis; M54.9 Dorsalgia, unspecified; M25.552 Pain in left hip; M25.551 Pain in right hip; S09.93XA Unspecified injury of face, initial encounter; W07.XXXA Fall from chair, initial encounter; E11.9 Type 2 diabetes mellitus without complications; E78.5 Hyperlipidemia, unspecified; I10 Essential (primary) hypertension; N18.9 Chronic kidney disease, unspecified; J44.9 Chronic obstructive pulmonary disease, unspecified; Z79.899 Other long term (current) drug therapy; Z87.440 Personal history of urinary (tract) infections; Z86.73 Personal history of transient ischemic attack (TIA), and cerebral infarction without residual deficits; Z79.4 Long term (current) use of insulin; Z87.19 Personal history of other diseases of the digestive system; M25.562 Pain in left knee; M25.561 Pain in right knee; Z96.653 Presence of artificial knee joint, bilateral
CPT/HCPCS: 36415; 80053; 81001; 84484; 85025; 87040; 87086; 87186; 93005; 93010; 99283

== ENCOUNTER 2018-07-30 18:06 | Inpatient (IN) ==
[2018-07-30] MEDS ORDERED: SODIUM CHLORIDE 500 ML IV STA (18:31)
--- NOTE | 2018-07-30 18:31 | ED.PDOC ---
General ED Provider: Dr. EVITA PURVIS Chief Complaint: Altered Mental Status Stated Complaint: Altered mental status. Concern over UTI. Family present. Received phone call from PCP regarding history Time Seen by Physician: 18:10 Mode of Arrival: Ambulance Information Source: Family, EMT Exam Limitations: Clinical condition Primary Care Provider: TED MULLEN Referred to ED by: PCP Nursing and Triage Documentation Reviewed and Agree: Yes Does patient meet sepsis criteria?: Yes (Grossly appears septic) If yes, has appropriate treatment been initiated?: Yes System Inflammatory Response Syndrome: Pulse >90 BPM, Acutely Altered Mental Status Sepsis Protocol: For patient's 13 years and over: Temp is 96.8 and below OR 101 and greater Pulse >90 BPM Resp >20/minute Acutely Altered Mental Status Are patient's symptoms suggestive of a new infection, such as: -Pneumonia -Skin, Soft Tissue -Endocarditis -UTI -Bone, Joint Infection -Implantable Device -Acute Abdominal Infection -Wound Infection -Meningitis -Blood Stream Catheter Infection -Unknown Neurological Complaint Exam - Altered Mental Status Complaint/Exam Current Mental Status: Unresponsiveness Onset: Gradual Symptoms Are: Still present Timing: Constant Episodes Lasting: Hours Initial Severity: Moderate Current Severity: Moderate Eye Deviation Present: No Character: Reports: Responsiveness (Unresponsive to tactile stimul), Lethargy Aggravating: Reports: Unknown Alleviating: Reports: Unknown Associated Signs and Symptoms: Reports: Weakness, Fever, Illness Related History: Reports: Similar episode Cardiac Risk Factors: Reports: Hypertension, Diabetes CVA Risk Factors: Reports: Diabetes, Hypertension Related Surgical History: Reports: None Carotid Bruit Present: No Nystagmus Present: No Gag Reflex Present: No Meningeal Signs Positive: No Focal Weakness: Present: None Focal Sensory Loss: Present: None Gait: Unable Review of Systems - Review Of Systems Constitutional: Reports: Weakness Eyes: Reports: No symptoms Ears, Nose, Mouth, Throat: Reports: No symptoms Respiratory: Reports: No symptoms Cardiac: Reports: No symptoms GI: Reports: No symptoms : Reports: Other (urine cloudy) Musculoskeletal: Reports: No symptoms Skin: Reports: No symptoms Neurological: Reports: No symptoms Endocrine: Reports: No symptoms Hematologic/Lymphatic: Reports: No symptoms All Other Systems: Reviewed and Negative Past Medical History - Past Medical History Previously Healthy: No Endocrine: Reports: DM 2, Dyslipidemia Cardiovascular: Reports: Hypertension, Other (Cardiac murmur ) Respiratory: Reports: COPD Hematological: Reports: None Gastrointestinal: Reports: GERD, Diverticulitis Genitourinary: Reports: UTI (multiple ), CKD Neuro/Psych: Reports: TIA, Bipolar Disorder Musculoskeletal: Reports: Other (neuropathyy ) Cancer: Reports: Unknown Last Menstrual Period: hysterectomy Other Pertinent Past Medical History: Sepsis - Surgical History General Surgical History: Reports: Hysterectomy, Orthopedic (Bilateral Knee repalcement ), Other (Rtight carpal Tunnel syndrome surgery ) - Family History Family History: Reports: Unknown - Social History Smoking Status: Former smoker Hx Substance Use: No Alcohol Screening: None Critical Care Note - Critical Care Note Total Time (mins): 60 Course - Course Hematology/Chemistry: 07/30/18 19:08 07/30/18 19:08 Orders, Labs, Meds: Lab Review 07/30/18 07/30/18 07/30/18 19:08 19:08 19:26 WBC 22.42 H RBC 3.32 L Hgb 10.8 L Hct 32.5 L MCV 97.9 MCH 32.5 H MCHC 33.2 RDW Coeff of Alexia 14.1 Plt Count 238 Immature Gran % (Auto) 0.8 Neut % (Auto) 85.8 Lymph % (Auto) 5.0 L [place] % (Auto) 8.2 Eos % (Auto) 0.0 Baso % (Auto) 0.2 Immature Gran # (Auto) 0.2 Neut # (Auto) 19.3 H Lymph # (Auto) 1.1 [place] # (Auto) 1.8 Eos # (Auto) 0.0 Baso # (Auto) 0.0 ESR 65 H Sodium 133.0 L Potassium 5.24 H Chloride 103.6 Carbon Dioxide 21.7 L Anion Gap 12.94 BUN 52.6 H Creatinine 1.39 H Estimated GFR (MDRD) 36.00 BUN/Creatinine Ratio 37.84 Glucose 298.2 H Calcium 11.13 H Total Bilirubin 0.47 AST 28.1 ALT 13.4 Alkaline Phosphatase 66.2 Total Protein 6.39 Albumin 3.52 Globulin 2.87 Albumin/Globulin Ratio 1.22 Urine Color Yellow Urine Clarity Turbid Urine pH 5.5 Ur Specific [place] 1.020 Urine Protein 3+ Urine Glucose (UA) Trace Urine Ketones Negative Urine Blood 3+ Urine Nitrite Negative Urine Bilirubin Negative Urine Urobilinogen 0.2 Ur Leukocyte Esterase 3+ Ur Squamous Epith Cells Pending Orders Category Date Time Status EKG-(ED ONLY) Stat CARDIO 07/30/18 18:27 Completed OXYGEN Routine CARDIO 07/30/18 19:10 Ordered IV [ED IV/MEDIPORT/POWERPORT] .ONCE EMERGENCY 07/30/18 18:27 Inactive IV [ED IV/MEDIPORT/POWERPORT] .ONCE EMERGENCY 07/30/18 18:47 Active BLOOD CULTURE (ED ONLY) Stat LAB 07/30/18 19:25 Received CBC W/ AUTO DIFF Stat LAB 07/30/18 19:08 Completed CMP [COMPREHENSIVE METABOLIC PANEL] Stat LAB 07/30/18 19:08 Completed ESR Stat LAB 07/30/18 19:08 Completed FLU A & B MOLECULAR [FLU A/B MOLECULAR] Stat LAB 07/30/18 19:26 Received LACTIC ACID Stat LAB 07/30/18 19:25 Received RAPID STREP SCREEN [MOLECULAR GROUP A STREP] Stat LAB 07/30/18 19:26 Completed SPUTUM CULTURE Stat LAB 07/30/18 18:29 Uncollected UA [URINALYSIS C & S IF INDICATED] Stat LAB 07/30/18 19:26 Results 0.9 % Sodium Chloride [Saline Flush] MEDS 07/30/18 18:29 Ordered 1 syr IVF PRN PRN 0.9 % Sodium Chloride [Saline Flush] MEDS 07/30/18 18:47 Ordered 1 syr IVF PRN PRN Ertapenem Sodium [Invanz] MEDS 07/30/18 19:18 Discontinued 1 gm .ROUTE .STK-MED ONE Ertapenem Sodium [Invanz] 1 gm MEDS 07/30/18 19:14 Active 0.9 % Sodium Chloride [Sodium Chloride] 50 ml IV ONCE Methylprednisolone Sod Succ/Pf [Solu-Medrol 125 mg] MEDS 07/30/18 19:14 Discontinued 125 mg IVP ONCE STA Sodium Chloride 0.9% [Sodium Chloride] 500 ml MEDS 07/30/18 18:31 Discontinued IV BOLUS CHEST, 1V AP ONLY Stat RADS 07/30/18 18:28 Taken Medications Generic Name Dose Route Start Last Admin Trade Name Freq PRN Reason Stop Dose Admin Ertapenem 1 gm/ Sodium 50 mls @ 75 mls/hr 07/30/18 19:14 07/30/18 19:34 Chloride IV 07/30/18 19:53 75 mls/hr ONCE STA Administration Sodium Chloride 1 syr 07/30/18 18:29 Saline Flush IVF PRN PRN To flush IV Sodium Chloride 1 syr 07/30/18 18:47 Saline Flush IVF PRN PRN To flush IV Discontinued Medications Generic Name Dose Route Start Last Admin Trade Name Freq PRN Reason Stop Dose Admin Sodium Chloride 500 mls @ 500 mls/hr 07/30/18 18:31 07/30/18 18:48 Sodium Chloride IV 07/30/18 19:30 500 mls/hr BOLUS STA Administration Methylprednisolone Sodium Succinate 125 mg 07/30/18 19:14 07/30/18 19:35 Solu-Medrol 125 Mg IVP 07/30/18 19:15 125 mg ONCE STA Administration Vital Signs: Temp Pulse Resp BP Pulse Ox 07/30/18 18:07 99.2 F 103 H 22 163/53 H 98 Departure - Departure Time of Disposition: 19:50 Disposition: ADMITTED INPATIENT Discharge Problem: Sepsis, UTI (urinary tract infection) Condition: Poor IPMP verified?: No Allergies/Adverse Reactions: Allergies codeine Adverse Reaction (Verified 07/30/18 18:22) iodine Adverse Reaction (Verified 07/30/18 18:22) metoclopramide Adverse Reaction (Verified 07/30/18 18:22) contrast Adverse Reaction (Uncoded 06/20/18 21:22) IV dye Adverse Reaction (Uncoded 06/20/18 21:22) Home Medications: Ambulatory Orders Acetaminophen [Pain & Fever] 650 mg PO Q4H PRN 08/21/17 Aspirin [Aspirin EC] 81 mg PO DAILY 08/21/17 L.acidoph,Paracasei, B.lactis [Probiotic] 1 each PO DAILY 05/08/18 Magnesium Oxide [Mag-Ox] 400 mg PO DAILY 05/08/18 Oxcarbazepine [Trileptal] 300 mg PO BEDTIME 05/08/18 Polyethylene Glycol 3350 [Miralax] 17 gm PO DAILY 05/08/18 Risperidone [Risperdal] 0.5 mg PO BID 05/08/18 Lisinopril [Zestril] 40 mg PO BID #60 tablet 05/11/18 Metformin HCl [Glucophage] 500 mg PO DAILYWM #30 tablet 05/19/18 Pantoprazole Sodium [Protonix] 40 mg PO DAILY #30 tablet 05/19/18 Acetaminophen [Acephen] 650 mg RC Q6H PRN 06/20/18 Bisacodyl [Dulcolax] 10 mg RC DAILY PRN 06/20/18 Cyanocobalamin/Folic Acid [Vitamin S83-Skpnp Acid Tablet] 1 each PO DAILY Ipratropium/Albuterol Neb [Duoneb] 1 vial NEB QID 06/20/18 Trimethoprim 100 mg PO BEDTIME 06/20/18 Ascorbic Acid 500 mg PO BID 07/12/18 Estradiol [Estrace] 1 applic VG [id number] 07/12/18 Hydrocodone Bit/Acetaminophen [[place] 10-325] 1 tab PO Q8H PRN 07/12/18 Mirabegron [Myrbetriq] 25 mg PO DAILY 07/12/18 Nystatin [Nystatin Cream] 1 applic TP Q6H 07/12/18 Disposition Discussed With: Patient, Family, Other (Dr Mullen-Request admission )
[2018-07-30] MEDS ORDERED: ROCEPHIN 1 GM in SODIUM CHLORIDE 50 ML IV STA (19:11)
[2018-07-30] MEDS ORDERED: SOLU-MEDROL 125 MG IVP STA (19:14)
[2018-07-30] MEDS ORDERED: INVANZ 1 GM in SODIUM CHLORIDE 50 ML IV STA (19:14)
[2018-07-30] MEDS ORDERED: INVANZ ONE (19:18)
[2018-07-30] MEDS ORDERED: ZOFRAN 4 MG/2 ML IVP PRN (20:00)
[2018-07-30] MEDS ORDERED: LOVENOX SUBCUT SCH (20:30)
[2018-07-30] MEDS ORDERED: DULCOLAX RC PRN (21:26)
[2018-07-30 21:32] VITALS: BMI 31.6
--- NOTE | 2018-07-30 22:11 | PCM ---
- Chief Complaint Chief Complaint: UTI, dementia and altered mental status. - History of Present Illness History of Present Illness: 83 yo WF resident of [facility] w/ worsening health over last 3-4 months. Last admitted 06/20/18 and d/c on 06/24/[address] Swenson/Jena Cole for UTI ESBL chronically, chronic indwelling crowder catheter, chronic stage 1 pressure ulcers along buttock, lumbar spine, maceration of tissues about the buttock, groin, actually improving over time after placement of crowder and decreased incontinence of urine. Recurrent UTI, worsening sx over last 4 days. Son had called and talked with me today in clinic, we discussed consideration of referral to [facility] to meet with urology. They have appt with urology 08/10/[address] Chi. History of DM 2, Dyslipidemia, Recurrent UTI, HTN, COPD, GERD , CKD, history of TIA, bipolar disorder and dementia. I contacted Dr. Castellanos this pm, prior to patient arrival, and discussed the case with him. She has had alterred mental status x 4 days, worsening like before when she had UTI. There was more concern about altered mental status, somnolence, worsening bladder symptoms and [place] contacted me yesterday and UA was ordered. Results were pending for me. Reviewed note from ER with son Jack (ANDRES), daughter-in- Law Ifeanyi. Patient is obtunded and septic based on findings in ER. Patient met septic criteria in ER (Grossly per Dr. Castellanos). Pulse >90, acutely altered mental status, unresponsive, symptoms gradual over last 4 days. She was unresponsive to stimuli, lethargic in ER. Labs showed WBC 22.42, Hgb 1.08, plt 238. Sodium 133, corrects to 136 with glucose of 298. K+ 5.24 which is a little more elevated than last few checks. 07/30/18 5.24, 07/12/18 5.26, 4.70. BUN 52.6 Cr 1.36. Creatinine clearance 39ml/hour. Glucose 298.2. Calcium 11.13. Urine turbid, pH 5.5, SG 1.20, 3+ protein, trace glucose, 3+ blood, neg nit, 3+ LE. INVANZ 1 gram given in ER, solumedrol 125 mg in ER, NS 500ml bolus given in ER. Initial vitals temp 99.2, pulse 103, RR 22, BP 163/53, Dx Sepsis/UTI. Patient unable to provide history. Obtunded. I checked on her in SCU-2 starting at 9:45 PM. Present with son Jack and Ifeanyi (Daughter in Law) in room. Nurse in room. She has had 4 days of symptoms, this has happened repeatedly over last 12 months. She has chronic indwelling catheter and has urology Dr. Chi with [facility]. Patient was admitted on 06/20/2018 with UTI, abx and then d/c. Reviewed with family. She fell and was seen in ER 07/12/18. IMaging of shoulder CT, lumbar spine CT, pelvis CT, TSP CT, maxillofacial CT, Cervical spine CT. CT head 06/20/18. No acute processes. Son Jack is POA. Daughter Giovanni is problematic, court ordered visits. 07/20/18 [address], 07/23/18 handicapped teacher order daughter is allowed to visit if 72 hours or longer. Must contact Jack. Giovanni is to not get information from Hospital. Mary (daughter in law ) noted that our care coordinators are aware of the situations. Patient does not want information to be shared. If >72 giovanni will contact Jack. Patient last Urine culture 07/12/18. Chronic indwelling crowder secondary to incontinence and skin issues. product support representative planning discussed with livia CAMPOS. She is deteriorating, at some point make decision w/ family about how they want her treated. They feel she has been good/better over last 3-4 weeks, engaging memories, lucid and doing better. I heard from [place] yesterday about decline possible UTI and UA yesterday was ordered. Chronic dementia. They have had family conference recently. She has been estranged from daughter historically. Son has enjoyed time with mother and they are aware of her decreased health status. She is asleep, comfortable but not cognitively aware at this point. She grimaced to removal of socks, babinski was downgoing but toes appeared postured. - Review of Systems Constitutional: fever, weakness, fatigue, loss of appetite, other (Severely limited by metabolic encephalopthy, weakness, fever subjcectively. ) Eyes: other (Unknown, patient unable to report. ) Ears: hearing loss (chronic), other (Unknown, patient unable to report. ). No: pain, bleeding, drainage Nose: other (Unknown, patient unable to report. ). No: bleeding, discharge Throat: other (Unknown, patient unable to report. ) Mouth: other (Unknown, patient unable to report. Non obvious lesions/bleeding. ) . No: bleeding, swelling Respiratory: cough, shortness of air, wheeze, other (Unknown, patient unable to report. ) Cardiovascular: edema (bilateral LE. ), other (Unknown, patient unable to report. ). No: diaphoresis Gastrointestinal: constipation (chronic), other (Unknown, patient unable to report. ). No: vomiting, diarrhea, melena, hematemesis, hematochezia Genitourinary: incontinence, other (Unknown, patient unable to report. Chronic indwelling catheter, symptom c/w with Urosepsis. ) Neurological: speech difficulty, problems with walking, other (Unknown, patient unable to report. Obtunded GCS [id number]. ) Skin: rash (buttock, sacral region. ), wounds Immunology: frequent infections Hematology: No: easy bruising, easy bleeding, swollen glands, other Endocrine: other (Unknown, patient unable to report. ) Psychiatric: other (Unknown, patient unable to report. ) Habits: No: tobacco use, substance use, alcohol use, other - Past Medical History Past Medical History: DM2, Recurrent UTI, Crowder Catheter, Dementia, Neuropathy, GERD, COPD, HTN, Dyspilidemia,neuropathy.OA, b12, anxiety. - Past Surgical History Past Surgical History: Hysterectomy, bilateral total knee, Right carpal tunnel. - Allergies Allergies/Adverse Reactions: Allergies Allergy/AdvReac Type Severity Reaction Status Date / Time codeine AdvReac Verified 07/30/18 18:22 iodine AdvReac Verified 07/30/18 18:22 metoclopramide AdvReac Verified 07/30/18 18:22 contrast AdvReac Uncoded 06/20/18 21:22 IV dye AdvReac Uncoded 06/20/18 21:22 - Medications Medications: Medications Generic Name Dose Route Start Last Admin Trade Name Freq PRN Reason Stop Dose Admin Acetaminophen 650 mg 07/30/18 20:00 Tylenol PO Q4H PRN fever or pain Hydrocodone Bitart/Acetaminophen 1 tab 07/30/18 21:26 [place] 10-325 PO Q8H PRN MODERATE PAIN Albuterol/Ipratropium 1 vial 07/30/18 20:00 Duoneb NEB RTQ6H PRN Wheezing Aspirin 81 mg 07/31/18 09:00 Aspirin Ec PO DAILY [facility] Bisacodyl 10 mg 07/30/18 21:26 Dulcolax RC DAILY PRN Constipation Enoxaparin Sodium 30 mg 07/30/18 20:30 Lovenox SUBCUT DAILY [facility] Gabapentin 300 mg 07/31/18 09:00 Neurontin PO BID [facility] Ertapenem 1 gm/ Sodium 50 mls @ 75 mls/hr 07/31/18 09:00 Chloride IV DAILY [facility] Sodium Chloride 1,000 mls @ 100 mls/hr 07/30/18 22:00 Sodium Chloride IV .Q10H [facility] Insulin Human Regular 0 - 15 unit 07/30/18 21:31 Humulin R SUBCUT PRN PRN Hyperglycemica Protocol Lisinopril 40 mg 07/31/18 09:00 Zestril PO BID [facility] Magnesium Oxide 400 mg 07/31/18 09:00 Mag-Ox PO DAILY [facility] Mirabegron 25 mg 07/31/18 09:00 Myrbetriq PO DAILY [facility] Non-Formulary Medication 300 mg 07/31/18 21:00 Oxcarbazepine [Trileptal] PO BEDTIME [facility] Non-Formulary Medication 0.5 mg 07/31/18 09:00 Risperidone [Risperdal] PO BID [facility] Nystatin 1 applic 07/30/18 21:30 Nystatin Cream TP Q6H [facility] Ondansetron HCl 4 mg 07/30/18 20:00 Zofran 4 Mg/2 Ml IVP Q6H PRN nausea vomiting Pantoprazole Sodium 40 mg 07/31/18 09:00 Protonix PO DAILY [facility] Polyethylene Glycol 17 gm 07/31/18 09:00 Miralax PO DAILY [facility] Sodium Chloride 1 syr 07/30/18 18:29 Saline Flush IVF PRN PRN To flush IV Sodium Chloride 1 syr 07/30/18 18:47 Saline Flush IVF PRN PRN To flush IV - Family History Past Family History: Patient unable to report, obtunded. Diabetes, HTN. - Social History Past Social History: Former smoker, resident of [facility]. - Vital Signs Temperature: 99.5 F Pulse Rate: 93 Respiratory Rate: 24 Blood Pressure: 144/68 O2 Sat by Pulse Oximetry: 95 - Body Composition Height: 5 ft 4 in Weight: 184 lb 8.43 oz Body Mass Index (BMI): 31.6 - Physical Examination HEENT: Constitutional: Appearance-Septic, obtunded. Orientation- NON VERBAL GCS 8. Gait- Unable. Build and Nutrition-[OBESE FEMALE] General- Patient w/ Sepsis, grimace with pain. Babinski down going. She has mild posturing possibly with extension of hips, knees and toe pointing. Integumentary: General- Entirety of buttock erythematous with scattered stage 1 and stage 2 pressure lesions. Right buttock abrasion/skin breakdown, oozing capilries. Oval shaped 2.5 cm wide by 1 cm tall. She has a johnson dusky circular lesion, stage 1 pressure ulcer that is roughly 1x1cm. Bilateral inner thigh maceration, buttock maceration. Skin is markedly better than 6 weeks ago prior to crowder. Chronic incontinence has led to breakdown of skin. She came to [place] with wounds peripherally. Entirety of sacrum/buttock appears to be involved. She has some erythema beneath breasts and along panus. Nursing present throughout skin exam. Head/Neck: Head- normocephalic and atraumatic. Neck- without visible/palpable lumps or pulsations. Palpation- No grimace to bony palpation about head/neck along frontal, occipital, temporal, parietal, mastoid, jawline, zygoma, orbit or any other location. NO temporal artery tenderness. No TMJ tenderness. Neck Supple. Thyroid-No thyromegaly, no nodules Eye: Closed. NO spontaneous opening. I opened eyes manualy. Bilaterally PERRLA , EOMI. No discharge. Upper and lower eyelids are normal. Sclera/conjunctiva normal without discharge. Cornea is normal and clear. Lens is normal. Eyeball appears normal. No ciliary flushing, no conjunctival injection. ENMT: Pinna- normal without tenderness or erythema. External auditory canal Left- normal without erythema or discharge, no excessive cerumen. External auditory canal Right-normal without erythema or discharge, no excessive cerumen. TM left- Johnson/pearly, normal light reflex and anatomy Scarring TM Right - Johnson/pearly, normal light reflex and anatomy Scarring Hearing Assessment- Unable to assess. Nose and sinus- External appearance normal and midline. Nares - bilateral quiet airflow, no discharge. Nasal mucosa- No bleeding noted and no ulcerations observed. [place], moist. Turbinates non boggy. Lips- normal color, moist without cracks/lesions Oral Cavity/Palate- hard/soft palate intact without lesions, oral mucosa pink and moist. CHEST/LUNG: Inspection- symmetric chest wall Normal effort, Somnolent, breathing comfortably, mildly tachypneic, no obvious distress, some loud soudns , no use of accessory muscles. Auscultation- Breath coarse, some scattered wheezes, no acute respiratory distress. Decreased/coarse tracheal sounds, bronchial sounds overlying sternum, Bronchovessicular sounds between scapulae posteriorly, vessicular breath sounds heard throughout periphery. Adventitious sounds- Scattered wheezes, no rales, scattered rhonchi. CARDIOVASCULAR: Auscultation- Regular rate and rhythm. II/ systolic murmur non radiating. 2nd and 4th intercostal space. Extremities- Edema bilateral LE. ABDOMEN: Inspection- normal and no visible pulsations. Normal contour. Auscultation- Bowel sounds normal, no abdominal bruits. Palpation/Percussion- soft, non-tender, no rebound tenderness, no grimace with palpation. Peripheral Vascular: Upper extremity Left- Normal temperature with pink nailbeds and no ulcerations. Upper extremity Right- Normal temperature with pink nailbeds and no ulcerations. Lower extremity- Normal temperature with pink nailbeds and no ulcerations. DP pulses 2+ bilaterally. Edema- 1+ edema. to mid richards bilaterally Musculoskeletal: Generalized-No generalized swelling or edema of UE but 1+ to mid richards bilaterally. Some e/o posturing with plantar flexion. Babinski negative, down going. Neurological: General- obtunded GCS 8. Babinski downgoing. Patellar reflexes 1 + bilaterally symmetrical. No ankle clonus. Neuropsych: Oriented- Obtunded. External Genitalia: Normal appearing vulva, nurse present with rolling. INdwelling crowder catheter. She appears to have perianal skin tags secondary to historical hemorrhoids. - Lab/Tests/Diagnostic Imaging Lab/Tests/Diagnostic Imaging: Laboratory Last Values WBC 22.42 K/ul (4.6-10.2) H 07/30/18 19:08 RBC 3.32 10^6/ul (4.20-5.40) L 07/30/18 19:08 Hgb 10.8 g/dl (12.0-16.0) L 07/30/18 19:08 Hct 32.5 % (37.0-47.0) L 07/30/18 19:08 MCV 97.9 fl (81.0-99.0) 07/30/18 19:08 MCH 32.5 pg (27.0-31.0) H 07/30/18 19:08 MCHC 33.2 (31.8-35.4) 07/30/18 19:08 RDW Coeff of Alexia 14.1 % (11.6-14.8) 07/30/18 19:08 Plt Count 238 10^3/uL (140-440) 07/30/18 19:08 Immature Gran % (Auto) 0.8 % (0.0-5.0) 07/30/18 19:08 Neut % (Auto) 85.8 07/30/18 19:08 Lymph % (Auto) 5.0 (10.0-50.0) L 07/30/18 19:08 Bucks % (Auto) 8.2 (0-10) 07/30/18 19:08 Eos % (Auto) 0.0 % (0.0-7.0) 07/30/18 19:08 Baso % (Auto) 0.2 % (0.0-3.0) 07/30/18 19:08 Immature Gran # (Auto) 0.2 (0.0-1.0) 07/30/18 19:08 Neut # (Auto) 19.3 K/ul (2.0-6.9) H 07/30/18 19:08 Lymph # (Auto) 1.1 K/uL (0.60-3.4) 07/30/18 19:08 Bucks # (Auto) 1.8 K/uL (0.4-2.0) 07/30/18 19:08 Eos # (Auto) 0.0 K/ul (0.0-0.7) 07/30/18 19:08 Baso # (Auto) 0.0 K/uL (0-0.2) 07/30/18 19:08 ESR 65 mm/hr (0-20) H 11/15/18 19:08 Sodium 133.0 mmol/L (137-145) L 07/30/18 19:08 Potassium 5.24 mmol/L (3.5-5.1) H 07/30/18 19:08 Chloride 103.6 mmol/L (98-107) 07/30/18 19:08 Carbon Dioxide 21.7 mmol/L (22-30.0) L 07/30/18 19:08 Anion Gap 12.94 07/30/18 19:08 BUN 52.6 mg/dL (7-17) H 07/30/18 19:08 Creatinine 1.39 mg/dL (0.60-1.30) H 07/30/18 19:08 Estimated GFR (MDRD) 36.00 mL/min 07/30/18 19:08 BUN/Creatinine Ratio 37.84 07/30/18 19:08 Glucose 298.2 mg/dL (74-106) H 07/30/18 19:08 Lactic Acid 2.53 mmol/L (0.7-2.1) H 07/30/18 19:25 Calcium 11.13 mg/dL (8.4-10.2) H 07/30/18 19:08 Magnesium 1.61 mg/dL (1.6-2.3) 07/30/18 19:00 Total Bilirubin 0.47 mg/dL (0.2-1.3) 07/30/18 19:08 AST 28.1 U/L (14-36) 07/30/18 19:08 ALT 13.4 U/L (0-35) 07/30/18 19:08 Alkaline Phosphatase 66.2 U/L (53-141) 07/30/18 19:08 Total Protein 6.39 g/dL (6.3-8.2) 07/30/18 19:08 Albumin 3.52 g/dL (3.5-5.0) 07/30/18 19:08 Globulin 2.87 07/30/18 19:08 Albumin/Globulin Ratio 1.22 07/30/18 19:08 Urine Color Yellow (YELLOW) 07/30/18 19:26 Urine Clarity Turbid (CLEAR) 07/30/18 19:26 Urine pH 5.5 (5-9) 07/30/18 19:26 Ur Specific [place] 1.020 (1.005-1.030) 07/30/18 19: Urine Protein 3+ (NEGATIVE) 07/30/18 19: Urine Glucose (UA) Trace (NEGATIVE) 07/30/18 19: Urine Ketones Negative (NEGATIVE) 07/30/18 19: Urine Blood 3+ (NEGATIVE) 07/30/18 19: Urine Nitrite Negative (NEGATIVE) 07/30/18 19: Urine Bilirubin Negative (NEGATIVE) 07/30/18 19: Urine Urobilinogen 0.2 (0.2) 07/30/18 19: Ur Leukocyte Esterase 3+ (NEGATIVE) 07/30/18 19: Urine Microscopic RBC 10-20 (0-2) 07/30/18 19: Urine Microscopic WBC 30-50 (0-2) 07/30/18 19: Ur Squamous Epith Cells 5-10 (0-5) 07/30/18 19: Urine Bacteria 1+ (NOT PRESENT) 07/30/18 19: Urine Mucus 1+ (NOT PRESENT) 07/30/18 19: Influ A Molecular Assay Negative by naat (NEGATIVE) 07/30/18 19: Influ B Molecular Assay Negative by naat (NEGATIVE) 07/30/18 19: CXR: Personally reviewed CXR diaphragm is clear, heart appears mildly enlarged. Heart border clear. - Assessment (1) SIRS (systemic inflammatory response syndrome) Status: Acute Code(s): R65.10 - SIRS OF NON-INFECTIOUS ORIGIN W/O ACUTE ORGAN DYSFUNCTION SNOMED Code(s): 772044619 (2) Obtunded Status: Acute Code(s): R40.1 - STUPOR SNOMED Code(s): 14857494 (3) Hyperkalemia Status: Acute Code(s): E87.5 - HYPERKALEMIA SNOMED Code(s): 59117716 (4) Leukocytosis Status: Acute Code(s): D72.829 - ELEVATED WHITE BLOOD CELL COUNT, UNSPECIFIED SNOMED Code(s): 093346768, 657027770 (5) Hypercalcemia Status: Acute Code(s): E83.52 - HYPERCALCEMIA SNOMED Code(s): 43219910 (6) Chronic anemia Status: Acute Code(s): D64.9 - ANEMIA, UNSPECIFIED SNOMED Code(s): 108019393 (7) COPD (chronic obstructive pulmonary disease) Status: Acute Code(s): J44.9 - CHRONIC OBSTRUCTIVE PULMONARY DISEASE, UNSPECIFIED SNOMED Code(s): 01545653 (8) Diabetes mellitus type 2 in obese Status: Acute Code(s): E11.9 - TYPE 2 DIABETES MELLITUS WITHOUT COMPLICATIONS SNOMED Code(s): 63342967 (9) Sepsis Status: Acute Code(s): A41.9 - SEPSIS, UNSPECIFIED ORGANISM SNOMED Code(s): 59814406 (10) UTI (urinary tract infection) Status: Acute Code(s): N39.0 - URINARY TRACT INFECTION, SITE NOT SPECIFIED SNOMED Code(s): 68496573 (11) Altered mental status Status: Acute Code(s): R41.82 - ALTERED MENTAL STATUS, UNSPECIFIED SNOMED Code(s): 325537559 Qualifiers: Altered mental status type: delirium Qualified Code(s): R41.0 - Disorientation, unspecified (12) Dehydration Status: Inactive Code(s): E86.0 - DEHYDRATION SNOMED Code(s): 34496551 (13) Decubitus ulcers Status: Acute Code(s): L89.90 - PRESSURE ULCER OF UNSPECIFIED SITE, UNSPECIFIED STAGE SNOMED Code(s): 390562637 - Plan Plan: SIRS With Sepsis, suspected Urological Source/Obtunded: +Lactate. Leukocytosis with neutrophila, suspected urological source. History of eSBL. Given 1 dose of invanz in ER. CrCl is >30, 1 G invanz daily likely adequate. Does not appear to be pneumonia at this time. Breathing seems stable, no reports of aspiration and no obvious COPD exacerbation. I suspect with hydration her hemoconcentration will turn into hemodilution and I will see a drop in WBC/PLT/Hgb tomorrow. 15-18 for WBC not unrealistic, Hgb ~9.5 are my expectations. This is a guarded situation. The patient has had negative blood cultures for last 2 admits. CXR is not suspect at this time for pneumonia per my read as it looked very similar to previous CXR. She has not had fever so far , urinary source most likely, with previous C+S showing ESBL w/ S to INvanz, 1gram Invanz daily to be continued. Serious discussion with family regarding patient health status. Flu was negative. - Admit inpatient status SCU. - Telemetery - Fall precaution - CBC/CMP in am. - Urine Culture - Blood culture - Await urine culture. Treat with INVANZ based on last 2 cultures. - Invanz 1 Gram IV daily x 7 days. - Monitor fluid status. - Med rec completed. COPD (chronic obstructive pulmonary disease) (Chronic): With Hyperkalemia I will do nebs q 4 hours PRN albuterol. This will help to drop the K+. - Albuterol nebs q 4 hours PRN. Chronic anemia (Chronic): Repeat CBC in am, I suspect this will drop further. I suspect she will be in the 9-9.5 range again due to dilution. - CBC in am. Diabetes mellitus type 2 in obese (Chronic): Status unknown, hyperglycemia in the hospital. We will check A1C, give insulin sliding scale. I will also add 5 units lantus this am. Goal 150-220 for this patient. - A1C in am. Hypercalcemia (Acute): Fluid hydration tends to be #1 treatment option. This will improve overnight. Reassess in am. - Telemetery - Fluid hydration NS 100ml/hour - Repeat Cmp in am. Hyperkalemia (Acute): Nebs q 4 hours, Sliding scale insulin will also help. Fluids will help. - Repeat CMP in am. Leukocytosis (Acute): Sepsis, Steroidal effect. Repeat in am. Dilution will help as I suspect some hemoconcentration. - Repeat CBC in am. Altered mental status (Acute): Nursing to monitor. I will assess daily status on rounds. - Neurochecks d/w nursing. - Tele monitoring. Diet: NPO for now. Will reassess in am. Fluids: We will give NS without K+ due to hyperkalemia at 100 ml/hr. Gregory body weight for her suggests that maintenance fluids should be 94-124 and we will choose 100ml/hour NS for now. Activity: Bed alarm. Fall precaution. DVT Prophy: - Lovenox 30 Code STatus: DNR Disposition: Concern at this time for overall health. Discussed with family historically considered hospice due to age/medical problems. Was in hospice, family revoked 06/2018. Not on hospice now. Sepsis protocol in ER. Invanz Abx started based on previous information. Will adjust as new information becomes available. >70 minutes today spent in admission process, not including documentation.
[2018-07-30] MEDS: SODIUM CHLORIDE 1,000 ML IV SCH (22:54)
[2018-07-30] MEDS: NYSTATIN CREAM TP SCH (22:54)
[2018-07-30] MEDS: HUMULIN R SUBCUT PRN (22:55)
[2018-07-31] MEDS: NYSTATIN CREAM TP SCH ×4 (04:15→21:26)
[2018-07-31] MEDS: TYLENOL PO PRN ×2 (06:19→11:16)
[2018-07-31] MEDS: HUMULIN R SUBCUT PRN ×3 (06:23→20:36)
--- NOTE | 2018-07-31 07:11 | PCM.PROG ---
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 I was called this am around 6 with temp of 102.4 despite abx. She was flu negative. Cultures pending. As I suspected labs showed some dilution with WBC dropping from 22.4 to 18.07, hgb from 10.8 to 9.1, plt 238 to 190. Sodium is stable at 135, potassium no longer hyperkalemic (RESOLVED), dropping from 5.24 to 4.94. Creatinine has increased to 1.60 from 1.39 with CrCL of 27-34 depending on calculator utilized. I will check w/ pharmacy about invanz dosing and get their input. Glucose remains 210.2 down from 298.2. Ideally we would keep her 140-180 as she is critically ill. I will add lantus this am and continue SSI for now. She is NPO, no D5 in her fluids. A1C 7.39. Some of this may be solumedrol given in ER. Calcium has improved from 11.13 to 10.76 with fluids as well, which is reasonable to monitor. The K+ and Ca++ were concerning but now okay. I reviewed vitals at 7: 05 when I checked on patient and O2 95, RR 24, BP 144/68, HR 93 and tem down from 102.4 to 95. I will continue fluids, I will address the glucose, we will continue Invanz and we will follow closely with patient. Again very serious/ grave illness, concerning for her overall health. Family is aware that may result from infections such as this one and that they do not want her sent to another hospital, they are happy with the care we are giving her. We discussed pneumonia, discussed added abx at admit and feel that this is the best course of action so far. She had fever this am otherwise remainder of her vitals, tele, looked good. I discussed case with am nurse, with care managers. No family here this am. She is a little more alert this am, squeezed my hand to command, closed eyes and opened to command. Better than last night. I will have speech come see her, k[place]y for meals. I will also eval legs as she c/o leg pain when I was evaluating feet/ankles. Edema minimal bilateral LE, ~1+. Objective: 07/30/18 07/30/18 07/30/18 18:07 20:03 20:45 Temperature 99.2 F 99.2 F 99.5 F Pulse Rate 103 H 100 H 93 H Respiratory 22 24 24 Rate Blood Pressure 163/53 H 144/68 H O2 Sat by Pulse 98 95 Oximetry 07/31/18 07/31/18 07/31/18 02:00 06:00 07:05 Temperature 98 F 102.4 F H 99.5 F Pulse Rate 96 H 102 H 93 H Respiratory 21 20 24 Rate Blood Pressure 156/68 H 117/51 L 144/68 H O2 Sat by Pulse 100 95 95 Oximetry 07/31/18 07:33 Temperature 100.6 F H Pulse Rate Respiratory Rate Blood Pressure O2 Sat by Pulse Oximetry Constitutional: Appearance-Septic, improving, opened eyes to command, squeezed hand to command, knew left/right. NO family in room. Orientation- NON VERBAL, unable to answer/vocalize that is audible/perceptable GCS up from 8 to 11 now. Gait- Unable to ambulate. Build and Nutrition-OBESE FEMALE General- Patient w/ Sepsis, grimace with pain, opens eyes, localizing, following some commands. Babinski remains down going. She has mild posturing possibly with extension of hips, knees and toe pointing. She is still noting pain with any manipulation of legs. I will check US bilateral LE today. Integumentary: General- Entirety of buttock erythematous with scattered stage 1 and stage 2 pressure lesions. Right buttock abrasion/skin breakdown, oozing capilries. Oval shaped 2.5 cm wide by 1 cm tall. She has a johnson dusky circular lesion, stage 1 pressure ulcer that is roughly 1x1cm. Bilateral inner thigh maceration, buttock maceration. Skin is markedly better than 6 weeks ago prior to crowder. Chronic incontinence has led to breakdown of skin. She came to [place] with wounds peripherally. Entirety of sacrum/buttock appears to be involved. She has some erythema beneath breasts and along panus. Nursing present throughout skin exam. This is unchanged. Head/Neck: Head- normocephalic and atraumatic. Neck- without visible/palpable lumps or pulsations. Palpation- No grimace to bony palpation about head/neck along frontal, occipital, temporal, parietal, mastoid, jawline, zygoma, orbit or any other location. NO temporal artery tenderness. No TMJ tenderness. Neck Supple. Thyroid-No thyromegaly, no nodules Eye: Closed. Did open to command. Pupils reactive. Bilaterally PERRLA, EOMI followed me. No discharge. Upper and lower eyelids are normal. Sclera/ conjunctiva normal without discharge. Cornea is normal and clear. Lens is normal. Eyeball appears normal. No ciliary flushing, no conjunctival injection. ENMT: Nose and sinus- External appearance normal and midline. Nares- bilateral quiet airflow, no discharge. Nasal mucosa- No bleeding noted and no ulcerations observed. Booker, moist. Turbinates non boggy. Lips- normal color, moist without cracks/lesions Oral Cavity/Palate- hard/soft palate intact without lesions, oral mucosa pink and moist. CHEST/LUNG: Inspection- symmetric chest wall Normal effort, Somnolent, breathing comfortably, mildly tachypneic still, no obvious distress, Breathing sounds better, better control this am. no use of accessory muscles. Auscultation - Breath coarse, some scattered wheezes, no acute respiratory distress. Decreased/coarse tracheal sounds, bronchial sounds overlying sternum, Bronchovessicular sounds between scapulae posteriorly, vessicular breath sounds heard throughout periphery. Adventitious sounds- Scattered wheezes, no rales, scattered rhonchi. CARDIOVASCULAR: Auscultation- Regular rate and rhythm. II/ systolic murmur non radiating. 2nd and 4th intercostal space. Extremities- Edema bilateral LE. ABDOMEN: Inspection- normal and no visible pulsations. Normal contour. Auscultation- Bowel sounds normal, no abdominal bruits. Palpation/Percussion- soft, non-tender, no rebound tenderness, no grimace with palpation. Peripheral Vascular: Upper extremity Left- Normal temperature with pink nailbeds and no ulcerations. Upper extremity Right- Normal temperature with pink nailbeds and no ulcerations. Lower extremity- Normal temperature with pink nailbeds and no ulcerations. DP pulses 2+ bilaterally. Edema- 1+ edema. to mid richards bilaterally. She has pain to calf compression today, similar to last night where she cried out when legs were manipulated at all. I will check US bilateral LE. She is on lovenox 30 but I want to make sure no DVT> Musculoskeletal: Generalized-No generalized swelling or edema of UE but 1+ to mid richards bilaterally persists. Some e/o posturing with plantar flexion/pointing toes bilat. Babinski negative, down going. Neurological: General- GCS 11, better. Babinski downgoing. Patellar reflexes 1 + bilaterally symmetrical. No ankle clonus. She is more responsive today. Still withdrawing to pain, now some directed movements. Neuropsych: Oriented- Somnolent, low function at this point. Laboratory Last Values WBC 18.07 K/ul (4.6-10.2) H 07/31/18 05:00 RBC 2.82 10^6/ul (4.20-5.40) L 07/31/18 05:00 Hgb 9.1 g/dl (12.0-16.0) L 07/31/18 05:00 Hct 28.2 % (37.0-47.0) L 07/31/18 05:00 MCV 100.0 fl (81.0-99.0) H 07/31/18 05:00 MCH 32.3 pg (27.0-31.0) H 07/31/18 05:00 MCHC 32.3 (31.8-35.4) 07/31/18 05:00 RDW Coeff of Alexia 14.4 % (11.6-14.8) 07/31/18 05:00 Plt Count 190 10^3/uL (140-440) 07/31/18 05:00 Immature Gran % (Auto) 0.8 % (0.0-5.0) 07/31/18 05:00 Neut % (Auto) 84.8 07/31/18 05:00 Lymph % (Auto) 5.4 (10.0-50.0) L 07/31/18 05:00 [place] % (Auto) 8.7 (0-10) 07/31/18 05:00 Eos % (Auto) 0.1 % (0.0-7.0) 07/31/18 05:00 Baso % (Auto) 0.2 % (0.0-3.0) 07/31/18 05:00 Immature Gran # (Auto) 0.1 (0.0-1.0) 07/31/18 05:00 Neut # (Auto) 15.3 K/ul (2.0-6.9) H 07/31/18 05:00 Lymph # (Auto) 1.0 K/uL (0.60-3.4) 07/31/18 05:00 [place] # (Auto) 1.6 K/uL (0.4-2.0) 07/31/18 05:00 Eos # (Auto) 0.0 K/ul (0.0-0.7) 07/31/18 05:00 Baso # (Auto) 0.0 K/uL (0-0.2) 07/31/18 05:00 ESR 65 mm/hr (0-20) H 07/30/18 19:08 Sodium 135.0 mmol/L (137-145) L 07/31/18 05:00 Potassium 4.94 mmol/L (3.5-5.1) 07/31/18 05:00 Chloride 106.9 mmol/L (98-107) 07/31/18 05:00 Carbon Dioxide 22.1 mmol/L (22-30.0) 07/31/18 05:00 Anion Gap 10.94 07/31/18 05:00 BUN 56.0 mg/dL (7-17) H 07/31/18 05:00 Creatinine 1.60 mg/dL (0.60-1.30) H 07/31/18 05:00 Estimated GFR (MDRD) 31.00 mL/min 07/31/18 05:00 BUN/Creatinine Ratio 35.00 07/31/18 05:00 Glucose 210.2 mg/dL (74-106) H D 07/31/18 05:00 Hemoglobin A1c 7.39 (4.0-6.0) H 07/31/18 05:00 Lactic Acid 2.53 mmol/L (0.7-2.1) H 07/30/18 19:25 Calcium 10.76 mg/dL (8.4-10.2) H 07/31/18 05:00 Magnesium 1.61 mg/dL (1.6-2.3) 07/30/18 19:00 Total Bilirubin 0.49 mg/dL (0.2-1.3) 07/31/18 05:00 AST 17.9 U/L (14-36) 07/31/18 05:00 ALT 9.9 U/L (0-35) 07/31/18 05:00 Alkaline Phosphatase 60.4 U/L (53-141) 07/31/18 05:00 Total Protein 5.86 g/dL (6.3-8.2) L 07/31/18 05:00 Albumin 3.14 g/dL (3.5-5.0) L 07/31/18 05:00 Globulin 2.72 07/31/18 05:00 Albumin/Globulin Ratio 1.15 07/31/18 05:00 Urine Color Yellow (YELLOW) 07/30/18 19: Urine Clarity Turbid (CLEAR) 07/30/18 19: Urine pH 5.5 (5-9) 07/30/18 19:26 Ur Specific [place] 1.020 (1.005-1.030) 07/30/18 19:26 Urine Protein 3+ (NEGATIVE) 07/30/18 19: Urine Glucose (UA) Trace (NEGATIVE) 07/30/18 19: Urine Ketones Negative (NEGATIVE) 07/30/18 19:26 Urine Blood 3+ (NEGATIVE) 07/30/18 19: Urine Nitrite Negative (NEGATIVE) 07/30/18 19: Urine Bilirubin Negative (NEGATIVE) 07/30/18 19:26 Urine Urobilinogen 0.2 (0.2) 07/30/18 19:26 Ur Leukocyte Esterase 3+ (NEGATIVE) 07/30/18 19:26 Urine Microscopic RBC 10-20 (0-2) 07/30/18 19:26 Urine Microscopic WBC 30-50 (0-2) 07/30/18 19:26 Ur Squamous Epith Cells 5-10 (0-5) 07/30/18 19: Urine Bacteria 1+ (NOT PRESENT) 07/30/18 19: Urine Mucus 1+ (NOT PRESENT) 07/30/18 19:26 Influ A Molecular Assay Negative by naat (NEGATIVE) 07/30/18 19: Influ B Molecular Assay Negative by naat (NEGATIVE) 07/30/18 19: Urine culture pending Blood culture pending Radiology read CXR pending. Telemetry: SR (1) SIRS (systemic inflammatory response syndrome) Status: Acute Code(s): R65.10 - SIRS OF NON-INFECTIOUS ORIGIN W/O ACUTE ORGAN DYSFUNCTION SNOMED Code(s): 769187021 (2) Obtunded Status: Acute Code(s): R40.1 - STUPOR SNOMED Code(s): 06080631 (3) Hyperkalemia Status: Acute Code(s): E87.5 - HYPERKALEMIA SNOMED Code(s): 43966481 (4) Leukocytosis Status: Acute Code(s): D72.829 - ELEVATED WHITE BLOOD CELL COUNT, UNSPECIFIED SNOMED Code(s): 537018962 (5) Hypercalcemia Status: Acute Code(s): E83.52 - HYPERCALCEMIA SNOMED Code(s): 86595846 (6) Chronic anemia Status: Acute Code(s): D64.9 - ANEMIA, UNSPECIFIED SNOMED Code(s): 334994530 (7) COPD (chronic obstructive pulmonary disease) Status: Acute Code(s): J44.9 - CHRONIC OBSTRUCTIVE PULMONARY DISEASE, UNSPECIFIED SNOMED Code(s): 43299231 (8) Diabetes mellitus type 2 in obese Status: Acute Code(s): E11.9 - TYPE 2 DIABETES MELLITUS WITHOUT COMPLICATIONS SNOMED Code(s): 79380208 (9) Sepsis Status: Acute Code(s): A41.9 - SEPSIS, UNSPECIFIED ORGANISM SNOMED Code(s): 53399721 (10) UTI (urinary tract infection) Status: Acute Code(s): N39.0 - URINARY TRACT INFECTION, SITE NOT SPECIFIED SNOMED Code(s): 33464033 (11) Altered mental status Status: Acute Code(s): R41.82 - ALTERED MENTAL STATUS, UNSPECIFIED SNOMED Code(s): 189781744 (12) Dehydration Status: Inactive Code(s): E86.0 - DEHYDRATION SNOMED Code(s): 90134502 (13) Decubitus ulcers Status: Acute Code(s): L89.90 - PRESSURE ULCER OF UNSPECIFIED SITE, UNSPECIFIED STAGE SNOMED Code(s): 884738988 Plan: SIRS w/ Suspected Urosepsis: On invanz 1 Gram daily, I will continue this. I contacted pharmacy this am, they agree w/ dose. WE will continue this for now. Leukocytosis improving. Hyperkal improving, Hypercal improving. Anemia worsening. She had +Lactate, Leukocytosis and definite signs of SIRS/SEPSIS. She has been NPO, we will get speech to see her today and eval for diet. She has bilateral leg pain, I will evaluate for clot. Ddimer not helpful in her due to sepsis and inflammatory response. ESR elevated. Prominent history of eSBL. Invanz was good choice before, we will continue this until we have better data to go off of. Family agreed last night, not present this am, will talk with family when they get here. Tele good, uout good. Cultures still pending. I still do not suspect pneumonia. Breathing seems stable, no reports of aspiration and no obvious COPD exacerbation. Hemodilution brought WBC/Hgb/Plt down as suspected. Contacted pharmacy agree with dose of invanz for now, monitor renal fx. - Abx day #2 Invanz (crCl monitored by me, keep current dose for now). - Telemetery - Continue Fall precaution - CBC/CMP in am. - Urine Culture pending await results . - Blood culture pending await results. -INVANZ based on last 2 cultures. - Monitor fluid status. COPD (chronic obstructive pulmonary disease) (Chronic): Stable, breathing is better this am. - Albuterol nebs q 4 hours PRN. Chronic anemia (Chronic): Repeat CBC daily in am, I suspect this may drop further. - CBC in am. Diabetes mellitus type 2 in obese (Chronic): A1C this am <8.0 and reasonable. Goal 140-180. - Lantus 5 units daily - SSI as per orders - I will be okay today if we can keep her <220. Maple goal listed above. Hypercalcemia (Acute): Fluid hydration improved sx. Asymptomatic, monitor. - Telemetery - Fluid hydration NS 100ml/hour - Repeat Cmp in am. Hyperkalemia (Acute): RESOLVED Leukocytosis (Acute): Improving. Sepsis, Steroidal effect. Monitor. On Invanz. - Monitor am CBC Altered mental status (Acute): Improving, Nursing to monitor. I will continue to assess daily status on rounds. - Neurochecks d/w nursing. - Tele monitoring. Diet: NPO for now. Will reassess after seen by speech - Speech therapy eval for diet. Fluids: Continue NS 100 ml/hr. Maple body weight for her suggests that maintenance fluids should be 94-124 and we will choose 100ml/hour NS for now. Mild renal function decrease. No e/o fluid overload CXR, lung exam or with peripheral exam. Continue for now. - Net balance ~500ml +/ - Continue monitor. Leg pain: US today for DVT. ROBER: Mildly worse, monitor CMP. Fluids to continue. NO NSAIDS. Activity: Bed alarm. Fall precaution. DVT Prophy: - Lovenox 30 Code STatus: DNR Disposition: Fever this am, she is on abx, flu negative. Labs look better, she looks clinically better. Still concern at this time for overall health. Family not here this am, will be here later this am. I will talk with them about wishes/status of patient and keep updated. >35 minutes rounding this am.
--- NOTE | 2018-07-31 07:26 | DI ---
EXAM: Chest one view HISTORY: Reduce level of consciousness, congested COMPARISON: 07/12/2018 TECHNIQUE: Single view of the chest was performed FINDINGS: The lungs are clear. There is no pleural effusion or pneumothorax. The heart is normal i n size. The mediastinal contour is normal. There are no acute abnormalities of the bones. IMPRESSION: No acute cardiopulmonary process.
[2018-07-31] MEDS ORDERED: LANTUS SUBCUT STA (07:41)
[2018-07-31] MEDS: SODIUM CHLORIDE 1,000 ML IV SCH ×2 (08:20→17:48)
[2018-07-31] MEDS: MIRALAX PO SCH (09:00)
[2018-07-31] MEDS ORDERED: NON-FORMULARY MEDICATION (Risperidone [Risperdal] 0.5 MG) PO SCH (09:00)
[2018-07-31] MEDS ORDERED: MYRBETRIQ PO SCH (09:00)
[2018-07-31] MEDS: ASPIRIN EC PO SCH (09:30)
--- NOTE | 2018-07-31 10:26 | RS.SLPCNOT ---
Speech Case Note Date of Note: 07/31/18 Title: Speech Consult Note: BOX CUTTER was consulted from Dr. Meza for NPO status. BOX CUTTER discussed with case management to conduct a bedside swallow evaluation to order a diet. BOX CUTTER entered the room and pt was asleep. The BOX CUTTER rotated between hard sternal rub, thermal stimulation to lips and oral cavity, and shifting pt in bed in order to gain alertness. Post 20 minutes of hand-on stimulation, pt verbally responded 3x. However, pt never gained an alert status to consume PO intake. The BOX CUTTER recommends the MD to place pt on a diet as she becomes alert and can demonstrate safety precautions prior to PO intake. MD to consult ST as warranted if any difficulty with swallow status is noted.
[2018-07-31] MEDS: NEURONTIN PO SCH ×2 (11:15→20:42)
[2018-07-31] MEDS: RISPERDAL PO SCH ×2 (11:15→20:42)
[2018-07-31] MEDS: ZESTRIL PO SCH ×2 (11:16→20:41)
[2018-07-31] MEDS: MAG-OX PO SCH (11:17)
[2018-07-31] MEDS: LANTUS SUBCUT SCH (11:20)
--- NOTE | 2018-07-31 11:25 | US ---
EXAM: Bilateral lower extremity venous Doppler duplex HISTORY: Concern for DVT with peripheral edema and leg pain. COMPARISON: none TECHNIQUE: Sonographic and Doppler evaluation of the bilateral lower extremity vessels from the comm on femoral through the anterior tibial veins were obtained. Color Doppler evaluation was performed. A ugmentation and compression techniques were also performed. FINDINGS: There is spontaneous Doppler flow seen in the bilateral lower extremity veins from the com mon femoral through the anterior tibial veins. The left posterior tibial and anterior tibial veins w ere not identified. Color Doppler evaluation is consistent with no visualized thrombus. There is no rmal compression and augmentation throughout the lower extremity veins. Sonographic appearance of th e soft tissues are unremarkable. IMPRESSION: No lower extremity thrombus
[2018-07-31] MEDS: TYLENOL RC PRN (16:12)
[2018-07-31] MEDS: LOVENOX SUBCUT SCH (20:35)
[2018-07-31] MEDS: TRILEPTAL PO SCH (20:37)
[2018-07-31] MEDS ORDERED: TRILEPTAL ONE (20:41)
[2018-07-31] MEDS ORDERED: NON-FORMULARY MEDICATION (Oxcarbazepine [Trileptal] 300 MG) PO SCH (21:00)
[2018-07-31] MEDS ORDERED: INVANZ ONE (21:01)
[2018-07-31] MEDS: INVANZ 1 GM in SODIUM CHLORIDE 50 ML IV SCH (21:25)
[2018-08-01] MEDS: TYLENOL RC PRN ×2 (00:03→06:12)
[2018-08-01] MEDS: CALMOSEPTINE OINTMENT TP SCH ×3 (00:03→20:11)
[2018-08-01] MEDS: NYSTATIN CREAM TP SCH ×4 (04:02→21:45)
[2018-08-01] MEDS: SODIUM CHLORIDE 1,000 ML IV SCH ×2 (04:04→13:37)
[2018-08-01] MEDS: PROTONIX PO SCH (06:23)
--- NOTE | 2018-08-01 09:18 | PCM.PROG ---
Subjective: 83 yo Hospital Day 3, rounding day 2, resident of [facility] presented to our hospital obtunded, alterred mental status w/ 5 days worsening. Chronic crowder in place, chronic pressure ulcers bilateral buttock, maceration tissue inner thighs, chronic ESBL. I checked on her at 7-7:40 yesterday, just before noon and at 5pm yesterday and reviewed new/changing data. CXR as per my reading returned negative. K+ resolved and normal, Ca++ still mildly elevated but not concerning. WBC improving, Anemia chronic/stable. As of yesterday Blood/Urine/ Wound cultures all negative. Doppler bilateral LE negative for clot despite her pain in bilateral calves. I checked on patient this am, talked with am nurse, reviewed telemetry and all messages/notes from yesterday. They had some concern for cdiff based on smell of stool. I will check Cdiff. She is on contact already from ESBL likely. She has been getting INvanz, today would be day 11/19. She is febrile despite abx. She is not responsive enough to eat, sleeping mostly with difficult arrousal. I will hold her risperdal, I will hold norco, I will hold all sedating meds to see if she perks up. I have called son x 2 this am. I have reviewed her vitals with am nurse today and she has had fever most of yesterday and up until now. Currently afebrile, tylenol used regularly. Speech therapy eval patient yesterday, she would not arouse for bedside study. Very somnolent, not safe to feed at this point due to aspiration. Now I have no DVT, CXR negative, Urine will likely return ESBL, remainder of labs improving, vitals for BP/Pulse/RR appear stable yet she is febrile. If C.Diff + she cannot take oral vanco. IV vanco has no effect. I will check it and consider IV flagyl. MRSA is + in nares but wound cultures are negative. Labs reviewed am sodium okay at 140.3, K+ stable 4.35 improved from hyperkalemic state and stable. Renal function is better creatinine dropping from 1.6 to 1.27. Glucose is better. Calcium has dropped a little from 10.76 to 10.52. Her WBC is improved from last 18.07 to 10.93 and her hgb is improved from 9.1 to 9.6 with plt drop from 190 to 153. As noted above CXR negative, Wound culture negative, Still unresponsive, obtunded and back to a GCS of 8. I have reached out to family, unable to contact them, VM left. Urine output .72ml /kg/hour output last 8, 1.13ml/kg/hour prior shift. Temp hovering 100-102. History was not able to be obtained from patient. ROS: No family in room, patient with metabolic encephalopathy, obtunded, not easily arousable and unable to obtain. Objective: Vital Signs - 24 hr 07/31/18 07/31/18 07/31/18 09:55 11:30 13:54 Temperature 97 F L 98.4 F 100.6 F H Pulse Rate 65 86 81 Respiratory 22 22 18 Rate Blood Pressure 123/63 146/56 H 132/61 O2 Sat by Pulse 2 L 96 97 Oximetry 07/31/18 07/31/18 07/31/18 15:44 17:07 18:00 Temperature 102.3 F H 101.9 F H 99.6 F Pulse Rate 106 H 100 H 92 H Respiratory 24 22 22 Rate Blood Pressure 118/84 112/38 L 116/46 L O2 Sat by Pulse 2 L 97 95 Oximetry 07/31/18 07/31/18 07/31/18 20:00 21:24 23:45 Temperature 101.3 F H 101.7 F H Pulse Rate 88 Respiratory 18 14 Rate Blood Pressure 125/40 L O2 Sat by Pulse 98 Oximetry 08/01/18 08/01/18 08/01/18 02:00 04:30 05:57 Temperature 101.5 F H 101.9 F H 101.8 F H Pulse Rate 88 84 Respiratory 22 20 Rate Blood Pressure 147/57 H 114/51 L O2 Sat by Pulse 99 96 Oximetry onstitutional: Appearance-Septic, stable, will awaken to stimuli, poor historian. Are you hungry? Yes, but "The scorpions will eat my eyes." Opened eyes to command, squeezed hand to command, knew left/right to command, but not making sense. NO family in room. Orientation- NON VERBAL, unable to answer/ vocalize that is audible/perceptable GCS 9-10 today. Gait- Unable to ambulate. Build and Nutrition-OBESE FEMALE General- Patient w/ Sepsis, grimace with pain , opens eyes, localizing more than admit, following some commands. Babinski remains down going. She has mild posturing possibly with extension of hips, knees and toe pointing. She is still noting pain with any manipulation of legs. I will check US bilateral LE today. Integumentary: General- Entirety of buttock erythematous with scattered stage 1 and stage 2 pressure lesions. Right buttock abrasion/skin breakdown, oozing capilries. Oval shaped 2.5 cm wide by 1 cm tall. She has a johnson dusky circular lesion, stage 1 pressure ulcer that is roughly 1x1cm. Bilateral inner thigh maceration, buttock maceration. Skin is markedly better than 6 weeks ago prior to crowder. Chronic incontinence has led to breakdown of skin. She came to [place] with wounds peripherally. Entirety of sacrum/buttock appears to be involved. She has some erythema beneath breasts and along panus. Nursing present throughout skin exam. This remains unchanged. Padded and rolled regularly. Head/Neck: No LAD Eye: Closed. Did open to command. Pupils reactive. Bilaterally PERRLA, EOMI followed me. No discharge. Upper and lower eyelids are normal. Sclera/ conjunctiva normal without discharge. Cornea is normal and clear. Lens is normal. Eyeball appears normal. No ciliary flushing, no conjunctival injection. ENMT: Nose and sinus- External appearance normal and midline. Nares- bilateral quiet airflow, no discharge. Nasal mucosa- No bleeding noted and no ulcerations observed. [place], moist. Turbinates non boggy. Lips- normal color, moist without cracks/lesions Oral Cavity/Palate- hard/soft palate intact without lesions, oral mucosa pink and moist. CHEST/LUNG: Inspection- symmetric chest wall Normal effort, Somnolent, breathing comfortably, no obvious distress, Breathing sounds better, better control this am. no use of accessory muscles. Auscultation- Breath coarse, some scattered wheezes, no acute respiratory distress. Decreased/coarse tracheal sounds, bronchial sounds overlying sternum, Bronchovessicular sounds between scapulae posteriorly, vessicular breath sounds heard throughout periphery. Adventitious sounds- Scattered wheezes, improved from yesterday, no rales, scattered rhonchi. CARDIOVASCULAR: Auscultation- Regular rate and rhythm. II/ systolic murmur non radiating. 2nd and 4th intercostal space. Extremities- Edema bilateral LE. ABDOMEN: Inspection- normal and no visible pulsations. Normal contour. Auscultation- Bowel sounds normal, no abdominal bruits. Palpation/Percussion- soft, non-tender, no rebound tenderness, no grimace with palpation. Peripheral Vascular: Upper extremity Left- Normal temperature with pink nailbeds and no ulcerations. Upper extremity Right- Normal temperature with pink nailbeds and no ulcerations. Lower extremity- Normal temperature with pink nailbeds and no ulcerations. DP pulses 2+ bilaterally. Edema- 1+ edema. to mid richards bilaterally. Legs elevated on pillows. Winces whenever legs moved. She has pain to calf compression again today, DVT was negative. Musculoskeletal: Generalized-No generalized swelling or edema of UE but the 1+ to mid richards remains bilaterally. Some e/o posturing with plantar flexion/ pointing toes bilat. Babinski negative, down going. Neurological: General- GCS stable ~10, better. Babinski downgoing. Patellar reflexes 1+ bilaterally symmetrical. No ankle clonus. She is more responsive today. Still withdrawing to pain, now some directed movements. Neuropsych: Oriented- Somnolent, low function at this point. Laboratory Last Values WBC 10.93 K/ul (4.6-10.2) H D 08/01/18 04:30 RBC 3.02 10^6/ul (4.20-5.40) L 08/01/18 04:30 Hgb 9.6 g/dl (12.0-16.0) L 08/01/18 04:30 Hct 32.3 % (37.0-47.0) L 08/01/18 04:30 MCV 107.0 fl (81.0-99.0) H D 08/01/18 04:30 MCH 31.8 pg (27.0-31.0) H 08/01/18 04:30 MCHC 29.7 (31.8-35.4) L 08/01/18 04:30 RDW Coeff of Alexia 14.3 % (11.6-14.8) 08/01/18 04:30 Plt Count 153 10^3/uL (140-440) 08/01/18 04:30 Immature Gran % (Auto) 0.5 % (0.0-5.0) 08/01/18 04:30 Neut % (Auto) 77.0 08/01/18 04:30 Lymph % (Auto) 12.7 (10.0-50.0) 08/01/18 04:30 [place] % (Auto) 8.5 (0-10) 08/01/18 04:30 Eos % (Auto) 0.8 % (0.0-7.0) 08/01/18 04:30 Baso % (Auto) 0.5 % (0.0-3.0) 08/01/18 04:30 Immature Gran # (Auto) 0.1 (0.0-1.0) 08/01/18 04:30 Neut # (Auto) 8.4 K/ul (2.0-6.9) H 08/01/18 04:30 Lymph # (Auto) 1.4 K/uL (0.60-3.4) 08/01/18 04:30 [place] # (Auto) 0.9 K/uL (0.4-2.0) 08/01/18 04:30 Eos # (Auto) 0.1 K/ul (0.0-0.7) 08/01/18 04:30 Baso # (Auto) 0.1 K/uL (0-0.2) 08/01/18 04:30 Anisocytosis Not present (NOT PRESENT) 08/01/18 04:30 Macrocytosis 1+ (NOT PRESENT) 08/01/18 04:30 ESR 65 mm/hr (0-20) H 07/30/18 19:08 Sodium 140.3 mmol/L (137-145) 08/01/18 04:30 Potassium 4.35 mmol/L (3.5-5.1) 08/01/18 04:30 Chloride 111.8 mmol/L (98-107) H 08/01/18 04:30 Carbon Dioxide 19.8 mmol/L (22-30.0) L 08/01/18 04:30 Anion Gap 13.05 08/01/18 04:30 BUN 50.6 mg/dL (7-17) H 08/01/18 04:30 Creatinine 1.27 mg/dL (0.60-1.30) 08/01/18 04:30 Estimated GFR (MDRD) 40.00 mL/min 08/01/18 04:30 BUN/Creatinine Ratio 39.84 08/01/18 04:30 Glucose 122.5 mg/dL (74-106) H D 08/01/18 04:30 Hemoglobin A1c 7.39 (4.0-6.0) H 07/31/18 05:00 Lactic Acid 2.53 mmol/L (0.7-2.1) H 07/30/18 19:25 Calcium 10.52 mg/dL (8.4-10.2) H 08/01/18 04:30 Magnesium 1.61 mg/dL (1.6-2.3) 07/30/18 19:00 Total Bilirubin 0.52 mg/dL (0.2-1.3) 08/01/18 04:30 AST 22.6 U/L (14-36) 08/01/18 04:30 ALT 13.7 U/L (0-35) 08/01/18 04:30 Alkaline Phosphatase 91.2 U/L (53-141) D 08/01/18 04:30 Total Protein 6.32 g/dL (6.3-8.2) 08/01/18 04:30 Albumin 3.38 g/dL (3.5-5.0) L 08/01/18 04:30 Globulin 2.94 08/01/18 04:30 Albumin/Globulin Ratio 1.14 08/01/18 04:30 Urine Color Yellow (YELLOW) 07/30/18 19:26 Urine Clarity Turbid (CLEAR) 07/30/18 19:26 Urine pH 5.5 (5-9) 07/30/18 19:26 Ur Specific [place] 1.020 (1.005-1.030) 07/30/18 19:26 Urine Protein 3+ (NEGATIVE) 07/30/18 19: Urine Glucose (UA) Trace (NEGATIVE) 07/30/18 19: Urine Ketones Negative (NEGATIVE) 07/30/18 19: Urine Blood 3+ (NEGATIVE) 07/30/18 19: Urine Nitrite Negative (NEGATIVE) 07/30/18 19: Urine Bilirubin Negative (NEGATIVE) 07/30/18 19: Urine Urobilinogen 0.2 (0.2) 07/30/18 19:26 Ur Leukocyte Esterase 3+ (NEGATIVE) 07/30/18 19:26 Urine Microscopic RBC 10-20 (0-2) 07/30/18 19:26 Urine Microscopic WBC 30-50 (0-2) 07/30/18 19:26 Ur Squamous Epith Cells 5-10 (0-5) 07/30/18 19:26 Urine Bacteria 1+ (NOT PRESENT) 07/30/18 19:26 Urine Mucus 1+ (NOT PRESENT) 07/30/18 19:26 Influ A Molecular Assay Negative by naat (NEGATIVE) 07/30/18 19:26 Influ B Molecular Assay Negative by naat (NEGATIVE) 07/30/18 19:26 Blood culture pending Urine culture pending (1) SIRS (systemic inflammatory response syndrome) Status: Acute Code(s): R65.10 - SIRS OF NON-INFECTIOUS ORIGIN W/O ACUTE ORGAN DYSFUNCTION SNOMED Code(s): 405731316 (2) Obtunded Status: Acute Code(s): R40.1 - STUPOR SNOMED Code(s): 49339750 (3) Hyperkalemia Status: Acute Code(s): E87.5 - HYPERKALEMIA SNOMED Code(s): 69110214 (4) Leukocytosis Status: Acute Code(s): D72.829 - ELEVATED WHITE BLOOD CELL COUNT, UNSPECIFIED SNOMED Code(s): 677651774 (5) Hypercalcemia Status: Acute Code(s): E83.52 - HYPERCALCEMIA SNOMED Code(s): 46591495 (6) Chronic anemia Status: Acute Code(s): D64.9 - ANEMIA, UNSPECIFIED SNOMED Code(s): 262728154 (7) COPD (chronic obstructive pulmonary disease) Status: Acute Code(s): J44.9 - CHRONIC OBSTRUCTIVE PULMONARY DISEASE, UNSPECIFIED SNOMED Code(s): 18615687 (8) Diabetes mellitus type 2 in obese Status: Acute Code(s): E11.9 - TYPE 2 DIABETES MELLITUS WITHOUT COMPLICATIONS SNOMED Code(s): 33538848 (9) Sepsis Status: Acute Code(s): A41.9 - SEPSIS, UNSPECIFIED ORGANISM SNOMED Code(s): 67521087 (10) UTI (urinary tract infection) Status: Acute Code(s): N39.0 - URINARY TRACT INFECTION, SITE NOT SPECIFIED SNOMED Code(s): 13019184 (11) Altered mental status Status: Acute Code(s): R41.82 - ALTERED MENTAL STATUS, UNSPECIFIED SNOMED Code(s): 484553845 (12) Dehydration Status: Inactive Code(s): E86.0 - DEHYDRATION SNOMED Code(s): 67192636 (13) Decubitus ulcers Status: Acute Code(s): L89.90 - PRESSURE ULCER OF UNSPECIFIED SITE, UNSPECIFIED STAGE SNOMED Code(s): 609784598 Plan: SIRS w/ Suspected Urosepsis/Altered mental status: On invanz 1 Gram daily, this is day 3. Creatinine is stable, we will continue dose. Mental health has slid again this am, now somnolent, hard to arouse. GCS back 8-10. I will talk with son about stopping sedating meds and reassess neuro status. Leukocytosis continues to improve. Hyperkal resolved, Hypercal continues to improve/stable. Anemia improved. She remains NPO, attempted speech but not arousable enough to complete study. She has bilateral leg pain, US negative for DVT. Prominent history of eSBL. Urine culture showed RODS. Await final C+S. Invanz was good choice before, we will continue this until we have better data to go off of. With fever last 24 despite abx, I will check Echo, check C.diff. Family not present at bedside this am, I called and left . Tele good, uout good. Culture finals still pending. I still do not suspect pneumonia, CXR negative, her breathing seems stable, no reports of aspiration and no obvious COPD exacerbation. - Abx day #3/7 Invanz (crCl monitored by me, keep current dose for now). - Telemetery - Continue Fall precaution - CBC/CMP in am tomorrow - Urine Culture final pending await results . - Blood culture NEGATIVE - INVANZ based on last 2 cultures. - Monitor fluid status. COPD (chronic obstructive pulmonary disease) (Chronic): Stable, breathing is better this am. Not in acute exacerbation - Continue nebs PRN. Chronic anemia (Chronic): Repeat CBC daily in am, stable - CBC in am. Diabetes mellitus type 2 in obese (Chronic): A1C <8.0 and reasonable. Goal 140- 180. Continue lantus 5 and SSI for now. She is NPO. - Lantus 5 units daily - SSI as per orders Hypercalcemia (Acute): Fluid hydration improved sx. Asymptomatic, monitor. Stable - Telemetery - Fluid hydration NS 100ml/hour while NPO - Repeat Cmp in am. Hyperkalemia (Acute): RESOLVED Leukocytosis (Acute): Improving. Now down to 10.93 from 22. Sepsis, Steroidal effect. Monitor. On Invanz. - Monitor am CBC Altered mental status (Acute): Mildly Worsening again, Nursing to monitor. I will talk with son about holding rispderal, monitor status. I will continue to assess daily status on rounds. - Neurochecks d/w nursing. - Tele monitoring. Diet: NPO for now. Will continue reassess. Speech could not complete assessment as she was not arousable. Fluids: Continue NS 100 ml/hr. [place] body weight for her suggests that maintenance fluids should be 94-124 and we will chontinue 100ml/hour NS for now. Renal function is better than yesterday. No e/o fluid overload CXR, lung exam or with peripheral exam. Continue for now. - Net balance ~500ml +/ - Continue monitor. Leg pain: Still grimace with manipulation, DVT negative based on US. ROBER: Stable actually. Activity: Bed alarm. Fall precaution. DVT Prophy: - Lovenox 30 to continue Code STatus: DNR Disposition: Fever persists, she is on abx, flu negative, CXR neg, blood cultures neg, Urine w/ Rods likely ESBL again. MSRA in nares +, wound negative. Vitals stable, labs look better, she looks clinically worse than yesterday. I am concerned that she may be entering into stages of , altered mental status, avoidance from stimuli, avoidance of food, abnormal temperature problems. I have reached out to son, left message and will f/u with this. For now with fever unknown origin (we will check echo and Cdiff and ct abd/pelvis without). She is allergic to IV dye, we will not use that. Family not here this am, left. I will talk with them about wishes/status of patient and keep updated. At this time we need to decide to transfer to higher level of care or consider de-escalate. Without food, without ability to drink, without arousal, concern for longevity. We are doing all we can for her at this point, still febrile, unknown cause. No overt diarrhea, stool smelled/ acted like Cdiff per nurse so I will check that and possibly add IV flagyl NOt tolerating PO, risks of aspiration. Guarded situation. >35 minutes rounding today. Addendum: 9:30 08/01/18: She was sent for CT and much more awake/alert. CT ABD returned as negative for acute process. Blood cx negative. Urine culture still pending. Echo scheduled for tomorrow. Addendum 2: 08/02 12:15 am: Culture returned Pseudomonas + In Urine. I added cefepime 1 Gram q day based on renal function. I will talk with lab in am and check if E. Coli present. If not, stop ertapenem as this can worsen resistance patterns of pseudomonas. Fred WADDELL, et al Exposure to ertapenem is possibly associated with Pseudomonas Aeruginosa abx resistant Clin Microbiol Infect 2014 ; 20:0188.
[2018-08-01] MEDS: LANTUS SUBCUT SCH (09:46)
[2018-08-01] MEDS: RISPERDAL PO SCH ×2 (09:47→20:11)
[2018-08-01] MEDS: ZESTRIL PO SCH ×2 (09:48→20:11)
[2018-08-01] MEDS: MAG-OX PO SCH (09:48)
[2018-08-01] MEDS: MIRALAX PO SCH (09:48)
[2018-08-01] MEDS: NEURONTIN PO SCH ×2 (09:49→20:11)
[2018-08-01] MEDS: ASPIRIN EC PO SCH (09:49)
[2018-08-01] MEDS: NORCO 10-325 PO PRN ×2 (09:55→22:28)
--- NOTE | 2018-08-01 10:03 | CT ---
EXAM: CT abdomen pelvis without contrast HISTORY: Persistent fever COMPARISON: CT abdomen pelvis 05/15/2018 and multiple priors TECHNIQUE: Serial axial images of the abdomen pelvis were performed from the lung bases through the inferior pelvis without contrast. These were viewed in multiple planes. FINDINGS: There is minimal bibasilar atelectasis and trace effusions. There is limited evaluation due to lack of contrast. The liver is unremarkable. The gallbladder has been resected. The adrenal glands are mildly nodular. Kidneys are unremarkable with mild perinephri c stranding. Urinary bladder is decompressed with a Monterroso catheter in place. Spleen is unremarkable . Pancreas is normal. The stomach is nondistended. Small bowel in the abdomen pelvis is unremarkable. The colon demonstrates diverticulosis without div erticulitis. There is no free air or free fluid. There is minimal hazy ground-glass in the dependen t aspect of the pelvis. The osseous structures are unchanged with scattered degenerative disease of t he spine. IMPRESSION: 1. No acute intra-abdominal or pelvic process to account for patient's symptoms. 2. Prior cholecystectomy. 3. Minimal bibasilar atelectasis and trace effusions. 4. Diverticulosis without diverticulitis.
[2018-08-01] MEDS: HUMULIN R SUBCUT PRN ×2 (14:36→16:43)
[2018-08-01] MEDS: TYLENOL PO PRN (16:04)
[2018-08-01] MEDS: LOVENOX SUBCUT SCH (20:10)
[2018-08-01] MEDS: TRILEPTAL PO SCH (20:11)
[2018-08-01] MEDS: INVANZ 1 GM in SODIUM CHLORIDE 50 ML IV SCH (20:12)
[2018-08-02] MEDS: SODIUM CHLORIDE 1,000 ML IV SCH ×3 (00:15→22:08)
[2018-08-02] MEDS ORDERED: MAXIPIME ONE (00:24)
[2018-08-02] MEDS: MAXIPIME 1 GM in SODIUM CHLORIDE 50 ML IV SCH ×2 (00:27→08:37)
[2018-08-02] MEDS: NYSTATIN CREAM TP SCH ×4 (03:50→20:42)
[2018-08-02] MEDS: PROTONIX PO SCH (06:25)
[2018-08-02] MEDS: LANTUS SUBCUT SCH (08:29)
[2018-08-02] MEDS: MAG-OX PO SCH (08:33)
[2018-08-02] MEDS: ZESTRIL PO SCH ×2 (08:33→20:41)
[2018-08-02] MEDS: NEURONTIN PO SCH ×2 (08:33→20:41)
[2018-08-02] MEDS: ASPIRIN EC PO SCH (08:34)
[2018-08-02] MEDS: CALMOSEPTINE OINTMENT TP SCH ×2 (08:34→20:43)
[2018-08-02] MEDS: DUONEB NEB PRN ×2 (09:15→12:44)
[2018-08-02] MEDS: RISPERDAL PO SCH ×2 (10:18→20:41)
[2018-08-02] MEDS: MIRALAX PO SCH (10:19)
[2018-08-02] MEDS: NORCO 10-325 PO PRN (10:39)
--- NOTE | 2018-08-02 11:30 | PCM.PROG ---
Subjective: 83 yo Hospital Day 4, rounding day 3, resident of [facility] presented to our hospital obtunded, alterred mental status w/ 5 days worsening. Chronic crowder in place, chronic pressure ulcers bilateral buttock, maceration tissue inner thighs, chronic ESBL. She is awake this am, more arousable. Urine culture returned pseudomonas, I changed her abx from ertapenem to cefepime based on C+ S. CT abd/pelvis w/o contrast (contrast allergy), no acute issues. WE will get echo to make sure no vegetation. She is breathing comfortably, eating more of her food, now consuming something like 25% of her meal. There have been increased security factors for her to keep info from daughter, per son Jack LONGORIAEdelmira. Vitals look good, she has been afebrile ~24 hours. We will hold risperdal , continue norco and see how she improves. We will consider Swing bed vs d/c back to NH in next 1-2 days if she continues to improve. Once daily cefepime can be used in NH for total of 7 days. I discussed with livia Santiago via phone this am that we may simply check a urine culture every 10-14 days and use 3-5 days abx if needed, at least until we can get opinion of urology. Skin of buttock continues to improve/heal. She has pain all over per her report and requested the norco this am. Calves are symmetrical, not edematous and appear to be stable. Blood culture negative. Labs look stable and improved from admit as of yesterday. Repeat labs 08/03/18. No changes today besides abx and stop rispderal. disposition important for tomorrow. Sugars look much better. Urine output looks better. Tele reviewed SR. Nursing consulted, reviewed all notes from yesterday. MRSA nares, skin negative, blood negative, now urine + Pseudomnas. Son updated. Uout: Cath 0.67 ml/kg/hr, 0.60 ml/kg/hr. Glucose: 186, 122,165,137,122 %Meal: Lunch 08/01 25% Dinner 08/01 25% ROS: No family in room, patient with metabolic encephalopathy/dementia. Awake, "I hurt all over." No other information could be obtained from patient. Objective: Vital Signs - 24 hr 08/01/18 08/01/18 08/01/18 13:33 18:00 21:42 Temperature 98.8 F 98.5 F 98.0 F Pulse Rate 76 72 74 Respiratory 16 18 16 Rate Blood Pressure 111/46 L 121/57 L 141/78 H O2 Sat by Pulse 97 97 94 L Oximetry 08/02/18 08/02/18 05:53 10:00 Temperature 98.6 F 97.4 F L Pulse Rate 68 85 Respiratory 14 19 Rate Blood Pressure 143/68 H 168/65 H O2 Sat by Pulse 96 96 Oximetry Constitutional: Appearance-Improving, awake, answered some questions today, followed commands. poor historian. Stuck out tongue, moved hands. Some edema of bilateral arms but she does not use them. Rolling patient regularly for skin care. Most of her words continue to not make sense. NO family in room again, son called personally Orientation- Minimally VERBAL, unable to answer/ vocalize that is audible/perceptable GCS 14 today [id number] (Although confused). Gait- Unable to ambulate. Build and Nutrition-OBESE FEMALE General- Grimace with pain, opens eyes, localizing more, following some commands. Babinski remains down going. She continues to plantarflex and have extension of hips, knees and toe pointing. Cries out when moved. She is still noting pain with any manipulation of legs. I will check US bilateral LE today. Integumentary: General- Buttock padded. Skin remains macerated, improving/ healing. Head/Neck: No LAD Eye: Pupils reactive. Bilaterally PERRLA, EOMI followed me. No discharge. Upper and lower eyelids are normal. Sclera/conjunctiva normal without discharge. Cornea is normal and clear. Lens is normal. Eyeball appears normal. No ciliary flushing, no conjunctival injection. ENMT: Nose and sinus- External appearance normal and midline. Nares- bilateral quiet airflow, no discharge. Nasal mucosa- No bleeding noted and no ulcerations observed. [place], moist. Turbinates non boggy. Lips- normal color, moist without cracks/lesions Oral Cavity/Palate- hard/soft palate intact without lesions, oral mucosa pink and moist. CHEST/LUNG: Inspection- symmetric chest wall Normal effort, Somnolent, breathing comfortably, no obvious distress, Breathing sounds better, better control this am. no use of accessory muscles. Auscultation- Breath coarse, some scattered wheezes, no acute respiratory distress. Decreased/coarse tracheal sounds, bronchial sounds overlying sternum, Bronchovessicular sounds between scapulae posteriorly, vessicular breath sounds heard throughout periphery. Adventitious sounds- Scattered wheezes/ Rhonchi a little worse than yesterday/ CARDIOVASCULAR: Auscultation- Regular rate and rhythm. II/ systolic murmur non radiating. 2nd and 4th intercostal space. Extremities- Edema bilateral LE. ABDOMEN: Inspection- normal and no visible pulsations. Normal contour. Auscultation- Bowel sounds normal, no abdominal bruits. Palpation/Percussion- soft, non-tender, no rebound tenderness, no grimace with palpation. Peripheral Vascular: Upper extremity Left- Normal temperature with pink nailbeds and no ulcerations. Upper extremity Right- Normal temperature with pink nailbeds and no ulcerations. Lower extremity- Normal temperature with pink nailbeds and no ulcerations. DP pulses 2+ bilaterally. Edema- 1+ edema. to mid richards bilaterally. Legs elevated on pillows. Winces whenever legs moved. She has pain to calf compression again today. This appears chronic. Musculoskeletal: Generalized-No generalized swelling or edema of UE but the 1+ to mid richards remains bilaterally. Some e/o posturing with plantar flexion/ pointing toes bilat. Babinski negative, down going. Limited ROM of hips/ shoulders, limited movement, does not get out of bed. Neurological: General- GCS stable ~14 (CONFUSED) better. Babinski downgoing. Patellar reflexes 1+ bilaterally symmetrical. No ankle clonus. She is more responsive today. Still withdrawing to pain, now some directed movements. Neuropsych: Oriented- Less Somnolent, confused/dementia prominently. Still ? sedation. Hold rispderal to see if this helps. LABS/IMAGING No new labs this am 08/02/18. Imaging review from yesterday. CT Abd/Pelivs 08/01/18: No acute intra-abd or pelvic process to account for sx. Prior andres, minimal bibasilar atelectasis/trace effusion, diverticulosis w/o diverticulitis. (1) SIRS (systemic inflammatory response syndrome) Status: Acute Code(s): R65.10 - SIRS OF NON-INFECTIOUS ORIGIN W/O ACUTE ORGAN DYSFUNCTION SNOMED Code(s): 304731412 (2) Obtunded Status: Acute Code(s): R40.1 - STUPOR SNOMED Code(s): 06535874 (3) Hyperkalemia Status: Acute Code(s): E87.5 - HYPERKALEMIA SNOMED Code(s): 75890993 (4) Leukocytosis Status: Acute Code(s): D72.829 - ELEVATED WHITE BLOOD CELL COUNT, UNSPECIFIED SNOMED Code(s): 379849751 (5) Hypercalcemia Status: Acute Code(s): E83.52 - HYPERCALCEMIA SNOMED Code(s): 31462739 (6) Chronic anemia Status: Acute Code(s): D64.9 - ANEMIA, UNSPECIFIED SNOMED Code(s): 792669276 (7) COPD (chronic obstructive pulmonary disease) Status: Acute Code(s): J44.9 - CHRONIC OBSTRUCTIVE PULMONARY DISEASE, UNSPECIFIED SNOMED Code(s): 65207223 (8) Diabetes mellitus type 2 in obese Status: Acute Code(s): E11.9 - TYPE 2 DIABETES MELLITUS WITHOUT COMPLICATIONS SNOMED Code(s): 64495911 (9) Sepsis Status: Acute Code(s): A41.9 - SEPSIS, UNSPECIFIED ORGANISM SNOMED Code(s): 38636217 (10) UTI (urinary tract infection) Status: Acute Code(s): N39.0 - URINARY TRACT INFECTION, SITE NOT SPECIFIED SNOMED Code(s): 48870459 (11) Altered mental status Status: Acute Code(s): R41.82 - ALTERED MENTAL STATUS, UNSPECIFIED SNOMED Code(s): 987596612 (12) Dehydration Status: Inactive Code(s): E86.0 - DEHYDRATION SNOMED Code(s): 52125700 (13) Decubitus ulcers Status: Acute Code(s): L89.90 - PRESSURE ULCER OF UNSPECIFIED SITE, UNSPECIFIED STAGE SNOMED Code(s): 805459090 Plan: SIRS w/ Suspected Urosepsis/Altered mental status: I have stopped invanz 1 Gram daily as of today. Cefepime Day 1 with 1gram daily. Repeat CBC/CMP tomorrow 08/03/18. Consider swing transfer vs transfer back to [place] with 7 days of IV cefepime as she is now fever free 24 hours, improving. Eating meals again , more awake and alert. MOnitor remainder of today. Check labs tomorrow to make sure creatinine is stable. Mental health up again. She is up and down. GCS 14 but confused. I have kept son abreast of situation as new information available. Echo tomorrow. CT reviewed and negative. Vitals look good, tele looks good, uout looks good. I will get her to see urology as outpatient. We have stopped rispderal for now. If mood/behavior change, consider resuming this agent. Repeat CBC tomorrow to asses leukocytosis, K+, Ca++ from admit. Persistent bilateral leg pain, shoulder, hip. "I hurt all over." We will continue her norco. US was previously completed and negative for DVT. Prominent history of eSBL now urine culture shows no ESBL + Pseudomonas. Changed abx to cover this agent. Cdiff was neg. Family not present at bedside this am, I called and talked with son via phone, while on floor and had 10 minute conversation in addition to 30 minutes talking with staff/reviewing data on patient and relaying this too son. Tele good, uout good. Blood culture negative. - Abx day 1 Cefepime - Completed 3 days of invanz, stop this agent. - Continue Telemetery - Continue Fall precaution - CBC/CMP in am tomorrow - Blood culture NEGATIVE - Monitor fluid status (mild arm edema). COPD (chronic obstructive pulmonary disease) (Chronic): Stable, breathing is stable to mildly worse but just awoke. Recommended duoneb this am. - Continue nebs PRN. Chronic anemia (Chronic): Repeat CBC daily in am, stable - CBC in am 08/03 Diabetes mellitus type 2 in obese (Chronic): A1C <8.0 and reasonable. Sugars look good. Goal 140-180. Continue lantus 5 and SSI for now. She is on diet now. - Lantus 5 units daily - SSI as per orders Hypercalcemia (Acute): Fluid hydration improved sx. Asymptomatic, monitor. Stable Repeat 08/03/18 - Telemetery - Fluid hydration NS 100ml/hour - Repeat Cmp in am. Hyperkalemia (Acute): RESOLVED Leukocytosis (Acute): Change abx from invanz to cefepime - Monitor am CBC Altered mental status (Acute): Up and down, now in a mildly up position. continue to monitor. I talked with son about holding rispderal, he liked it, had to be done before. We will hold this. - Neurochecks d/w nursing. - Tele monitoring. Diet: Eating some. Continue to encourage meals. Fluids: Continue NS 100 ml/hr. [place] body weight for her suggests that maintenance fluids should be 94-124 and we will chontinue 100ml/hour NS for now. Renal function is better than yesterday. No e/o fluid overload CXR, lung exam or with peripheral exam. Continue for now. - Continue monitor. Leg pain: Still grimace with manipulation, DVT negative based on US. ROBER: Repeat CMP tomorrow to reassess. Activity: Bed alarm. Fall precaution. DVT Prophy: - Lovenox 30 to continue Code STatus: DNR Disposition: Now afebrile. Discussed with son urine culture results, discussed I may have been wrong about fever, just not right abx. She is better this am, cefepime started last night. I would like 7 days of cefepime. Will consult pharmacy tomorrow for best dose. Blood cultures neg, MSRA in nares +, wound negative, C. Diff neg. Vitals stable, labs to be obtained again 08/03/18, none today. she looks clinically best yet, much better than yesterday. I have reached out to son, left message and will f/u with this. Echo tomorrow. ?Swing , ?Return to NH if continues improvement. Now eating/drinking some. . >35 minutes rounding today.
[2018-08-02] MEDS: HUMULIN R SUBCUT PRN ×2 (11:42→17:33)
[2018-08-02] MEDS: TYLENOL PO PRN (13:27)
[2018-08-02] MEDS: LOVENOX SUBCUT SCH (20:40)
[2018-08-02] MEDS: TRILEPTAL PO SCH (20:41)
[2018-08-03] MEDS: PROTONIX PO SCH (06:19)
[2018-08-03] MEDS: NYSTATIN CREAM TP SCH ×3 (06:19→14:34)
--- NOTE | 2018-08-03 07:51 | PCM.PROG ---
Subjective: 83 yo Hospital Day 5, rounding day 4, admitted on 07/30/18 and discharged markedly improved. She is a resident of [facility] who presented to our hospital obtunded, alterred mental status w/ 5 days worsening symptoms. SIRS + Sepsis suspected with urological source. Treated initially with invanz x 3 days, then changed to cefepime late satruday 08/01/18 to 1 Gram every 24 hours based on her CrCl of <60. Chronic crowder in place, changed recently. She has chronic pressure ulcers bilateral buttock, that are healing w/ rolling and calmoseptine. Maceration tissue inner thighs improving. Historical/chronic ESBL but recent culture ESBL negative and Pseudomonas +. She has had improvement in mental status over the stay. She has been fever free since 08/01 0557, receiving tylenol and norco for pain. Mental health/cognitive alertness has improved and she has tried some food. She did choke a little on nectar thick. Speech eval attempted x 1 and she was not awake enough to complete it. I have asked for them to return today for another evaluation. I will increase her abx from 1G q 24 to 2G q 12 as the CrCl is now 57-64. I will check with pharmacy. I would like to complete 7 days of this agent. NH at [facility] can do q12 abx. The patient is being rolled regularly. I discussed care with the am nurses today, reviewed her tele, which ranged from NSR to Sinus paced. Vitals reviewed, good urine output >0.5ml/kg/hour except 1 shift. She is markedly more alert this am, knew year 2017, knew month as july and that she is at [place]. She wants to go back to where she was. I will contact son this am. I called him at 8 this am and he was pleased to hear about the improvement. She is markedly more awake this am, more arousable. We have held the risperdal and the mybetriq. So far CXR at admit negative, CT abd/pelvis w/ o contrast (contrast allergy) negative and without acute issues. DVT ordered due to "HURT EVERYWHERE," and negative for clot. Labs are improving Leukocytosis at admit has improved and normal now. She started on 07/30/18 with 22.42, decreased steadily to 18.07, 10.93 and now at 5.84. Hgb 10.8 to 9.1 to 9.6 and to 9.0, which appears stable. No e/o blood in stool. Plt normal 238, 190, 153, 148. She had a hyperkalemia at admit with K+ 5.24, decreased to 4.54, 4.35 and now 4.10. Ca++ 11.13, to 10.76 to 10.52 to 9.60. Creatinine improved from 1.39 to 1.6 to 1.27 to 0.8. I still have planned an echo to make sure no vegetation. This is less likely now that she is fever free as noted. Diarrhea that came and went during hospital stay was tested and negative for Cdiff. She is breathing more comfortably, eating more of her food than admit, but ?choking. We will get her to see the speech therapist today, we will complete the echo for the heart murmur and as per wishes of patient and ANDRES, d/c back to [facility] today. We reviewed her hospital record/stay. BG elevated initially (STEROIDS IN ER) but these have normalized with 5 units of lantus daily and SSI. There has been some issues with legal visitation between son Jack CAMPOS and daughter Zita. We have tried to comply with wishes of family. Visitations have gone well. This am patient noted "I want to go back to where I was." I have rediscussed hospice. Patient susy is up and down, now with chronic indwelling catheter. I would like her to meet with urology. I would like to consider relatively regular Urine culture and consider tx with 3-5x abx if culture positive or at first signs of cognitive sliding again. Family wants everything done, we have had lengthy discussion previously and again at admit about end of life planning. She is DNR. We will resume home meds. I will hold rispderal and myrbetriq. She is having regular BM, good uout, vitals look good, tele looks good, labs look much better, skin is better rolling regularly/skin barrier protection, fever free since 08/01/18 and cognition is improving. Kidney function better, resolved hyperkalemia, hypercalcemia, chronic anemia that is stable, luekocytosis resolved. At this point I believe she is safe for transfer back to senior care. I remain cautious of overall health as she continues to have these events. I suspect recurrent UTI to be a theme and would like to be proactive. Discussed this with the son at length over last few days. Speech saw her today. I was called at 11 am and told that honey thick encouraged, direct obs of feeding recommended. Risk of aspiration. Delayed swallowing, speech to f/u at [facility]. ROS: I hurt all over. I want to go back to where I was. +Cough, +wheezing, unchanged. SHe is choking on food. Chronic skin breakdown buttock, evaluated with nurse and with assistant import manager. WE helped clean her this am, apply cream. I wiped mouth, used some mint flavored paper cleaner, applied lip moisturizer and she felt it helped a lot. Sacral area unchanged to improved, definitely not worsening. Leg pain chronically, unchanged from admit. ROM decreased regularly , not getting out of bed in multiple months. Plantar flexion toes regularly. Limited ROM about shoulders, hips, elbows, knees. Semi-chronic hand edema which is not pitting and likely dependent. Objective: Vital Signs - 24 hr 08/02/18 08/02/18 08/02/18 10:00 14:00 18:00 Temperature 97.4 F L 99.7 F H 98.8 F Pulse Rate 85 84 66 Respiratory 19 17 14 Rate Blood Pressure 168/65 H 171/74 H 137/64 O2 Sat by Pulse 96 94 L 97 Oximetry 08/02/18 08/03/18 08/03/18 22:00 02:00 06:00 Temperature 98.0 F 98.1 F 98.5 F Pulse Rate 66 63 70 Respiratory 20 12 16 Rate Blood Pressure 135/56 L 134/70 138/57 L O2 Sat by Pulse 96 100 100 Oximetry Constitutional: Appearance-Improving, awake, answered more questions today, followed commands. still poor historian. GCS 15 today. Aware of name, day, date, month, hospital/[facility]. Stuck out tongue, closed eyes, gripped hands L and R to command and correct. She still has some edema of bilateral arms mostly in hands that is dependent, limited ROm of shoulders chronially. Rolling patient regularly for skin care. Most of her words continue to be mumbled but if you ask her to speak up she is making more sense. NO family in room again, son called personally this am at 8 am and care d/w with him Orientation- Improving, remains minimally VERBAL, Still somewhat confused. Gait - Unable to ambulate. Build and Nutrition-OBESE FEMALE General- Grimace with pain, opens eyes, localizing more, following some commands. Babinski remains She continues to plantarflex feet, any movement causes her to cry out. She is still noting pain with any manipulation of legs. Integumentary: General- Buttock padded. Skin remains macerated, improving/ healing. Head/Neck: No LAD Eye: Pupils reactive. Bilaterally PERRLA, EOMI followed me. No discharge. Upper and lower eyelids are normal. Sclera/conjunctiva normal without discharge. Cornea is normal and clear. Lens is normal. Eyeball appears normal. No ciliary flushing, no conjunctival injection. ENMT: Nose and sinus- External appearance normal and midline. Nares- bilateral quiet airflow, no discharge. Nasal mucosa- No bleeding noted and no ulcerations observed. [place], moist. Turbinates non boggy. Lips- normal color, dry. Moisture applied. moist without cracks/lesions Oral Cavity/Palate- hard/ soft palate intact without lesions, oral mucosa pink and moist. CHEST/LUNG: Inspection- symmetric chest wall Normal effort, Somnolent, breathing comfortably, no obvious distress, Breathing sounds better, better control this am. no use of accessory muscles. Auscultation- Breath coarse, some scattered wheezes, no acute respiratory distress. Decreased/coarse tracheal sounds, bronchial sounds overlying sternum, Bronchovessicular sounds between scapulae posteriorly, vessicular breath sounds heard throughout periphery. Adventitious sounds- Scattered wheezes/ Rhonchi a little worse than yesterday/ CARDIOVASCULAR: Auscultation- Regular rate and rhythm. II/ systolic murmur non radiating. 2nd and 4th intercostal space. Extremities- Edema bilateral LE. ABDOMEN: Inspection- normal and no visible pulsations. Normal contour. Auscultation- Bowel sounds normal, no abdominal bruits. Palpation/Percussion- soft, non-tender, no rebound tenderness, no grimace with palpation. Peripheral Vascular: Upper extremity Left- Normal temperature with pink nailbeds and no ulcerations. Upper extremity Right- Normal temperature with pink nailbeds and no ulcerations. Lower extremity- Normal temperature with pink nailbeds and no ulcerations. DP pulses 2+ bilaterally. Edema- 1+ edema. to mid richards bilaterally. Legs elevated on pillows. Winces whenever legs moved. She has pain to calf compression again today. This appears chronic. Musculoskeletal: Generalized-No generalized swelling or edema of UE but the 1+ to mid richards remains bilaterally. Some e/o posturing with plantar flexion/ pointing toes bilat. Babinski negative, down going. Limited ROM of hips/ shoulders, limited movement, does not get out of bed. Neurological: General- GCS stable ~14 (CONFUSED) better. Babinski downgoing. Patellar reflexes 1+ bilaterally symmetrical. No ankle clonus. She is more responsive today. Still withdrawing to pain, now some directed movements. Neuropsych: Oriented- Less Somnolent, more awake/alert. AAOx3 today. Chronic dementia. Less sedated. (1) SIRS (systemic inflammatory response syndrome) Status: Acute Code(s): R65.10 - SIRS OF NON-INFECTIOUS ORIGIN W/O ACUTE ORGAN DYSFUNCTION SNOMED Code(s): 163693199 (2) Obtunded Status: Acute Code(s): R40.1 - STUPOR SNOMED Code(s): 48054826 (3) Hyperkalemia Status: Acute Code(s): E87.5 - HYPERKALEMIA SNOMED Code(s): 19510472 (4) Leukocytosis Status: Acute Code(s): D72.829 - ELEVATED WHITE BLOOD CELL COUNT, UNSPECIFIED SNOMED Code(s): 390223576 (5) Hypercalcemia Status: Acute Code(s): E83.52 - HYPERCALCEMIA SNOMED Code(s): 73829400 (6) Chronic anemia Status: Acute Code(s): D64.9 - ANEMIA, UNSPECIFIED SNOMED Code(s): 107514835 (7) COPD (chronic obstructive pulmonary disease) Status: Acute Code(s): J44.9 - CHRONIC OBSTRUCTIVE PULMONARY DISEASE, UNSPECIFIED SNOMED Code(s): 77572844 (8) Diabetes mellitus type 2 in obese Status: Acute Code(s): E11.9 - TYPE 2 DIABETES MELLITUS WITHOUT COMPLICATIONS SNOMED Code(s): 39500000 (9) Sepsis Status: Acute Code(s): A41.9 - SEPSIS, UNSPECIFIED ORGANISM SNOMED Code(s): 71376769 (10) UTI (urinary tract infection) Status: Acute Code(s): N39.0 - URINARY TRACT INFECTION, SITE NOT SPECIFIED SNOMED Code(s): 50210955 (11) Altered mental status Status: Acute Code(s): R41.82 - ALTERED MENTAL STATUS, UNSPECIFIED SNOMED Code(s): 040209764 (12) Decubitus ulcers Status: Acute Code(s): L89.90 - PRESSURE ULCER OF UNSPECIFIED SITE, UNSPECIFIED STAGE SNOMED Code(s): 839307876
[2018-08-03] MEDS ORDERED: MAXIPIME 2 GM in SODIUM CHLORIDE 100 ML IV SCH (09:00)
[2018-08-03] MEDS: SODIUM CHLORIDE 1,000 ML IV SCH (09:17)
[2018-08-03] MEDS: LANTUS SUBCUT SCH (09:19)
[2018-08-03] MEDS: RISPERDAL PO SCH (09:20)
[2018-08-03] MEDS: ASPIRIN EC PO SCH (09:20)
[2018-08-03] MEDS: ZESTRIL PO SCH (09:21)
[2018-08-03] MEDS: NORCO 10-325 PO PRN (09:21)
[2018-08-03] MEDS: NEURONTIN PO SCH (09:21)
[2018-08-03] MEDS: MIRALAX PO SCH (09:21)
[2018-08-03] MEDS: CALMOSEPTINE OINTMENT TP SCH (09:22)
[2018-08-03] MEDS: MAG-OX PO SCH (09:24)
[2018-08-03 09:45] VITALS: BP 126/84; TEMP 99.8
--- NOTE | 2018-08-03 10:32 | ECHO2D ---
Date of Exam: 08/02/18 Ordering Physician: DR. TED MULLEN Room #: SCU 2 Reason for Echo: UNKNOWN FEVER ORIGIN M-Mode Normal Adult Results LV Dimensions Normal Adult Results AoV Opening excursions >1.6 >1.6 LVEDD-base- 3.5-5.8 3.7 Ao root dimensions 2.0-3.7 3.4 LVESD-base- 3.1-4.6 L. Atrium dimensions 1.9-3.8 4.4 Post. Wall thickness 0.8-1.1 1.2 IV septum (thickness) 0.7-1.2 1.2 Post. Wall excursion 0.72-1.3 NORMAL Septal motion NORMAL Systolic motion R. Ventricular cavity 1.5-2.0 NORMAL LVEF 60% 69% Paradoxical septal wall motion NORMAL 2-D : 2-D M Mode Echocardiogram was performed using apical four chamber and left parasternal long and short axis views. Mitral, tricuspid and aortic valves appear to be normal. Contractility of the left ventricle seems to be normal, so is the cavity size. Enlarged left atrial cavity size. Aortic root appear to be normal. There is no pericardial effusion. There is no thrombus noted in the left ventricular or left aortic cavity. No mitral valve prolapse noted. M-MODE: MV: NORMAL AV: NORMAL TV: NORMAL PV: NORMAL CHAMBER SIZE: ENLARGED LEFT ATRIAL CAVITY WALL MOTION: NORMAL PERICARDIUM: NORMAL INTERPRETATION: 1. BORDERLINE LEFT VENTRICULAR HYPERTROPHY WITH ENLARGED LEFT ATRIAL CAVITY 2. NORMAL VALVES 3. NORMAL LEFT VENTRICULAR CONTRACTILITY MTDD
--- NOTE | 2018-08-03 11:57 | RS.BEDDYS ---
Subjective Number of treatment sessions: 1 Date of Evaluation: 08/03/18 Treatment Diagnosis: Sepsis, weakness, NPO Current Level of Function: This 83 year old woman was admitted with weakness and altered mental status. She was placed NPO for safety due to limited response to stimulation. She has a hx with swallowing difficulty and is at risk for aspiration/penetration. Current Diet: Honey-thick liquids. Current Subjective/complaints:: The pt was vocalizing pain and asked to be turned in the bed. When asked verbal y/n questions, she inconsistently responded with verbalizations and head nods. The patient's lung sonds and O2 sats were monitored resting. She maintained 96 on room air and had bilateral wheezes and crackles that were more prominent on the right side. When asked if she wanted to eat, the patient did respond and had no behaviors demonstrated during the bedside swallow evaluation. Medical History Comments:: Hx of hospice Hx Home Medications: Refer to medications for complete current list. Patient's Goals: To consume the safest least restictive diet texture. General Information - General Ability to Follow Directions: Poor Oral Expression Ability: Moderate Impairment Oral-Facial Assessment - Dental/Labial Teeth Characteristics: Missing Lips Comment: Difficulty with labial seal, did not follow directions - Lingual Comments: Difficulty with lingual movements. Upon command and with a model, pt could not imitate lingual movements. - Comments/Additional Info. Comments:: Pt's oral cavity was severely dry. Oral residue from medication administration was noted and cleaned prior to PO intake. Food Presentation - Solids Food Presented: Pureed (Via 2/3 tsp) Behaviors/Comments: Pt appropriately opened mouth and cleared spoon on three consecutive trials. After liquids presented between trials pt demonstrated a moment of disengagement with the event. She had the puree bolus in her oral cavity and hesitated. She did not attempt to swallow and then immediately coughed hard with attempting to swallow the bolus. Cervical ausculation was completed with this trial and noted she cleared the bolus. Her o2 sats dropped two numbers. She demonstrated possible aspiration/penetration. Food Presented: Mechanical Soft (Via fork) Behaviors/Comments: The SALESPERSON PARTS presented four trials of scrambled eggs. 1x overt cough noted during the swallow. Moderate oral stasis present with each bite. Liquids presented and cleared stasis. Pt had overt s/s of aspiration with mechanical soft diet texture. - Liquids Liquid Presented: Thin (Via 1/4 and 1/2 tsp.) Behaviors/Comments: SALESPERSON [employer]S presented oral care. Lung sounds indicated wheezes and crackles. O2 sats were monitored with cervical ausculation. Pt was presented two trials. Severe delay in swallow initiation with multiple swallows increase risk for aspiration. Pt with possible silent aspiration/penetration. Liquid Presented: [place] (Via cup, straw, spoon) Behaviors/Comments: The SALESPERSON PARTS trialed all methods of presentation with nectar thick liquids. Straw trials decreased O2 sats to 90 2x. Spoon assisted drinks were presented with O2 sats ranging from 93-96. Open cup drinks presented and pt maintained O2 sats between 94-96. however pt appeared SOB post NT trials. Via cervical ausculation revealed multiple swallows on residual liquids, putting pt at risk for aspiration/penetration. Liquid Presented: Honey (Via spoon) Behaviors/Comments: Pt had no overt s/s of aspiration. Cervical ausculation revealed a mild swallow delay with minimal risk for aspriation/penetration. - Recommendations: Dysphagia Evaluation Dietary Recommendations: Honey-thick liquids Comments:: Honey-thick liquids via spoon. Medications whole or crushed in pudding. Dysphagia Swallow Precautions/Strategies: Sitting Upright (90 deg), Liquids from Spoon Comments:: Safe swallow precuations, aspiration precautions to be utilized. Complete oral care pre-post PO intake for oral stimulation. Pt to be aroused and verbalizing prior to PO intake. Monitor swallow response. Verbal commands with presented spoonfuls of liquid. - Summary Dysphagia Evaluation Summary: Pt presented with severe oropharyngeal dysphagia as characterized by weak oral structures, minimal lingual movements, moderate delayed swallow response, inconsistent swallow response. Pt is at risk for aspiration, due to mentation, no productive cough, and general weakness. Further Therapy Indicated?: No Rehab Potential: Fair Functional Reporting G Codes: Current CM goal CM Severity Impairment Rationale: Honey-thick lqiuids without a diet texture. Severe risk for aspiration Short Term Goals Problem: Mastication Goal #1: Pt to improve mastication on 5/5 trials with mechanical soft texture Goal to be met by: 10/24/17 Problem: Swallow Goal #2: Pt to tolerate regular diet texture on 5/5 trials w/o s/s of aspiration. Goal to be met by: 10/24/17 Mcfp Goals Problem: Swallow Goal #1: Pt to tolerate safest and least restrictive diet texture Goal to be met by: 10/24/17 Plan Duration of Treatment: One Time Treatment Anticipated Discharge Destination: [facility] Comments: [employer] recommends to provide oral care and oral stimualtion frequently. ST evaluation at [facility] to determine readiness for a diet. - Treatment Code (1) Oropharyngeal dysphagia Code(s): R13.12 - DYSPHAGIA, OROPHARYNGEAL PHASE
--- NOTE | 2018-08-03 12:42 | PCM.DC ---
Final Diagnosis: SIRS/Sepsis (ACUTE/Resolved) Leukocytosis (Acute) Hypercalcemia (Acute) Hyperkalemia (Acute) Altered mental status (Acute)Obtunded (Acute): IMPROVED Oropharyngeal dysphagia (Acute) Psuedomonas Urine culture. COPD (chronic obstructive pulmonary disease) (Chronic): Not exacerbation Chronic anemia (Acute) Decubitus ulcers (Acute) Diabetes mellitus type 2 in obese (Acute) alf inpatient nursing aide (1) SIRS (systemic inflammatory response syndrome) Status: Resolved Code(s): R65.10 - SIRS OF NON-INFECTIOUS ORIGIN W/O ACUTE ORGAN DYSFUNCTION SNOMED Code(s): 833034899 (2) Obtunded Status: Resolved Code(s): R40.1 - STUPOR SNOMED Code(s): 44802436 (3) Hyperkalemia Status: Resolved Code(s): E87.5 - HYPERKALEMIA SNOMED Code(s): 90217981 (4) Leukocytosis Status: Resolved Code(s): D72.829 - ELEVATED WHITE BLOOD CELL COUNT, UNSPECIFIED SNOMED Code(s): 641476382, 525141812 (5) Hypercalcemia Status: Resolved Code(s): E83.52 - HYPERCALCEMIA SNOMED Code(s): 60748398 (6) Chronic anemia Status: Chronic Code(s): D64.9 - ANEMIA, UNSPECIFIED SNOMED Code(s): 176757994 (7) COPD (chronic obstructive pulmonary disease) Status: Chronic Code(s): J44.9 - CHRONIC OBSTRUCTIVE PULMONARY DISEASE, UNSPECIFIED SNOMED Code(s): 12527829 (8) Diabetes mellitus type 2 in obese Status: Chronic Code(s): E11.9 - TYPE 2 DIABETES MELLITUS WITHOUT COMPLICATIONS SNOMED Code(s): 10230184 (9) Sepsis Status: Resolved Code(s): A41.9 - SEPSIS, UNSPECIFIED ORGANISM SNOMED Code(s ): 28383037 (10) UTI (urinary tract infection) Status: Chronic Code(s): N39.0 - URINARY TRACT INFECTION, SITE NOT SPECIFIED SNOMED Code(s): 97278950 (11) Altered mental status Status: Acute Code(s): R41.82 - ALTERED MENTAL STATUS, UNSPECIFIED SNOMED Code(s): 599590955 Qualifiers: Altered mental status type: delirium Qualified Code(s): R41.0 - Disorientation, unspecified (12) Decubitus ulcers Status: Chronic Code(s): L89.90 - PRESSURE ULCER OF UNSPECIFIED SITE, UNSPECIFIED STAGE SNOMED Code(s): 068275524 Reason for Hospitalization: Sirs w/ Sepsis, urological source, Pseudomonas in urine, altered mental status, hyperkalemia, leukocytosis, hypercalcemia. Prognosis at Discharge: Improved, but still quite guarded. Concern for longevity based on age, dementia , recurrent UTI. Condition at Discharge: Improved, GCS was 8 at admit and 15 at d/c. Confusion prominent, prominent dementia. Urinary symptoms stable, good uout, stooling regularly, vitals have improved and stabilized, fever free >24 hours by d/c. Medications at Discharge: Ambulatory Orders Medication Instructions Recorded Acetaminophen [Pain & Fever] 650 mg PO Q4H PRN 08/21/17 Aspirin [Aspirin EC] 81 mg PO DAILY 08/21/17 L.acidoph,Paracasei, B.lactis 1 each PO DAILY 05/08/18 [Probiotic] Magnesium Oxide [Mag-Ox] 400 mg PO DAILY 05/08/18 Oxcarbazepine [Trileptal] 300 mg PO BEDTIME 05/08/18 Polyethylene Glycol 3350 [Miralax] 17 gm PO DAILY 05/08/18 Lisinopril [Zestril] 40 mg PO BID #60 tablet 05/11/18 Metformin HCl [Glucophage] 500 mg PO DAILYWM #30 tablet 05/19/18 Pantoprazole Sodium [Protonix] 40 mg PO DAILY #30 tablet. 05/19/18 Acetaminophen [Acephen] 650 mg RC Q6H PRN 06/20/18 Bisacodyl [Dulcolax] 10 mg RC DAILY PRN 06/20/18 Cyanocobalamin/Folic Acid [Vitamin 1 each PO DAILY 06/20/18 B26-Wepfn Acid Tablet] Ascorbic Acid 500 mg PO BID 07/12/18 Estradiol [Estrace] 1 applic VG MOWEFR 07/12/18 Hydrocodone Bit/Acetaminophen 1 tab PO Q8H PRN 07/12/18 [[place] 10-325] Nystatin [Nystatin Cream] 1 applic TP Q6H 07/12/18 Acetaminophen [Tylenol] 650 mg RC Q4H PRN 10 Days #30 08/03/18 supp.rect Cefepime HCl [Maxipime] 2 gm IV Q12HR 7 Days #4 g 08/03/18 Insulin Glargine,Hum.rec.anlog 5 unit SUBCUT DAILY 30 Days #150 08/03/18 [Lantus] units Insulin Regular, Human [Humulin R] 0 - 15 unit SUBCUT PRN PRN 30 Days 08/03/18 #210 ml Ipratropium/Albuterol Neb [Duoneb] 1 vial NEB RTQ6H PRN 30 Days #120 08/03/18 vial.neb Menthol/Zinc Oxide [Calmoseptine 1 applic TP BID 30 Days #1 tube 08/03/18 Ointment] Lab/Diagnostics: Laboratory Last Values WBC 5.84 K/ul (4.6-10.2) D 08/03/18 05:00 RBC 2.88 10^6/ul (4.20-5.40) L 08/03/18 05:00 Hgb 9.0 g/dl (12.0-16.0) L 08/03/18 05:00 Hct 30.0 % (37.0-47.0) L 08/03/18 05:00 MCV 104.2 fl (81.0-99.0) H 08/03/18 05:00 MCH 31.3 pg (27.0-31.0) H 08/03/18 05:00 MCHC 30.0 (31.8-35.4) L 08/03/18 05:00 RDW Coeff of Alexia 13.8 % (11.6-14.8) 08/03/18 05:00 Plt Count 148 10^3/uL (140-440) 08/03/18 05:00 Immature Gran % (Auto) 1.2 % (0.0-5.0) 08/03/18 05:00 Neut % (Auto) 61.8 08/03/18 05:00 Lymph % (Auto) 21.7 (10.0-50.0) 08/03/18 05:00 [place] % (Auto) 9.1 (0-10) 08/03/18 05:00 Eos % (Auto) 6.0 % (0.0-7.0) 08/03/18 05:00 Baso % (Auto) 0.2 % (0.0-3.0) 08/03/18 05:00 Immature Gran # (Auto) 0.1 (0.0-1.0) 08/03/18 05:00 Neut # (Auto) 3.6 K/ul (2.0-6.9) 08/03/18 05:00 Lymph # (Auto) 1.3 K/uL (0.60-3.4) 08/03/18 05:00 [place] # (Auto) 0.5 K/uL (0.4-2.0) 08/03/18 05:00 Eos # (Auto) 0.4 K/ul (0.0-0.7) 08/03/18 05:00 Baso # (Auto) 0.0 K/uL (0-0.2) 08/03/18 05:00 Anisocytosis Not present (NOT PRESENT) 08/01/18 04:30 Macrocytosis 1+ (NOT PRESENT) 08/01/18 04:30 ESR 65 mm/hr (0-20) H 07/30/18 19:08 Sodium 142.0 mmol/L (137-145) 08/03/18 05:00 Potassium 4.10 mmol/L (3.5-5.1) 08/03/18 05:00 Chloride 114.0 mmol/L (98-107) H 08/03/18 05:00 Carbon Dioxide 22.0 mmol/L (22-30.0) 08/03/18 05:00 Anion Gap 10.10 08/03/18 05:00 BUN 22.0 mg/dL (7-17) H D 08/03/18 05:00 Creatinine 0.80 mg/dL (0.60-1.30) 08/03/18 05:00 Estimated GFR (MDRD) 68.00 mL/min 08/03/18 05:00 BUN/Creatinine Ratio 27.50 08/03/18 05:00 Glucose 103.0 mg/dL (74-106) 08/03/18 05:00 Hemoglobin A1c 7.39 (4.0-6.0) H 07/31/18 05:00 Lactic Acid 2.53 mmol/L (0.7-2.1) H 07/30/18 19:25 Calcium 9.60 mg/dL (8.4-10.2) 08/03/18 05:00 Magnesium 1.61 mg/dL (1.6-2.3) 07/30/18 19:00 Total Bilirubin 0.20 mg/dL (0.2-1.3) 08/03/18 05:00 AST 20.0 U/L (14-36) 08/03/18 05:00 ALT 18.0 U/L (0-35) 08/03/18 05:00 Alkaline Phosphatase 109.0 U/L (53-141) 08/03/18 05:00 Total Protein 5.70 g/dL (6.3-8.2) L 08/03/18 05:00 Albumin 2.90 g/dL (3.5-5.0) L 08/03/18 05:00 Globulin 2.80 08/03/18 05:00 Albumin/Globulin Ratio 1.03 08/03/18 05:00 Urine Color Yellow (YELLOW) 07/30/18: Urine Clarity Turbid (CLEAR) 07/30/18: Urine pH 5.5 (5-9) 07/30/18: Ur Specific [place] 1.020 (1.005-1.030) 07/30/18: Urine Protein 3+ (NEGATIVE) 07/30/18: Urine Glucose (UA) Trace (NEGATIVE) 07/30/18 19: Urine Ketones Negative (NEGATIVE) 07/30/18: Urine Blood 3+ (NEGATIVE) 07/30/18: Urine Nitrite Negative (NEGATIVE) 07/30/18: Urine Bilirubin Negative (NEGATIVE) 07/30/18: Urine Urobilinogen 0.2 (0.2) 07/30/18: Ur Leukocyte Esterase 3+ (NEGATIVE) 07/30/18: Urine Microscopic RBC 10-20 (0-2) 07/30/18: Urine Microscopic WBC 30-50 (0-2) 07/30/18 19: Ur Squamous Epith Cells 5-10 (0-5) 07/30/18 19: Urine Bacteria 1+ (NOT PRESENT) 07/30/18: Urine Mucus 1+ (NOT PRESENT) 07/30/18: Influ A Molecular Assay Negative by naat (NEGATIVE) 07/30/18 19:26 Influ B Molecular Assay Negative by naat (NEGATIVE) 07/30/18 19:26 BUN/CR Trends 07/30/18 07/31/18 08/01/18 Range/Units 19:08 05:00 04:30 BUN 52.6 H 56.0 H 50.6 H (7-17) mg/dL Creatinine 1.39 H 1.60 H 1.27 (0.60-1.30) mg/dL 08/03/18 Range/Units 05:00 BUN 22.0 H D (7-17) mg/dL Creatinine 0.80 (0.60-1.30) mg/dL H/H Trends 07/30/18 07/31/18 08/01/18 Range/Units 19: 05:00 04:30 Hgb 10.8 L 9.1 L 9.6 L (12.0-16.0) g/dl Hct 32.5 L 28.2 L 32.3 L (37.0-47.0) % 08/03/18 Range/Units 05:00 Hgb 9.0 L (12.0-16.0) g/dl Hct 30.0 L (37.0-47.0) % WBC Trends 07/30/18 07/31/18 08/01/18 Range/Units 19: 05:00 04:30 WBC 22.42 H 18.07 H 10.93 H D (4.6-10.2) K/ul 08/03/18 Range/Units 05:00 WBC 5.84 D (4.6-10.2) K/ul Na/K Trends 07/30/18 07/31/18 08/01/18 Range/Units 19:08 05:00 04:30 Sodium 133.0 L 135.0 L 140.3 (137-145) mmol/L Potassium 5.24 H 4.94 4.35 (3.5-5.1) mmol/L 08/03/18 Range/Units 05:00 Sodium 142.0 (137-145) mmol/L Potassium 4.10 (3.5-5.1) mmol/L Imaging: CXR 07/30/18: CXR: Personally reviewed CXR diaphragm is clear, heart appears mildly enlarged. Heart border clear. Doppler bilateral LE 08/01/18: negative CT Abd/pelvis w/o 08/01/18: No acute process, diverticulosis. Echocardiogram 08/03/18: No reported vegetation, Normal left ventricular contracility. Microbiology. Urine culture: PSeudomonas. Sensitive to levaquin, cefepime. I chose cefepime. Blood culture: Negative C. Diff: Negative. Follow-ups: 1. Urology in next 1-2 weeks. 2. Return to [facility] today and I will see back in next 7 days (FRIDAY). Disposition: HOME SELF-CARE Hospital Course: 83 yo Hospital Day 5, rounding day 4, admitted on 07/30/18 and discharged markedly improved. She is a resident of [facility] who presented to our hospital obtunded, alterred mental status w/ 5 days worsening symptoms. SIRS + Sepsis suspected with urological source. Treated initially with invanz x 3 days, then changed to cefepime late satruday 08/01/18 to 1 Gram every 24 hours based on her CrCl of <60. Chronic crowder in place, changed recently. She has chronic pressure ulcers bilateral buttock, that are healing w/ rolling and calmoseptine. Maceration tissue inner thighs improving. Historical/chronic ESBL but recent culture ESBL negative and Pseudomonas +. She has had improvement in mental status over the stay. She has been fever free since 08/01 0557, receiving tylenol and norco for pain. Mental health/cognitive alertness has improved and she has tried some food. She did choke a little on nectar thick. Speech eval attempted x 1 and she was not awake enough to complete it. I have asked for them to return today for another evaluation. I will increase her abx from 1G q 24 to 2G q 12 as the CrCl is now 57-64. I will check with pharmacy. I would like to complete 7 days of this agent. NH at [facility] can do q12 abx. The patient is being rolled regularly. I discussed care with the am nurses today, reviewed her tele, which ranged from NSR to Sinus paced. Vitals reviewed, good urine output >0.5ml/kg/hour except 1 shift. She is markedly more alert this am, knew year 2017, knew month as july and that she is at [place]. She wants to go back to where she was. I will contact son this am. I called him at 8 this am and he was pleased to hear about the improvement. She is markedly more awake this am, more arousable. We have held the risperdal and the mybetriq. So far CXR at admit negative, CT abd/pelvis w/ o contrast (contrast allergy) negative and without acute issues. DVT ordered due to "HURT EVERYWHERE," and negative for clot. Labs are improving Leukocytosis at admit has improved and normal now. She started on 07/30/18 with 22.42, decreased steadily to 18.07, 10.93 and now at 5.84. Hgb 10.8 to 9.1 to 9.6 and to 9.0, which appears stable. No e/o blood in stool. Plt normal 238, 190, 153, 148. She had a hyperkalemia at admit with K+ 5.24, decreased to 4.54, 4.35 and now 4.10. Ca++ 11.13, to 10.76 to 10.52 to 9.60. Creatinine improved from 1.39 to 1.6 to 1.27 to 0.8. I still have planned an echo to make sure no vegetation. This is less likely now that she is fever free as noted. Diarrhea that came and went during hospital stay was tested and negative for Cdiff. She is breathing more comfortably, eating more of her food than admit, but ?choking. We will get her to see the speech therapist today, we will complete the echo for the heart murmur and as per wishes of patient and POEdelmira, d/c back to [facility] today. We reviewed her hospital record/stay. BG elevated initially (STEROIDS IN ER) but these have normalized with 5 units of lantus daily and SSI. There has been some issues with legal visitation between son Jack CAMPOS and daughter Zita. We have tried to comply with wishes of family. Visitations have gone well. This am patient noted "I want to go back to where I was." I have rediscussed hospice. Patient susy is up and down, now with chronic indwelling catheter. I would like her to meet with urology. I would like to consider relatively regular Urine culture and consider tx with 3-5x abx if culture positive or at first signs of cognitive sliding again. Family wants everything done, we have had lengthy discussion previously and again at admit about end of life planning. She is DNR. We will resume home meds. I will hold rispderal and myrbetriq. She is having regular BM, good uout, vitals look good, tele looks good, labs look much better, skin is better rolling regularly/skin barrier protection, fever free since 08/01/18 and cognition is improving. Kidney function better, resolved hyperkalemia, hypercalcemia, chronic anemia that is stable, luekocytosis resolved. At this point I believe she is safe for [facility]. I remain cautious of overall health as she continues to have these events. I suspect recurrent UTI to be a theme and would like to be proactive. Discussed this with the son at length over last few days. Speech saw her today. I was called at 11 am and told that honey thick encouraged, direct obs of feeding recommended. Risk of aspiration. Delayed swallowing, speech to f/u at [place]. Echo this am negative for vegetation. ROS: I hurt all over. I want to go back to where I was. +Cough, +wheezing, unchanged. SHe is choking on food. Chronic skin breakdown buttock, evaluated with nurse and with managing manager. WE helped clean her this am, apply cream. I wiped mouth, used some mint flavored cleaner furniture, applied lip moisturizer and she felt it helped a lot. Sacral area unchanged to improved, definitely not worsening. Leg pain chronically, unchanged from admit. ROM decreased regularly , not getting out of bed in multiple months. Plantar flexion toes regularly. Limited ROM about shoulders, hips, elbows, knees. Semi-chronic hand edema which is not pitting and likely dependent. Plan: 1. D/C with Cefepime 2grams BID for 7 days. 2. Urine culture again 08/14 3. Duonebs as needed. 4. CBC/CMP to be colleged 08/14/18 also. 5. Hold rispderal. 6. Diet: Thickened nectar honey thick liquids. She has delayed swallowing. Direct observation with eating/drinking. 7. Speech therapy to see patient at [facility]. 8. D/C to [facility] today bedbound 9. Wounds on buttock, regular rolling, calmoseptine to buttock/back BID. 10. Change catheter monthly, check to make sure no obstruction regularly. 11. Discussed hospice with family again, not interested for now. 12. Resume home meds. We will add lantus 5 units daily and sliding scale with meals. Goal 140-180. 13. I will see her back in next 1 week. I have contacted family, talked with them about d/c. They were contacted within 48 hours of d/c, the med rec was completed. >30 minutes spent in discharging patient today.
== END 2018-08-03 15:00 | DRG 689 ==
LOC: ED 18:06 → SCU 19:55
PROVIDERS: ADMIT Family Medicine; ATTEND Family Medicine
DX: N39.0 Urinary tract infection, site not specified (principal); A41.9 Sepsis, unspecified organism; R65.10 Systemic inflammatory response syndrome (SIRS) of non-infectious origin without acute organ dysfunction; R53.83 Other fatigue; R53.1 Weakness; R50.9 Fever, unspecified; R40.1 Stupor; R41.82 Altered mental status, unspecified; R41.0 Disorientation, unspecified; E87.5 Hyperkalemia; E83.52 Hypercalcemia; E11.9 Type 2 diabetes mellitus without complications; E86.0 Dehydration; D72.829 Elevated white blood cell count, unspecified; D64.9 Anemia, unspecified; J44.9 Chronic obstructive pulmonary disease, unspecified; L89.90 Pressure ulcer of unspecified site, unspecified stage; F03.90 Unspecified dementia, unspecified severity, without behavioral disturbance, psychotic disturbance, mood disturbance, and anxiety
CPT/HCPCS: 36415; 80053; 81001; 82962; 83036; 83605; 83735; 85008; 85025; 85651; 87040; 87070; 87081; 87086; 87186; 87493; 87502; 87651; 93005; 93010; 94640; 96361; 96365; 96366; 96375; 99223; 99233; 99239; 99285

== ENCOUNTER 2018-10-28 10:37 | Outpatient (CLI) | END 2018-10-28 10:38 | disposition home or self-care (01) | LOC: NONPT 10:37 | PROVIDERS: ATTEND Family Medicine | DX: R30.0 Dysuria (principal) | CPT/HCPCS: 81001; 87086; 87186 ==

== ENCOUNTER 2018-10-29 17:10 | Emergency (ER) ==
[2018-10-29 17:19] VITALS: BP 128/89; TEMP 99.1; BMI 32.3
--- NOTE | 2018-10-29 18:09 | ED.PDOC ---
General ED Provider: Dr. EVITA PURVIS Chief Complaint: Urinary Problem Stated Complaint: Recently tx for UTI at [facility]. Started on INVANZ. Has indwelling crowder catheter. Family requested pt be brought to ER for evaluation. Prelim culture Pos for Gram Neg Rods. Dr Mullen is primary and discussed case in ER Time Seen by Physician: 18:15 Mode of Arrival: Walk-In Information Source: Patient Exam Limitations: No limitations Primary Care Provider: TED MULLEN Referred to ED by: PCP Nursing and Triage Documentation Reviewed and Agree: Yes Does patient meet sepsis criteria?: No System Inflammatory Response Syndrome: Not Applicable Sepsis Protocol: For patient's 13 years and over: Temp is 96.8 and below OR 101 and greater Pulse >90 BPM Resp >20/minute Acutely Altered Mental Status Are patient's symptoms suggestive of a new infection, such as: -Pneumonia -Skin, Soft Tissue -Endocarditis -UTI -Bone, Joint Infection -Implantable Device -Acute Abdominal Infection -Wound Infection -Meningitis -Blood Stream Catheter Infection -Unknown Complaint Exam - UTI Female Complaint/Exam Onset/Duration: 4-5 days Symptoms Are: Still present Timing: Constant Initial Severity: Moderate Current Severity: None Location of Pain: Reports: None Associated Signs and Symptoms: Denies: Fever, Chills, Flank pain, Dyspareunia, Vaginal discharge Related History: Reports: Similar episode CVA Tenderness: No Suprapubic Tenderness: Yes Differential Diagnoses: Bladder Dysfunction, Cystitis, Other (uti) Review of Systems - Review Of Systems Constitutional: Reports: Malaise Eyes: Reports: No symptoms Ears, Nose, Mouth, Throat: Reports: No symptoms Respiratory: Reports: No symptoms Cardiac: Reports: No symptoms GI: Reports: No symptoms : Reports: No symptoms Musculoskeletal: Reports: No symptoms Skin: Reports: No symptoms Neurological: Reports: Cognitive dysfunction Endocrine: Reports: No symptoms Hematologic/Lymphatic: Reports: No symptoms All Other Systems: Reviewed and Negative Past Medical History - Past Medical History Previously Healthy: No Endocrine: Reports: DM 2, Dyslipidemia Cardiovascular: Reports: Hypertension, Other (Cardiac murmur ) Respiratory: Reports: COPD Hematological: Reports: None Gastrointestinal: Reports: GERD, Diverticulitis Genitourinary: Reports: UTI (multiple ), CKD Neuro/Psych: Reports: TIA, Bipolar Disorder Musculoskeletal: Reports: Other (neuropathyy ) Cancer: Reports: Unknown Last Menstrual Period: N/A Other Pertinent Past Medical History: Sepsis - Surgical History General Surgical History: Reports: Hysterectomy, Orthopedic (Bilateral Knee repalcement ), Other (Rtight carpal Tunnel syndrome surgery ) - Family History Family History: Reports: Unknown - Social History Smoking Status: Former smoker Hx Substance Use: No Alcohol Screening: None - Immunizations Tetanus Shot up to Date: No Physical Exam - Physical Exam Appearance: Ill-appearing, Obese Ill-appearing: Mild Pain Distress: None Eyes: BRENTON, EOMI, Conjunctiva clear ENT: Ears normal, Nose normal, Oropharynx normal Neck: Supple Respiratory: Airway patent, Breath sounds clear, Breath sounds equal, Respirations nonlabored Cardiovascular: RRR, Pulses normal, No rub, No murmur GI/: Soft, Nontender, No masses, Bowel sounds normal, No Organomegaly Musculoskeletal: Normal strength, ROM intact, No edema, No calf tenderness Skin: Warm, Dry, Normal color Neurological: Sensation intact, Motor intact, Reflexes intact, Cranial nerves intact, Alert, Disoriented, Alert to verbal, Alert to pain Psychiatric: Affect appropriate, Mood appropriate Interpretation - Radiology Interpretation Radiology Interpretation By: Radiologist Exam Interpreted: Portable CXR Xray Comments: possible pnemonia Rt Medial Lung Base Physician Notification - Case Discussed Physician Notified: Dr Mullen Time of Notification: 18:55 (discussed case-discharge back to facility) Critical Care Note - Critical Care Note Total Time (mins): 60 Course - Course Hematology/Chemistry: 10/29/18 18:24 10/29/18 18:24 Orders, Labs, Meds: Lab Review 10/29/18 10/29/18 10/29/18 18:24 18:24 18:24 WBC 7.99 RBC 3.18 L Hgb 10.2 L Hct 31.6 L MCV 99.4 H MCH 32.1 H MCHC 32.3 RDW Coeff of Alexia 15.1 H Plt Count 199 Immature Gran % (Auto) 0.4 Neut % (Auto) 75.5 Lymph % (Auto) 16.6 Real % (Auto) 7.1 Eos % (Auto) 0.0 Baso % (Auto) 0.4 Immature Gran # (Auto) 0.0 Neut # (Auto) 6.0 Lymph # (Auto) 1.3 Real # (Auto) 0.6 Eos # (Auto) 0.0 Baso # (Auto) 0.0 Sodium 133.5 L Potassium 3.91 Chloride 101.1 Carbon Dioxide 24.1 Anion Gap 12.21 BUN 14.6 Creatinine 0.65 Estimated GFR (MDRD) 87.00 BUN/Creatinine Ratio 22.46 Glucose 191.8 H Lactic Acid 2.30 H Calcium 9.92 Total Bilirubin 0.45 AST 18.2 ALT 13.1 Alkaline Phosphatase 62.6 Total Protein 6.23 L Albumin 3.41 L Globulin 2.82 Albumin/Globulin Ratio 1.20 Influ A Molecular Assay Influ B Molecular Assay RSV Antigen 10/29/18 10/29/18 19:02 19:02 WBC RBC Hgb Hct MCV MCH MCHC RDW Coeff of Alexia Plt Count Immature Gran % (Auto) Neut % (Auto) Lymph % (Auto) Real % (Auto) Eos % (Auto) Baso % (Auto) Immature Gran # (Auto) Neut # (Auto) Lymph # (Auto) Real # (Auto) Eos # (Auto) Baso # (Auto) Sodium Potassium Chloride Carbon Dioxide Anion Gap BUN Creatinine Estimated GFR (MDRD) BUN/Creatinine Ratio Glucose Lactic Acid Calcium Total Bilirubin AST ALT Alkaline Phosphatase Total Protein Albumin Globulin Albumin/Globulin Ratio Influ A Molecular Assay Negative by naat Influ B Molecular Assay Negative by naat RSV Antigen Negative by naat Orders Category Date Time Status BLOOD CULTURE (ED ONLY) Stat LAB 10/29/18 19:18 Ordered CBC W/ AUTO DIFF Stat LAB 10/29/18 18:24 Completed CMP [COMPREHENSIVE METABOLIC PANEL] Stat LAB 10/29/18 18:24 Completed FLU A & B MOLECULAR [FLU A/B MOLECULAR] Stat LAB 10/29/18 19:02 Completed LACTIC ACID Stat LAB 10/29/18 18:24 Completed RSV Stat LAB 10/29/18 19:02 Completed UA [URINALYSIS C & S IF INDICATED] Stat LAB 10/29/18 18:09 Uncollected CHEST, 1V AP ONLY Stat RADS 10/29/18 18:07 Completed Vital Signs: Temp Pulse Resp BP Pulse Ox 10/29/18 17:10 99.1 F 69 18 128/89 96 Departure - Departure Time of Disposition: 19:30 Disposition: DISCH/TSF TO REHAB Discharge Problem: UTI (urinary tract infection), Pneumonia Condition: Stable Pt referred to PMD for follow-up: Yes IPMP verified?: No Allergies/Adverse Reactions: Allergies codeine Adverse Reaction (Verified 10/29/18 17:19) iodine Adverse Reaction (Verified 10/29/18 17:19) metoclopramide Adverse Reaction (Verified 10/29/18 17:19) contrast Adverse Reaction (Uncoded 10/29/18 17:19) IV dye Adverse Reaction (Uncoded 10/29/18 17:19) Home Medications: Ambulatory Orders Aspirin [Aspirin EC] 81 mg PO DAILY 08/21/17 L.acidoph,Paracasei, B.lactis [Probiotic] 1 each PO DAILY 05/08/18 Magnesium Oxide [Mag-Ox] 400 mg PO DAILY 05/08/18 Oxcarbazepine [Trileptal] 300 mg PO BEDTIME 05/08/18 Polyethylene Glycol 3350 [Miralax] 17 gm PO DAILY 05/08/18 Lisinopril [Zestril] 40 mg PO BID #60 tablet 05/11/18 Metformin HCl [Glucophage] 500 mg PO DAILYWM #30 tablet 05/19/18 Cyanocobalamin/Folic Acid [Vitamin R26-Xnzkd Acid Tablet] 1 each PO DAILY Ascorbic Acid 500 mg PO BID 07/12/18 Nystatin [Nystatin Cream] 1 applic TP Q6H 07/12/18 Acetaminophen [Tylenol] 650 mg RC Q4H PRN 10 Days #30 supp.rect 08/03/18 Insulin Glargine,Hum.rec.anlog [Lantus] 5 unit SUBCUT DAILY 30 Days #150 units 08/03/18 Ipratropium/Albuterol Neb [Duoneb] 1 vial NEB RTQ6H PRN 30 Days #120 vial.neb Menthol/Zinc Oxide [Calmoseptine Ointment] 1 applic TP BID 30 Days #1 tube 08/03 Alprazolam [Xanax] 0.5 mg PO BID 10/29/18 Clonidine HCl 0.1 mg PO BID 10/29/18 Ertapenem Sodium [Invanz] 1 gm IV DAILY 10/29/18 Insulin Lispro [Humalog] 1 unit SQ TID 10/29/18 Disposition Discussed With: Patient, Family, Other (Dr Mullen) Additional Comments Additional Comments: Reviewed case with patients son and Dr Mullen. Prefers pt to be discharged back to rehab facility this evening and will be kept on antibiotics
--- NOTE | 2018-10-29 19:15 | DI ---
EXAM: One-view chest HISTORY: UTI TECHNIQUE: Single frontal view the chest was obtained. Comparison 07/30/2018. FINDINGS: The heart is stable size. Questionable opacities are seen in the medial right lung base. The lungs are otherwise clear. The pulmonary vasculature appears normal. The osseous structures ar e normal. IMPRESSION: Possible pneumonia seen in the medial right lung base. An additional lateral view of th e chest can be obtained for further evaluation if clinically indicated. Otherwise no active cardiopulmonary disease.
== END 2018-10-29 20:00 ==
LOC: ED 17:10
DX: N39.0 Urinary tract infection, site not specified (principal); J18.9 Pneumonia, unspecified organism; Z96.0 Presence of urogenital implants; E11.9 Type 2 diabetes mellitus without complications; E78.5 Hyperlipidemia, unspecified; I10 Essential (primary) hypertension; N18.9 Chronic kidney disease, unspecified; Z87.440 Personal history of urinary (tract) infections; Z87.19 Personal history of other diseases of the digestive system; Z86.73 Personal history of transient ischemic attack (TIA), and cerebral infarction without residual deficits; Z79.4 Long term (current) use of insulin; Z79.899 Other long term (current) drug therapy; Z74.01 Bed confinement status; R52 Pain, unspecified
CPT/HCPCS: 36415; 80053; 83605; 85025; 87040; 87502; 87801; 99284

== ENCOUNTER 2019-02-05 19:26 | Outpatient (CLI) ==
[2019-02-05 20:06] VITALS: BMI 28.6
== END 2019-02-05 19:27 | disposition home or self-care (01) ==
LOC: AMBL 19:26
PROVIDERS: ATTEND Family Medicine
DX: R40.4 Transient alteration of awareness (principal); R06.89 Other abnormalities of breathing; R73.9 Hyperglycemia, unspecified; F03.91 Unspecified dementia, unspecified severity, with behavioral disturbance; L89.90 Pressure ulcer of unspecified site, unspecified stage; R53.83 Other fatigue

== ENCOUNTER 2019-02-05 19:45 | Emergency (ER) ==
[2019-02-05] MEDS ORDERED: URO-JET MUCOUSMEMB STA (19:48)
[2019-02-05 20:06] VITALS: BMI 28.6
[2019-02-05] MEDS ORDERED: SODIUM CHLORIDE 1,000 ML IV STA (20:45)
[2019-02-05] MEDS ORDERED: VANCOMYCIN 500 MG in SODIUM CHLORIDE 100 ML IV STA (20:45)
[2019-02-05] MEDS ORDERED: HUMULIN R IVP STA (20:57)
[2019-02-05] MEDS ORDERED: VANCOMYCIN ONE (20:59)
--- NOTE | 2019-02-05 21:00 | CT ---
Exam: CT the chest without contrast History: Cough Technique: [address] of the chest without intravascular contrast FINDINGS: The lung windows show no nodules, masses or infiltrates. There is no pleural fluid or pneu mothorax. Atherosclerotic calcification of the aorta without aneurysm. No pathologic lymph node enl argement or abundance of mediastinum. No acute findings of the chest wall soft tissues or bony thora x. No acute findings of the upper abdomen. Prior cholecystectomy. Impression: 1. No acute findings of the chest.
--- NOTE | 2019-02-05 21:00 | CT ---
EXAM: CT head without contrast HISTORY: Altered mental status COMPARISON: CT head from 06/20/2018 TECHNIQUE: Helical axial CT of the head was performed without contrast. Coronal and sagittal reconst ructions were performed. FINDINGS: There is no acute intracranial abnormality. There is no hemorrhage, mass, midline shift, abnormal ex tra-axial fluid collection, hydrocephalus or evolving ischemia. The [place]-white matter junction is wel l maintained. There is no evidence of intravascular clot. There is atrophy and chronic small vessel i schemic change in the white matter. Brain parenchyma, ventricles and sulci are otherwise normal. There are no acute calvarial lesions. Visualized orbits and globes are unremarkable. The mastoid ai r cells demonstrate no significant soft tissue opacification. The visualized paranasal sinuses show n o air-fluid levels. IMPRESSION: 1. No acute intracranial abnormality. 2. Senescent changes as described.
--- NOTE | 2019-02-05 21:06 | CT ---
Exam: CT of the abdomen and pelvis without contrast History: Fever Technique: [address] of the abdomen and pelvis without intravascular contrast FINDINGS: The lung bases are clear. Small hiatus hernia without complication. The liver, pancreas, spleen and adrenal glands appear normal by noncontrast CT. Prior cholecystectomy. Kidneys and prox imal collecting system are unremarkable. The appendix is not seen. Scattered hidalgo colonic diverticul osis. Bowel loops demonstrate normal caliber. No inflamatory change seen in the mesentery or retrop eritoneum. Atherosclerotic calcification of the aorta without aneurysm. Colonic diverticulosis of the sigmoid. No pelvic fat inflammation. Prior hysterectomy. Monterroso libr[address] ter and urinary bladder. No acute findings of the skeleton. Impression: 1. No inflammatory process, bowel or urinary obstruction is seen. 2. Hidalgo colonic diverticulosis 3. No acute findings of the abdomen or pelvis
--- NOTE | 2019-02-05 22:05 | ED.PDOC ---
General ED Provider: Dr. EVITA FONSECA-ER Chief Complaint: Wound Check Stated Complaint: she is not acting right-nursing staff is concerned about sepsis Time Seen by Physician: 19:50 Mode of Arrival: Stretcher Information Source: Family, Group Home, EMT Exam Limitations: No limitations Primary Care Provider: RYAN DA SILVA Nursing and Triage Documentation Reviewed and Agree: Yes Does patient meet sepsis criteria?: No System Inflammatory Response Syndrome: Not Applicable Sepsis Protocol: For patient's 13 years and over: Temp is 96.8 and below OR 101 and greater Pulse >90 BPM Resp >20/minute Acutely Altered Mental Status Are patient's symptoms suggestive of a new infection, such as: -Pneumonia -Skin, Soft Tissue -Endocarditis -UTI -Bone, Joint Infection -Implantable Device -Acute Abdominal Infection -Wound Infection -Meningitis -Blood Stream Catheter Infection -Unknown Miscellaneous Complaint Exam - Wound Recheck/Suture Removal Exam Date of Procedure: none Symptoms Are: Still present Associated Signs and Symptoms: Reports: Redness, Swelling, Pain Differential Diagnoses: Cellulitis, Other Review of Systems - Review Of Systems Constitutional: Reports: No symptoms Eyes: Reports: No symptoms Ears, Nose, Mouth, Throat: Reports: No symptoms Respiratory: Reports: No symptoms Cardiac: Reports: No symptoms GI: Reports: No symptoms : Reports: No symptoms Musculoskeletal: Reports: No symptoms Skin: Reports: Lumps Neurological: Reports: No symptoms Endocrine: Reports: No symptoms Hematologic/Lymphatic: Reports: No symptoms All Other Systems: Reviewed and Negative Past Medical History - Past Medical History Previously Healthy: No Endocrine: Reports: DM 2, Dyslipidemia Cardiovascular: Reports: Hypertension, Other (Cardiac murmur ) Respiratory: Reports: COPD Hematological: Reports: None Gastrointestinal: Reports: GERD, Diverticulitis Genitourinary: Reports: UTI (multiple ), CKD Neuro/Psych: Reports: TIA, Bipolar Disorder Musculoskeletal: Reports: Other (neuropathyy ) Cancer: Reports: Unknown Last Menstrual Period: unknown Other Pertinent Past Medical History: Sepsis - Surgical History General Surgical History: Reports: Hysterectomy, Orthopedic (Bilateral Knee repalcement ), Other (Rtight carpal Tunnel syndrome surgery ) - Family History Family History: Reports: Unknown - Social History Smoking Status: Former smoker Hx Substance Use: No Alcohol Screening: None Physical Exam - Physical Exam Appearance: Well-appearing Pain Distress: Moderate Eyes: BRENTON, EOMI, Conjunctiva clear ENT: Ears normal, Nose normal, Oropharynx normal Neck: Supple Respiratory: Airway patent, Breath sounds clear, Breath sounds equal, Respirations nonlabored Cardiovascular: RRR, Pulses normal, No rub, No murmur GI/: Soft, Nontender, No masses, Bowel sounds normal, No Organomegaly Musculoskeletal: Normal strength, ROM intact, No edema, No calf tenderness Skin: Warm, Dry Neurological: Sensation intact, Motor intact, Reflexes intact, Cranial nerves intact Psychiatric: Affect appropriate Interpretation - Radiology Interpretation Radiology Interpretation By: Radiologist Exam Interpreted: CT Scan - EKG Interpretation Time of EKG #1: 22:05 Rate: Normal Rhythm: Sinus Ectopy: None Mcrae: NL ST Segment: Normal Interpretation: nsr Physician Notification - Case Discussed Physician Notified: dr da silva Time of Notification: 22:06 Critical Care Note - Critical Care Note Total Time (mins): 30 Course - Course Hematology/Chemistry: 02/05/19 20:08 02/05/19 20:08 Orders, Labs, Meds: Lab Review 02/05/19 02/05/19 02/05/19 19:47 20:08 20:08 WBC 21.00 H RBC 3.53 L Hgb 11.5 L Hct 37.8 MCV 107.1 H MCH 32.6 H MCHC 30.4 L RDW Coeff of Alexia 14.6 Plt Count 306 Immature Gran % (Auto) 1.1 Neut % (Auto) 84.4 Lymph % (Auto) 9.7 L Bowman % (Auto) 4.0 Eos % (Auto) 0.5 Baso % (Auto) 0.3 Immature Gran # (Auto) 0.2 Neut # (Auto) 17.7 H Lymph # (Auto) 2.0 Bowman # (Auto) 0.8 Eos # (Auto) 0.1 Baso # (Auto) 0.1 Anisocytosis Not present Macrocytosis 1+ ESR Puncture Site Rbrach O2 Saturation 98.0 ABG pH 7.363 ABG pCO2 29.8 L ABG pO2 100.0 ABG HCO3 16.9 L ABG Total CO2 18 L ABG Base Excess -8 L Deacon Test + FiO2 % 21.0 Sodium 146.0 H Potassium 4.71 Chloride 115.7 H Carbon Dioxide 17.9 L Anion Gap 17.11 BUN 85.4 H* Creatinine 1.29 Estimated GFR (MDRD) 39.00 BUN/Creatinine Ratio 66.20 Glucose 435.2 H Lactic Acid Calcium 10.92 H Total Bilirubin 0.40 AST 18.0 ALT 15.6 Alkaline Phosphatase 88.4 Total Protein 6.93 Albumin 3.97 Globulin 2.96 Albumin/Globulin Ratio 1.34 Procalcitonin Urine Color Urine Clarity Urine pH Ur Specific Jewett Urine Protein Urine Glucose (UA) Urine Ketones Urine Blood Urine Nitrite Urine Bilirubin Urine Urobilinogen Ur Leukocyte Esterase Urine Microscopic RBC Urine Microscopic WBC Ur Squamous Epith Cells Amorphous Sediment Urine Bacteria Urine Mucus 02/05/19 02/05/19 02/05/19 20:08 20:08 20:08 WBC RBC Hgb Hct MCV MCH MCHC RDW Coeff of Alexia Plt Count Immature Gran % (Auto) Neut % (Auto) Lymph % (Auto) Bowman % (Auto) Eos % (Auto) Baso % (Auto) Immature Gran # (Auto) Neut # (Auto) Lymph # (Auto) Bowman # (Auto) Eos # (Auto) Baso # (Auto) Anisocytosis Macrocytosis ESR 82 H Puncture Site O2 Saturation ABG pH ABG pCO2 ABG pO2 ABG HCO3 ABG Total CO2 ABG Base Excess Deacon Test FiO2 % Sodium Potassium Chloride Carbon Dioxide Anion Gap BUN Creatinine Estimated GFR (MDRD) BUN/Creatinine Ratio Glucose Lactic Acid 2.56 H Calcium Total Bilirubin AST ALT Alkaline Phosphatase Total Protein Albumin Globulin Albumin/Globulin Ratio Procalcitonin 1.76 Urine Color Urine Clarity Urine pH Ur Specific Jewett Urine Protein Urine Glucose (UA) Urine Ketones Urine Blood Urine Nitrite Urine Bilirubin Urine Urobilinogen Ur Leukocyte Esterase Urine Microscopic RBC Urine Microscopic WBC Ur Squamous Epith Cells Amorphous Sediment Urine Bacteria Urine Mucus 02/05/19 21:37 WBC RBC Hgb Hct MCV MCH MCHC RDW Coeff of Alexia Plt Count Immature Gran % (Auto) Neut % (Auto) Lymph % (Auto) Bowman % (Auto) Eos % (Auto) Baso % (Auto) Immature Gran # (Auto) Neut # (Auto) Lymph # (Auto) Bowman # (Auto) Eos # (Auto) Baso # (Auto) Anisocytosis Macrocytosis ESR Puncture Site O2 Saturation ABG pH ABG pCO2 ABG pO2 ABG HCO3 ABG Total CO2 ABG Base Excess Deacon Test FiO2 % Sodium Potassium Chloride Carbon Dioxide Anion Gap BUN Creatinine Estimated GFR (MDRD) BUN/Creatinine Ratio Glucose Lactic Acid Calcium Total Bilirubin AST ALT Alkaline Phosphatase Total Protein Albumin Globulin Albumin/Globulin Ratio Procalcitonin Urine Color Brown Urine Clarity Turbid Urine pH 5.0 Ur Specific Jewett 1.020 Urine Protein 1+ Urine Glucose (UA) Negative Urine Ketones Negative Urine Blood 3+ Urine Nitrite Positive Urine Bilirubin Negative Urine Urobilinogen 0.2 Ur Leukocyte Esterase 3+ Urine Microscopic RBC Tntc Urine Microscopic WBC Tntc Ur Squamous Epith Cells 5-10 Amorphous Sediment Trace Urine Bacteria 4+ Urine Mucus 1+ Orders Category Date Time Status ABG DRAW REQUEST Stat CARDIO 02/05/19 19:48 Completed EKG-(ED ONLY) Stat CARDIO 02/05/19 19:48 Completed BLOOD GLUCOSE MONITORING Q1HR CARE 02/05/19 20:57 Active Catheter [ED CATHETER INSERTION AND CARE] .ONCE EMERGENCY 02/05/19 19:48 Active ED RIGGING SLINGER APPLIED .ONCE EMERGENCY 02/05/19 19:48 Active ED IV/MEDIPORT/POWERPORT .ONCE EMERGENCY 02/05/19 19:48 Active ABG Stat LAB 02/05/19 19:47 Completed BLOOD CULTURE (ED ONLY) Stat LAB 02/05/19 20:08 Received CBC W/ AUTO DIFF Stat LAB 02/05/19 20:08 Completed COMPREHENSIVE METABOLIC PANEL Stat LAB 02/05/19 20:08 Completed ESR Stat LAB 02/05/19 20:08 Completed LACTIC ACID Stat LAB 02/05/19 20:08 Completed PROCALCITONIN Stat LAB 02/05/19 20:08 Completed RBC MORPHOLOGY Stat LAB 02/05/19 20:08 Completed URINALYSIS C & S IF INDICATED Stat LAB 02/05/19 21:37 Completed URINE CULTURE Stat LAB 02/05/19 21:37 Received 0.9 % Sodium Chloride [Saline Flush] MEDS 02/05/19 19:47 Ordered 1 syr IVF PRN PRN Insulin Regular, Human [Humulin R] MEDS 02/05/19 20:57 Discontinued 10 unit IVP ONCE STA Lidocaine HCl [Uro-Jet] MEDS 02/05/19 19:48 Discontinued 10 ml MUCOUSMEMB ONCE STA Sodium Chloride 0.9% [Sodium Chloride] 1,000 ml MEDS 02/05/19 20:45 Active IV 100 mls/hr Vancomycin HCl [Vancomycin] MEDS 02/05/19 20:59 Discontinued 500 mg .ROUTE .STK-MED ONE Vancomycin HCl [Vancomycin] 500 mg MEDS 02/05/19 20:45 Discontinued 0.9 % Sodium Chloride [Sodium Chloride] [address] ABDOMEN/PELVIS WO CONTRAST Stat RADS 02/05/19 19:[address] CHEST W/O CONTRAST Stat RADS 02/05/19 19:[address] HEAD W/O CONTRAST Stat RADS 02/05/19 19:49 Completed Medications Generic Name Dose Route Start Last Admin Trade Name Freq PRN Reason Stop Dose Admin Sodium Chloride 1,000 mls @ 100 mls/hr 02/05/19 20:45 02/05/19 21:48 Sodium Chloride IV 02/06/19 06:44 100 mls/hr .Q10H STA Administration Sodium Chloride 1 syr 02/05/19 19:47 Saline Flush IVF PRN PRN To flush IV Discontinued Medications Generic Name Dose Route Start Last Admin Trade Name Freq PRN Reason Stop Dose Admin Vancomycin HCl 500 mg/ Sodium 100 mls @ 100 mls/hr 02/05/19 20:45 02/05/19 21 :49 Chloride IV 02/05/19 21:44 100 mls/hr ONCE STA Administration Insulin Human Regular 10 unit 02/05/19 20:57 Humulin R IVP 02/05/19 20:58 ONCE STA Lidocaine HCl 10 ml 02/05/19 19:48 02/05/19 21:48 Uro-Jet MUCOUSMEMB 02/05/19 19:49 10 ml ONCE STA Administration Vital Signs: Temp Pulse Resp BP Pulse Ox 02/05/19 19:46 100.4 F H 102 H 20 137/52 L 95 Departure - Departure Time of Disposition: 22:06 Disposition: HOME SELF-CARE Discharge Problem: Sepsis Qualifiers: Sepsis type: sepsis due to unspecified organism Qualified Code(s): A41.9 - Sepsis, unspecified organism Decubitus ulcer Qualifiers: Pressure injury location: sacral region Pressure injury stage: unspecified pressure injury stage Qualified Code(s): L89.159 - Pressure ulcer of sacral region, unspecified stage UTI (urinary tract infection) Qualifiers: Urinary tract infection type: site unspecified Hematuria presence: without hematuria Qualified Code(s): N39.0 - Urinary tract infection, site not specified Instructions: How to Prevent Pressure Injuries (ED) Condition: Stable Pt referred to PMD for follow-up: Yes IPMP verified?: No Allergies/Adverse Reactions: Allergies codeine Adverse Reaction (Verified 02/05/19 20:10) iodine Adverse Reaction (Verified 02/05/19 20:10) metoclopramide Adverse Reaction (Verified 02/05/19 20:10) contrast Adverse Reaction (Uncoded 10/29/18 17:19) IV dye Adverse Reaction (Uncoded 10/29/18 17:19) Home Medications: Ambulatory Orders Aspirin [Aspirin EC] 81 mg PO DAILY 08/21/17 L.acidoph,Paracasei, B.lactis [Probiotic] 1 each PO BID 05/08/18 Magnesium Oxide [Mag-Ox] 400 mg PO DAILY 05/08/18 Oxcarbazepine [Trileptal] 300 mg PO BEDTIME 05/08/18 Polyethylene Glycol 3350 [Miralax] 17 gm PO BEDTIME 05/08/18 Lisinopril [Zestril] 40 mg PO BID #60 tablet 05/11/18 Metformin HCl [Glucophage] 500 mg PO DAILYWM #30 tablet 05/19/18 Cyanocobalamin/Folic Acid [Vitamin V61-Atooz Acid Tablet] 1,000 mcg PO DAILY 03/02 Ascorbic Acid 500 mg PO DAILY 07/12/18 Alprazolam [Xanax] 0.5 mg PO DAILY 10/29/18 Clonidine HCl 0.1 mg PO BID 10/29/18 Insulin Lispro [Humalog] 1 unit SQ TID 10/29/18 Acetaminophen [Tylenol] 500 mg PO Q8H 02/05/19 Acetaminophen [Tylenol] 650 mg RC Q8HR PRN 02/05/19 Bisacodyl [Laxative] 10 mg PO DAILY PRN 02/05/19 Dimethicone [Monistat Soothing Care] 42 gm TP BID 02/05/19 Ergocalciferol (Vitamin D2) [Vitamin D2] 50,000 unit PO WEEKLY 02/05/19 Hydrocodone Bit/Acetaminophen [[place] 5-325] 1 each PO Q6HR PRN 02/05/19 Insulin Glargine,Hum.rec.anlog [Lantus] 5 unit SUBCUT BEDTIME 02/05/19 Ipratropium/Albuterol Neb [Duoneb] 1 vial NEB RTQ4H PRN 02/05/19 Magnesium Hydroxide [Milk of Magnesia] 30 ml PO DAILY PRN 02/05/19 Nitrofurantoin Monohyd/M-Cryst [Macrobid 100 mg Capsule] 100 mg PO BEDTIME 02/05 Nystatin [Nystop Powder] 1 applic TP TID 02/05/19 Quetiapine Fumarate [Seroquel] 25 mg PO BEDTIME 02/05/19 Transfer Form Completed: Yes Disposition Discussed With: Family
[2019-02-05 22:34] VITALS: BP 125/39; TEMP 98.2
== END 2019-02-05 22:45 | disposition short-term general hospital (02) ==
LOC: ED 19:45
DX: A41.9 Sepsis, unspecified organism (principal); L89.159 Pressure ulcer of sacral region, unspecified stage; N39.0 Urinary tract infection, site not specified; E11.9 Type 2 diabetes mellitus without complications; E78.5 Hyperlipidemia, unspecified; I10 Essential (primary) hypertension; N18.9 Chronic kidney disease, unspecified; Z87.440 Personal history of urinary (tract) infections; Z79.899 Other long term (current) drug therapy; Z87.19 Personal history of other diseases of the digestive system; Z86.73 Personal history of transient ischemic attack (TIA), and cerebral infarction without residual deficits
CPT/HCPCS: 36415; 80053; 81001; 82803; 83605; 84145; 85008; 85025; 85651; 87040; 87070; 87086; 87186; 93005; 93010; 96365; 96375; 99285

== ENCOUNTER 2019-02-05 22:47 | Outpatient (CLI) ==
[2019-02-05 20:06] VITALS: BMI 28.6
== END 2019-02-05 23:14 | disposition short-term general hospital (02) ==
LOC: AMBL 22:47
PROVIDERS: ATTEND Family Medicine
DX: R40.4 Transient alteration of awareness (principal); A41.9 Sepsis, unspecified organism; N39.0 Urinary tract infection, site not specified; L89.159 Pressure ulcer of sacral region, unspecified stage